=== PATIENT | female | born 1960 | race African-American/Black ===

== ENCOUNTER 2018-07-03 01:13 | Inpatient (IN) | payer MEDICARE, BC ==
[~2018-07-03] VITALS: Ht 170.2 cm; Wt 92.7 kg
[2018-07-03] VITALS (12 sets, daily range): BP systolic 62–120; BP diastolic 27–52; PULSE 74–84; RESP 16–20; Ht 170.2 cm; Wt 92.7 kg
[~2018-07-03 01:13] MED LIST: BACL10TA PO; CLOP75TA19 PO; HYDR-3025 PO; SEVE800T7 PO
[2018-07-03] MEDS ORDERED: morphine 4 MG/ML VIAL IV STA (03:34)
[2018-07-03] MEDS ORDERED: ONDANSETRON 4 MG INJ IV STA (03:34)
--- NOTE | 2018-07-03 05:36 | ERD ---
ER Documentation Chief Complaint Chief Complaint weakness vomiting fell tonight c/o lt knee pain. on dialysis HPI This is a 57-year-old female who complains of generalized weakness he suffered a mechanical fall today. She complains of left knee pain status post mechanical fall. Denies LOC. No fevers no chills. No nausea no vomiting. No other current complaints. ROS All systems reviewed and are negative except as per history of present illness. Medications Home Meds Reported Medications Hydrocodone Bit-Acetaminophen* (Vicodin* ES) 7.5-300 Mg Tablet, 1 TAB PO BID PRN for SEVERE PAIN LEVEL 7-10, TAB 03/12/16 Sevelamer Carbonate* (Renvela*) 800 Mg Tablet, 0.8 GM PO TID, TAB 03/12/16 Baclofen* (Baclofen*) 10 Mg Tablet, 10 MG PO TID, TAB 07/13/15 Clopidogrel Bisulfate (Plavix) 75 Mg Tablet, 75 MG PO DAILY 05/31/11 Allergies Allergies: Coded Allergies: No Known Drug Allergy (Verified Allergy, Unknown, 04/02/16) PMhx/Soc History of Surgery: Yes (av shunt placement, laser eye surgery) Anesthesia Reaction: No Hx Neurological Disorder: Yes (paralysis) Hx Respiratory Disorders: No Hx Cardiac Disorders: Yes (cva,anemia) Hx Psychiatric Problems: No Hx Miscellaneous Medical Probl: Yes (DM, kidney failure, dialysis MWF) Hx Alcohol Use: Yes (occassional) Hx Substance Use: No Hx Tobacco Use: No Smoking Status: Never smoker Physical Exam Vitals Vital Signs Date Temp Pulse Resp B/P (MAP) Pulse Ox O2 O2 Flow FiO2 Time Delivery Rate 07/03/18 61 15 106/55 99 Room Air 03:22 (72) 07/03/18 96.5 57 16 133/66 100 01:18 (88) Physical Exam Const: No acute distress Head: Atraumatic Eyes: Normal Conjunctiva ENT: Normal External Ears, Nose and Mouth. Neck: Full range of motion. No meningismus. Resp: Clear to auscultation bilaterally Cardio: Regular rate and rhythm, no murmurs Abd: Soft, non tender, non distended. Normal bowel sounds Skin: No petechiae or rashes Back: No midline or flank tenderness Ext: No cyanosis, or edema Neur: Awake and alert Psych: Normal Mood and Affect Results 24 hrs Current Medications Medications Dose Sig/Lucinda Start Time Status Last (Trade) Ordered Route PRN Stop Time Admin Dose Reason Admin Morphine 4 mg ONCE STAT 07/03/18 DC Sulfate IV 03:34 07/03/18 (morphine) 03:36 Ondansetron 4 mg ONCE STAT 07/03/18 DC HCl (Zofran IV 03:34 07/03/18 Inj) 03:36 Procedures/MDM X-ray Knee 3V Interpreted by me: Bones: Distal left femoral fracture Joints: [No dislocation] Foreign body: [None] Medical decision makin-year-old mechanical fall distal left femoral fract ure. Patient will be admitted to Dr. Silveira is on-call for the patient. Dr. Gutierres consulted for orthopedics. Departure Diagnosis: Primary Impression: Femoral fracture Encounter type: initial encounter Femur location: unspecified portion of femur Fracture type: closed Fracture morphology: unspecified fracture morphology Laterality: left Qualified Codes: S72.92XA - Unspecified fracture of left femur, initial encounter for closed fracture Condition: Serious CIERRA ROSSI Jul 03, 2018 05:36
[2018-07-03] MEDS ORDERED: ACETAMINOPHEN 325 MG TAB PO PRN (12:00)
[2018-07-03] MEDS ORDERED: HYDROmorphONE 0.5 MG/0.5 ML SYG IV PRN (12:00)
--- NOTE | 2018-07-03 12:48 | HP ---
Date/Time of Note Date/Time of Note DATE: 07/03/18 TIME: 12:41 Assessment/Plan VTE Prophylaxis Pharmacological prophylaxis: heparin Lines/Catheters IV Catheter Type (from [facility] Saline Lock Assessment/Plan Assessment/Plan -Acute comminuted distal left femoral fracture without dislocation. Dr. Gutierres is asked to see patient in orthopedic surgery consultation. -Hemodialysis dependent end-stage renal disease. Patient had her hemodialysis yesterday. Dr. Tucker is asked to see patient in nephrology consultation. -Diabetes mellitus -History of cerebrovascular accident. Continue patient on Plavix. -Anemia of chronic disease. Continue to monitor hemoglobin and hematocrit. Currently stable. -Chronic dislocation of the left shoulder. No acute issues. -Mineral bone disease Further recommendations based on clinical course. Plan of care discussed with Dr. Rousseau. Result Diagram: 07/03/18 0542 07/03/18 0543 Results 24hrs Laboratory Tests Test 07/03/18 05:42 07/03/18 05:43 White Blood Count 11.6 H Red Blood Count 3.00 #L Hemoglobin 9.3 L Hematocrit 27.7 L Mean Corpuscular Volume 92.3 Mean Corpuscular Hemoglobin 31.0 Mean Corpuscular Hemoglobin Concent 33.6 Red Cell Distribution Width 13.6 Platelet Count 267 Mean Platelet Volume 10.2 # Immature Granulocytes % 0.300 Neutrophils % 87.1 H Lymphocytes % 7.4 L Monocytes % 4.8 Eosinophils % 0.2 Basophils % 0.2 Nucleated Red Blood Cells % 0.0 Immature Granulocytes # 0.040 H Neutrophils # 10.1 H Lymphocytes # 0.9 Monocytes # 0.6 Eosinophils # 0.0 Basophils # 0.0 Nucleated Red Blood Cells # 0.0 Sodium Level 141 Potassium Level 5.5 H Chloride Level 103 Carbon Dioxide Level 29 Anion Gap 9 Blood Urea Nitrogen 19 Creatinine 4.74 H Est Glomerular Filtrat Rate mL/min 11 L Glucose Level 178 Calcium Level 9.6 Troponin I 0.032 HPI/ROS Admit Date/Time Admit Date/Time Jul 03, 2018 at 05:32 Hx of Present Illness The patient is 57-year-old female with history of cerebrovascular accident with left-sided weakness, end-stage renal disease, on hemodialysis 3 times per week, anemia, diabetes and chronic dislocation of the left shoulder. Patient is wheelchair-bound. Patient presented to emergency room with complaints of generalized weakness and extreme left knee pain. Patient sustained a mechanical ground-level fall when she was helped to transfer from [facility] to the wheelchair. Patient denies any fever denies she is chills denies nausea vomiting diarrhea. X-ray revealed acute comminuted distal left femoral fracture without dislocation. Patient will be admitted for further evaluation and management. ROS 12 point review of system is negative except for what mentioned in HPI PMH/Family/Social Past Medical History Medical History: diabetes, renal disease, other (CVA) Medications Current Medications Acetaminophen (Tylenol Tab) 650 mg Q4H PRN PO MILD PAIN(1-3)OR ELEVATED TEMP; Start 07/03/18 at 12:00; Status UNV Acetaminophen/ Hydrocodone Bitart ([place] (5/325)) 1 tab Q4H PRN PO MODERATE PAIN LEVEL 4-6; Start 07/03/18 at 12:00; Status UNV Hydromorphone HCl (Dilaudid) 0.5 mg Q4H PRN IV SEVERE PAIN LEVEL 7-10; Start 07/03/18 at 12:00; Status UNV Coded Allergies: No Known Drug Allergy (Unverified Allergy, Unknown, 07/03/18) Past Surgical History Past Surgical Hx: other (av shunt placement, laser eye surgery) Family History Significant Family History: no pertinent family hx Social History Smoking Status: Never smoker Exam/Review of Systems Vital Signs Vitals Vital Signs Date Temp Pulse Resp B/P (MAP) Pulse Ox O2 O2 Flow FiO2 Time Delivery Rate 07/03/18 98.3 75 20 100/51 100 Room Air 09:04 (67) Exam Constitutional: alert, oriented Head: normocephalic Neck: supple Respiratory: clear to auscultation Cardiovascular: nl pulses Gastrointestinal: soft, non-tender Musculoskeletal: other (Left leg pain) Extremities: normal pulses Neurological: other (Left-sided weakness from previous stroke) Skin: nl JESSICA Logan Jul 03, 2018 12:48
--- NOTE | 2018-07-03 14:00 | CONS ---
Date/Time of Note Date/Time of Note DATE: 07/03/18 TIME: 13:58 Assessment/Plan Assessment/Plan Assessment/Plan 57 yo Female with 1) Acute Distal Left Femoral Comminuted Fracture 2) S/p Mechanical Fall 3) ESRD on HD every MWF 4) Anemia, Chronic, CKD 5) MBD, CKD 6) Chronic HTN 7) CAD, Chronic 8) DM with ESRD 9) Hx of CVA with residual left sided deficit 10) Chronic Lower back pain 11) Mild Hyperkalemia S/p HD yesterday Patients pain is controlled, BP ok, Hgb Stable Cont medical management Plan for HD tomorrow, Will cont MWF schedule. Pt is currently NPO while awaiting Ortho Sx IF NO OR, and diet resumed then Low K diet Pt will also need dose of Veltassa or Kayexalate prn for K>5.5. Thank you for the opportunity to participate in the care of Ms Garcia. Result Diagram: 07/03/18 0542 07/03/18 0543 Results 24hrs Laboratory Tests Test 07/03/18 05:42 07/03/18 05:43 White Blood Count 11.6 H Red Blood Count 3.00 #L Hemoglobin 9.3 L Hematocrit 27.7 L Mean Corpuscular Volume 92.3 Mean Corpuscular Hemoglobin 31.0 Mean Corpuscular Hemoglobin Concent 33.6 Red Cell Distribution Width 13.6 Platelet Count 267 Mean Platelet Volume 10.2 # Immature Granulocytes % 0.300 Neutrophils % 87.1 H Lymphocytes % 7.4 L Monocytes % 4.8 Eosinophils % 0.2 Basophils % 0.2 Nucleated Red Blood Cells % 0.0 Immature Granulocytes # 0.040 H Neutrophils # 10.1 H Lymphocytes # 0.9 Monocytes # 0.6 Eosinophils # 0.0 Basophils # 0.0 Nucleated Red Blood Cells # 0.0 Sodium Level 141 Potassium Level 5.5 H Chloride Level 103 Carbon Dioxide Level 29 Anion Gap 9 Blood Urea Nitrogen 19 Creatinine 4.74 H Est Glomerular Filtrat Rate mL/min 11 L Glucose Level 178 Calcium Level 9.6 Troponin I 0.032 Consultation Date/Type/Reason Admit Date/Time Jul 03, 2018 at 05:32 Date of Consultation: Jul 03, 2018 Type of Consult Nephrology Reason for Consultation ESRD, HD Requesting Provider: JESSICA GROVE Hx of Present Illness 57 yo Female with Hx of ESRD on HD every Saturday, Saturday and Saturday, Last HD yesterday at [facility] without complication who presented to ED at [facility] unfortunately had mechanical fall while trying to use bathroom and fell on left side. Pt have severe pain and was found to have left femoral comminuted fracture and admitted for further evaluation and treatment by Orthopedic Sx. Nephrology consulted for ESRD, HD Managment. Constitutional: no complaints; No requiring O2 Respiratory: no complaints Cardiovascular: no complaints Gastrointestinal: no complaints Musculoskeletal: bone/joint pain, restricted range of motion Neurologic: focal-weakness Endocrine: no complaints Lymphatic: no complaints Psychological: no complaints Immunologic: no complaints Past Medical History Medical History: coronary artery disease, diabetes, hypertension, renal disease, other (CVA) Medications Current Medications Acetaminophen (Tylenol Tab) 650 mg Q4H PRN PO MILD PAIN(1-3)OR ELEVATED TEMP; Start 07/03/18 at 12:00 Acetaminophen/ Hydrocodone Bitart ([place] (5/325)) 1 tab Q4H PRN PO MODERATE PAIN LEVEL 4-6; Start 07/03/18 at 12:00 Hydromorphone HCl (Dilaudid) 0.5 mg Q4H PRN IV SEVERE PAIN LEVEL 7-10 Last administered on 07/03/18at 13:16; Admin Dose 0.5 MG; Start 07/03/18 at 12:00 Allergies: Coded Allergies: No Known Drug Allergy (Unverified Allergy, Unknown, 07/03/18) Past Surgical History Past Surgical Hx: other (av shunt placement, laser eye surgery) Family History Significant Family History: no pertinent family hx Social History Alcohol Use: none Smoking Status: Never smoker Drug Use: none Exam/Review of Systems Vital Signs Vitals Vital Signs Date Temp Pulse Resp B/P (MAP) Pulse Ox O2 O2 Flow FiO2 Time Delivery Rate 07/03/18 98.3 75 20 100/51 100 Room Air 09:04 (67) Exam Constitutional: alert, oriented; No distress ENMT: mucosa pink and moist Neck: No jvd Respiratory: clear to auscultation; No labored breathing Cardiovascular: regular rate and rhythm; No edema Gastrointestinal: soft Extremities: No edema Neurological: CHRONIC DISEASE EPIDEMIOLOGIST II-XII intact, nl mental status, nl speech, focal weakness (Left side) Skin: nl turgor; No rash or lesions, No diaphoresis Medications Medications Current Medications Acetaminophen (Tylenol Tab) 650 mg Q4H PRN PO MILD PAIN(1-3)OR ELEVATED TEMP; Start 07/03/18 at 12:00 Acetaminophen/ Hydrocodone Bitart ([place] (5/325)) 1 tab Q4H PRN PO MODERATE PAIN LEVEL 4-6; Start 07/03/18 at 12:00 Hydromorphone HCl (Dilaudid) 0.5 mg Q4H PRN IV SEVERE PAIN LEVEL 7-10 Last administered on 07/03/18at 13:16; Admin Dose 0.5 MG; Start 07/03/18 at 12:00 Imaging Imaging IMPRESSION: 1. Acute comminuted distal left femoral fracture without dislocation. 2. Moderate degenerate joint disease left knee. RPTAT:AAJJ Physician Aure Date Time Electronically viewed and signed by Shona Johnson Physician on 07/03/2018 04:30 SHARON ESPINOZA MD Jul 03, 2018 14:00
[2018-07-03] MEDS ORDERED: ZOLPIDEM 5 MG TAB PO PRN (14:30)
[2018-07-03] MEDS ORDERED: SOD CHLORIDE 0.9% 250 ML IV ONE (17:00)
[2018-07-03] MEDS: FAMOTIDINE 20 MG TAB PO SCH (17:10)
[2018-07-03] MEDS: SEVELAMER CARBONATE 0.8 GM PKT PO SCH (17:10)
[2018-07-03] MEDS ORDERED: morphine 2 MG INJ IV PRN (17:30)
[2018-07-03] MEDS ORDERED: SODIUM CHLORIDE 0.9% 250 ML BAG IV* PRN (17:30)
[2018-07-03] MEDS ORDERED: morphine 4 MG/ML VIAL IV PRN (17:30)
--- NOTE | 2018-07-03 20:57 | CONS ---
DATE OF ADMISSION: 07/03/2018 DATE OF CONSULTATION: 07/03/2018 HISTORY OF PRESENT ILLNESS: The patient is a 57-year-old female who was admitted on 07/03/2018 when she was brought into the emergency room because of the painful swelling involving her left knee. She has a left-sided hemiplegia because of the CVA in 2010 and her mobility has been compromised and she has been wheelchair bound following her ankle injury. She has multiple medical problems including end-stage renal disease on dialysis, diabetes mellitus, a nemia of chronic disease, chronic dislocation of her left shoulder. She claims that she was dropped while her family members who were trying to position her over the dayanara let. PHYSICAL EXAMINATION: My examination revealed a 57-year-old female who was not in any acute distress . Her left lower extremity was immobilized in a long leg posterior splint. There was tenderness and swelling over the supracondylar area of the left lower extremity. Neurologic was not possible becau se of the left-sided hemiplegia from stroke. However, there were no signs of acute circulatory compr omise. X-rays of the left knee revealed a severely comminuted supracondylar fracture of the distal femur of the left knee. DIAGNOSTIC IMPRESSION: Comminuted and displaced supracondylar fracture of the left femur at the left knee. This patient need a surgical treatment, namely ORIF of the supracondylar fracture of the left femur a t the left knee as soon as she can be medically cleared for surgery. Because of the Plavix that she has been taking, we will wait for medical clearance before planning a knee surgery. Dictated By: ADÁN ROJAS/NTS Conf#: [id number] DID#: [id number] CC: GORDON HUDSON MD;*EndCC*
[2018-07-03] MEDS: BACLOFEN 10 MG TAB PO SCH (21:00)
[2018-07-03] MEDS: HEPARIN 5,000 UNIT/1 ML VIAL SC SCH (21:31)
[2018-07-04] VITALS (18 sets, daily range): BP systolic 80–141; BP diastolic 33–72; PULSE 71–85; RESP 18–20
[2018-07-04] MEDS: SEVELAMER CARBONATE 0.8 GM PKT PO SCH ×3 (07:50→17:19)
[2018-07-04] MEDS: BACLOFEN 10 MG TAB PO SCH ×3 (09:00→21:43)
[2018-07-04] MEDS: HEPARIN 5,000 UNIT/1 ML VIAL SC SCH ×2 (09:00→22:13)
[2018-07-04] MEDS: FAMOTIDINE 20 MG TAB PO SCH (09:00)
[2018-07-04] MEDS ORDERED: CLOPIDOGREL 75 MG TAB PO SCH (09:00)
--- NOTE | 2018-07-04 10:19 | CONS ---
Date/Time of Note Date/Time of Note DATE: 07/04/18 TIME: 10:17 Assessment/Plan Assessment/Plan Assessment/Plan 57 yo Female with 1) Acute Distal Left Femoral Comminuted Fracture 2) S/p Mechanical Fall 3) ESRD on HD every MWF 4) Anemia, Chronic, CKD 5) MBD, CKD 6) Chronic HTN 7) CAD, Chronic 8) DM with ESRD 9) Hx of CVA with residual left sided deficit 10) Chronic Lower back pain 11) Hyperkalemia On HD, Stable Hypotension resolved. Cont current treatment PRBC transfusion going Ortho consult reviewed. Awaiting Medical Clearance prior to Knee Surgery. Thank you for the opportunity to participate in the care of Ms Garcia. Result Diagram: 07/04/18 0444 07/04/18 0444 Results 24hrs Laboratory Tests Test 07/03/18 15:54 07/04/18 04:41 07/04/18 04:44 Bedside Glucose 112 Hepatitis B Surface Antigen NEGATIVE White Blood Count 7.4 # Red Blood Count 2.61 L Hemoglobin 8.0 L Hematocrit 24.1 L Mean Corpuscular Volume 92.3 Mean Corpuscular Hemoglobin 30.7 Mean Corpuscular Hemoglobin Concent 33.2 Red Cell Distribution Width 13.5 Platelet Count 251 Mean Platelet Volume 10.4 Immature Granulocytes % 0.300 Neutrophils % 51.1 Lymphocytes % 34.4 Monocytes % 9.6 Eosinophils % 3.9 Basophils % 0.7 Nucleated Red Blood Cells % 0.0 Immature Granulocytes # 0.020 Neutrophils # 3.8 Lymphocytes # 2.5 Monocytes # 0.7 Eosinophils # 0.3 Basophils # 0.1 Nucleated Red Blood Cells # 0.0 Sodium Level 141 Potassium Level 6.0 H Chloride Level 103 Carbon Dioxide Level 29 Anion Gap 9 Blood Urea Nitrogen 32 #H Creatinine 7.10 #H Est Glomerular Filtrat Rate mL/min 7 L Glucose Level 96 # Hemoglobin A1c 5.8 Calcium Level 9.7 Phosphorus Level 6.8 H Magnesium Level 2.3 Consultation Date/Type/Reason Admit Date/Time Jul 03, 2018 at 05:32 Initial Consult Date 07/03/18 Type of Consult Nephrology Requesting Provider: JESSICA GROVE 24 HR Interval Summary Free Text/Dictation Pt seen and examined on HD Receiving PRBC transfusion No new complaints. Constitutional: requiring O2 Exam/Review of Systems Vital Signs Vitals Vital Signs Date Temp Pulse Resp B/P (MAP) Pulse Ox O2 O2 Flow FiO2 Time Delivery Rate 07/04/18 98.2 84 18 101/52 95 07:46 (68) 07/03/18 Room Air 20:20 Exam Constitutional: No distress Head: atraumatic Eyes: EOMI ENMT: mucosa pink and moist Neck: No jvd Respiratory: clear to auscultation Cardiovascular: regular rate and rhythm, edema Gastrointestinal: soft Neurological: ACCOUNT REPRESENTATIVE II-XII intact, nl mental status, focal weakness; No confused, No lethargic Skin: No diaphoresis Medications Medications Current Medications Acetaminophen/ Hydrocodone Bitart ([place] (5/325)) 1 tab Q4H PRN PO MODERATE PAIN LEVEL 4-6; Start 07/03/18 at 12:00 Baclofen (Lioresal) 10 mg TID PO ; Start 07/03/18 at 21:00 Sevelamer Carbonate (Renvela) 0.8 gm WITH MEALS PO Last administered on 07/03/18at 17:10; Admin Dose 0.8 GM; Start 07/03/18 at 17:55 Ondansetron HCl (Zofran Inj) 4 mg Q6H PRN IV NAUSEA AND/OR VOMITING; Start 07/03/18 at 14:30 Acetaminophen (Tylenol Tab) 650 mg Q6H PRN PO PAIN LEVEL 1-3 OR FEVER; Start 07/03/18 at 14:30 Docusate Sodium (Colace) 100 mg Q12H PRN PO CONSTIPATION; Start 07/03/18 at 14:30 Bisacodyl (Dulcolax) 5 mg DAILY PRN PO CONSTIPATION; Start 07/03/18 at 14:30 Zolpidem Tartrate (Ambien) 5 mg QHS PRN PO SLEEP; Start 07/03/18 at 14:30 Famotidine (Pepcid) 20 mg DAILY PO Last administered on 07/03/18at 17:10; Admin Dose 20 MG; Start 07/03/18 at 14:30 Heparin Sodium (Porcine) (Heparin (5000 Units/1ml)) 5,000 unit Q12 SC Last administered on 07/03/18at 21:31; Admin Dose 5,000 UNIT; Start 07/03/18 at 21:00 Sodium Chloride (NS) 250 ml ONCE PRN IV* BP SUPPORT; Start 07/03/18 at 17:30; Stop 07/04/18 at 12:00 Morphine Sulfate (morphine) 2 mg Q4H PRN IV PAIN LEVEL 6-10 Last administered on 07/03/18at 21:36; Admin Dose 2 MG; Start 07/03/18 at 17:30 SHARON ESPINOZA MD Jul 04, 2018 10:19
[2018-07-04] MEDS ORDERED: HEPARIN 1000 UNITS/ML 10 ML INJ CATHETER ONE (11:00)
--- NOTE | 2018-07-04 15:46 | PN ---
Date/Time of Note Date/Time of Note DATE: 07/04/18 TIME: 15:46 Assessment/Plan VTE Prophylaxis Risk score (from [facility])>0 risk: 10 SCD applied (from [facility]): No SCD contraindicated: other Pharmacological prophylaxis: other Pharm contraindication: other Lines/Catheters IV Catheter Type (from [facility]): Saline Lock Assessment/Plan Result Diagram: 07/04/184 07/04/184 Results 24hrs Laboratory Tests Test 07/03/18 15:54 07/04/18 04:41 07/04/18 04:44 Bedside Glucose 112 Hepatitis B Surface Antigen NEGATIVE White Blood Count 7.4 # Red Blood Count 2.61 L Hemoglobin 8.0 L Hematocrit 24.1 L Mean Corpuscular Volume 92.3 Mean Corpuscular Hemoglobin 30.7 Mean Corpuscular Hemoglobin Concent 33.2 Red Cell Distribution Width 13.5 Platelet Count 251 Mean Platelet Volume 10.4 Immature Granulocytes % 0.300 Neutrophils % 51.1 Lymphocytes % 34.4 Monocytes % 9.6 Eosinophils % 3.9 Basophils % 0.7 Nucleated Red Blood Cells % 0.0 Immature Granulocytes # 0.020 Neutrophils # 3.8 Lymphocytes # 2.5 Monocytes # 0.7 Eosinophils # 0.3 Basophils # 0.1 Nucleated Red Blood Cells # 0.0 Sodium Level 141 Potassium Level 6.0 H Chloride Level 103 Carbon Dioxide Level 29 Anion Gap 9 Blood Urea Nitrogen 32 #H Creatinine 7.10 #H Est Glomerular Filtrat Rate mL/min 7 L Glucose Level 96 # Hemoglobin A1c 5.8 Calcium Level 9.7 Phosphorus Level 6.8 H Magnesium Level 2.3 Exam/Review of Systems Vital Signs Vitals Vital Signs Date Temp Pulse Resp B/P (MAP) Pulse Ox O2 O2 Flow FiO2 Time Delivery Rate 07/04/18 72 12:10 07/04/18 20 118/72 Room Air 10:54 (87) 07/04/18 98.2 95 07:46 Medications Medications Current Medications Acetaminophen/ Hydrocodone Bitart ([place] (5/325)) 1 tab Q4H PRN PO MODERATE PAIN LEVEL 4-6; Start 07/03/18 at 12:00 Baclofen (Lioresal) 10 mg TID PO Last administered on 07/04/18at 14:42; Admin Dose 10 MG; Start 07/03/18 at 21:00 Sevelamer Carbonate (Renvela) 0.8 gm WITH MEALS PO Last administered on 07/04/18at 14:42; Admin Dose 0.8 GM; Start 07/03/18 at 17:55 Ondansetron HCl (Zofran Inj) 4 mg Q6H PRN IV NAUSEA AND/OR VOMITING; Start 07/03/18 at 14:30 Acetaminophen (Tylenol Tab) 650 mg Q6H PRN PO PAIN LEVEL 1-3 OR FEVER; Start 07/03/18 at 14:30 Docusate Sodium (Colace) 100 mg Q12H PRN PO CONSTIPATION; Start 07/03/18 at 14:30 Bisacodyl (Dulcolax) 5 mg DAILY PRN PO CONSTIPATION; Start 07/03/18 at 14:30 Zolpidem Tartrate (Ambien) 5 mg QHS PRN PO SLEEP; Start 07/03/18 at 14:30 Famotidine (Pepcid) 20 mg DAILY PO Last administered on 07/03/18at 17:10; Admin Dose 20 MG; Start 07/03/18 at 14:30 Heparin Sodium (Porcine) (Heparin (5000 Units/1ml)) 5,000 unit Q12 SC Last ad ministered on 07/03/18at 21:31; Admin Dose 5,000 UNIT; Start 07/03/18 at 21:00 Morphine Sulfate (morphine) 2 mg Q4H PRN IV PAIN LEVEL 6-10 Last administered on 07/03/18at 21:36; Admin Dose 2 MG; Start 07/03/18 at 17:30 ELIO KIRAN Jul 04, 2018 15:46
[2018-07-04] MEDS: HYDROCODONE/APAP (5/325) TAB PO PRN ×2 (17:33→21:44)
[2018-07-05 02:02] VITALS: BP 108/58; PULSE 78; RESP 18
--- NOTE | 2018-07-05 06:59 | CONS ---
Date/Time of Note Date/Time of Note DATE: 07/05/18 TIME: 06:56 Assessment/Plan Assessment/Plan Assessment/Plan 57 yo Female with 1) Acute Distal Left Femoral Comminuted Fracture 2) S/p Mechanical Fall 3) ESRD on HD every MWF 4) Anemia, Chronic, CKD 5) MBD, CKD 6) Chronic HTN 7) CAD, Chronic 8) DM with ESRD 9) Hx of CVA with residual left sided deficit 10) Chronic Lower back pain 11) Hyperkalemia S/p HD 1 Liter removed Received PRBC No labs this am, Ordered CBC and BMP Ortho consult reviewed. Awaiting Medical Clearance prior to Knee Surgery. Thank you for the opportunity to participate in the care of Ms Garcia. Result Diagram: 07/04/18 0444 07/04/184 Consultation Date/Type/Reason Admit Date/Time Jul 03, 2018 at 05:32 Initial Consult Date 07/03/18 Type of Consult Nephrology Requesting Provider: JESSICA GROVE 24 HR Interval Summary Free Text/Dictation Pt does not have any new complaints, No plans for OR today Constitutional: No requiring O2 Exam/Review of Systems Vital Signs Vitals Vital Signs Date Temp Pulse Resp B/P (MAP) Pulse Ox O2 O2 Flow FiO2 Time Delivery Rate 07/05/18 98.6 78 18 108/58 95 02:02 (75) 07/04/18 Room Air 10:54 Intake and Output 07/04/18 07/04/18 07/05/18 1414:59 22:59 06:59 OutputOutput Total 3600 ml BalanceBalance -3600 ml Exam Constitutional: No distress Head: atraumatic Eyes: EOMI Neck: No jvd Respiratory: clear to auscultation Cardiovascular: regular rate and rhythm; No edema Gastrointestinal: soft; No distended Neurological: CHISELER HEAD II-XII intact, nl mental status, focal weakness (Left side) Skin: No diaphoresis Medications Medications Current Medications Acetaminophen/ Hydrocodone Bitart ([place] (5/325)) 1 tab Q4H PRN PO MODERATE PAIN LEVEL 4-6 Last administered on 07/04/18at 21:44; Admin Dose 1 TAB; Start 07/03/18 at 12:00 Baclofen (Lioresal) 10 mg TID PO Last administered on 07/04/18at 21:43; Admin Dose 10 MG; Start 07/03/18 at 21:00 Sevelamer Carbonate (Renvela) 0.8 gm WITH MEALS PO Last administered on 07/04/18at 17:19; Admin Dose 0.8 GM; Start 07/03/18 at 17:55 Ondansetron HCl (Zofran Inj) 4 mg Q6H PRN IV NAUSEA AND/OR VOMITING; Start 07/03/18 at 14:30 Acetaminophen (Tylenol Tab) 650 mg Q6H PRN PO PAIN LEVEL 1-3 OR FEVER; Start 07/03/18 at 14:30 Docusate Sodium (Colace) 100 mg Q12H PRN PO CONSTIPATION; Start 07/03/18 at 14:30 Bisacodyl (Dulcolax) 5 mg DAILY PRN PO CONSTIPATION; Start 07/03/18 at 14:30 Zolpidem Tartrate (Ambien) 5 mg QHS PRN PO SLEEP; Start 07/03/18 at 14:30 Famotidine (Pepcid) 20 mg DAILY PO Last administered on 07/03/18at 17:10; Admin Dose 20 MG; Start 07/03/18 at 14:30 Heparin Sodium (Porcine) (Heparin (5000 Units/1ml)) 5,000 unit Q12 SC Last administered on 07/04/18at 22:13; Admin Dose 5,000 UNIT; Start 07/03/18 at 21:00 Morphine Sulfate (morphine) 2 mg Q4H PRN IV PAIN LEVEL 6-10 Last administered on 07/03/18at 21:36; Admin Dose 2 MG; Start 07/03/18 at 17:30 SHARON ESPINOZA MD Jul 05, 2018 06:59
[2018-07-05 07:51] VITALS: BP 124/55; PULSE 76; RESP 17
[2018-07-05] MEDS: BACLOFEN 10 MG TAB PO SCH ×3 (09:12→20:43)
[2018-07-05] MEDS: SEVELAMER CARBONATE 0.8 GM PKT PO SCH ×3 (09:12→17:55)
[2018-07-05] MEDS: FAMOTIDINE 20 MG TAB PO SCH (09:12)
[2018-07-05] MEDS: HYDROCODONE/APAP (5/325) TAB PO PRN ×2 (09:32→15:13)
[2018-07-05] MEDS: DOCUSATE SODIUM 100 MG CAP PO PRN (09:32)
[2018-07-05] MEDS: HEPARIN 5,000 UNIT/1 ML VIAL SC SCH ×2 (09:34→20:51)
[2018-07-05 14:00] VITALS: BP 120/54; PULSE 67; RESP 19
--- NOTE | 2018-07-05 15:35 | PN ---
Date/Time of Note Date/Time of Note DATE: 07/05/18 TIME: 15:35 Assessment/Plan VTE Prophylaxis [place] [facility] [place]: 10 [place]CD applied [place] [facility] No SCD contraindicated: other Pharmacological prophylaxis: other Pharm contraindication: other Lines/Catheters IV [facility] Type (from [facility] Saline Lock Assessment/Plan Assessment/Plan - Acute comminuted distal left femoral fracture without dislocation. Dr. Gutierres is asked to see patient in orthopedic surgery consultation. -Hemodialysis dependent end-stage renal disease. Patient had her hemodialysis yesterday. Dr. Tucker. is asked to see patient in nephrology consultation. -Diabetes mellitus -History of cerebrovascular accident. Continue patient on Plavix. -Anemia of chronic disease. Continue to monitor hemoglobin and hematocrit. Currently stable. -Chronic dislocation of the left shoulder. No acute issues. -Mineral bone disease Further recommendations based on clinical course. Plan of care discussed with Dr. Rousseau. Result Diagram: 07/05/18 0726 07/05/18 0726 Results 24hrs Laboratory Tests Test 07/05/18 07:26 07/05/18 07:39 White Blood Count 7.7 Red Blood Count 3.50 #L Hemoglobin 10.4 #L Hematocrit 32.1 #L Mean Corpuscular Volume 91.7 Mean Corpuscular Hemoglobin 29.7 Mean Corpuscular Hemoglobin Concent 32.4 Red Cell Distribution Width 13.6 Platelet Count 141 # Mean Platelet Volume 11.4 H Immature Granulocytes % 0.400 Neutrophils % 49.8 Lymphocytes % 35.5 Monocytes % 10.1 Eosinophils % 3.6 Basophils % 0.6 Nucleated Red Blood Cells % 0.0 Immature Granulocytes # 0.030 Neutrophils # 3.8 Lymphocytes # 2.7 Monocytes # 0.8 Eosinophils # 0.3 Basophils # 0.1 Nucleated Red Blood Cells # 0.0 Sodium Level 141 Potassium Level 5.2 H Chloride Level 100 Carbon Dioxide Level 28 Anion Gap 13 Blood Urea Nitrogen 28 H Creatinine 6.66 H Est Glomerular Filtrat Rate mL/min 8 L Glucose Level 74 Calcium Level 9.9 Lab Scanned Report BLOOD TRANSFUSION Exam/Review of Systems Vital Signs Vitals Vital Signs Date Temp Pulse Resp B/P (MAP) Pulse Ox O2 O2 Flow FiO2 Time Delivery Rate 07/05/18 98.3 76 17 124/55 94 07:51 (78) 07/04/18 Room Air 10:54 Intake and Output 07/04/18 07/04/18 07/05/18 1515:00 23:00 07:00 OutputOutput Total 3600 ml BalanceBalance -3600 ml Medications Medications Current Medications Acetaminophen/ Hydrocodone Bitart ([place] (5/325)) 1 tab Q4H PRN PO MODERATE PAIN LEVEL 4-6 Last administered on 07/05/18 15:13; Admin Dose 1 TAB; Start 07/03/18 at 12:00 Baclofen (Lioresal) 10 mg TID PO Last administered on 07/05/18 14:00; Admin Dose 10 MG; Start 07/03/18 at 21:00 Sevelamer Carbonate (Renvela) 0.8 gm WITH MEALS PO Last administered on 07/05/18 14:00; Admin Dose 0.8 GM; Start 07/03/18 at 17:55 Ondansetron HCl (Zofran Inj) 4 mg Q6H PRN IV NAUSEA AND/OR VOMITING; Start 07/03/18 at 14:30 Acetaminophen (Tylenol Tab) 650 mg Q6H PRN PO PAIN LEVEL 1-3 OR FEVER; Start 07/03/18 at 14:30 Docusate Sodium (Colace) 100 mg Q12H PRN PO CONSTIPATION Last administered on 07/05/18 09:32; Admin Dose 100 MG; Start 07/03/18 at 14:30 Bisacodyl (Dulcolax) 5 mg DAILY PRN PO CONSTIPATION; Start 07/03/18 at 14:30 Zolpidem Tartrate (Ambien) 5 mg QHS PRN PO SLEEP; Start 07/03/18 at 14:30 Famotidine (Pepcid) 20 mg DAILY PO Last administered on 07/05/18 09:12; Admin Dose 20 MG; Start 07/03/18 at 14:30 Heparin Sodium (Porcine) (Heparin (5000 Units/1ml)) 5,000 unit Q12 SC Last administered on 07/05/18 09:34; Admin Dose 5,000 UNIT; Start 07/03/18 at 21:00 Morphine Sulfate (morphine) 2 mg Q4H PRN IV PAIN LEVEL 6-10 Last administered on 07/03/18 21:36; Admin Dose 2 MG; Start 1/3/19 at 17:30 ELIO KIRAN Jul 05, 2018 15:35
[2018-07-06 01:33] VITALS: BP 125/62; PULSE 63; RESP 18
[2018-07-06] MEDS: ONDANSETRON 4 MG INJ IV PRN ×2 (07:43→21:01)
[2018-07-06 08:00] VITALS: BP 120/55; PULSE 68; RESP 16
[2018-07-06] MEDS: SEVELAMER CARBONATE 0.8 GM PKT PO SCH ×3 (08:49→17:32)
[2018-07-06] MEDS: BACLOFEN 10 MG TAB PO SCH ×3 (08:49→20:59)
[2018-07-06] MEDS: FAMOTIDINE 20 MG TAB PO SCH (08:49)
[2018-07-06] MEDS: HEPARIN 5,000 UNIT/1 ML VIAL SC SCH ×2 (08:56→20:59)
[2018-07-06] MEDS: ACETAMINOPHEN 325 MG TAB PO PRN (12:10)
[2018-07-06] MEDS: HYDROCODONE/APAP (5/325) TAB PO PRN (13:15)
[2018-07-06] MEDS ORDERED: KETOROLAC 15 MG INJ IV STA (13:55)
[2018-07-06] MEDS ORDERED: HYDROCODONE/APAP (7.5/325) TAB PO PRN (14:00)
[2018-07-06 14:19] VITALS: BP 109/64; PULSE 62; RESP 18
--- NOTE | 2018-07-06 14:43 | PN ---
Date/Time of Note Date/Time of Note DATE: 07/06/18 TIME: 14:40 Assessment/Plan VTE Prophylaxis Risk score (from [facility])>0 risk: 10 SCD applied (from [facility] [place]): Yes SCD contraindicated: other Pharmacological prophylaxis: other Pharm contraindication: other Lines/Catheters IV Catheter Type (from [facility]): Saline Lock Assessment/Plan Assessment/Plan - Acute comminuted distal left femoral fracture without dislocation. - per ortho - Dr. Gutierres -Hemodialysis dependent end-stage renal disease. Patient had her hemodialysis yesterday. Dr. Tucker. is asked to see patient in nephrology consultation. -Diabetes mellitus -History of cerebrovascular accident. Continue patient on Plavix. -Anemia of chronic disease. Continue to monitor hemoglobin and hematocrit. Currently stable. -Chronic dislocation of the left shoulder. No acute issues. -Mineral bone disease Further recommendations based on clinical course. Plan of care discussed with Dr. Rousseau. Result Diagram: 07/05/1872507/05/18725 Exam/Review of Systems Vital Signs Vitals Vital Signs Date Temp Pulse Resp B/P (MAP) Pulse Ox O2 O2 Flow FiO2 Time Delivery Rate 07/06/18 97.8 62 18 109/64 97 14:19 (79) 07/04/18 Room Air 10:54 Intake and Output 07/05/18 07/05/18 07/06/18 1515:00 23:00 07:00 IntakeIntake Total 60 ml 400 ml BalanceBalance 60 ml 400 ml Medications Medications Current Medications Baclofen (Lioresal) 10 mg TID PO Last administered on 07/06/18at 08:49; Admin Dose 10 MG; Start 07/03/18 at 21:00 Sevelamer Carbonate (Renvela) 0.8 gm WITH MEALS PO Last administered on 07/06/18at 08:49; Admin Dose 0.8 GM; Start 07/03/18 at 17:55 Ondansetron HCl (Zofran Inj) 4 mg Q6H PRN IV NAUSEA AND/OR VOMITING Last administered on 07/06/18at 07:43; Admin Dose 4 MG; Start 07/03/18 at 14:30 Acetaminophen (Tylenol Tab) 650 mg Q6H PRN PO PAIN LEVEL 1-3 OR FEVER Last administered on 07/06/18at 12:10; Admin Dose 650 MG; Start 07/03/18 at 14:30 Docusate Sodium (Colace) 100 mg Q12H PRN PO CONSTIPATION Last administered on 07/05/18at 09:32; Admin Dose 100 MG; Start 07/03/18 at 14:30 Bisacodyl (Dulcolax) 5 mg DAILY PRN PO CONSTIPATION; Start 07/03/18 at 14:30 Zolpidem Tartrate (Ambien) 5 mg QHS PRN PO SLEEP; Start 07/03/18 at 14:30 Famotidine (Pepcid) 20 mg DAILY PO Last administered on 07/06/18at 08:49; Admin Dose 20 MG; Start 07/03/18 at 14:30 Heparin Sodium (Porcine) (Heparin (5000 Units/1ml)) 5,000 unit Q12 SC Last administered on 07/06/18at 08:56; Admin Dose 5,000 UNIT; Start 07/03/18 at 21:00 Morphine Sulfate (morphine) 2 mg Q4H PRN IV PAIN LEVEL 6-10 Last administered on 07/03/18at 21:36; Admin Dose 2 MG; Start 07/03/18 at 17:30 Acetaminophen/ Hydrocodone Bitart ([place] (7.5-325)) 1 tab Q4H PRN PO MODERATE PAIN LEVEL 4-6; Start 07/06/18 at 14:00 ELIO KIRAN Jul 06, 2018 14:43
[2018-07-06 17:52] VITALS: BP 105/52; PULSE 65; RESP 18
--- NOTE | 2018-07-06 18:58 | CONS ---
Date/Time of Note Date/Time of Note DATE: 07/06/18 TIME: 18:57 Assessment/Plan Assessment/Plan Assessment/Plan 57 yo Female with 1) Acute Distal Left Femoral Comminuted Fracture 2) S/p Mechanical Fall 3) ESRD on HD every MWF 4) Anemia, Chronic, CKD 5) MBD, CKD 6) Chronic HTN 7) CAD, Chronic 8) DM with ESRD 9) Hx of CVA with residual left sided deficit 10) Chronic Lower back pain 11) Hyperkalemia Anti emetic Rx HD plan for tomorrow HD MWF schedule Repeat labs in am. Result Diagram: 07/06/18 1551 07/06/18 1550 Results 24hrs Laboratory Tests Test 07/06/18 15:50 07/06/18 15:51 07/06/18 17:57 Sodium Level 139 Potassium Level 5.5 H Chloride Level 99 Carbon Dioxide Level 28 Anion Gap 12 Blood Urea Nitrogen 51 H Creatinine 9.48 #H Est Glomerular Filtrat Rate mL/min 5 L Glucose Level 140 # Calcium Level 9.6 White Blood Count 8.3 Red Blood Count 3.40 L Hemoglobin 10.2 L Hematocrit 31.6 L Mean Corpuscular Volume 92.9 Mean Corpuscular Hemoglobin 30.0 Mean Corpuscular Hemoglobin Concent 32.3 Red Cell Distribution Width 13.5 Platelet Count 273 # Mean Platelet Volume 10.0 Immature Granulocytes % 0.400 Neutrophils % 57.6 Lymphocytes % 28.4 Monocytes % 10.0 Eosinophils % 3.4 Basophils % 0.2 Nucleated Red Blood Cells % 0.0 Immature Granulocytes # 0.030 Neutrophils # 4.8 Lymphocytes # 2.4 Monocytes # 0.8 Eosinophils # 0.3 Basophils # 0.0 Nucleated Red Blood Cells # 0.0 Bedside Glucose 139 Consultation Date/Type/Reason Admit Date/Time Jul 03, 2018 at 05:32 Initial Consult Date 07/03/18 Type of Consult Nephrology Requesting Provider: JESSICA GROVE 24 HR Interval Summary Free Text/Dictation Vomiting Constitutional: No requiring O2 Exam/Review of Systems Vital Signs Vitals Vital Signs Date Temp Pulse Resp B/P (MAP) Pulse Ox O2 O2 Flow FiO2 Time Delivery Rate 07/06/18 65 18 105/52 99 Room Air 17:52 (69) 07/06/18 97.8 14:19 Intake and Output 07/05/18 07/05/18 07/06/18 1515:00 23:00 07:00 IntakeIntake Total 60 ml 400 ml BalanceBalance 60 ml 400 ml Exam Constitutional: distress ENMT: mucosa pink and moist Respiratory: No labored breathing Gastrointestinal: soft Extremities: No edema Neurological: focal weakness (Chronic left side) Medications Medications Current Medications Baclofen (Lioresal) 10 mg TID PO Last administered on 07/06/18 08:49; Admin Dose 10 MG; Start 07/03/18 at 21:00 Sevelamer Carbonate (Renvela) 0.8 gm WITH MEALS PO Last administered on 07/06/18 08:49; Admin Dose 0.8 GM; Start 07/03/18 at 17:55 Ondansetron HCl (Zofran Inj) 4 mg Q6H PRN IV NAUSEA AND/OR VOMITING Last adm inistered on 07/06/18 07:43; Admin Dose 4 MG; Start 07/03/18 at 14:30 Acetaminophen (Tylenol Tab) 650 mg Q6H PRN PO PAIN LEVEL 1-3 OR FEVER Last administered on 07/06/18 12:10; Admin Dose 650 MG; Start 07/03/18 at 14:30 Docusate Sodium (Colace) 100 mg Q12H PRN PO CONSTIPATION Last administered on 07/05/18 09:32; Admin Dose 100 MG; Start 07/03/18 at 14:30 Bisacodyl (Dulcolax) 5 mg DAILY PRN PO CONSTIPATION; Start 07/03/18 at 14:30 Zolpidem Tartrate (Ambien) 5 mg QHS PRN PO SLEEP; Start 07/03/18 at 14:30 Famotidine (Pepcid) 20 mg DAILY PO Last administered on 07/06/18 08:49; Admin Dose 20 MG; Start 07/03/18 at 14:30 Heparin Sodium (Porcine) (Heparin (5000 Units/1ml)) 5,000 unit Q12 SC Last ad ministered on 07/06/18 08:56; Admin Dose 5,000 UNIT; Start 07/03/18 at 21:00 Morphine Sulfate (morphine) 2 mg Q4H PRN IV PAIN LEVEL 6-10 Last administered on 07/03/18 21:36; Admin Dose 2 MG; Start 07/03/18 at 17:30 Acetaminophen/ Hydrocodone Bitart ([place] (7.5-325)) 1 tab Q4H PRN PO MODERATE PAIN LEVEL 4-6; Start 07/06/18 at 14:00 SHARON ESPINOZA MD Jul 06, 2018 18:58
[2018-07-06 20:27] VITALS: BP 107/53; PULSE 60; RESP 18
[2018-07-07] VITALS (18 sets, daily range): BP systolic 108–156; BP diastolic 46–89; PULSE 53–90; RESP 17–18
[2018-07-07] MEDS: ACETAMINOPHEN 325 MG TAB PO PRN ×2 (06:43→23:57)
[2018-07-07] MEDS: SEVELAMER CARBONATE 0.8 GM PKT PO SCH ×3 (07:50→17:55)
[2018-07-07] MEDS ORDERED: KETOROLAC 15 MG INJ IV PRN (08:00)
[2018-07-07] MEDS: BACLOFEN 10 MG TAB PO SCH ×3 (09:00→21:35)
[2018-07-07] MEDS: HEPARIN 5,000 UNIT/1 ML VIAL SC SCH (09:00)
[2018-07-07] MEDS: FAMOTIDINE 20 MG TAB PO SCH (09:00)
--- NOTE | 2018-07-07 12:06 | CONS ---
Date/Time of Note Date/Time of Note DATE: 07/07/18 TIME: 12:06 Assessment/Plan Assessment/Plan Assessment/Plan 57 yo Female with 1) Acute Distal Left Femoral Comminuted Fracture 2) S/p Mechanical Fall 3) ESRD on HD every MWF 4) Anemia, Chronic, CKD 5) MBD, CKD 6) Chronic HTN 7) CAD, Chronic 8) DM with ESRD 9) Hx of CVA with residual left sided deficit 10) Chronic Lower back pain 11) Hyperkalemia Anti emetic Rx HD plan for today prior to OR HD MWF schedule Repeat labs in am. Result Diagram: 07/07/18 0833 07/07/18 0833 Results 24hrs Laboratory Tests Test 07/06/18 15:50 07/06/18 15:51 07/06/18 17:57 07/07/18 08:33 Sodium Level 139 140 Potassium Level 5.5 H 5.6 H Chloride Level 99 99 Carbon Dioxide Level 28 27 Anion Gap 12 14 H Blood Urea Nitrogen 51 H 56 H Creatinine 9.48 #H 10.65 H Est Glomerular Filtrat 5 L 4 L Rate mL/min Glucose Level 140 # 113 Calcium Level 9.6 10.4 H White Blood Count 8.3 8.6 Red Blood Count 3.40 L 3.60 L Hemoglobin 10.2 L 10.7 L Hematocrit 31.6 L 33.2 L Mean Corpuscular Volume 92.9 92.2 Mean Corpuscular 30.0 29.7 Hemoglobin Mean Corpuscular 32.3 32.2 Hemoglobin Concent Red Cell Distribution 13.5 13.4 Width Platelet Count 273 # 312 Mean Platelet Volume 10.0 9.6 Immature Granulocytes % 0.400 0.300 Neutrophils % 57.6 62.3 Lymphocytes % 28.4 24.4 Monocytes % 10.0 9.7 Eosinophils % 3.4 3.0 Basophils % 0.2 0.3 Nucleated Red Blood 0.0 0.0 Cells % Immature Granulocytes # 0.030 0.030 Neutrophils # 4.8 5.3 Lymphocytes # 2.4 2.1 Monocytes # 0.8 0.8 Eosinophils # 0.3 0.3 Basophils # 0.0 0.0 Nucleated Red Blood 0.0 0.0 Cells # Bedside Glucose 139 Consultation Date/Type/Reason Admit Date/Time Jul 03, 2018 at 05:32 Initial Consult Date 07/03/18 Type of Consult Nephrology Requesting Provider: JESSICA GROVE 24 HR Interval Summary Free Text/Dictation Pt pending HD today. Plan for OR later today Exam/Review of Systems Vital Signs Vitals Vital Signs Date Temp Pulse Resp B/P (MAP) Pulse Ox O2 O2 Flow FiO2 Time Delivery Rate 07/07/18 97.9 53 18 143/65 100 Room Air 07:25 (91) Intake and Output 07/06/18 07/06/18 07/07/18 1515:00 23:00 07:00 IntakeIntake Total 410 ml OutputOutput Total 200 ml BalanceBalance 210 ml Exam Constitutional: No distress ENMT: mucosa pink and moist Neck: No jvd Respiratory: clear to auscultation; No labored breathing Cardiovascular: regular rate and rhythm, edema Gastrointestinal: soft, non-tender Extremities: edema, tenderness Neurological: No lethargic Lymph: No enlarged Medications Medications Current Medications Baclofen (Lioresal) 10 mg TID PO Last administered on 07/06/18at 20:59; Admin Dose 10 MG; Start 07/03/18 at 21:00 Sevelamer Carbonate (Renvela) 0.8 gm WITH MEALS PO Last administered on 07/06/18at 08:49; Admin Dose 0.8 GM; Start 07/03/18 at 17:55 Ondansetron HCl (Zofran Inj) 4 mg Q6H PRN IV NAUSEA AND/OR VOMITING Last administered on 07/06/18at 21:01; Admin Dose 4 MG; Start 07/03/18 at 14:30 Acetaminophen (Tylenol Tab) 650 mg Q6H PRN PO PAIN LEVEL 1-3 OR FEVER Last administered on 07/07/18at 06:43; Admin Dose 650 MG; Start 07/03/18 at 14:30 Docusate Sodium (Colace) 100 mg Q12H PRN PO CONSTIPATION Last administered on 07/05/18at 09:32; Admin Dose 100 MG; Start 07/03/18 at 14:30 Bisacodyl (Dulcolax) 5 mg DAILY PRN PO CONSTIPATION; Start 07/03/18 at 14:30 Zolpidem Tartrate (Ambien) 5 mg QHS PRN PO SLEEP; Start 07/03/18 at 14:30 Famotidine (Pepcid) 20 mg DAILY PO Last administered on 07/06/18at 08:49; Admin Dose 20 MG; Start 07/03/18 at 14:30 Heparin Sodium (Porcine) (Heparin (5000 Units/1ml)) 5,000 unit Q12 SC Last administered on 07/06/18at 20:59; Admin Dose 5,000 UNIT; Start 07/03/18 at 21:00 Morphine Sulfate (morphine) 2 mg Q4H PRN IV PAIN LEVEL 6-10 Last administered on 07/03/18at 21:36; Admin Dose 2 MG; Start 07/03/18 at 17:30; Status Hold Acetaminophen/ Hydrocodone Bitart ([place] (7.5-325)) 1 tab Q4H PRN PO MODERATE PAIN LEVEL 4-6; Start 07/06/18 at 14:00; Status Hold Ketorolac Tromethamine (Toradol) 15 mg Q6H PRN IV PAIN; Start 07/07/18 at 08:00; Stop 07/10/18 at 07:59 SHARON ESPINOZA MD Jul 07, 2018 12:06
--- NOTE | 2018-07-07 16:34 | PN ---
Date/Time of Note Date/Time of Note DATE: 07/07/18 TIME: 16:31 Assessment/Plan VTE Prophylaxis Risk score (from [facility] [place])>0 risk: 7 SCD applied (from [facility] [place]): Yes Pharmacological prophylaxis: NA/contraindicated Pharm contraindication: surgical contra Lines/Catheters [facility] (from [facility] Saline Lock Assessment/Plan Hospital Course Plavix is held. Patient will undergo ORIF of the supracondylar fracture of the left femur at the left knee today. Assessment/Plan -Acute comminuted distal left femoral fracture without dislocation. Dr. Gutierres is following in orthopedic surgery consultation. -Hemodialysis dependent end-stage renal disease. Continue on hemodialysis. Dr. Tucker is following in nephrology consultation. -Diabetes mellitus -History of cerebrovascular accident. -Anemia of chronic disease. Continue to monitor hemoglobin and hematocrit. Currently stable. -Chronic dislocation of the left shoulder. No acute issues. -Mineral bone disease Further recommendations based on clinical course. Plan of care discussed with Dr. Rousseau. Result Diagram: 07/07/18 0833 07/07/18 0833 Results 24hrs Laboratory Tests Test 07/06/18 17:57 07/07/18 08:33 Bedside Glucose 139 White Blood Count 8.6 Red Blood Count 3.60 L Hemoglobin 10.7 L Hematocrit 33.2 L Mean Corpuscular Volume 92.2 Mean Corpuscular Hemoglobin 29.7 Mean Corpuscular Hemoglobin Concent 32.2 Red Cell Distribution Width 13.4 Platelet Count 312 Mean Platelet Volume 9.6 Immature Granulocytes % 0.300 Neutrophils % 62.3 Lymphocytes % 24.4 Monocytes % 9.7 Eosinophils % 3.0 Basophils % 0.3 Nucleated Red Blood Cells % 0.0 Immature Granulocytes # 0.030 Neutrophils # 5.3 Lymphocytes # 2.1 Monocytes # 0.8 Eosinophils # 0.3 Basophils # 0.0 Nucleated Red Blood Cells # 0.0 Sodium Level 140 Potassium Level 5.6 H Chloride Level 99 Carbon Dioxide Level 27 Anion Gap 14 H Blood Urea Nitrogen 56 H Creatinine 10.65 H Est Glomerular Filtrat Rate mL/min 4 L Glucose Level 113 Calcium Level 10.4 H Exam/Review of Systems Vital Signs Vitals Vital Signs Date Temp Pulse Resp B/P (MAP) Pulse Ox O2 O2 Flow FiO2 Time Delivery Rate 07/07/18 98.2 67 18 109/89 97 15:06 (96) 07/07/18 Room Air 07:25 Intake and Output 07/06/18 07/06/18 07/07/18 1515:00 23:00 07:00 IntakeIntake Total 410 ml OutputOutput Total 200 ml BalanceBalance 210 ml Exam Constitutional: alert, oriented Respiratory: clear to auscultation Cardiovascular: nl pulses Gastrointestinal: soft, non-tender Musculoskeletal: other (Left leg pain) Extremities: normal pulses Neurological: other (Left-sided weakness from previous stroke) Skin: nl turgor Medications Medications Current Medications Baclofen (Lioresal) 10 mg TID PO Last administered on 07/06/18 20:59; Admin Dose 10 MG; Start 07/03/18 at 21:00 Sevelamer Carbonate (Renvela) 0.8 gm WITH MEALS PO Last administered on 07/06/18 08:49; Admin Dose 0.8 GM; Start 07/03/18 at 17:55 Ondansetron HCl (Zofran Inj) 4 mg Q6H PRN IV NAUSEA AND/OR VOMITING Last administered on 07/06/18 21:01; Admin Dose 4 MG; Start 07/03/18 at 14:30 Acetaminophen (Tylenol Tab) 650 mg Q6H PRN PO PAIN LEVEL 1-3 OR FEVER Last administered on 07/07/18 06:43; Admin Dose 650 MG; Start 07/03/18 at 14:30 Docusate Sodium (Colace) 100 mg Q12H PRN PO CONSTIPATION Last administered on 07/05/18 09:32; Admin Dose 100 MG; Start 07/03/18 at 14:30 Bisacodyl (Dulcolax) 5 mg DAILY PRN PO CONSTIPATION; Start 07/03/18 at 14:30 Zolpidem Tartrate (Ambien) 5 mg QHS PRN PO SLEEP; Start 07/03/18 at 14:30 Famotidine (Pepcid) 20 mg DAILY PO Last administered on 07/06/18 08:49; Admin Dose 20 MG; Start 07/03/18 at 14:30 Heparin Sodium (Porcine) (Heparin (5000 Units/1ml)) 5,000 unit Q12 SC Last administered on 07/06/18 20:59; Admin Dose 5,000 UNIT; Start 07/03/18 at 21:00 Morphine Sulfate (morphine) 2 mg Q4H PRN IV PAIN LEVEL 6-10 Last administered on 07/03/18at 21:36; Admin Dose 2 MG; Start 07/03/18 at 17:30; Status Hold Acetaminophen/ Hydrocodone Bitart ([place] (7.5-325)) 1 tab Q4H PRN PO MODERATE PAIN LEVEL 4-6; Start 07/06/18 at 14:00; Status Hold Ketorolac Tromethamine (Toradol) 15 mg Q6H PRN IV PAIN; Start 07/07/18 at 08:00; Stop 07/10/18 at 07:59 JESSICA GROVE Jul 07, 2018 16:34
[2018-07-07] MEDS: ONDANSETRON 4 MG INJ IV PRN ×2 (16:54→23:57)
[2018-07-07] MEDS ORDERED: HEPARIN 1000 UNITS/ML 10 ML INJ CATHETER ONE (17:30)
[2018-07-08 01:24] VITALS: BP 114/55; PULSE 74; RESP 18
[2018-07-08 07:26] VITALS: BP 144/67; PULSE 69; RESP 18
[2018-07-08] MEDS: SEVELAMER CARBONATE 0.8 GM PKT PO SCH ×3 (07:50→19:28)
[2018-07-08] MEDS: ONDANSETRON 4 MG INJ IV PRN (08:00)
[2018-07-08] MEDS: HEPARIN 5,000 UNIT/1 ML VIAL SC SCH (08:00)
[2018-07-08] MEDS: FAMOTIDINE 20 MG TAB PO SCH (09:00)
[2018-07-08] MEDS: BACLOFEN 10 MG TAB PO SCH ×3 (09:00→20:22)
--- NOTE | 2018-07-08 10:35 | CONS ---
Date/Time of Note Date/Time of Note DATE: 07/08/18 TIME: 10:33 Assessment/Plan Assessment/Plan Assessment/Plan 57 yo Female with 1) Acute Distal Left Femoral Comminuted Fracture 2) S/p Mechanical Fall 3) ESRD on HD every MWF 4) Anemia, Chronic, CKD 5) MBD, CKD 6) Chronic HTN 7) CAD, Chronic 8) DM with ESRD 9) Hx of CVA with residual left sided deficit 10) Chronic Lower back pain 11) Hyperkalemia S/p HD yesterday without complication Next HD tomorrow, MWF schedule. Pt also received blood again, ordered by Ortho Pt is NPO ? Plan for OR Pts AMS improved, CT scan no acute findings Please do not hesitate to contact me if you have any questions or concerns. Result Diagram: 07/08/187 07/08/18 0437 Results 24hrs Laboratory Tests Test 07/07/18 16:40 07/07/18 18:27 07/07/18 18:54 07/08/18 04:37 Bedside Glucose 83 White Blood Count 7.4 6.6 Red Blood Count 4.18 L 3.75 L Hemoglobin 12.4 11.2 L Hematocrit 38.5 34.8 L Mean Corpuscular 92.1 92.8 Volume Mean Corpuscular 29.7 29.9 Hemoglobin Mean Corpuscular 32.2 32.2 Hemoglobin Concent Red Cell 13.2 13.4 Distribution Width Platelet Count 263 267 Mean Platelet 9.2 9.6 Volume Immature 0.300 0.200 Granulocytes % Neutrophils % 74.5 59.3 Lymphocytes % 15.0 28.2 Monocytes % 6.8 8.8 Eosinophils % 3.1 3.2 Basophils % 0.3 0.3 Nucleated Red Blood 0.0 0.0 Cells % Immature 0.020 0.010 Granulocytes # Neutrophils # 5.5 3.9 Lymphocytes # 1.1 1.9 Monocytes # 0.5 0.6 Eosinophils # 0.2 0.2 Basophils # 0.0 0.0 Nucleated Red Blood 0.0 0.0 Cells # Sodium Level 143 143 Potassium Level 4.7 5.4 H Chloride Level 101 101 Carbon Dioxide 27 29 Level Anion Gap 15 H 13 Blood Urea Nitrogen 28 #H 38 H Creatinine 5.79 #H 7.66 H Est Glomerular 9 L 7 L Filtrat Rate mL/min Glucose Level 96 92 Calcium Level 9.8 9.9 Test 07/08/18 07:44 Lab Scanned Report BLOOD TRANSFUSION Consultation Date/Type/Reason Admit Date/Time Jul 03, 2018 at 05:32 Initial Consult Date 07/03/18 Type of Consult Nephrology Requesting Provider: JESSICA GROVE 24 HR Interval Summary Free Text/Dictation S/p HD late yesterday, OR cancelled. Constitutional: requiring O2 Exam/Review of Systems Vital Signs Vitals Vital Signs Date Temp Pulse Resp B/P (MAP) Pulse Ox O2 O2 Flow FiO2 Time Delivery Rate 07/08/18 98.0 69 18 144/67 100 Nasal 2.0 07:26 (92) Cannula Intake and Output 07/07/18 07/07/18 07/08/18 1515:00 23:00 07:00 IntakeIntake Total 50 ml 100 ml OutputOutput Total 200 ml BalanceBalance -150 ml 100 ml Exam Constitutional: No distress ENMT: mucosa pink and moist Cardiovascular: No edema Gastrointestinal: soft, non-tender Extremities: edema Neurological: TREE DRILLER II-XII intact, confused Medications Medications Current Medications Baclofen (Lioresal) 10 mg TID PO Last administered on 07/07/18 21:35; Admin Dose 10 MG; Start 07/03/18 at 21:00 Sevelamer Carbonate (Renvela) 0.8 gm WITH MEALS PO Last administered on 07/06/18 08:49; Admin Dose 0.8 GM; Start 07/03/18 at 17:55 Ondansetron HCl (Zofran Inj) 4 mg Q6H PRN IV NAUSEA AND/OR VOMITING Last administered on 07/08/18 08:00; Admin Dose 4 MG; Start 07/03/18 at 14:30 Acetaminophen (Tylenol Tab) 650 mg Q6H PRN PO PAIN LEVEL 1-3 OR FEVER Last administered on 07/07/18 23:57; Admin Dose 650 MG; Start 07/03/18 at 14:30 Docusate Sodium (Colace) 100 mg Q12H PRN PO CONSTIPATION Last administered on 07/05/18 09:32; Admin Dose 100 MG; Start 07/03/18 at 14:30 Bisacodyl (Dulcolax) 5 mg DAILY PRN PO CONSTIPATION; Start 07/03/18 at 14:30 Zolpidem Tartrate (Ambien) 5 mg QHS PRN PO SLEEP; Start 07/03/18 at 14:30 Famotidine (Pepcid) 20 mg DAILY PO Last administered on 07/06/18at 08:49; Admin Dose 20 MG; Start 07/03/18 at 14:30 Heparin Sodium (Porcine) (Heparin (5000 Units/1ml)) 5,000 unit Q12 SC Last administered on 07/06/18at 20:59; Admin Dose 5,000 UNIT; Start 07/03/18 at 21:00; Status Hold Morphine Sulfate (morphine) 2 mg Q4H PRN IV PAIN LEVEL 6-10 Last administered on 07/03/18at 21:36; Admin Dose 2 MG; Start 07/03/18 at 17:30; Status Hold Acetaminophen/ Hydrocodone Bitart ([place] (7.5-325)) 1 tab Q4H PRN PO MODERATE PAIN LEVEL 4-6; Start 07/06/18 at 14:00; Status Hold Ketorolac Tromethamine (Toradol) 15 mg Q6H PRN IV PAIN; Start 07/07/18 at 08:00; Stop 07/10/18 at 07:[address] head IMPRESSION: No evidence of acute intracranial pathology. There is generalized volume loss microvascular changes with scattered lacunar infarcts as described. RPTAT: [facility] Physician Kadeem Date Time Electronically viewed and signed by Physician Kadeem on 07/08/2018 10:19 SHARON ESPINOZA MD Jul 08, 2018 10:35
[2018-07-08 14:51] VITALS: BP 120/58; PULSE 74; RESP 20
--- NOTE | 2018-07-08 15:16 | PN ---
Date/Time of Note Date/Time of Note DATE: 07/08/18 TIME: 15:12 Assessment/Plan VTE Prophylaxis Risk score (from Ns)>0 risk: 15 [place] [facility] [place] Pharmacological prophylaxis: NA/contraindicated Pharm contraindication: surgical contra Lines/Catheters IV Catheter Type (from [facility]): Peripheral IV Urinary Cath still in place: No Assessment/Plan Hospital Course Patient will undergo ORIF of the supracondylar fracture of the left femur at the left knee tomorrow at 2 PM. Plan of care discussed with Dr. Gutierres over the phone, anesthesia requesting cardiology clearance prior to procedure. Dr. Dimas is asked to see patient in cardiology consultation, 2D echo ordered. Patient was on Plavix prior to admission which has been held for 5 days. Patient is awake, follow commands, however, confused and forgetful which she developed after she was started on morphine for pain, patient is currently on Toradol, one-to-one sitter for safety. No new neurological deficit. CT of the head is negative for any acute pathology. Assessment/Plan -Acute comminuted distal left femoral fracture without dislocation. Dr. Gutierres is following in orthopedic surgery consultation. -Hemodialysis dependent end-stage renal disease. Continue on hemodialysis. Dr. Tucker is following in nephrology consultation. -Diabetes mellitus -History of cerebrovascular accident with left-sided paralysis. -Anemia of chronic disease. Continue to monitor hemoglobin and hematocrit. Currently stable. -Chronic dislocation of the left shoulder. No acute issues. -Mineral bone disease Further recommendations based on clinical course. Plan of care discussed with Dr. Rousseau. Result Diagram: 07/08/18 0437 07/08/18 0437 Results 24hrs Laboratory Tests Test 07/07/18 16:40 07/07/18 18:27 07/07/18 18:54 07/08/18 04:37 Bedside Glucose 83 White Blood Count 7.4 6.6 Red Blood Count 4.18 L 3.75 L Hemoglobin 12.4 11.2 L Hematocrit 38.5 34.8 L Mean Corpuscular 92.1 92.8 Volume Mean Corpuscular 29.7 29.9 Hemoglobin Mean Corpuscular 32.2 32.2 Hemoglobin Concent Red Cell 13.2 13.4 Distribution Width Platelet Count 263 267 Mean Platelet 9.2 9.6 Volume Immature 0.300 0.200 Granulocytes % Neutrophils % 74.5 59.3 Lymphocytes % 15.0 28.2 Monocytes % 6.8 8.8 Eosinophils % 3.1 3.2 Basophils % 0.3 0.3 Nucleated Red Blood 0.0 0.0 Cells % Immature 0.020 0.010 Granulocytes # Neutrophils # 5.5 3.9 Lymphocytes # 1.1 1.9 Monocytes # 0.5 0.6 Eosinophils # 0.2 0.2 Basophils # 0.0 0.0 Nucleated Red Blood 0.0 0.0 Cells # Sodium Level 143 143 Potassium Level 4.7 5.4 H Chloride Level 101 101 Carbon Dioxide 27 29 Level Anion Gap 15 H 13 Blood Urea Nitrogen 28 #H 38 H Creatinine 5.79 #H 7.66 H Est Glomerular 9 L 7 L Filtrat Rate mL/min Glucose Level 96 92 Calcium Level 9.8 9.9 Test 07/08/18 07:44 Lab Scanned Report BLOOD TRANSFUSION Exam/Review of Systems Vital Signs Vitals Vital Signs Date Temp Pulse Resp B/P (MAP) Pulse Ox O2 O2 Flow FiO2 Time Delivery Rate 07/08/18 98.2 74 20 120/58 100 Nasal 2.0 14:51 (78) Cannula Intake and Output 07/07/18 07/07/18 07/08/18 1414:59 22:59 06:59 IntakeIntake Total 50 ml 100 ml OutputOutput Total 200 ml BalanceBalance -150 ml 100 ml Exam Constitutional: alert, oriented Respiratory: clear to auscultation Cardiovascular: nl pulses Gastrointestinal: soft, non-tender Musculoskeletal: other (Left leg pain) Extremities: normal pulses Neurological: other (Left-sided weakness from previous stroke) Skin: nl turgor Medications Medications Current Medications Baclofen (Lioresal) 10 mg TID PO Last administered on 07/07/18at 21:35; Admin Dose 10 MG; Start 07/03/18 at 21:00 Sevelamer Carbonate (Renvela) 0.8 gm WITH MEALS PO Last administered on 07/06/18at 08:49; Admin Dose 0.8 GM; Start 07/03/18 at 17:55 Ondansetron HCl (Zofran Inj) 4 mg Q6H PRN IV NAUSEA AND/OR VOMITING Last administered on 07/08/18at 08:00; Admin Dose 4 MG; Start 07/03/18 at 14:30 Acetaminophen (Tylenol Tab) 650 mg Q6H PRN PO PAIN LEVEL 1-3 OR FEVER Last administered on 07/07/18at 23:57; Admin Dose 650 MG; Start 07/03/18 at 14:30 Docusate Sodium (Colace) 100 mg Q12H PRN PO CONSTIPATION Last administered on 07/05/18at 09:32; Admin Dose 100 MG; Start 07/03/18 at 14:30 Bisacodyl (Dulcolax) 5 mg DAILY PRN PO CONSTIPATION; Start 07/03/18 at 14:30 Zolpidem Tartrate (Ambien) 5 mg QHS PRN PO SLEEP; Start 07/03/18 at 14:30 Famotidine (Pepcid) 20 mg DAILY PO Last administered on 07/06/18at 08:49; Admin Dose 20 MG; Start 07/03/18 at 14:30 Heparin Sodium (Porcine) (Heparin (5000 Units/1ml)) 5,000 unit Q12 SC Last administered on 07/06/18at 20:59; Admin Dose 5,000 UNIT; Start 07/03/18 at 21:00; Status Hold Morphine Sulfate (morphine) 2 mg Q4H PRN IV PAIN LEVEL 6-10 Last administered on 07/03/18at 21:36; Admin Dose 2 MG; Start 07/03/18 at 17:30; Status Hold Acetaminophen/ Hydrocodone Bitart ([place] (7.5-325)) 1 tab Q4H PRN PO MODERATE PAIN LEVEL 4-6; Start 07/06/18 at 14:00; Status Hold Ketorolac Tromethamine (Toradol) 15 mg Q6H PRN IV PAIN; Start 07/07/18 at 08:00; Stop 07/10/18 at 07:59 JESSICA GROVE Jul 08, 2018 15:16
--- NOTE | 2018-07-08 15:17 | RADRPT ---
Echocardiogram Report Patient Name: ATUL ESTRADA Gender: Female Date: 1960 Study Date: 08-Jul-2018 Garment Presser: Keith uLna [facility] Location: [address] Ref. Physician: JESSICA GROVE Quality: Adequate Procedures: Transthoracic echocardiogram with complete 2D, M-Mode, and doppler examination. Indications: Evaluate Left Ventricular function, pre-op. 2D/M Mode Doppler Measurement Value Normal Ranges Measurement Value Normal Ranges LVIDd 2D 3.9 3.5 - 5.6 cm AV Peak Roque 1.2 m/sec LVIDs 2D 2.8 2.1 - 4.1 cm AV Peak PG 6.0 mmHg LVPWd 2D 1.0 0.6 - 1.1 cm LVOT Peak Roque 0.8 m/sec IVSd 2D 1.1 0.6 - 1.1 cm LVOT Peak PG 3.0 mmHg AoR Diam 2D 2.4 2.0 - 3.7 cm MV E Peak Roque 0.7 m/sec LA/Ao 2D 1 0 - 1 MV A Peak Roque 0.8 m/sec LA Dimen 2D 2.8 2.3 - 4.0 cm MV E/A 0.8 MV Decel Time 190 msec Lat E` Roque 0.1 m/sec Lateral E/E` 8.8 Med E` Roque 0.1 m/sec MV E/A 0.8 TR Peak Roque 1.8 m/sec TR Peak PG 12.0 mmHg RVSP 15.0 mmHg Findings Left Ventricle: Normal left ventricular systolic function. Normal left ventricular cavity size. Left ventricular wall thickness upper limits of normal. Ejection fraction is visually estimated at 6065 %. Tissue Doppler/Mitral Doppler indices are consistent with impaired relaxation (Stage I diastolic dysfunction). Right Ventricle: Normal right ventricular size. Normal right ventricular systolic function. Left Atrium: The left atrium is normal in size. Right Atrium: The right atrium is normal in size. Mitral Valve: Mild mitral leaflet calcification. Mild mitral annular calcification. Trace mitral regurgitation. Aortic Valve: No significant aortic stenosis or insufficiency. Aortic cusps appear mildly calcified. Trace aortic valve regurgitation. Tricuspid Valve: Normal appearance of the tricuspid valve. Estimated peak PA systolic pressure 15 mmHg. There is trace tricuspid regurgitation. Pulmonic Valve: Pulmonic valve not well visualized. There is trace pulmonic regurgitation. Pericardium: Trivial to small pericardial effusion. Aorta: Normal aortic root. IVC: Normal size and normal respiratory collapse consistent with normal right atrial pressure. Conclusions Normal left ventricular systolic function. Normal left ventricular cavity size. Left ventricular wall thickness upper limits of normal. Ejection fraction is visually estimated at 60-65 %. Tissue Doppler/Mitral Doppler indices are consistent with impaired relaxation (Stage I diastolic dysfunction). Mild mitral leaflet calcification. Mild mitral annular calcification. Trace mitral regurgitation. No significant aortic stenosis or insufficiency. Aortic cusps appear mildly calcified. Trace aortic valve regurgitation. Normal appearance of the tricuspid valve. Estimated peak PA systolic pressure 15 mmHg. There is trace tricuspid regurgitation. Pulmonic valve not well visualized. There is trace pulmonic regurgitation. Trivial to small pericardial effusion. Electronically Signed By: Bjorn Dimas 08-Jul-2018 15:16:53 -0800 Patient Name: ATUL ESTRADA Study Date: 08-Jul-2018 [id number]
--- NOTE | 2018-07-08 15:50 | CONS ---
DATE OF ADMISSION: 07/03/2018 DATE OF CONSULTATION: 07/08/2018 TYPE OF CONSULTATION: Cardiology. REASON FOR CONSULTATION: Preoperative evaluation. REQUESTING PHYSICIAN: Gordon Hudson MD HISTORY OF PRESENT ILLNESS: Ms. Shrestha is a 57-year-old female with a history of end-stage renal disease, hemodialysis, diabetes mellitus, prior CVA, hemiplegia, anemia, chronic dislocation of left shoulder, wheelchair-bound, who presented with complaints of left knee pain. The patient states that she was transferring from the commode to wheelchair with her son-in-law and she slipped out of his h and, landing on her knee with subsequent pain. Upon arrival in the emergency department, temperature of 96.5, blood pressure 132/66, pulse rate is 57, respiratory rate 16 and satting 100%. The patient 's labs showed white blood cell count of 7.7, hemoglobin 10.4, platelet count of 141, sodium of 141, potassium 5.5, creatinine 4.7, BUN of 19, troponin negative, calcium 9.6. The patient underwent a kn ee x-ray revealing acute comminuted distal left femoral fracture without dislocation, a chest x-ray r evealed dialysis catheter in satisfactory position, prior left lower extremity surgery, atheroscleros is and a head CT that revealed no evidence of acute intracranial pathology, generalized volume loss, microvascular changes with scattered lacunar infarcts. The patient underwent electrocardiogram which showed normal sinus rhythm, rate of 65, normal axis, normal intervals, lateral T-wave inversion isol ated to aVL. The patient was subsequently admitted to the floor and required for orthopedic surgery services with plans for open reduction and internal fixation of lower extremity. The patient at this time denies chest pain, shortness of breath. PAST MEDICAL HISTORY: As above in HPI. MEDICATIONS PRIOR TO ADMIT: 1. Baclofen 10 mg p.o. t.i.d. 2. Plavix 75 mg daily. 3. Collins p.r.n. 4. Renvela 0.8 g p.o. t.i.d. ALLERGIES: NO KNOWN DRUG ALLERGIES. MEDICATIONS CURRENTLY IN HOSPITAL: 1. Toradol. 2. Baclofen. 3. Renvela. 4. Zofran p.r.n. 5. Tylenol p.r.n. 6. Dulcolax p.r.n. 7. Pepcid 20 daily. 8. Ambien p.r.n. SOCIAL HISTORY: No tobacco, quit x7 years. No EtOH or illicit drug use. FAMILY HISTORY: No history of sudden cardiac or early CAD. REVIEW OF SYSTEMS: As above in HPI. CONSTITUTIONAL: No fevers, chills. PULMONARY: No current shortness of breath. CARDIOVASCULAR: No current chest pain. GASTROINTESTINAL: No vomiting. GENITOURINARY: No hematuria. MUSCULOSKELETAL: Degenerative joint disease. Left femoral fracture. PSYCHIATRIC: No documented psych history. NEUROLOGIC: History of CVA. ENDOCRINE: No documented history of thyroid disease or diabetes mellitus. PHYSICAL EXAMINATION: VITAL SIGNS: Temperature of 98.3, blood pressure 144/67, pulse 69, respiratory rate 18, satting 100% on 2 liters. GENERAL: The patient is alert, awake, appears mildly confused. NECK: JVP is approximately 8 to 9 cm water. CHEST: Fair movement throughout with a right-sided dialysis catheter, left side scar over shoulder. ABDOMEN: Positive bowel sounds, soft. EXTREMITIES: Trace edema, 1+ pulses bilateral posterior tibial, dorsalis pedis. LABORATORIES: Most recently from today, white blood cell count 6.6, hemoglobin 11.2, platelet count of 267. Sodium 143, potassium 5.4, creatinine of 7.66, BUN 38. IMAGING STUDIES: As above in HPI. No further imaging studies for my review at this time. ELECTROCARDIOGRAM: As above in HPI. No further electrocardiograms for my review at this time. IMPRESSION: 1. Preoperative evaluation for left lower extremity open reduction and internal fixation, status pos t mechanical fall. 2. Hypertension, borderline, labile, likely a component of pain. 3. Abnormal electrocardiogram with lateral T-wave inversion. 4. Status post mechanical fall with a femoral fracture. 5. Femoral fracture, left-sided, supracondylar. 6. History of cerebrovascular accident, previously on Plavix. 7. End-stage renal disease, on hemodialysis. 8. Hyperkalemia. 9. Anemia. RECOMMENDATIONS: 1. At this time, we would place potassium and continue hemodialysis for volume removal. 2. We will send troponins q.6 x2 to complete the patient's rule out for myocardial infarction to ens ure the patient's EKG abnormalities are chronic in nature and not due to any recent acute coronary sy ndromes in anticipation of upcoming surgery. 3. We will check a 2D echo to further assess ejection fraction, wall motion, rule out any major valv e abnormalities as I am not able to assess the patient's exercise tolerance as she uses wheelchair ba seline. 4. We will check a fasting lipid panel for general risk stratification and initiate lipid-lowering m edication as necessary. 5. Pain control. 6. If the patient's troponins are negative times total of 3, 2 additional and the patient's echo gutierres s note significant abnormalities such as contraindicated from the exam. At that time, the sugar ent will be okay to proceed to the OR at moderate cardiovascular risk on current medications without further noninvasive evaluation. 7. Postoperatively, we would watch closely for signs or symptoms of cardiovascular complications inc luding but not limited to the onset of chest pain, shortness of breath, hypotension, uncontrolled car diac arrhythmias or development of congestive heart failure. Thank you for allowing me to take part in the care of this patient. Dictated By: SHONDA SNELL/TIANA Conf#: [id number] DID#: [id number] CC: GORDON HUDSON MD; ADÁN BIRD MD;*EndCC*
[2018-07-08 19:09] VITALS: BP 121/57; PULSE 68; RESP 16
[2018-07-08] MEDS: BISACODYL (EC) 5 MG TAB PO PRN (19:28)
[2018-07-08] MEDS: DOCUSATE SODIUM 100 MG CAP PO PRN (19:28)
[2018-07-09] VITALS (38 sets, daily range): BP systolic 71–121; BP diastolic 40–77; PULSE 58–164; RESP 11–24
[2018-07-09] MEDS: ONDANSETRON 4 MG INJ IV PRN (03:10)
[2018-07-09] MEDS ORDERED: ROCURONIUM 50 MG INJ ONE ×2 (07:00→14:53)
[2018-07-09] MEDS: SEVELAMER CARBONATE 0.8 GM PKT PO SCH ×3 (07:50→20:24)
[2018-07-09] MEDS: BACLOFEN 10 MG TAB PO SCH ×2 (07:53→20:25)
[2018-07-09] MEDS: FAMOTIDINE 20 MG TAB PO SCH (07:53)
--- NOTE | 2018-07-09 08:58 | CONS ---
Date/Time of Note Date/Time of Note DATE: 07/09/18 TIME: 08:51 Assessment/Plan Assessment/Plan Assessment/Plan 57 yo Female with 1) Acute Distal Left Femoral Comminuted Fracture 2) S/p Mechanical Fall 3) ESRD on HD every MWF 4) Anemia, Chronic, CKD 5) MBD, CKD 6) Chronic HTN 7) CAD, Chronic 8) DM with ESRD 9) Hx of CVA with residual left sided deficit 10) Chronic Lower back pain 11) Hyperkalemia HD plan this am Discussed with HD RN and Patients RN on floor Plan for OR this afternoon Pt seen by Cardiology also, consult reviewed Electrolyte abnormality will correct with HD Pt Hgb improved with PRBC BP well controlled and Volume status to improved with HD today Please do not hesitate to contact me if you have any questions or concern Result Diagram: 07/09/18 0444 07/09/18 0444 Results 24hrs Laboratory Tests Test 07/08/18 17:32 07/09/18 00:27 07/09/18 04:44 Creatine Kinase 44 56 Creatine Kinase Index 0.6 0.5 Creatinine Kinase MB (Mass) 0.27 0.28 Troponin I 0.023 0.025 White Blood Count 7.7 Red Blood Count 3.58 L Hemoglobin 10.8 L Hematocrit 33.4 L Mean Corpuscular Volume 93.3 Mean Corpuscular Hemoglobin 30.2 Mean Corpuscular Hemoglobin Concent 32.3 Red Cell Distribution Width 13.6 Platelet Count 237 Mean Platelet Volume 10.1 Immature Granulocytes % 0.300 Neutrophils % 58.2 Lymphocytes % 25.7 Monocytes % 11.7 H Eosinophils % 3.4 Basophils % 0.7 Nucleated Red Blood Cells % 0.0 Immature Granulocytes # 0.020 Neutrophils # 4.5 Lymphocytes # 2.0 Monocytes # 0.9 Eosinophils # 0.3 Basophils # 0.1 Nucleated Red Blood Cells # 0.0 Sodium Level 141 Potassium Level 5.6 H Chloride Level 101 Carbon Dioxide Level 27 Anion Gap 13 Blood Urea Nitrogen 56 H Creatinine 9.91 #H Est Glomerular Filtrat Rate mL/min 5 L Glucose Level 89 Calcium Level 10.0 Triglycerides Level 98 Cholesterol Level 125 LDL Cholesterol, Calculated 64 HDL Cholesterol 41 Cholesterol/HDL Ratio 3.0 Consultation Date/Type/Reason Admit Date/Time Jul 03, 2018 at 05:32 Initial Consult Date 07/03/18 Type of Consult Nephrology Requesting Provider: JESSICA GROVE 24 HR Interval Summary Free Text/Dictation HD nurse at bedside Pt planned to go for OR later this afternoon. Constitutional: requiring O2 Exam/Review of Systems Vital Signs Vitals Vital Signs Date Temp Pulse Resp B/P (MAP) Pulse Ox O2 O2 Flow FiO2 Time Delivery Rate 07/09/18 98.2 75 16 106/57 100 Nasal 2.0 01:45 (73) Cannula Intake and Output 07/08/18 07/08/18 07/09/18 1515:00 23:00 07:00 IntakeIntake Total 220 ml BalanceBalance 220 ml Exam Constitutional: No distress ENMT: mucosa pink and moist Neck: No jvd Respiratory: No diminished breath sounds, No labored breathing Cardiovascular: regular rate and rhythm, edema Gastrointestinal: soft, non-tender Neurological: focal weakness (Lt sided.); No lethargic, No unresponsive Skin: No diaphoresis Medications Medications Current Medications Baclofen (Lioresal) 10 mg TID PO Last administered on 07/08/18 20:22; Admin Dose 10 MG; Start 07/03/18 at 21:00 Sevelamer Carbonate (Renvela) 0.8 gm WITH MEALS PO Last administered on 07/08/18 19:28; Admin Dose 0.8 GM; Start 07/03/18 at 17:55 Ondansetron HCl (Zofran Inj) 4 mg Q6H PRN IV NAUSEA AND/OR VOMITING Last administered on 07/09/18 03:10; Admin Dose 4 MG; Start 07/03/18 at 14:30 Acetaminophen (Tylenol Tab) 650 mg Q6H PRN PO PAIN LEVEL 1-3 OR FEVER Last administered on 07/07/18 23:57; Admin Dose 650 MG; Start 07/03/18 at 14:30 Docusate Sodium (Colace) 100 mg Q12H PRN PO CONSTIPATION Last administered on 07/08/18 19:28; Admin Dose 100 MG; Start 07/03/18 at 14:30 Bisacodyl (Dulcolax) 5 mg DAILY PRN PO CONSTIPATION Last administered on 07/08/18 19:28; Admin Dose 5 MG; Start 07/03/18 at 14:30 Zolpidem Tartrate (Ambien) 5 mg QHS PRN PO SLEEP; Start 07/03/18 at 14:30 Famotidine (Pepcid) 20 mg DAILY PO Last administered on 07/06/18at 08:49; Admin Dose 20 MG; Start 07/03/18 at 14:30 Heparin Sodium (Porcine) (Heparin (5000 Units/1ml)) 5,000 unit Q12 SC Last administered on 07/06/18at 20:59; Admin Dose 5,000 UNIT; Start 07/03/18 at 21:00; Status Hold Morphine Sulfate (morphine) 2 mg Q4H PRN IV PAIN LEVEL 6-10 Last administered on 07/03/18at 21:36; Admin Dose 2 MG; Start 07/03/18 at 17:30; Status Hold Acetaminophen/ Hydrocodone Bitart ([place] (7.5-325)) 1 tab Q4H PRN PO MODERATE PAIN LEVEL 4-6; Start 07/06/18 at 14:00; Status Hold Ketorolac Tromethamine (Toradol) 15 mg Q6H PRN IV PAIN; Start 07/07/18 at 08:00; Stop 07/10/18 at 07:59 SHARON ESPINOZA MD Jul 09, 2018 08:58
--- NOTE | 2018-07-09 12:04 | RADRPT ---
Vent Rate: 59 bpm RR Interval: 0 msec MN Interval: 148 msec QRS Duration: 70 msec QT Interval: 400 msec QTC Interval: 396 msec P-R-T [place]: 42 - 19 - 75 degrees Sinus bradycardia Otherwise normal ECG Electronically Signed By: Mark Ortiz [id number]
--- NOTE | 2018-07-09 14:38 | PREAC ---
Date/Time of Note Date/Time of Note DATE: 07/09/18 TIME: 14:35 Anesthesia Eval and Record Evaluation Time Pre-Procedure Interview DATE: 07/09/18 TIME: 14:35 Age 57 Sex female NPO: 8 hrs Preoperative diagnosis left femur fracture Planned procedure orif left femur fx Past Medical History Past Medical History: Includes Cardio: HTN Endo: Diabetes Neuro: CVA Musculoskeletal: Osteoarthritis Renal: ESRD on dialysis Heme: Anemia Surgery & Anesthesia Issues No known issue Meds Anticoagulation: No Beta Marisabel within 24 hr: No Reason Beta Marisabel not given: Pt. not on B-Marisabel Reported Medications Hydrocodone Bit-Acetaminophen* (V[place]odin* ES) 7.5-300 Mg Tablet, 1 TAB PO BID PRN for SEVERE PAIN LEVEL 7-10, TAB 03/12/16 Sevelamer Carbonate* (Renvela*) 800 Mg Tablet, 0.8 GM PO TID, TAB 03/12/16 Baclofen* (Baclofen*) 10 Mg Tablet, 10 MG PO TID, TAB 07/13/15 Clopidogrel Bisulfate (Plavix) 75 Mg Tablet, 75 MG PO DAILY 05/31/11 Current Medications Baclofen (Lioresal) 10 mg TID PO Last administered on 07/08/18 20:22; Admin Dose 10 MG; Start 07/03/18 at 21:00 Sevelamer Carbonate (Renvela) 0.8 gm WITH MEALS PO Last administered on 07/08/18 19:28; Admin Dose 0.8 GM; Start 07/03/18 at 17:55 Ondansetron HCl (Zofran Inj) 4 mg Q6H PRN IV NAUSEA AND/OR VOMITING Last administered on 07/09/18at 03:10; Admin Dose 4 MG; Start 07/03/18 at 14:30 Acetaminophen (Tylenol Tab) 650 mg Q6H PRN PO PAIN LEVEL 1-3 OR FEVER Last administered on 07/07/18 23:57; Admin Dose 650 MG; Start 07/03/18 at 14:30 Docusate Sodium (Colace) 100 mg Q12H PRN PO CONSTIPATION Last administered on 07/08/18 19:28; Admin Dose 100 MG; Start 07/03/18 at 14:30 Bisacodyl (Dulcolax) 5 mg DAILY PRN PO CONSTIPATION Last administered on 07/08/18 19:28; Admin Dose 5 MG; Start 07/03/18 at 14:30 Zolpidem Tartrate (Ambien) 5 mg QHS PRN PO SLEEP; Start 07/03/18 at 14:30 Famotidine (Pepcid) 20 mg DAILY PO Last administered on 07/06/18at 08:49; Admin Dose 20 MG; Start 07/03/18 at 14:30 Heparin Sodium (Porcine) (Heparin (5000 Units/1ml)) 5,000 unit Q12 SC Last administered on 07/06/18at 20:59; Admin Dose 5,000 UNIT; Start 07/03/18 at 21:00; Status Hold Morphine Sulfate (morphine) 2 mg Q4H PRN IV PAIN LEVEL 6-10 Last administered on 07/03/18at 21:36; Admin Dose 2 MG; Start 07/03/18 at 17:30; Status Hold Acetaminophen/ Hydrocodone Bitart ([place] (7.5-325)) 1 tab Q4H PRN PO MODERATE PAIN LEVEL 4-6; Start 07/06/18 at 14:00; Status Hold Ketorolac Tromethamine (Toradol) 15 mg Q6H PRN IV PAIN; Start 07/07/18 at 08:00; Stop 07/10/18 at 07:59 Meds reviewed: Yes Allergies Coded Allergies: No Known Drug Allergy (Unverified Allergy, Unknown, 07/03/18) Allergies Reviewed: Yes Labs/Studies Labs Reviewed: Reviewed by anesthesiologist Result Diagram: 07/09/184 07/09/18443 Laboratory Tests 07/09/18 04:44 test: N/A Studies: ECG, CXR, 2D Echo (65 % ef) Pre-procedure Exam Last vitals Vital Signs Date Temp Pulse Resp B/P (MAP) Pulse Ox O2 O2 Flow FiO2 Time Delivery Rate 07/09/18 72 12:55 07/09/18 18 115/53 100 Nasal 2.0 12:50 (73) Cannula 07/09/18 98.2 01:45 Airway: Adequate mouth opening, Adequate thyromental dist Mallampati: Mallampati II Teeth: Normal Lung: Normal Heart: Normal ASA Physical Status ASA physical status: 3 Emergency: None Planned Anesthetic General/MAC: ETT Planned Pain Management Parenteral pain med Pre-operative Attestations Prior to commencing anesthesia and surgery, the patient was re-evaluated, there was verification of: *The patient's identity *The results of appropriate recent lab work and preoperative vital signs *The above evaluation not changing prior to induction *Anesthetic plan, risk benefits, alternative and complications discussed with patient/family; questions answered; patient/family understands, accepts and wishes to proceed. NUBIA SPENCER Jul 09, 2018 14:38
--- NOTE | 2018-07-09 14:40 | CONS ---
Date/Time of Note Date/Time of Note DATE: 07/09/18 TIME: 14:37 Assessment/Plan Assessment/Plan Hospital Course IMPRESSION: 1. Preoperative evaluation for left lower extremity open reduction and internal fixation, status post mechanical fall. -NL EF by echo. NO sig valve abnl. Neg trop x 3. OK to proceed at moderate CV risk on current medical therapy 2. Hypertension, borderline, labile, likely a component of pain. 3. Abnormal electrocardiogram with lateral T-wave inversion. 4. Status post mechanical fall with a femoral fracture. 5. Femoral fracture, left-sided, supracondylar. 6. History of cerebrovascular accident, previously on Plavix. 7. End-stage renal disease, on hemodialysis. 8. Hyperkalemia. 9. Anemia. REcc: -Pain control -Pnding LE ORIF -check post-op ECG/follow for s/sx of cardiovascular complications Result Diagram: 07/09/18 0444 07/09/18 0444 Results 24hrs Laboratory Tests Test 07/08/18 17:32 07/09/18 00:27 07/09/18 04:44 Creatine Kinase 44 56 Creatine Kinase Index 0.6 0.5 Creatinine Kinase MB (Mass) 0.27 0.28 Troponin I 0.023 0.025 White Blood Count 7.7 Red Blood Count 3.58 L Hemoglobin 10.8 L Hematocrit 33.4 L Mean Corpuscular Volume 93.3 Mean Corpuscular Hemoglobin 30.2 Mean Corpuscular Hemoglobin Concent 32.3 Red Cell Distribution Width 13.6 Platelet Count 237 Mean Platelet Volume 10.1 Immature Granulocytes % 0.300 Neutrophils % 58.2 Lymphocytes % 25.7 Monocytes % 11.7 H Eosinophils % 3.4 Basophils % 0.7 Nucleated Red Blood Cells % 0.0 Immature Granulocytes # 0.020 Neutrophils # 4.5 Lymphocytes # 2.0 Monocytes # 0.9 Eosinophils # 0.3 Basophils # 0.1 Nucleated Red Blood Cells # 0.0 Sodium Level 141 Potassium Level 5.6 H Chloride Level 101 Carbon Dioxide Level 27 Anion Gap 13 Blood Urea Nitrogen 56 H Creatinine 9.91 #H Est Glomerular Filtrat Rate mL/min 5 L Glucose Level 89 Calcium Level 10.0 Triglycerides Level 98 Cholesterol Level 125 LDL Cholesterol, Calculated 64 HDL Cholesterol 41 Cholesterol/HDL Ratio 3.0 Consultation Date/Type/Reason Admit Date/Time Jul 03, 2018 at 05:32 Initial Consult Date 07/03/18 Type of Consult cardiology Reason for Consultation Preop Requesting Provider: JESSICA GROVE Exam/Review of Systems Vital Signs Vitals Vital Signs Date Temp Pulse Resp B/P (MAP) Pulse Ox O2 O2 Flow FiO2 Time Delivery Rate 07/09/18 72 12:55 07/09/18 18 115/53 100 Nasal 2.0 12:50 (73) Cannula 07/09/18 98.2 01:45 Intake and Output 07/08/18 07/08/18 07/09/18 1515:00 23:00 07:00 IntakeIntake Total 220 ml BalanceBalance 220 ml Exam Review of Systems: CONSTITUTIONAL: No fevers, chills. PULMONARY: No sob CARDIOVASCULAR: No chest pain/palpitations GASTROINTESTINAL: No nausea/vomiting. GENITOURINARY: No hematuria/dysuria. MUSCULOSKELETAL: No myagias/arthalgias. PSYCHIATRIC: The patient denies depression. NEUROLOGIC: mild confusion Constitutional: alert Psych: no complaints Head: normocephalic Eyes: nl conjunctiva ENMT: mucosa pink and moist Neck: supple, jvd (8 cm water) Respiratory: diminished breath sounds (at bases/B) Cardiovascular: regular rate and rhythm Gastrointestinal: soft, non-tender Musculoskeletal: muscle weakness (mild generalized) Extremities: edema (none) Neurological: focal weakness, other Medications Medications Current Medications Baclofen (Lioresal) 10 mg TID PO Last administered on 07/08/18at 20:22; Admin Dose 10 MG; Start 07/03/18 at 21:00 Sevelamer Carbonate (Renvela) 0.8 gm WITH MEALS PO Last administered on 07/08/18at 19:28; Admin Dose 0.8 GM; Start 07/03/18 at 17:55 Ondansetron HCl (Zofran Inj) 4 mg Q6H PRN IV NAUSEA AND/OR VOMITING Last administered on 07/09/18at 03:10; Admin Dose 4 MG; Start 07/03/18 at 14:30 Acetaminophen (Tylenol Tab) 650 mg Q6H PRN PO PAIN LEVEL 1-3 OR FEVER Last administered on 07/07/18at 23:57; Admin Dose 650 MG; Start 07/03/18 at 14:30 Docusate Sodium (Colace) 100 mg Q12H PRN PO CONSTIPATION Last administered on 07/08/18 19:28; Admin Dose 100 MG; Start 07/03/18 at 14:30 Bisacodyl (Dulcolax) 5 mg DAILY PRN PO CONSTIPATION Last administered on 07/08/18 19:28; Admin Dose 5 MG; Start 07/03/18 at 14:30 Zolpidem Tartrate (Ambien) 5 mg QHS PRN PO SLEEP; Start 07/03/18 at 14:30 Famotidine (Pepcid) 20 mg DAILY PO Last administered on 07/06/18at 08:49; Admin Dose 20 MG; Start 07/03/18 at 14:30 Heparin Sodium (Porcine) (Heparin (5000 Units/1ml)) 5,000 unit Q12 SC Last administered on 07/06/18at 20:59; Admin Dose 5,000 UNIT; Start 07/03/18 at 21:00; Status Hold Morphine Sulfate (morphine) 2 mg Q4H PRN IV PAIN LEVEL 6-10 Last administered on 07/03/18at 21:36; Admin Dose 2 MG; Start 07/03/18 at 17:30; Status Hold Acetaminophen/ Hydrocodone Bitart ([place] (7.5-325)) 1 tab Q4H PRN PO MODERATE PAIN LEVEL 4-6; Start 07/06/18 at 14:00; Status Hold Ketorolac Tromethamine (Toradol) 15 mg Q6H PRN IV PAIN; Start 07/07/18 at 08:00; Stop 07/10/18 at 07:59 SHONDA GOODWIN Jul 09, 2018 14:40
--- NOTE | 2018-07-09 14:51 | PN ---
Date/Time of Note Date/Time of Note DATE: 07/09/18 TIME: 14:49 Assessment/Plan VTE Prophylaxis Risk score (from [facility])>0 risk: 16 SCD applied (from [facility]): Yes Pharmacological prophylaxis: NA/contraindicated Pharm contraindication: surgical contra Lines/Catheters [facility] [place] Urinary Cath still in place: No Assessment/Plan Hospital Course Patient dialysis early in the morning,currently in surgery. No acute events reported prior to procedure discussed with RN. Assessment/Plan -Acute comminuted distal left femoral fracture without dislocation. Dr. Gutierres is following in orthopedic surgery consultation. Cleared for orthopedic surgery by Dr. Dimas from cardiology standpoint. -Hemodialysis dependent end-stage renal disease. Continue on hemodialysis. Dr. Tucker is following in nephrology consultation. -Diabetes mellitus -History of cerebrovascular accident with left-sided paralysis. -Anemia of chronic disease. Continue to monitor hemoglobin and hematocrit. Currently stable. -Chronic dislocation of the left shoulder. No acute issues. -Mineral bone disease Further recommendations based on clinical course. Plan of care discussed with Dr. Rousseau. Result Diagram: 07/09/18 0444 07/09/18 0444 Results 24hrs Laboratory Tests Test 07/08/18 17:32 07/09/18 00:27 07/09/18 04:44 Creatine Kinase 44 56 Creatine Kinase Index 0.6 0.5 Creatinine Kinase MB (Mass) 0.27 0.28 Troponin I 0.023 0.025 White Blood Count 7.7 Red Blood Count 3.58 L Hemoglobin 10.8 L Hematocrit 33.4 L Mean Corpuscular Volume 93.3 Mean Corpuscular Hemoglobin 30.2 Mean Corpuscular Hemoglobin Concent 32.3 Red Cell Distribution Width 13.6 Platelet Count 237 Mean Platelet Volume 10.1 Immature Granulocytes % 0.300 Neutrophils % 58.2 Lymphocytes % 25.7 Monocytes % 11.7 H Eosinophils % 3.4 Basophils % 0.7 Nucleated Red Blood Cells % 0.0 Immature Granulocytes # 0.020 Neutrophils # 4.5 Lymphocytes # 2.0 Monocytes # 0.9 Eosinophils # 0.3 Basophils # 0.1 Nucleated Red Blood Cells # 0.0 Sodium Level 141 Potassium Level 5.6 H Chloride Level 101 Carbon Dioxide Level 27 Anion Gap 13 Blood Urea Nitrogen 56 H Creatinine 9.91 #H Est Glomerular Filtrat Rate mL/min 5 L Glucose Level 89 Calcium Level 10.0 Triglycerides Level 98 Cholesterol Level 125 LDL Cholesterol, Calculated 64 HDL Cholesterol 41 Cholesterol/HDL Ratio 3.0 Exam/Review of Systems Vital Signs Vitals Vital Signs Date Temp Pulse Resp B/P (MAP) Pulse Ox O2 O2 Flow FiO2 Time Delivery Rate 07/09/18 72 12:55 07/09/18 18 115/53 100 Nasal 2.0 12:50 (73) Cannula 07/09/18 98.2 01:45 Intake and Output 07/08/18 07/08/18 07/09/18 1414:59 22:59 06:59 IntakeIntake Total 220 ml BalanceBalance 220 ml Medications Medications Current Medications Baclofen (Lioresal) 10 mg TID PO Last administered on 07/08/18 20:22; Admin Dose 10 MG; Start 07/03/18 at 21:00 Sevelamer Carbonate (Renvela) 0.8 gm WITH MEALS PO Last administered on 07/08/18 19:28; Admin Dose 0.8 GM; Start 07/03/18 at 17:55 Ondansetron HCl (Zofran Inj) 4 mg Q6H PRN IV NAUSEA AND/OR VOMITING Last administered on 07/09/18 03:10; Admin Dose 4 MG; Start 07/03/18 at 14:30 Acetaminophen (Tylenol Tab) 650 mg Q6H PRN PO PAIN LEVEL 1-3 OR FEVER Last administered on 07/07/18 23:57; Admin Dose 650 MG; Start 07/03/18 at 14:30 Docusate Sodium (Colace) 100 mg Q12H PRN PO CONSTIPATION Last administered on 07/08/18 19:28; Admin Dose 100 MG; Start 07/03/18 at 14:30 Bisacodyl (Dulcolax) 5 mg DAILY PRN PO CONSTIPATION Last administered on 07/08/18 19:28; Admin Dose 5 MG; Start 07/03/18 at 14:30 Zolpidem Tartrate (Ambien) 5 mg QHS PRN PO SLEEP; Start 07/03/18 at 14:30 Famotidine (Pepcid) 20 mg DAILY PO Last administered on 07/06/18 08:49; Admin Dose 20 MG; Start 07/03/18 at 14:30 Heparin Sodium (Porcine) (Heparin (5000 Units/1ml)) 5,000 unit Q12 SC Last administered on 07/06/18at 20:59; Admin Dose 5,000 UNIT; Start 07/03/18 at 21:00; Status Hold Morphine Sulfate (morphine) 2 mg Q4H PRN IV PAIN LEVEL 6-10 Last administered on 07/03/18at 21:36; Admin Dose 2 MG; Start 07/03/18 at 17:30; Status Hold Acetaminophen/ Hydrocodone Bitart ([place] (7.5-325)) 1 tab Q4H PRN PO MODERATE PAIN LEVEL 4-6; Start 07/06/18 at 14:00; Status Hold Ketorolac Tromethamine (Toradol) 15 mg Q6H PRN IV PAIN; Start 07/07/18 at 08:00; Stop 07/10/18 at 07:59 JESSICA GROVE Jul 09, 2018 14:51
[2018-07-09] MEDS ORDERED: PROPOFOL 20 ML ONE (14:53)
[2018-07-09] MEDS ORDERED: morphine 10 MG INJ ONE (15:21)
[2018-07-09] MEDS ORDERED: CEFAZOLIN 1 GM INJ ONE (15:21)
[2018-07-09] MEDS ORDERED: PHENYLephrine (100 MCG/ML) 10ML SYG ONE (15:24)
[2018-07-09] MEDS ORDERED: DEXAMETHASONE 4 MG/ML 5 ML INJ ONE (15:53)
[2018-07-09] MEDS ORDERED: ONDANSETRON 4 MG INJ ONE (15:54)
[2018-07-09] MEDS ORDERED: LIDOCAINE 2% (SDV) 5 ML INJ ONE (15:54)
[2018-07-09] MEDS ORDERED: POLYMYXIN/BACITRACIN 1L IRRIG IRR ONE (16:11)
--- NOTE | 2018-07-09 18:21 | PAC ---
Date/Time of Note Date/Time of Note DATE: 07/09/18 TIME: 18:21 Post-Anesthesia Notes Post-Anesthesia Note Last documented vital signs Vital Signs Date Temp Pulse Resp B/P (MAP) Pulse Ox O2 O2 Flow FiO2 Time Delivery Rate 07/09/18 97.8 72 81/56 99 18:21 07/09/18 18 115/53 100 Nasal 2.0 12:50 (73) Cannula 07/09/18 98.2 01:45 Activity: WNL Respiratory function: WNL Cardiovascular function: WNL Mental status: Baseline Pain reasonably controlled: Yes Hydration appropriate: Yes Nausea/Vomiting absent: Yes NUBIA SPENCER Jul 09, 2018 18:21
[2018-07-09] MEDS ORDERED: EPHEDrine SULFATE 50 MG/5 ML SYG ONE (18:24)
[2018-07-09] MEDS ORDERED: morphine 4 MG/ML VIAL IV PRN (18:30)
[2018-07-09] MEDS ORDERED: METOCLOPRAMIDE 10 MG INJ IV PRN (18:30)
[2018-07-09] MEDS ORDERED: LABETALOL HCL 20MG INJ IV PRN (18:30)
[2018-07-09] MEDS ORDERED: ONDANSETRON 4 MG INJ IV PRN (18:30)
[2018-07-09] MEDS ORDERED: DIPHENHYDRAMINE 50 MG INJ IV PRN (18:30)
[2018-07-09] MEDS ORDERED: EPHEDrine SULFATE 50 MG/5 ML SYG IV PRN (18:30)
[2018-07-09] MEDS ORDERED: MEPERIDINE 25 MG INJ IV PRN (18:30)
[2018-07-09] MEDS ORDERED: OXYCODONE/ACETAMINOPHEN (5/325) TAB PO PRN ×2 (18:30)
[2018-07-09] MEDS ORDERED: HYDROmorphONE 1 MG/5 ML IV SYRINGE IV PRN ×3 (18:30)
[2018-07-09] MEDS ORDERED: ALBUTEROL 0.083% (NEB) 2.5 MG/3 ML AMP HHN PRN (18:30)
[2018-07-09] MEDS ORDERED: hydrALAzine 20 MG INJ IV PRN (18:30)
--- NOTE | 2018-07-09 18:40 | SIPON ---
Date/Time of Note Date/Time of Note DATE: 07/09/18 TIME: 18:36 Operative Report Preoperative Diagnosis supracondylar fracture of Lt. femur Postoperative Diagnosis same Operation/Procedure Performed O.R.I.F. of supracondylar fracture of Lt. femur Surgeon see signature line medical office assistant instructor none Anesthesia: general Estimated blood loss: other Transfusion Required none Specimen none Grafts/Implants plate and screws Complications none KAYLENE BIRD MD Jul 09, 2018 18:40
[2018-07-09] MEDS: CEFAZOLIN 1 GM/50 ML (PMX) 50 ML IVPB SCH (19:01)
[2018-07-09] MEDS ORDERED: ALBUMIN HUMAN 5% 250 ML ONE (19:27)
[2018-07-09] MEDS: SOD CHLORIDE 0.9% 1,000 ML IV SCH (20:24)
[2018-07-09] MEDS ORDERED: ALBUMIN HUMAN 5% 250 ML IV ONE (20:30)
[2018-07-09] MEDS: HYDROCODONE/APAP (5/325) TAB PO PRN (22:24)
--- NOTE | 2018-07-09 23:58 | OPR ---
DATE OF OPERATION: 07/09/2018 PREOPERATIVE DIAGNOSIS: Comminuted and displaced supracondylar fracture of the left femur. POSTOPERATIVE DIAGNOSIS: Comminuted and displaced supracondylar fracture of the left femur. PROCEDURE PERFORMED: Open reduction and internal fixation of the comminuted and displaced supracondy lar fracture of the left femur. ANESTHESIA: General anesthesia. SURGEON: Adán Bird MD PROCEDURE AND FINDINGS: Under general anesthesia, the patient was placed on top of the fracture tabl e. Utilizing fracture table under fluoroscopic monitoring, preliminary manipulative reduction was ca rried out until an acceptable alignment could be achieved. Usual prep and drape was done exposing the left thigh and left lower extremity. A tourniquet was lawanda marcelo over the proximal portion of the left thigh and was inflated up to 300 mmHg prior to the procedur e. After initial evaluation with the fluoroscopy, a lateral longitudinal incision was made as long as it is needed. By blunt and sharp dissection, the distal left femur was exposed following some adjustme nt in the alignment. The internal fixation was carried out using 8-hole plate for the supracondylar fracture of the femur. After applying the plate over the lateral aspect of the distal femur, this pl ate was stabilized with the Laine clamp, and after proper adjustment, internal fixation was carried out using multiple screws, both nonlocking and locking. At the end of the procedure, the overall ali gnment of the fracture was entirely satisfactory, and the position of this fixation device was proper . After irrigation and hemostasis, closure of the incision was carried out using 0 Vicryl for muscle an d fascia and 2-0 Vicryl for subcutaneous tissues. Final skin closure was carried out with skin stapl es. The usual sterile pressure dressings were applied. The patient tolerated the entire procedure very well and was sent to the recovery room in good condit ion. Dictated By: ADÁN BIRD MD IK/NTS Conf#: [id number] DID#: [id number] CC: GORDON HUDSON MD;*EndCC*
[2018-07-10] VITALS (10 sets, daily range): BP systolic 80–109; BP diastolic 37–64; PULSE 67–86; RESP 16–20
[2018-07-10] MEDS: ONDANSETRON 4 MG INJ IV PRN (01:11)
[2018-07-10] MEDS: SOD CHLORIDE 0.9% 1,000 ML IV SCH ×2 (05:07→15:58)
[2018-07-10] MEDS: CEFAZOLIN 1 GM/50 ML (PMX) 50 ML IVPB SCH (05:26)
[2018-07-10] MEDS ORDERED: VITAMIN A & D 5 GM OINT PACKET TOP ONE (05:55)
[2018-07-10] MEDS ORDERED: ENOXAPARIN 40 MG/0.4 ML SYG SC SCH (09:00)
[2018-07-10] MEDS: FAMOTIDINE 20 MG TAB PO SCH (09:44)
[2018-07-10] MEDS: BACLOFEN 10 MG TAB PO SCH ×3 (09:44→21:00)
[2018-07-10] MEDS: SEVELAMER CARBONATE 0.8 GM PKT PO SCH ×3 (09:45→18:11)
[2018-07-10] MEDS: HEPARIN 5,000 UNIT/1 ML VIAL SC SCH ×2 (09:46→22:05)
--- NOTE | 2018-07-10 15:30 | CONS ---
Date/Time of Note Date/Time of Note DATE: 07/10/18 TIME: 15:28 Assessment/Plan Assessment/Plan Hospital Course IMPRESSION: 1. Preoperative evaluation for left lower extremity open reduction and internal fixation, status post mechanical fall. -NL EF by echo. NO sig valve abnl. Neg trop x 3. OK to proceed at moderate CV risk on current medical therapy. Now POD#1 s/p LE ORIF 2. Hypertension, borderline, labile, likely a component of pain. 3. Abnormal electrocardiogram with lateral T-wave inversion. 4. Status post mechanical fall with a femoral fracture. 5. Femoral fracture, left-sided, supracondylar. 6. History of cerebrovascular accident, previously on Plavix. 7. End-stage renal disease, on hemodialysis. 8. Hyperkalemia. 9. Anemia. REcc: -Pain control -follow BP closely and volume status -HD for volume removal as tolerated -check post-op ECG Result Diagram: 07/10/187 07/10/18446 Results 24hrs Laboratory Tests Test 07/10/18 04:47 White Blood Count 13.1 #H Red Blood Count 2.92 L Hemoglobin 8.8 L Hematocrit 27.7 L Mean Corpuscular Volume 94.9 Mean Corpuscular Hemoglobin 30.1 Mean Corpuscular Hemoglobin Concent 31.8 L Red Cell Distribution Width 13.4 Platelet Count 212 Mean Platelet Volume 9.8 Immature Granulocytes % 0.500 H Neutrophils % 89.7 H Lymphocytes % 5.1 L Monocytes % 4.6 Eosinophils % 0.0 Basophils % 0.1 Nucleated Red Blood Cells % 0.0 Immature Granulocytes # 0.070 H Neutrophils # 11.7 H Lymphocytes # 0.7 L Monocytes # 0.6 Eosinophils # 0.0 Basophils # 0.0 Nucleated Red Blood Cells # 0.0 Sodium Level 142 Potassium Level 5.3 H Chloride Level 101 Carbon Dioxide Level 21 Anion Gap 20 #H Blood Urea Nitrogen 40 #H Creatinine 6.72 #H Est Glomerular Filtrat Rate mL/min 8 L Glucose Level 242 #H Calcium Level 9.3 Consultation Date/Type/Reason Admit Date/Time Jul 03, 2018 at 05:32 Initial Consult Date 07/03/18 Type of Consult cardiology Reason for Consultation Preop Requesting Provider: JESSICA GROVE Exam/Review of Systems Vital Signs Vitals Vital Signs Date Temp Pulse Resp B/P (MAP) Pulse Ox O2 O2 Flow FiO2 Time Delivery Rate 07/10/18 97.7 86 20 84/42 (56) 98 Nasal 14:18 Cannula 07/10/18 2.0 08:00 Intake and Output 07/09/18 07/09/18 07/10/18 1515:00 23:00 07:00 IntakeIntake Total 900 ml 1050 ml OutputOutput Total 900 ml 500 ml BalanceBalance -900 ml 400 ml 1050 ml Exam Review of Systems: CONSTITUTIONAL: No fevers, chills. PULMONARY: No sob CARDIOVASCULAR: No chest pain/palpitations GASTROINTESTINAL: No nausea/vomiting. GENITOURINARY: No hematuria/dysuria. MUSCULOSKELETAL: pain at surgical site PSYCHIATRIC: The patient denies depression. NEUROLOGIC: No weakness Constitutional: alert Psych: no complaints Head: normocephalic ENMT: mucosa pink and moist Neck: supple, jvd (9 cm water) Respiratory: clear to auscultation Cardiovascular: regular rate and rhythm Gastrointestinal: soft, non-tender Musculoskeletal: muscle weakness (generalized) Extremities: edema (trace) Neurological: focal weakness Medications Medications Current Medications Baclofen (Lioresal) 10 mg TID PO Last administered on 07/10/18 12:58; Admin Dose 10 MG; Start 07/03/18 at 21:00 Sevelamer Carbonate (Renvela) 0.8 gm WITH MEALS PO Last administered on 07/10/18 12:59; Admin Dose 0.8 GM; Start 07/03/18 at 17:55 Ondansetron HCl (Zofran Inj) 4 mg Q6H PRN IV NAUSEA AND/OR VOMITING Last administered on 07/10/18 01:11; Admin Dose 4 MG; Start 07/03/18 at 14:30 Acetaminophen (Tylenol Tab) 650 mg Q6H PRN PO PAIN LEVEL 1-3 OR FEVER Last administered on 07/07/18 23:57; Admin Dose 650 MG; Start 07/03/18 at 14:30 Docusate Sodium (Colace) 100 mg Q12H PRN PO CONSTIPATION Last administered on 07/08/18 19:28; Admin Dose 100 MG; Start 07/03/18 at 14:30 Bisacodyl (Dulcolax) 5 mg DAILY PRN PO CONSTIPATION Last administered on 07/08/18 19:28; Admin Dose 5 MG; Start 07/03/18 at 14:30 Zolpidem Tartrate (Ambien) 5 mg QHS PRN PO SLEEP; Start 07/03/18 at 14:30 Famotidine (Pepcid) 20 mg DAILY PO Last administered on 07/10/18 09:44; Admin Dose 20 MG; Start 07/03/18 at 14:30 Morphine Sulfate (morphine) 2 mg Q4H PRN IV PAIN LEVEL 6-10 Last administered on 07/03/18 21:36; Admin Dose 2 MG; Start 07/03/18 at 17:30; Status Hold Acetaminophen/ Hydrocodone Bitart ([place] (7.5-325)) 1 tab Q4H PRN PO MODERATE PAIN LEVEL 4-6; Start 07/06/18 at 14:00; Status Hold Cefazolin Sodium 50 ml @ 100 mls/hr Q12H IVPB Last administered on 07/10/18 05:26; Admin Dose 100 MLS/HR; Start 07/09/18 at 19:00; Stop 07/10/18 at 18:59 Sodium Chloride 1,000 ml @ 100 mls/hr Q10H IV Last administered on 07/10/18 05:07; Admin Dose 100 MLS/HR; Start 07/09/18 at 18:21 Morphine Sulfate (morphine) 3 mg Q3H PRN IV SEVERE PAIN LEVEL 7-10; Start 07/09/18 at 18:30 Acetaminophen/ Hydrocodone Bitart ([place] (5/325)) 1 tab Q3H PRN PO MODERATE PAIN LEVEL 4-6 Last administered on 07/09/18 22:24; Admin Dose 1 TAB; Start 07/09/18 at 18:30 Heparin Sodium (Porcine) (Heparin (5000 Units/1ml)) 5,000 unit Q12 SC Last administered on 07/10/18 09:46; Admin Dose 5,000 UNIT; Start 07/10/18 at 09:00 SHONDA GOODWIN Jul 10, 2018 15:30
--- NOTE | 2018-07-10 16:21 | CONS ---
Date/Time of Note Date/Time of Note DATE: 07/10/18 TIME: 16:20 Assessment/Plan Assessment/Plan Assessment/Plan 57 yo Female with 1) Acute Distal Left Femoral Comminuted Fracture 2) S/p Mechanical Fall 3) ESRD on HD every MWF 4) Anemia, Chronic, CKD 5) MBD, CKD 6) Chronic HTN 7) CAD, Chronic 8) DM with ESRD 9) Hx of CVA with residual left sided deficit 10) Chronic Lower back pain 11) Hyperkalemia HD plan for tomorrow am Repeat Chem in am Monitor H/Hct, will order epogen with HD tomorrow. Neuro consult appreciated Please do not hesitate to contact me if you have any questions or concern Result Diagram: 07/10/1844607/10/18446 Results 24hrs Laboratory Tests Test 07/10/18 04:47 White Blood Count 13.1 #H Red Blood Count 2.92 L Hemoglobin 8.8 L Hematocrit 27.7 L Mean Corpuscular Volume 94.9 Mean Corpuscular Hemoglobin 30.1 Mean Corpuscular Hemoglobin Concent 31.8 L Red Cell Distribution Width 13.4 Platelet Count 212 Mean Platelet Volume 9.8 Immature Granulocytes % 0.500 H Neutrophils % 89.7 H Lymphocytes % 5.1 L Monocytes % 4.6 Eosinophils % 0.0 Basophils % 0.1 Nucleated Red Blood Cells % 0.0 Immature Granulocytes # 0.070 H Neutrophils # 11.7 H Lymphocytes # 0.7 L Monocytes # 0.6 Eosinophils # 0.0 Basophils # 0.0 Nucleated Red Blood Cells # 0.0 Sodium Level 142 Potassium Level 5.3 H Chloride Level 101 Carbon Dioxide Level 21 Anion Gap 20 #H Blood Urea Nitrogen 40 #H Creatinine 6.72 #H Est Glomerular Filtrat Rate mL/min 8 L Glucose Level 242 #H Calcium Level 9.3 Consultation Date/Type/Reason Admit Date/Time Jul 03, 2018 at 05:32 Initial Consult Date 07/03/18 Type of Consult Nephrology Requesting Provider: JESSICA GROVE Exam/Review of Systems Vital Signs Vitals Vital Signs Date Temp Pulse Resp B/P (MAP) Pulse Ox O2 O2 Flow FiO2 Time Delivery Rate 07/10/18 97.7 86 20 84/42 (56) 98 Nasal 14:18 Cannula 07/10/18 2.0 08:00 Intake and Output 07/09/18 07/09/18 07/10/18 1515:00 23:00 07:00 IntakeIntake Total 900 ml 1050 ml OutputOutput Total 900 ml 500 ml BalanceBalance -900 ml 400 ml 1050 ml Exam Constitutional: No distress ENMT: mucosa pink and moist Respiratory: No labored breathing Cardiovascular: edema Gastrointestinal: soft Extremities: edema Medications Medications Current Medications Baclofen (Lioresal) 10 mg TID PO Last administered on 07/10/18 12:58; Admin Dose 10 MG; Start 07/03/18 at 21:00 Sevelamer Carbonate (Renvela) 0.8 gm WITH MEALS PO Last administered on 07/10/18 12:59; Admin Dose 0.8 GM; Start 07/03/18 at 17:55 Ondansetron HCl (Zofran Inj) 4 mg Q6H PRN IV NAUSEA AND/OR VOMITING Last adm inistered on 07/10/18 01:11; Admin Dose 4 MG; Start 07/03/18 at 14:30 Acetaminophen (Tylenol Tab) 650 mg Q6H PRN PO PAIN LEVEL 1-3 OR FEVER Last administered on 07/07/18 23:57; Admin Dose 650 MG; Start 07/03/18 at 14:30 Docusate Sodium (Colace) 100 mg Q12H PRN PO CONSTIPATION Last administered on 19:28; Admin Dose 100 MG; Start 07/03/18 at 14:30 Bisacodyl (Dulcolax) 5 mg DAILY PRN PO CONSTIPATION Last administered on 07/08/18 19:28; Admin Dose 5 MG; Start 07/03/18 at 14:30 Zolpidem Tartrate (Ambien) 5 mg QHS PRN PO SLEEP; Start 07/03/18 at 14:30 Famotidine (Pepcid) 20 mg DAILY PO Last administered on 07/10/18 09:44; Admin Dose 20 MG; Start 07/03/18 at 14:30 Morphine Sulfate (morphine) 2 mg Q4H PRN IV PAIN LEVEL 6-10 Last administered on 07/03/18 21:36; Admin Dose 2 MG; Start 07/03/18 at 17:30; Status Hold Acetaminophen/ Hydrocodone Bitart ([place] (7.5-325)) 1 tab Q4H PRN PO MODERATE PAIN LEVEL 4-6; Start 07/06/18 at 14:00; Status Hold Cefazolin Sodium 50 ml @ 100 mls/hr Q12H IVPB Last administered on 07/10/18at 05:26; Admin Dose 100 MLS/HR; Start 07/09/18 at 19:00; Stop 07/10/18 at 18:59 Sodium Chloride 1,000 ml @ 100 mls/hr Q10H IV Last administered on 07/10/18at 15:58; Admin Dose 100 MLS/HR; Start 07/09/18 at 18:21 Morphine Sulfate (morphine) 3 mg Q3H PRN IV SEVERE PAIN LEVEL 7-10; Start 07/09/18 at 18:30 Acetaminophen/ Hydrocodone Bitart ([place] (5/325)) 1 tab Q3H PRN PO MODERATE PAIN LEVEL 4-6 Last administered on 07/09/18at 22:24; Admin Dose 1 TAB; Start 07/09/18 at 18:30 Heparin Sodium (Porcine) (Heparin (5000 Units/1ml)) 5,000 unit Q12 SC Last administered on 07/10/18at 09:46; Admin Dose 5,000 UNIT; Start 07/10/18 at 09:00 SHARON ESPINOZA MD Jul 10, 2018 16:21
--- NOTE | 2018-07-10 17:14 | PN ---
Date/Time of Note Date/Time of Note DATE: 07/10/18 TIME: 17:12 Assessment/Plan VTE Prophylaxis Risk score (from Ns)>0 risk: 8 SCD applied (from Ns): Yes Pharmacological prophylaxis: heparin Lines/Catheters IV [facility] Type ([facility] [place] Urinary Cath still in place: No Assessment/Plan Hospital Course Patient is status post surgery yesterday, awake however confused continues to have one-to-one sitter, pain is adequately controlled, stable vital signs. Assessment/Plan -Acute comminuted distal left femoral fracture without dislocation. S/p pen reduction and internal fixation of the comminuted and displaced supracondylar fracture of the left femur by Dr. Gutierres on 07/09/18. -Hemodialysis dependent end-stage renal disease. Continue on hemodialysis. Dr. Tucker is following in nephrology consultation. -Diabetes mellitus -History of cerebrovascular accident with left-sided paralysis. -Anemia of chronic disease. Continue to monitor hemoglobin and hematocrit. Currently stable. -Chronic dislocation of the left shoulder. No acute issues. -Mineral bone disease Further recommendations based on clinical course. Plan of care discussed with Dr. Rousseau. Result Diagram: 07/10/187 07/10/18 0447 Results 24hrs Laboratory Tests Test 07/10/18 04:47 White Blood Count 13.1 #H Red Blood Count 2.92 L Hemoglobin 8.8 L Hematocrit 27.7 L Mean Corpuscular Volume 94.9 Mean Corpuscular Hemoglobin 30.1 Mean Corpuscular Hemoglobin Concent 31.8 L Red Cell Distribution Width 13.4 Platelet Count 212 Mean Platelet Volume 9.8 Immature Granulocytes % 0.500 H Neutrophils % 89.7 H Lymphocytes % 5.1 L Monocytes % 4.6 Eosinophils % 0.0 Basophils % 0.1 Nucleated Red Blood Cells % 0.0 Immature Granulocytes # 0.070 H Neutrophils # 11.7 H Lymphocytes # 0.7 L Monocytes # 0.6 Eosinophils # 0.0 Basophils # 0.0 Nucleated Red Blood Cells # 0.0 Sodium Level 142 Potassium Level 5.3 H Chloride Level 101 Carbon Dioxide Level 21 Anion Gap 20 #H Blood Urea Nitrogen 40 #H Creatinine 6.72 #H Est Glomerular Filtrat Rate mL/min 8 L Glucose Level 242 #H Calcium Level 9.3 Exam/Review of Systems Vital Signs Vitals Vital Signs Date Temp Pulse Resp B/P (MAP) Pulse Ox O2 O2 Flow FiO2 Time Delivery Rate 07/10/18 97.7 86 20 84/42 (56) 98 Nasal 14:18 Cannula 07/10/18 2.0 08:00 Intake and Output 07/09/18 07/09/18 07/10/18 1515:00 23:00 07:00 IntakeIntake Total 900 ml 1050 ml OutputOutput Total 900 ml 500 ml BalanceBalance -900 ml 400 ml 1050 ml Exam Constitutional: alert, oriented Respiratory: clear to auscultation Cardiovascular: nl pulses Gastrointestinal: soft, non-tender Musculoskeletal: other (LLE s/p surgery, immobilizer) Extremities: normal pulses Neurological: other (Left-sided weakness from previous stroke) Skin: nl turgor Medications Medications Current Medications Baclofen (Lioresal) 10 mg TID PO Last administered on 07/10/18 12:58; Admin Dose 10 MG; Start 07/03/18 at 21:00 Sevelamer Carbonate (Renvela) 0.8 gm WITH MEALS PO Last administered on 07/10/18 12:59; Admin Dose 0.8 GM; Start 07/03/18 at 17:55 Ondansetron HCl (Zofran Inj) 4 mg Q6H PRN IV NAUSEA AND/OR VOMITING Last administered on 07/10/18 01:11; Admin Dose 4 MG; Start 07/03/18 at 14:30 Acetaminophen (Tylenol Tab) 650 mg Q6H PRN PO PAIN LEVEL 1-3 OR FEVER Last a dministered on 07/07/18 23:57; Admin Dose 650 MG; Start 07/03/18 at 14:30 Docusate Sodium (Colace) 100 mg Q12H PRN PO CONSTIPATION Last administered on 07/08/18 19:28; Admin Dose 100 MG; Start 07/03/18 at 14:30 Bisacodyl (Dulcolax) 5 mg DAILY PRN PO CONSTIPATION Last administered on 07/08/18 19:28; Admin Dose 5 MG; Start 07/03/18 at 14:30 Zolpidem Tartrate (Ambien) 5 mg QHS PRN PO SLEEP; Start 07/03/18 at 14:30 Famotidine (Pepcid) 20 mg DAILY PO Last administered on 07/10/18 09:44; Admin Dose 20 MG; Start 07/03/18 at 14:30 Morphine Sulfate (morphine) 2 mg Q4H PRN IV PAIN LEVEL 6-10 Last administered on 07/03/18at 21:36; Admin Dose 2 MG; Start 07/03/18 at 17:30; Status Hold Acetaminophen/ Hydrocodone Bitart ([place] (7.5-325)) 1 tab Q4H PRN PO MODERATE PAIN LEVEL 4-6; Start 07/06/18 at 14:00; Status Hold Cefazolin Sodium 50 ml @ 100 mls/hr Q12H IVPB Last administered on 07/10/18 05:26; Admin Dose 100 MLS/HR; Start 07/09/18 at 19:00; Stop 07/10/18 at 18:59 Sodium Chloride 1,000 ml @ 100 mls/hr Q10H IV Last administered on 07/10/18at 15:58; Admin Dose 100 MLS/HR; Start 07/09/18 at 18:21 Morphine Sulfate (morphine) 3 mg Q3H PRN IV SEVERE PAIN LEVEL 7-10; Start 07/09/18 at 18:30 Acetaminophen/ Hydrocodone Bitart ([place] (5/325)) 1 tab Q3H PRN PO MODERATE PAIN LEVEL 4-6 Last administered on 07/09/18at 22:24; Admin Dose 1 TAB; Start 07/09/18 at 18:30 Heparin Sodium (Porcine) (Heparin (5000 Units/1ml)) 5,000 unit Q12 SC Last administered on 07/10/18 09:46; Admin Dose 5,000 UNIT; Start 07/10/18 at 09:00 JESSICA GROVE Jul 10, 2018 17:14
[2018-07-11] VITALS (17 sets, daily range): BP systolic 93–119; BP diastolic 50–71; PULSE 75–95; RESP 16–20
[2018-07-11] MEDS: SOD CHLORIDE 0.9% 1,000 ML IV SCH (02:31)
[2018-07-11] MEDS: SEVELAMER CARBONATE 0.8 GM PKT PO SCH ×3 (07:50→18:16)
[2018-07-11] MEDS: BACLOFEN 10 MG TAB PO SCH ×3 (09:00→20:40)
[2018-07-11] MEDS ORDERED: HEPARIN 1000 UNITS/ML 10 ML INJ CATHETER ONE ×2 (09:30→13:00)
[2018-07-11] MEDS: ALBUMIN HUMAN 25% 100 ML IV PRN (10:45)
[2018-07-11] MEDS: FAMOTIDINE 20 MG TAB PO SCH (14:27)
[2018-07-11] MEDS: HEPARIN 5,000 UNIT/1 ML VIAL SC SCH ×2 (14:29→20:43)
--- NOTE | 2018-07-11 14:39 | PN ---
Date/Time of Note Date/Time of Note DATE: 07/11/18 TIME: 14:39 Assessment/Plan VTE Prophylaxis Risk score (from Ns)>0 risk: 8 SCD applied (from Ns): Yes Pharmacological prophylaxis: other Lines/Catheters IV Catheter Type (from Nrsg): Peripheral IV Urinary Cath still in place: No Assessment/Plan Assessment/Plan -Acute comminuted distal left femoral fracture without dislocation. - S/p pen reduction and internal fixation of the comminuted and displaced supracondylar fracture of the left femur by Dr. Gutierres on 07/09/18. -Hemodialysis dependent end-stage renal disease. -Continue on hemodialysis. -Dr. Tucker is following in nephrology consultation. -Diabetes mellitus -glycemic control -History of cerebrovascular accident with left-sided paralysis. -Anemia of chronic disease. - Continue to monitor hemoglobin and hematocrit. Currently stable. -Chronic dislocation of the left shoulder. No acute issues. -Mineral bone disease Further recommendations based on clinical course. Plan of care discussed with Dr. Rousseau. Result Diagram: 07/10/18 0447 07/11/18 0453 Results 24hrs Laboratory Tests Test 07/10/18 22:06 07/11/18 04:53 Bedside Glucose 175 White Blood Count Pending Red Blood Count Pending Hemoglobin Pending Hematocrit Pending Mean Corpuscular Volume Pending Mean Corpuscular Hemoglobin Pending Mean Corpuscular Hemoglobin Concent Pending Red Cell Distribution Width Pending Platelet Count Pending Mean Platelet Volume Pending Sodium Level 138 Potassium Level 4.9 Chloride Level 104 Carbon Dioxide Level 20 L Anion Gap 14 H Blood Urea Nitrogen 53 H Creatinine 6.50 H Est Glomerular Filtrat Rate mL/min 8 L Glucose Level 140 # Calcium Level 9.2 Subjective 24 Hr Interval Summary Free Text/Dictation - HD TODAY - left le pain is getting better ; effective pain control monitor Hgb no new complaints reported overnight Constitutional: no complaints Eyes: no complaints ENT: no complaints Cardiovascular: no complaints Gastrointestinal: no complaints Genitourinary: no complaints Musculoskeletal: bone/joint pain, restricted range of motion Skin: no complaints Neurologic: no complaints Endocrine: no complaints Lymphatic: no complaints Psychological: nl mood/affect Immunologic: no complaints Exam/Review of Systems Vital Signs Vitals Vital Signs Date Temp Pulse Resp B/P (MAP) Pulse Ox O2 O2 Flow FiO2 Time Delivery Rate 07/11/18 98.1 95 18 109/67 98 13:28 (81) 07/11/18 Nasal 2.0 09:50 Cannula Intake and Output 07/10/18 07/10/18 07/11/18 1515:00 23:00 07:00 IntakeIntake Total 480 ml 1340 ml 1200 ml BalanceBalance 480 ml 1340 ml 1200 ml Exam Constitutional: alert, well developed Psych: nl mood/affect, anxiety Head: atraumatic Eyes: nl conjunctiva, EOMI, nl lids ENMT: nl external ears & nose Neck: non-tender Respiratory: clear to auscultation Cardiovascular: nl pulses, other (s1s2) Gastrointestinal: soft, non-tender Musculoskeletal: range of motion Extremities: normal pulses, clubbing Neurological: nl speech, other (alert/resonsie) Skin: nl turgor Lymph: nontender Medications Medications Current Medications Baclofen (Lioresal) 10 mg TID PO Last administered on 07/11/18 14:27; Admin Dose 10 MG; Start 07/03/18 at 21:00 Sevelamer Carbonate (Renvela) 0.8 gm WITH MEALS PO Last administered on 07/11/18 14:27; Admin Dose 0.8 GM; Start 07/03/18 at 17:55 Ondansetron HCl (Zofran Inj) 4 mg Q6H PRN IV NAUSEA AND/OR VOMITING Last administered on 07/10/18 01:11; Admin Dose 4 MG; Start 07/03/18 at 14:30 Acetaminophen (Tylenol Tab) 650 mg Q6H PRN PO PAIN LEVEL 1-3 OR FEVER Last adm inistered on 07/07/18 23:57; Admin Dose 650 MG; Start 07/03/18 at 14:30 Docusate Sodium (Colace) 100 mg Q12H PRN PO CONSTIPATION Last administered on 07/08/18 19:28; Admin Dose 100 MG; Start 07/03/18 at 14:30 Bisacodyl (Dulcolax) 5 mg DAILY PRN PO CONSTIPATION Last administered on 07/08/18 19:28; Admin Dose 5 MG; Start 07/03/18 at 14:30 Zolpidem Tartrate (Ambien) 5 mg QHS PRN PO SLEEP; Start 07/03/18 at 14:30 Famotidine (Pepcid) 20 mg DAILY PO Last administered on 07/11/18 14:27; Admin Dose 20 MG; Start 07/03/18 at 14:30 Morphine Sulfate (morphine) 2 mg Q4H PRN IV PAIN LEVEL 6-10 Last administered on 07/03/18 21:36; Admin Dose 2 MG; Start 07/03/18 at 17:30; Status Hold Acetaminophen/ Hydrocodone Bitart ([place] (7.5-325)) 1 tab Q4H PRN PO MODERATE PAIN LEVEL 4-6; Start 07/06/18 at 14:00; Status Hold Sodium Chloride 1,000 ml @ 100 mls/hr Q10H IV Last administered on 07/11/18 02:31; Admin Dose 100 MLS/HR; Start 07/09/18 at 18:21 Morphine Sulfate (morphine) 3 mg Q3H PRN IV SEVERE PAIN LEVEL 7-10; Start 07/09/18 at 18:30 Acetaminophen/ Hydrocodone Bitart ([place] (5/325)) 1 tab Q3H PRN PO MODERATE PAIN LEVEL 4-6 Last administered on 07/09/18 22:24; Admin Dose 1 TAB; Start 07/09/18 at 18:30 Heparin Sodium (Porcine) (Heparin (5000 Units/1ml)) 5,000 unit Q12 SC Last administered on 07/11/18 14:29; Admin Dose 5,000 UNIT; Start 07/10/18 at 09:00 Albumin Human 100 ml @ 100 mls/hr WITH DIALYSIS PRN IV BP support during dialysis Last administered on 07/11/18at 10:45; Admin Dose 100 MLS/HR; Start 07/11/18 at 09:30 ELIO KIRAN Jul 11, 2018 14:39
[2018-07-11] MEDS: HYDROCODONE/APAP (5/325) TAB PO PRN ×2 (15:07→20:41)
--- NOTE | 2018-07-11 18:11 | CONS ---
Date/Time of Note Date/Time of Note DATE: 07/11/18 TIME: 18:07 Assessment/Plan Assessment/Plan Assessment/Plan 1. Preoperative evaluation for left lower extremity open reduction and internal fixation, status post mechanical fall. -NL EF by echo. NO sig valve abnl. Neg trop x 3. OK to proceed at moderate CV risk on current medical therapy. Now POD#2 s/p LE ORIF 2. Hypertension, borderline, labile, likely a component of pain. 3. Abnormal electrocardiogram with lateral T-wave inversion. 4. Status post mechanical fall with a femoral fracture. 5. Femoral fracture, left-sided, supracondylar.- S/P Sx on 07/09/18 6. History of cerebrovascular accident, previously on Plavix. 7. End-stage renal disease, on hemodialysis- Per Nephrology 8. Hyperkalemia - Per Nephrology 9. Anemia- per PMD REcc: -Pain control -follow BP closely and volume status -HD for volume removal as tolerated Result Diagram: 07/11/18 1549 07/11/18 0453 Results 24hrs Laboratory Tests Test 07/10/18 22:06 07/11/18 04:53 07/11/18 14:00 07/11/18 15:49 Bedside Glucose 175 Sodium Level 138 Potassium Level 4.9 Chloride Level 104 Carbon Dioxide Level 20 L Anion Gap 14 H Blood Urea Nitrogen 53 H Creatinine 6.50 H Est Glomerular 8 L Filtrat Rate mL/min Glucose Level 140 # Calcium Level 9.2 White Blood Count 8.7 # Red Blood Count 2.18 #L Hemoglobin 6.7 #*L 6.2 *L Hematocrit 20.7 #L 19.4 L Mean Corpuscular 95.0 Volume Mean Corpuscular 30.7 Hemoglobin Mean Corpuscular 32.4 Hemoglobin Concent Red Cell 14.0 Distribution Width Platelet Count 213 Mean Platelet Volume 10.0 Immature 0.600 H Granulocytes % Neutrophils % Segmented 55 Neutrophils % (Manual) Lymphocytes % Lymphocytes % 37 (Manual) Monocytes % Monocytes % (Manual) 5 Eosinophils % Basophils % Metamyelocytes % 2 H (manual) Myelocytes % 1 H (Manual) Nucleated Red Blood 0.0 Cells % Immature 0.050 H Granulocytes # Neutrophils # Lymphocytes (Manual) 3.2 H Lymphocytes # Monocytes # Monocytes # (Manual) 0.4 Eosinophils # Basophils # Metamyelocytes # 0.1 H Myelocytes # 0.0 Nucleated Red Blood Cells # Platelet Estimate NORMAL Polychromasia 1+ Hypochromasia 1+ Consultation Date/Type/Reason Admit Date/Time Jul 03, 2018 at 05:32 Initial Consult Date 07/03/18 Requesting Provider: JESSICA GROVE 24 HR Interval Summary Free Text/Dictation ROS: No fever, no chills, no nausea, no vomiting, no diarrhea/constipation No recent weight changes No edema, no palpitations No chest pain, no PND, no SOB No dizziness, blurred vision No thirst, no heat or cold intolerance c/o bilat leg pains (not new) Exam/Review of Systems Vital Signs Vitals Vital Signs Date Temp Pulse Resp B/P (MAP) Pulse Ox O2 O2 Flow FiO2 Time Delivery Rate 07/11/18 98.1 95 18 109/67 98 13:28 (81) 07/11/18 Nasal 2.0 09:50 Cannula Intake and Output 07/10/18 07/10/18 07/11/18 1414:59 22:59 06:59 IntakeIntake Total 480 ml 1340 ml 1200 ml BalanceBalance 480 ml 1340 ml 1200 ml Exam General: WN/ obese HEENT: Unicetric/atraumatic/ no assymetry NECK: JVD not elevated, no thyromegaly, carotids revealed normal upstrokes Lymph: no lymphadenopathy HEART: regular with no S3, I/ systolic murmur at apex LUNGS: clear ABD: soft, NT, ND, +BS, no organomegaly Neuro: no deficit SKIN: no leisons EXT: no edema Medications Medications Current Medications Baclofen (Lioresal) 10 mg TID PO Last administered on 07/11/18at 14:27; Admin Dose 10 MG; Start 07/03/18 at 21:00 Sevelamer Carbonate (Renvela) 0.8 gm WITH MEALS PO Last administered on 07/11/18at 14:27; Admin Dose 0.8 GM; Start 07/03/18 at 17:55 Ondansetron HCl (Zofran Inj) 4 mg Q6H PRN IV NAUSEA AND/OR VOMITING Last administered on 07/10/18at 01:11; Admin Dose 4 MG; Start 07/03/18 at 14:30 Acetaminophen (Tylenol Tab) 650 mg Q6H PRN PO PAIN LEVEL 1-3 OR FEVER Last administered on 07/07/18 23:57; Admin Dose 650 MG; Start 07/03/18 at 14:30 Docusate Sodium (Colace) 100 mg Q12H PRN PO CONSTIPATION Last administered on 07/08/18 19:28; Admin Dose 100 MG; Start 07/03/18 at 14:30 Bisacodyl (Dulcolax) 5 mg DAILY PRN PO CONSTIPATION Last administered on 07/08/18 19:28; Admin Dose 5 MG; Start 07/03/18 at 14:30 Zolpidem Tartrate (Ambien) 5 mg QHS PRN PO SLEEP; Start 07/03/18 at 14:30 Famotidine (Pepcid) 20 mg DAILY PO Last administered on 07/11/18 14:27; Admin Dose 20 MG; Start 07/03/18 at 14:30 Morphine Sulfate (morphine) 2 mg Q4H PRN IV PAIN LEVEL 6-10 Last administered on 07/03/18 21:36; Admin Dose 2 MG; Start 07/03/18 at 17:30; Status Hold Acetaminophen/ Hydrocodone Bitart ([place] (7.5-325)) 1 tab Q4H PRN PO MODERATE PAIN LEVEL 4-6; Start 07/06/18 at 14:00; Status Hold Morphine Sulfate (morphine) 3 mg Q3H PRN IV SEVERE PAIN LEVEL 7-10; Start 07/09/18 at 18:30 Acetaminophen/ Hydrocodone Bitart ([place] (5/325)) 1 tab Q3H PRN PO MODERATE PAIN LEVEL 4-6 Last administered on 07/11/18 15:07; Admin Dose 1 TAB; Start 07/09/18 at 18:30 Heparin Sodium (Porcine) (Heparin (5000 Units/1ml)) 5,000 unit Q12 SC Last administered on 07/11/18 14:29; Admin Dose 5,000 UNIT; Start 07/10/18 at 09:00 Albumin Human 100 ml @ 100 mls/hr WITH DIALYSIS PRN IV BP support during dialysis Last administered on 07/11/18 10:45; Admin Dose 100 MLS/HR; Start 07/11/18 at 09:30 GUS RENDON MD Jul 11, 2018 18:11
--- NOTE | 2018-07-11 18:23 | CONS ---
Date/Time of Note Date/Time of Note DATE: 07/11/18 TIME: 18:23 Assessment/Plan Assessment/Plan Assessment/Plan Assessment/Plan 57 yo Female with 1) Acute Distal Left Femoral Comminuted Fracture 2) S/p Mechanical Fall 3) ESRD on HD every MWF 4) Anemia, Chronic, CKD 5) MBD, CKD 6) Chronic HTN 7) CAD, Chronic 8) DM with ESRD 9) Hx of CVA with residual left sided deficit 10) Chronic Lower back pain 11) Hyperkalemia Planned for [facility] HD plan for tomorrow am UF as tolerated Repeat Chem in am Monitor H/Hct, will order epogen with HD tomorrow. Please do not hesitate to contact me if you have any questions or concern Result Diagram: 07/11/18 1549 07/11/18 0453 Results 24hrs Laboratory Tests Test 07/10/18 22:06 07/11/18 04:53 07/11/18 14:00 07/11/18 15:49 Bedside Glucose 175 Sodium Level 138 Potassium Level 4.9 Chloride Level 104 Carbon Dioxide Level 20 L Anion Gap 14 H Blood Urea Nitrogen 53 H Creatinine 6.50 H Est Glomerular 8 L Filtrat Rate mL/min Glucose Level 140 # Calcium Level 9.2 White Blood Count 8.7 # Red Blood Count 2.18 #L Hemoglobin 6.7 #*L 6.2 *L Hematocrit 20.7 #L 19.4 L Mean Corpuscular 95.0 Volume Mean Corpuscular 30.7 Hemoglobin Mean Corpuscular 32.4 Hemoglobin Concent Red Cell 14.0 Distribution Width Platelet Count 213 Mean Platelet Volume 10.0 Immature 0.600 H Granulocytes % Neutrophils % Segmented 55 Neutrophils % (Manual) Lymphocytes % Lymphocytes % 37 (Manual) Monocytes % Monocytes % (Manual) 5 Eosinophils % Basophils % Metamyelocytes % 2 H (manual) Myelocytes % 1 H (Manual) Nucleated Red Blood 0.0 Cells % Immature 0.050 H Granulocytes # Neutrophils # Lymphocytes (Manual) 3.2 H Lymphocytes # Monocytes # Monocytes # (Manual) 0.4 Eosinophils # Basophils # Metamyelocytes # 0.1 H Myelocytes # 0.0 Nucleated Red Blood Cells # Platelet Estimate NORMAL Polychromasia 1+ Hypochromasia 1+ Consultation Date/Type/Reason Admit Date/Time Jul 03, 2018 at 05:32 Initial Consult Date 07/03/18 Type of Consult Nephrology Requesting Provider: JESSICA GROVE 24 HR Interval Summary Constitutional: requiring O2 Exam/Review of Systems Vital Signs Vitals Vital Signs Date Temp Pulse Resp B/P (MAP) Pulse Ox O2 O2 Flow FiO2 Time Delivery Rate 07/11/18 98.1 95 18 109/67 98 13:28 (81) 07/11/18 Nasal 2.0 09:50 Cannula Intake and Output 07/10/18 07/10/18 07/11/18 1414:59 22:59 06:59 IntakeIntake Total 480 ml 1340 ml 1200 ml BalanceBalance 480 ml 1340 ml 1200 ml Exam Constitutional: No distress ENMT: mucosa pink and moist Neck: No jvd Respiratory: crackles/rales; No diminished breath sounds, No labored breathing Cardiovascular: regular rate and rhythm, edema Gastrointestinal: soft Extremities: edema Neurological: nl mental status Medications Medications Current Medications Baclofen (Lioresal) 10 mg TID PO Last administered on 07/11/18at 14:27; Admin Dose 10 MG; Start 07/03/18 at 21:00 Sevelamer Carbonate (Renvela) 0.8 gm WITH MEALS PO Last administered on 07/11/18 18:16; Admin Dose 0.8 GM; Start 07/03/18 at 17:55 Ondansetron HCl (Zofran Inj) 4 mg Q6H PRN IV NAUSEA AND/OR VOMITING Last administered on 07/10/18at 01:11; Admin Dose 4 MG; Start 07/03/18 at 14:30 Acetaminophen (Tylenol Tab) 650 mg Q6H PRN PO PAIN LEVEL 1-3 OR FEVER Last administered on 07/07/18at 23:57; Admin Dose 650 MG; Start 07/03/18 at 14:30 Docusate Sodium (Colace) 100 mg Q12H PRN PO CONSTIPATION Last administered on 07/08/18 19:28; Admin Dose 100 MG; Start 07/03/18 at 14:30 Bisacodyl (Dulcolax) 5 mg DAILY PRN PO CONSTIPATION Last administered on 07/08/18 19:28; Admin Dose 5 MG; Start 07/03/18 at 14:30 Zolpidem Tartrate (Ambien) 5 mg QHS PRN PO SLEEP; Start 07/03/18 at 14:30 Famotidine (Pepcid) 20 mg DAILY PO Last administered on 07/11/18at 14:27; Admin Dose 20 MG; Start 07/03/18 at 14:30 Morphine Sulfate (morphine) 2 mg Q4H PRN IV PAIN LEVEL 6-10 Last administered on 07/03/18at 21:36; Admin Dose 2 MG; Start 07/03/18 at 17:30; Status Hold Acetaminophen/ Hydrocodone Bitart ([place] (7.5-325)) 1 tab Q4H PRN PO MODERATE PAIN LEVEL 4-6; Start 07/06/18 at 14:00; Status Hold Morphine Sulfate (morphine) 3 mg Q3H PRN IV SEVERE PAIN LEVEL 7-10; Start 07/09/18 at 18:30 Acetaminophen/ Hydrocodone Bitart ([place] (5/325)) 1 tab Q3H PRN PO MODERATE PAIN LEVEL 4-6 Last administered on 07/11/18at 15:07; Admin Dose 1 TAB; Start 07/09/18 at 18:30 Heparin Sodium (Porcine) (Heparin (5000 Units/1ml)) 5,000 unit Q12 SC Last administered on 07/11/18at 14:29; Admin Dose 5,000 UNIT; Start 07/10/18 at 09:00 Albumin Human 100 ml @ 100 mls/hr WITH DIALYSIS PRN IV BP support during dialysis Last administered on 07/11/18at 10:45; Admin Dose 100 MLS/HR; Start 07/11/18 at 09:30 SHARON ESPINOZA MD Jul 11, 2018 18:23
[2018-07-12] VITALS (19 sets, daily range): BP systolic 84–130; BP diastolic 50–74; PULSE 71–92; RESP 17–18
--- NOTE | 2018-07-12 01:54 | RADRPT ---
Vent Rate: 80 bpm RR Interval: 0 msec HI Interval: 136 msec QRS Duration: 74 msec QT Interval: 386 msec QTC Interval: 445 msec P-R-T [place]: 51 - -7 - 51 degrees Normal sinus rhythm Normal ECG Electronically Signed By: Mark Ortiz [id number]
[2018-07-12] MEDS: BISACODYL (EC) 5 MG TAB PO PRN (06:00)
[2018-07-12] MEDS: SEVELAMER CARBONATE 0.8 GM PKT PO SCH ×3 (09:11→18:15)
[2018-07-12] MEDS: BACLOFEN 10 MG TAB PO SCH ×3 (09:12→21:38)
[2018-07-12] MEDS: FAMOTIDINE 20 MG TAB PO SCH (09:12)
[2018-07-12] MEDS: HEPARIN 5,000 UNIT/1 ML VIAL SC SCH ×2 (09:13→21:43)
--- NOTE | 2018-07-12 09:32 | CONS ---
Date/Time of Note Date/Time of Note DATE: 07/12/18 TIME: 09:31 Assessment/Plan Assessment/Plan Assessment/Plan 57 yo Female with 1) Acute Distal Left Femoral Comminuted Fracture 2) S/p Mechanical Fall 3) ESRD on HD every MWF 4) Anemia, Chronic, CKD 5) MBD, CKD 6) Chronic HTN 7) CAD, Chronic 8) DM with ESRD 9) Hx of CVA with residual left sided deficit 10) Chronic Lower back pain 11) Hyperkalemia S/p PRBC HD plan for today Gentle UF as tolerated Repeat Chem H/Hct Epogen with HD Please do not hesitate to contact me if you have any questions or concern Result Diagram: 07/12/18 0455 07/12/18 0455 Results 24hrs Laboratory Tests Test 07/11/18 14:00 07/11/18 15:49 07/12/18 04:55 07/12/18 06:40 White Blood Count 8.7 # 7.0 Red Blood Count 2.18 #L 2.42 L Hemoglobin 6.7 #*L 6.2 *L 7.3 L Hematocrit 20.7 #L 19.4 L 22.2 L Mean Corpuscular 95.0 91.7 Volume Mean Corpuscular 30.7 30.2 Hemoglobin Mean Corpuscular 32.4 32.9 Hemoglobin Concen t Red Cell 14.0 15.8 H Distribution Width Platelet Count 213 237 Mean Platelet 10.0 9.8 Volume Immature 0.600 H 0.600 H Granulocytes % Neutrophils % 56.8 Segmented 55 Neutrophils % (Manual) Lymphocytes % 29.2 Lymphocytes % 37 (Manual) Monocytes % 9.4 Monocytes % 5 (Manual) Eosinophils % 3.4 Basophils % 0.6 Metamyelocytes % 2 H (manual) Myelocytes % 1 H (Manual) Nucleated Red 0.0 0.0 Blood Cells % Immature 0.050 H 0.040 H Granulocytes # Neutrophils # 4.0 Lymphocytes 3.2 H (Manual) Lymphocytes # 2.1 Monocytes # 0.7 Monocytes # 0.4 (Manual) Eosinophils # 0.2 Basophils # 0.0 Metamyelocytes # 0.1 H Myelocytes # 0.0 Nucleated Red 0.0 Blood Cells # Platelet Estimate NORMAL Polychromasia 1+ Hypochromasia 1+ Sodium Level 137 Potassium Level 3.9 Chloride Level 100 Carbon Dioxide 27 Level Anion Gap 10 Blood Urea 28 #H Nitrogen Creatinine 5.01 H Est Glomerular 11 L Filtrat Rate mL/min Glucose Level 97 # Calcium Level 9.0 Lab Scanned BLOOD TRANSFUSIO Report N Consultation Date/Type/Reason Admit Date/Time Jul 03, 2018 at 05:32 Initial Consult Date 07/03/18 Type of Consult Nephrology Requesting Provider: JESSICA GROVE 24 HR Interval Summary Free Text/Dictation S/p PRBC, better, no SOB, HD plan for later today. No labs done. Exam/Review of Systems Vital Signs Vitals Vital Signs Date Temp Pulse Resp B/P (MAP) Pulse Ox O2 O2 Flow FiO2 Time Delivery Rate 07/12/18 98.4 77 18 92/51 (65) 95 07:50 07/11/18 Nasal 2.0 09:50 Cannula Intake and Output 07/11/18 07/11/18 07/12/18 1414:59 22:59 06:59 IntakeIntake Total 500 ml 120 ml 670 ml OutputOutput Total 1680 ml BalanceBalance -1180 ml 120 ml 670 ml Exam Constitutional: No distress ENMT: mucosa pink and moist Neck: No jvd Respiratory: clear to auscultation Cardiovascular: regular rate and rhythm, edema Gastrointestinal: soft Neurological: nl mental status Medications Medications Current Medications Baclofen (Lioresal) 10 mg TID PO Last administered on 07/12/18 09:12; Admin Dose 10 MG; Start 07/03/18 at 21:00 Sevelamer Carbonate (Renvela) 0.8 gm WITH MEALS PO Last administered on 07/12/18 09:11; Admin Dose 0.8 GM; Start 07/03/18 at 17:55 Ondansetron HCl (Zofran Inj) 4 mg Q6H PRN IV NAUSEA AND/OR VOMITING Last administered on 07/10/18 01:11; Admin Dose 4 MG; Start 07/03/18 at 14:30 Acetaminophen (Tylenol Tab) 650 mg Q6H PRN PO PAIN LEVEL 1-3 OR FEVER Last administered on 07/07/18 23:57; Admin Dose 650 MG; Start 07/03/18 at 14:30 Docusate Sodium (Colace) 100 mg Q12H PRN PO CONSTIPATION Last administered on 07/08/18 19:28; Admin Dose 100 MG; Start 07/03/18 at 14:30 Bisacodyl (Dulcolax) 5 mg DAILY PRN PO CONSTIPATION Last administered on at 06:00; Admin Dose 5 MG; Start 07/03/18 at 14:30 Zolpidem Tartrate (Ambien) 5 mg QHS PRN PO SLEEP; Start 07/03/18 at 14:30 Famotidine (Pepcid) 20 mg DAILY PO Last administered on 07/12/18at 09:12; Admin Dose 20 MG; Start 07/03/18 at 14:30 Morphine Sulfate (morphine) 2 mg Q4H PRN IV PAIN LEVEL 6-10 Last administered on 07/03/18 21:36; Admin Dose 2 MG; Start 07/03/18 at 17:30; Status Hold Acetaminophen/ Hydrocodone Bitart ([place] (7.5-325)) 1 tab Q4H PRN PO MODERATE PAIN LEVEL 4-6; Start 07/06/18 at 14:00; Status Hold Morphine Sulfate (morphine) 3 mg Q3H PRN IV SEVERE PAIN LEVEL 7-10; Start 07/09/18 at 18:30 Acetaminophen/ Hydrocodone Bitart ([place] (5/325)) 1 tab Q3H PRN PO MODERATE PAIN LEVEL 4-6 Last administered on 07/11/18at 20:41; Admin Dose 1 TAB; Start 07/09/18 at 18:30 Heparin Sodium (Porcine) (Heparin (5000 Units/1ml)) 5,000 unit Q12 SC Last administered on 07/12/18 09:13; Admin Dose 5,000 UNIT; Start 07/10/18 at 09:00 Albumin Human 100 ml @ 100 mls/hr WITH DIALYSIS PRN IV BP support during dialysis Last administered on 07/11/18at 10:45; Admin Dose 100 MLS/HR; Start 07/01 07/19 at 09:30 SHARON ESPINOZA MD Jul 12, 2018 09:32
--- NOTE | 2018-07-12 11:54 | PN ---
Date/Time of Note Date/Time of Note DATE: 07/12/18 TIME: 11:53 Assessment/Plan VTE Prophylaxis Risk score (from [facility] [place]0 risk: 7 SCD applied (from [facility] [place]): Yes Pharmacological prophylaxis: LMWH Lines/Catheters IV [facility] (from [facility] Saline Lock Urinary Cath still in place: No Assessment/Plan Hospital Course -Acute comminuted distal left femoral fracture without dislocation. S/p pen reduction and internal fixation of the comminuted and displaced supracondylar fracture of the left femur by Dr. Gutierres on 07/09/18. -Hemodialysis dependent end-stage renal disease. Continue on hemodialysis. Dr. Tucker is following in nephrology consultation. -Diabetes mellitus -History of cerebrovascular accident with left-sided paralysis. -Anemia of chronic disease. Continue to monitor hemoglobin and hematocrit. Currently stable. -Chronic dislocation of the left shoulder. No acute issues. -Mineral bone disease Result Diagram: 07/12/18 0455 07/12/18 0455 Results 24hrs Laboratory Tests Test 07/11/18 14:00 07/11/18 15:49 07/12/18 04:55 07/12/18 06:40 White Blood Count 8.7 # 7.0 Red Blood Count 2.18 #L 2.42 L Hemoglobin 6.7 #*L 6.2 *L 7.3 L Hematocrit 20.7 #L 19.4 L 22.2 L Mean Corpuscular 95.0 91.7 Volume Mean Corpuscular 30.7 30.2 Hemoglobin Mean Corpuscular 32.4 32.9 Hemoglobin Concen t Red Cell 14.0 15.8 H Distribution Width Platelet Count 213 237 Mean Platelet 10.0 9.8 Volume Immature 0.600 H 0.600 H Granulocytes % Neutrophils % 56.8 Segmented 55 Neutrophils % (Manual) Lymphocytes % 29.2 Lymphocytes % 37 (Manual) Monocytes % 9.4 Monocytes % 5 (Manual) Eosinophils % 3.4 Basophils % 0.6 Metamyelocytes % 2 H (manual) Myelocytes % 1 H (Manual) Nucleated Red 0.0 0.0 Blood Cells % Immature 0.050 H 0.040 H Granulocytes # Neutrophils # 4.0 Lymphocytes 3.2 H (Manual) Lymphocytes # 2.1 Monocytes # 0.7 Monocytes # 0.4 (Manual) Eosinophils # 0.2 Basophils # 0.0 Metamyelocytes # 0.1 H Myelocytes # 0.0 Nucleated Red 0.0 Blood Cells # Platelet Estimate NORMAL Polychromasia 1+ Hypochromasia 1+ Sodium Level 137 Potassium Level 3.9 Chloride Level 100 Carbon Dioxide 27 Level Anion Gap 10 Blood Urea 28 #H Nitrogen Creatinine 5.01 H Est Glomerular 11 L Filtrat Rate mL/min Glucose Level 97 # Calcium Level 9.0 Lab Scanned BLOOD TRANSFUSIO Report N Subjective 24 Hr Interval Summary Free Text/Dictation Patient has some pain in legs Exam/Review of Systems Vital Signs Vitals Vital Signs Date Temp Pulse Resp B/P (MAP) Pulse Ox O2 O2 Flow FiO2 Time Delivery Rate 07/12/18 98.4 77 18 92/51 (65) 95 07:50 07/11/18 Nasal 2.0 09:50 Cannula Intake and Output 07/11/18 07/11/18 07/12/18 1515:00 23:00 07:00 IntakeIntake Total 500 ml 120 ml 670 ml OutputOutput Total 1680 ml BalanceBalance -1180 ml 120 ml 670 ml Exam Constitutional: well developed Head: normocephalic, atraumatic Neck: supple Respiratory: diminished breath sounds Cardiovascular: regular rate and rhythm Gastrointestinal: soft, non-tender Extremities: normal pulses Medications Medications Current Medications Baclofen (Lioresal) 10 mg TID PO Last administered on 07/12/18at 09:12; Admin Dose 10 MG; Start 07/03/18 at 21:00 Sevelamer Carbonate (Renvela) 0.8 gm WITH MEALS PO Last administered on 07/12/18 09:11; Admin Dose 0.8 GM; Start 07/03/18 at 17:55 Ondansetron HCl (Zofran Inj) 4 mg Q6H PRN IV NAUSEA AND/OR VOMITING Last administered on 07/10/18 01:11; Admin Dose 4 MG; Start 07/03/18 at 14:30 Acetaminophen (Tylenol Tab) 650 mg Q6H PRN PO PAIN LEVEL 1-3 OR FEVER Last administered on 07/07/18 23:57; Admin Dose 650 MG; Start 07/03/18 at 14:30 Zolpidem Tartrate (Ambien) 5 mg QHS PRN PO SLEEP; Start 07/03/18 at 14:30 Famotidine (Pepcid) 20 mg DAILY PO Last administered on 07/12/18at 09:12; Admin Dose 20 MG; Start 07/03/18 at 14:30 Morphine Sulfate (morphine) 2 mg Q4H PRN IV PAIN LEVEL 6-10 Last administered on 07/03/18at 21:36; Admin Dose 2 MG; Start 07/03/18 at 17:30; Status Hold Acetaminophen/ Hydrocodone Bitart ([place] (7.5-325)) 1 tab Q4H PRN PO MODERATE PAIN LEVEL 4-6; Start 07/06/18 at 14:00; Status Hold Morphine Sulfate (morphine) 3 mg Q3H PRN IV SEVERE PAIN LEVEL 7-10; Start 07/09/18 at 18:30 Acetaminophen/ Hydrocodone Bitart ([place] (5/325)) 1 tab Q3H PRN PO MODERATE PAIN LEVEL 4-6 Last administered on 07/11/18at 20:41; Admin Dose 1 TAB; Start 07/09/18 at 18:30 Heparin Sodium (Porcine) (Heparin (5000 Units/1ml)) 5,000 unit Q12 SC Last administered on 07/12/18at 09:13; Admin Dose 5,000 UNIT; Start 07/10/18 at 09:00 Albumin Human 100 ml @ 100 mls/hr WITH DIALYSIS PRN IV BP support during dialysis Last administered on 07/11/18at 10:45; Admin Dose 100 MLS/HR; Start 07/11/18 at 09:30 Bisacodyl (Dulcolax) 10 mg DAILY PRN PO CONSTIPATION; Start 07/12/18 at 12:00 Docusate Sodium (Colace) 100 mg BID PO ; Start 07/12/18 at 21:00 Magnesium Citrate (Citroma) 300 ml ONCE ONCE PO ; Start 07/12/18 at 13:00; Stop 07/12/18 at 13:01 LIZ MOSELEY Jul 12, 2018 11:53
[2018-07-12] MEDS ORDERED: MAGNESIUM CITRATE 300 ML BTL PO ONE (13:00)
--- NOTE | 2018-07-12 15:56 | CONS ---
Date/Time of Note Date/Time of Note DATE: 07/12/18 TIME: 15:55 Assessment/Plan Assessment/Plan Hospital Course IMPRESSION: 1. Preoperative evaluation for left lower extremity open reduction and internal fixation, status post mechanical fall. -NL EF by echo. NO sig valve abnl. Neg trop x 3. OK to proceed at moderate CV risk on current medical therapy. Now Post-op s/p LE ORIF 2. Hypertension, borderline, labile, likely a component of pain. 3. Abnormal electrocardiogram with lateral T-wave inversion. 4. Status post mechanical fall with a femoral fracture. 5. Femoral fracture, left-sided, supracondylar. 6. History of cerebrovascular accident, previously on Plavix. 7. End-stage renal disease, on hemodialysis. 8. Hyperkalemia-improved 9. Anemia. REcc: -Pain control -follow BP closely and volume status -HD for volume removal as tolerated Result Diagram: 07/12/18 0455 07/12/18 0455 Results 24hrs Laboratory Tests Test 07/12/18 04:55 07/12/18 06:40 White Blood Count 7.0 Red Blood Count 2.42 L Hemoglobin 7.3 L Hematocrit 22.2 L Mean Corpuscular Volume 91.7 Mean Corpuscular Hemoglobin 30.2 Mean Corpuscular Hemoglobin Concent 32.9 Red Cell Distribution Width 15.8 H Platelet Count 237 Mean Platelet Volume 9.8 Immature Granulocytes % 0.600 H Neutrophils % 56.8 Lymphocytes % 29.2 Monocytes % 9.4 Eosinophils % 3.4 Basophils % 0.6 Nucleated Red Blood Cells % 0.0 Immature Granulocytes # 0.040 H Neutrophils # 4.0 Lymphocytes # 2.1 Monocytes # 0.7 Eosinophils # 0.2 Basophils # 0.0 Nucleated Red Blood Cells # 0.0 Sodium Level 137 Potassium Level 3.9 Chloride Level 100 Carbon Dioxide Level 27 Anion Gap 10 Blood Urea Nitrogen 28 #H Creatinine 5.01 H Est Glomerular Filtrat Rate mL/min 11 L Glucose Level 97 # Calcium Level 9.0 Lab Scanned Report BLOOD TRANSFUSION Consultation Date/Type/Reason Admit Date/Time Jul 03, 2018 at 05:32 Initial Consult Date 07/03/18 Type of Consult cardiology Reason for Consultation Hotn Requesting Provider: JESSICA GROVE Exam/Review of Systems Vital Signs Vitals Vital Signs Date Temp Pulse Resp B/P (MAP) Pulse Ox O2 O2 Flow FiO2 Time Delivery Rate 07/12/18 98.4 77 18 92/51 (65) 95 07:50 07/11/18 Nasal 2.0 09:50 Cannula Intake and Output 07/11/18 07/11/18 07/12/18 1515:00 23:00 07:00 IntakeIntake Total 500 ml 120 ml 670 ml OutputOutput Total 1680 ml BalanceBalance -1180 ml 120 ml 670 ml Exam Review of Systems: CONSTITUTIONAL: No fevers, chills. PULMONARY: No sob CARDIOVASCULAR: No chest pain/palpitations GASTROINTESTINAL: No nausea/vomiting. GENITOURINARY: No hematuria/dysuria. MUSCULOSKELETAL: No myagias/arthalgias. PSYCHIATRIC: The patient denies depression. NEUROLOGIC: focal deficits Constitutional: alert Psych: no complaints Head: normocephalic ENMT: mucosa pink and moist Neck: supple, jvd (9 cm water) Respiratory: diminished breath sounds (at bases/B) Cardiovascular: regular rate and rhythm Gastrointestinal: soft, non-tender Musculoskeletal: muscle tone (normal) Extremities: edema (trace/B) Neurological: other (No focal deficits) Medications Medications Current Medications Baclofen (Lioresal) 10 mg TID PO Last administered on 07/12/18 13:37; Admin Dose 10 MG; Start 07/03/18 at 21:00 Sevelamer Carbonate (Renvela) 0.8 gm WITH MEALS PO Last administered on 07/12/18 13:37; Admin Dose 0.8 GM; Start 07/03/18 at 17:55 Ondansetron HCl (Zofran Inj) 4 mg Q6H PRN IV NAUSEA AND/OR VOMITING Last administered on 07/10/18 01:11; Admin Dose 4 MG; Start 07/03/18 at 14:30 Acetaminophen (Tylenol Tab) 650 mg Q6H PRN PO PAIN LEVEL 1-3 OR FEVER Last administered on 07/07/18 23:57; Admin Dose 650 MG; Start 07/03/18 at 14:30 Zolpidem Tartrate (Ambien) 5 mg QHS PRN PO SLEEP; Start 07/03/18 at 14:30 Famotidine (Pepcid) 20 mg DAILY PO Last administered on 07/12/18 09:12; Admin Dose 20 MG; Start 07/03/18 at 14:30 Morphine Sulfate (morphine) 2 mg Q4H PRN IV PAIN LEVEL 6-10 Last administered on 07/03/18at 21:36; Admin Dose 2 MG; Start 07/03/18 at 17:30; Status Hold Acetaminophen/ Hydrocodone Bitart ([place] (7.5-325)) 1 tab Q4H PRN PO MODERATE PAIN LEVEL 4-6; Start 07/06/18 at 14:00; Status Hold Morphine Sulfate (morphine) 3 mg Q3H PRN IV SEVERE PAIN LEVEL 7-10; Start 07/09/18 at 18:30 Acetaminophen/ Hydrocodone Bitart ([place] (5/325)) 1 tab Q3H PRN PO MODERATE PAIN LEVEL 4-6 Last administered on 07/11/18at 20:41; Admin Dose 1 TAB; Start 07/09/18 at 18:30 Heparin Sodium (Porcine) (Heparin (5000 Units/1ml)) 5,000 unit Q12 SC Last administered on 07/12/18at 09:13; Admin Dose 5,000 UNIT; Start 07/10/18 at 09:00 Albumin Human 100 ml @ 100 mls/hr WITH DIALYSIS PRN IV BP support during dialysis Last administered on 07/11/18at 10:45; Admin Dose 100 MLS/HR; Start 07/11/18 at 09:30 Bisacodyl (Dulcolax) 10 mg DAILY PRN PO CONSTIPATION; Start 07/12/18 at 12:00 Docusate Sodium (Colace) 100 mg BID PO ; Start 07/12/18 at 21:00 SHONDA GOODWIN Jul 12, 2018 15:56
[2018-07-12] MEDS ORDERED: HEPARIN 1000 UNITS/ML 10 ML INJ CATHETER PRN (16:30)
[2018-07-12] MEDS: ALBUMIN HUMAN 25% 100 ML IV PRN (16:35)
[2018-07-12] MEDS: DOCUSATE SODIUM 100 MG CAP PO SCH (21:38)
[2018-07-13] MEDS: HYDROCODONE/APAP (5/325) TAB PO PRN (01:46)
[2018-07-13 02:15] VITALS: BP 124/57; PULSE 90; RESP 18
[2018-07-13 07:28] VITALS: BP 123/58; PULSE 88; RESP 16
[2018-07-13] MEDS: DOCUSATE SODIUM 100 MG CAP PO SCH ×2 (08:44→21:40)
[2018-07-13] MEDS: FAMOTIDINE 20 MG TAB PO SCH (08:44)
[2018-07-13] MEDS: BACLOFEN 10 MG TAB PO SCH ×3 (08:44→21:40)
[2018-07-13] MEDS: SEVELAMER CARBONATE 0.8 GM PKT PO SCH ×3 (08:44→17:45)
[2018-07-13] MEDS: BISACODYL (EC) 5 MG TAB PO PRN (08:44)
[2018-07-13] MEDS: HEPARIN 5,000 UNIT/1 ML VIAL SC SCH ×2 (08:45→21:43)
--- NOTE | 2018-07-13 10:55 | CONS ---
Date/Time of Note Date/Time of Note DATE: 07/13/18 TIME: 10:54 Assessment/Plan Assessment/Plan Assessment/Plan 57 yo Female with 1) Acute Distal Left Femoral Comminuted Fracture 2) S/p Mechanical Fall 3) ESRD on HD every MWF 4) Anemia, Chronic, CKD 5) MBD, CKD 6) Chronic HTN 7) CAD, Chronic 8) DM with ESRD 9) Hx of CVA with residual left sided deficit 10) Chronic Lower back pain 11) Hyperkalemia HD plan for tomorrow Gentle UF as tolerated Repeat Chem H/Hct Epogen with HD Please do not hesitate to contact me if you have any questions or concern Result Diagram: 07/12/18 1540 07/12/18 1540 Results 24hrs Laboratory Tests Test 07/12/18 15:40 Hemoglobin 7.0 L Hematocrit 22.1 L Sodium Level 135 Potassium Level 4.0 Chloride Level 100 Carbon Dioxide Level 28 Anion Gap 7 Blood Urea Nitrogen 31 H Creatinine 5.37 H Est Glomerular Filtrat Rate mL/min 10 L Glucose Level 96 Calcium Level 9.0 Consultation Date/Type/Reason Admit Date/Time Jul 03, 2018 at 05:32 Initial Consult Date 07/03/18 Type of Consult Nephrology Requesting Provider: JESSICA GROVE 24 HR Interval Summary Constitutional: No requiring O2 Exam/Review of Systems Vital Signs Vitals Vital Signs Date Temp Pulse Resp B/P (MAP) Pulse Ox O2 O2 Flow FiO2 Time Delivery Rate 07/13/18 97.8 88 16 123/58 96 07:28 (79) 07/13/18 Room Air 02:15 07/11/18 2.0 09:50 Intake and Output 07/12/18 07/12/18 07/13/18 1515:00 23:00 07:00 IntakeIntake Total 640 ml 250 ml OutputOutput Total 1500 ml BalanceBalance -860 ml 250 ml Exam Constitutional: No distress ENMT: mucosa pink and moist Neck: No jvd Respiratory: crackles/rales; No labored breathing Cardiovascular: edema Gastrointestinal: soft Neurological: confused Medications Medications Current Medications Baclofen (Lioresal) 10 mg TID PO Last administered on 07/13/18at 08:44; Admin Dose 10 MG; Start 07/03/18 at 21:00 Sevelamer Carbonate (Renvela) 0.8 gm WITH MEALS PO Last administered on 07/13/18 08:44; Admin Dose 0.8 GM; Start 07/03/18 at 17:55 Ondansetron HCl (Zofran Inj) 4 mg Q6H PRN IV NAUSEA AND/OR VOMITING Last administered on 07/10/18 01:11; Admin Dose 4 MG; Start 07/03/18 at 14:30 Acetaminophen (Tylenol Tab) 650 mg Q6H PRN PO PAIN LEVEL 1-3 OR FEVER Last administered on 07/07/18 23:57; Admin Dose 650 MG; Start 07/03/18 at 14:30 Zolpidem Tartrate (Ambien) 5 mg QHS PRN PO SLEEP; Start 07/03/18 at 14:30 Famotidine (Pepcid) 20 mg DAILY PO Last administered on 07/13/18 08:44; Admin Dose 20 MG; Start 07/03/18 at 14:30 Morphine Sulfate (morphine) 2 mg Q4H PRN IV PAIN LEVEL 6-10 Last administered on 07/03/18 21:36; Admin Dose 2 MG; Start 07/03/18 at 17:30; Status Hold Acetaminophen/ Hydrocodone Bitart ([place] (7.5-325)) 1 tab Q4H PRN PO MODERATE PAIN LEVEL 4-6; Start 07/06/18 at 14:00; Status Hold Morphine Sulfate (morphine) 3 mg Q3H PRN IV SEVERE PAIN LEVEL 7-10; Start 07/09/18 at 18:30 Acetaminophen/ Hydrocodone Bitart ([place] (5/325)) 1 tab Q3H PRN PO MODERATE PAIN LEVEL 4-6 Last administered on 07/13/18 01:46; Admin Dose 1 TAB; Start 07/09/18 at 18:30 Heparin Sodium (Porcine) (Heparin (5000 Units/1ml)) 5,000 unit Q12 SC Last administered on 07/13/18 08:45; Admin Dose 5,000 UNIT; Start 07/10/18 at 09:00 Albumin Human 100 ml @ 100 mls/hr WITH DIALYSIS PRN IV BP support during dialysis Last administered on 07/12/18 16:35; Admin Dose 100 MLS/HR; Start 07/11/18 at 09:30 Bisacodyl (Dulcolax) 10 mg DAILY PRN PO CONSTIPATION Last administered on 07/13/18at 08:44; Admin Dose 10 MG; Start 07/12/18 at 12:00 Docusate Sodium (Colace) 100 mg BID PO Last administered on 07/13/18at 08:44; Admin Dose 100 MG; Start 07/12/18 at 21:00 SHARON ESPINOZA MD Jul 13, 2018 10:55
--- NOTE | 2018-07-13 12:22 | PN ---
Date/Time of Note Date/Time of Note DATE: 07/13/18 TIME: 12:21 Assessment/Plan VTE Prophylaxis Risk score (from [facility])>0 risk: 8 SCD applied (from [facility]): Yes Pharmacological prophylaxis: LMWH Lines/Catheters IV C[facility]ter Type (from [facility] Saline Lock Urinary Cath still in place: No Assessment/Plan Hospital Course -Acute comminuted distal left femoral fracture without dislocation. S/p pen reduction and internal fixation of the comminuted and displaced supracondylar fracture of the left femur by Dr. Gutierres on 07/09/18. -Hemodialysis dependent end-stage renal disease. Continue on hemodialysis. Dr. Tucker is following in nephrology consultation. -Diabetes mellitus -History of cerebrovascular accident with left-sided paralysis. -Anemia of chronic disease. Continue to monitor hemoglobin and hematocrit. Currently stable. -Chronic dislocation of the left shoulder. No acute issues. -Mineral bone disease Result Diagram: 07/12/18 1540 07/12/18 1540 Results 24hrs Laboratory Tests Test 07/12/18 15:40 Hemoglobin 7.0 L Hematocrit 22.1 L Sodium Level 135 Potassium Level 4.0 Chloride Level 100 Carbon Dioxide Level 28 Anion Gap 7 Blood Urea Nitrogen 31 H Creatinine 5.37 H Est Glomerular Filtrat Rate mL/min 10 L Glucose Level 96 Calcium Level 9.0 Subjective 24 Hr Interval Summary Free Text/Dictation Patient resting, has some pain in leg Exam/Review of Systems Vital Signs Vitals Vital Signs Date Temp Pulse Resp B/P (MAP) Pulse Ox O2 O2 Flow FiO2 Time Delivery Rate 07/13/18 97.8 88 16 123/58 96 07:28 (79) 07/13/18 Room Air 02:15 07/11/18 2.0 09:50 Intake and Output 07/12/18 07/12/18 07/13/18 1515:00 23:00 07:00 IntakeIntake Total 640 ml 250 ml OutputOutput Total 1500 ml BalanceBalance -860 ml 250 ml Exam Constitutional: well developed Head: normocephalic, atraumatic Neck: supple Respiratory: diminished breath sounds Cardiovascular: regular rate and rhythm Gastrointestinal: soft, non-tender Extremities: normal pulses Medications Medications Current Medications Baclofen (Lioresal) 10 mg TID PO Last administered on 07/13/18at 08:44; Admin Dose 10 MG; Start 07/03/18 at 21:00 Sevelamer Carbonate (Renvela) 0.8 gm WITH MEALS PO Last administered on 07/13/18 08:44; Admin Dose 0.8 GM; Start 07/03/18 at 17:55 Ondansetron HCl (Zofran Inj) 4 mg Q6H PRN IV NAUSEA AND/OR VOMITING Last administered on 07/10/18 01:11; Admin Dose 4 MG; Start 07/03/18 at 14:30 Acetaminophen (Tylenol Tab) 650 mg Q6H PRN PO PAIN LEVEL 1-3 OR FEVER Last administered on 07/07/18 23:57; Admin Dose 650 MG; Start 07/03/18 at 14:30 Zolpidem Tartrate (Ambien) 5 mg QHS PRN PO SLEEP; Start 07/03/18 at 14:30 Famotidine (Pepcid) 20 mg DAILY PO Last administered on 07/13/18 08:44; Admin Dose 20 MG; Start 07/03/18 at 14:30 Morphine Sulfate (morphine) 2 mg Q4H PRN IV PAIN LEVEL 6-10 Last administered on 07/03/18 21:36; Admin Dose 2 MG; Start 07/03/18 at 17:30; Status Hold Acetaminophen/ Hydrocodone Bitart ([place] (7.5-325)) 1 tab Q4H PRN PO MODERATE PAIN LEVEL 4-6; Start 07/06/18 at 14:00; Status Hold Morphine Sulfate (morphine) 3 mg Q3H PRN IV SEVERE PAIN LEVEL 7-10; Start 07/09/18 at 18:30 Acetaminophen/ Hydrocodone Bitart ([place] (5/325)) 1 tab Q3H PRN PO MODERATE PAIN LEVEL 4-6 Last administered on 07/13/18 01:46; Admin Dose 1 TAB; Start 07/09/18 at 18:30 Heparin Sodium (Porcine) (Heparin (5000 Units/1ml)) 5,000 unit Q12 SC Last administered on 07/13/18 08:45; Admin Dose 5,000 UNIT; Start 07/10/18 at 09:00 Albumin Human 100 ml @ 100 mls/hr WITH DIALYSIS PRN IV BP support during dialysis Last administered on 07/12/18 16:35; Admin Dose 100 MLS/HR; Start 07/11/18 at 09:30 Bisacodyl (Dulcolax) 10 mg DAILY PRN PO CONSTIPATION Last administered on 07/13/18at 08:44; Admin Dose 10 MG; Start 07/12/18 at 12:00 Docusate Sodium (Colace) 100 mg BID PO Last administered on 07/13/18 08:44; Admin Dose 100 MG; Start 07/12/18 at 21:00 LIZ MOSELEY Y Jul 13, 2018 12:22
[2018-07-13 15:11] VITALS: BP 114/55; PULSE 76; RESP 17
--- NOTE | 2018-07-13 15:19 | CONS ---
Date/Time of Note Date/Time of Note DATE: 07/13/18 TIME: 15:18 Assessment/Plan Assessment/Plan Hospital Course IMPRESSION: 1. Preoperative evaluation for left lower extremity open reduction and internal fixation, status post mechanical fall. -NL EF by echo. NO sig valve abnl. Neg trop x 3. OK to proceed at moderate CV risk on current medical therapy. Now Post-op s/p LE ORIF 2. Hypertension, borderline, labile, likely a component of pain. 3. Abnormal electrocardiogram with lateral T-wave inversion. 4. Status post mechanical fall with a femoral fracture. 5. Femoral fracture, left-sided, supracondylar. 6. History of cerebrovascular accident, previously on Plavix. 7. End-stage renal disease, on hemodialysis. 8. Hyperkalemia-improved 9. Anemia. REcc: -Pain control -follow BP closely and volume status -HD for volume removal as tolerated Result Diagram: 07/12/18 1540 07/12/18 1540 Results 24hrs Laboratory Tests Test 07/12/18 15:40 Hemoglobin 7.0 L Hematocrit 22.1 L Sodium Level 135 Potassium Level 4.0 Chloride Level 100 Carbon Dioxide Level 28 Anion Gap 7 Blood Urea Nitrogen 31 H Creatinine 5.37 H Est Glomerular Filtrat Rate mL/min 10 L Glucose Level 96 Calcium Level 9.0 Consultation Date/Type/Reason Admit Date/Time Jul 03, 2018 at 05:32 Initial Consult Date 07/03/18 Type of Consult cardiology Reason for Consultation HTN Requesting Provider: JESSICA GROVE Exam/Review of Systems Vital Signs Vitals Vital Signs Date Temp Pulse Resp B/P (MAP) Pulse Ox O2 O2 Flow FiO2 Time Delivery Rate 07/13/18 97.6 76 17 114/55 96 Room Air 15:11 (74) 07/11/18 2.0 09:50 Intake and Output 07/12/18 07/12/18 07/13/18 1515:00 23:00 07:00 IntakeIntake Total 640 ml 250 ml OutputOutput Total 1500 ml BalanceBalance -860 ml 250 ml Exam Review of Systems: CONSTITUTIONAL: No fevers, chills. PULMONARY: No sob CARDIOVASCULAR: No chest pain/palpitations GASTROINTESTINAL: No nausea/vomiting. GENITOURINARY: No hematuria/dysuria. MUSCULOSKELETAL: No myagias/arthalgias. PSYCHIATRIC: The patient denies depression. NEUROLOGIC: No weakness Constitutional: alert, oriented Psych: no complaints Head: normocephalic ENMT: mucosa pink and moist Neck: supple, jvd Respiratory: diminished breath sounds Cardiovascular: regular rate and rhythm Gastrointestinal: soft, non-tender Musculoskeletal: muscle tone Extremities: pitting pedal edema (trace) Neurological: other (No focal deficits) Medications Medications Current Medications Baclofen (Lioresal) 10 mg TID PO Last administered on 07/13/18 13:02; Admin Dose 10 MG; Start 07/03/18 at 21:00 Sevelamer Carbonate (Renvela) 0.8 gm WITH MEALS PO Last administered on 07/13/18 13:02; Admin Dose 0.8 GM; Start 07/03/18 at 17:55 Ondansetron HCl (Zofran Inj) 4 mg Q6H PRN IV NAUSEA AND/OR VOMITING Last administered on 07/10/18at 01:11; Admin Dose 4 MG; Start 07/03/18 at 14:30 Acetaminophen (Tylenol Tab) 650 mg Q6H PRN PO PAIN LEVEL 1-3 OR FEVER Last administered on 07/07/18at 23:57; Admin Dose 650 MG; Start 07/03/18 at 14:30 Zolpidem Tartrate (Ambien) 5 mg QHS PRN PO SLEEP; Start 07/03/18 at 14:30 Famotidine (Pepcid) 20 mg DAILY PO Last administered on 07/13/18at 08:44; Admin Dose 20 MG; Start 07/03/18 at 14:30 Morphine Sulfate (morphine) 2 mg Q4H PRN IV PAIN LEVEL 6-10 Last administered on 07/03/18at 21:36; Admin Dose 2 MG; Start 07/03/18 at 17:30; Status Hold Acetaminophen/ Hydrocodone Bitart ([place] (7.5-325)) 1 tab Q4H PRN PO MODERATE PAIN LEVEL 4-6; Start 07/06/18 at 14:00; Status Hold Morphine Sulfate (morphine) 3 mg Q3H PRN IV SEVERE PAIN LEVEL 7-10; Start 07/09/18 at 18:30 Acetaminophen/ Hydrocodone Bitart ([place] (5/325)) 1 tab Q3H PRN PO MODERATE PAIN LEVEL 4-6 Last administered on 1/13/19at 01:46; Admin Dose 1 TAB; Start 07/09/18 at 18:30 Heparin Sodium (Porcine) (Heparin (5000 Units/1ml)) 5,000 unit Q12 SC Last administered on 07/13/18 08:45; Admin Dose 5,000 UNIT; Start 07/10/18 at 09:00 Albumin Human 100 ml @ 100 mls/hr WITH DIALYSIS PRN IV BP support during dialysis Last administered on 07/12/18 16:35; Admin Dose 100 MLS/HR; Start 07/11/18 at 09:30 Bisacodyl (Dulcolax) 10 mg DAILY PRN PO CONSTIPATION Last administered on 07/13/18 08:44; Admin Dose 10 MG; Start 07/12/18 at 12:00 Docusate Sodium (Colace) 100 mg BID PO Last administered on 07/13/18 08:44; Admin Dose 100 MG; Start 07/12/18 at 21:00 SHONDA GOODWIN Jul 13, 2018 15:19
[2018-07-13 20:30] VITALS: BP 117/56; PULSE 80; RESP 19
[2018-07-13] MEDS ORDERED: VITAMIN A & D 5 GM OINT PACKET TOP ONE (21:52)
[2018-07-13] MEDS: ONDANSETRON 4 MG INJ IV PRN (21:53)
[2018-07-14 01:20] VITALS: BP 124/59; PULSE 75; RESP 18
[2018-07-14] MEDS: ACETAMINOPHEN 325 MG TAB PO PRN (01:53)
[2018-07-14 08:20] VITALS: BP 99/53; PULSE 71; RESP 18
[2018-07-14] MEDS: SEVELAMER CARBONATE 0.8 GM PKT PO SCH ×3 (08:30→17:55)
[2018-07-14] MEDS: DOCUSATE SODIUM 100 MG CAP PO SCH ×2 (09:31→21:07)
[2018-07-14] MEDS: HEPARIN 5,000 UNIT/1 ML VIAL SC SCH ×2 (09:31→21:11)
[2018-07-14] MEDS: BACLOFEN 10 MG TAB PO SCH ×3 (09:31→21:07)
[2018-07-14] MEDS: FAMOTIDINE 20 MG TAB PO SCH (09:31)
--- NOTE | 2018-07-14 10:17 | CONS ---
Date/Time of Note Date/Time of Note DATE: 07/14/18 TIME: 10:16 Assessment/Plan Assessment/Plan Assessment/Plan 57 yo Female with 1) Acute Distal Left Femoral Comminuted Fracture 2) S/p Mechanical Fall 3) ESRD on HD every MWF 4) Anemia, Chronic, CKD 5) MBD, CKD 6) Chronic HTN 7) CAD, Chronic 8) DM with ESRD 9) Hx of CVA with residual left sided deficit 10) Chronic Lower back pain 11) Hyperkalemia HD plan for today Gentle UF as tolerated Repeat Chem H/Hct Epogen ordered with HD today Rehab pending. Please do not hesitate to contact me if you have any questions or concern Result Diagram: 07/12/18 1540 07/12/18 1540 Consultation Date/Type/Reason Admit Date/Time Jul 03, 2018 at 05:32 Initial Consult Date 07/03/18 Type of Consult Nephrology Requesting Provider: JESSICA GROVE 24 HR Interval Summary Constitutional: requiring O2 Exam/Review of Systems Vital Signs Vitals Vital Signs Date Temp Pulse Resp B/P (MAP) Pulse Ox O2 O2 Flow FiO2 Time Delivery Rate 07/14/18 97.6 71 18 99/53 (68) 94 Room Air 08:20 07/11/18 2.0 09:50 Intake and Output 07/13/18 07/13/18 07/14/18 1515:00 23:00 07:00 IntakeIntake Total 240 ml 560 ml 200 ml BalanceBalance 240 ml 560 ml 200 ml Exam Constitutional: No distress ENMT: mucosa pink and moist Neck: No jvd Respiratory: crackles/rales; No labored breathing Cardiovascular: edema Gastrointestinal: soft Neurological: confused; No nl mental status Medications Medications Current Medications Baclofen (Lioresal) 10 mg TID PO Last administered on 07/14/18at 09:31; Admin Dose 10 MG; Start 07/03/18 at 21:00 Sevelamer Carbonate (Renvela) 0.8 gm WITH MEALS PO Last administered on 07/13/18at 17:45; Admin Dose 0.8 GM; Start 07/03/18 at 17:55 Ondansetron HCl (Zofran Inj) 4 mg Q6H PRN IV NAUSEA AND/OR VOMITING Last administered on 07/13/18at 21:53; Admin Dose 4 MG; Start 07/03/18 at 14:30 Acetaminophen (Tylenol Tab) 650 mg Q6H PRN PO PAIN LEVEL 1-3 OR FEVER Last administered on 07/14/18 01:53; Admin Dose 650 MG; Start 07/03/18 at 14:30 Zolpidem Tartrate (Ambien) 5 mg QHS PRN PO SLEEP; Start 07/03/18 at 14:30 Famotidine (Pepcid) 20 mg DAILY PO Last administered on 07/14/18 09:31; Admin Dose 20 MG; Start 07/03/18 at 14:30 Morphine Sulfate (morphine) 2 mg Q4H PRN IV PAIN LEVEL 6-10 Last administered on 07/03/18 21:36; Admin Dose 2 MG; Start 07/03/18 at 17:30; Status Hold Acetaminophen/ Hydrocodone Bitart ([place] (7.5-325)) 1 tab Q4H PRN PO MODERATE PAIN LEVEL 4-6; Start 07/06/18 at 14:00; Status Hold Morphine Sulfate (morphine) 3 mg Q3H PRN IV SEVERE PAIN LEVEL 7-10; Start 07/09/18 at 18:30 Acetaminophen/ Hydrocodone Bitart ([place] (5/325)) 1 tab Q3H PRN PO MODERATE PAIN LEVEL 4-6 Last administered on 07/13/18 01:46; Admin Dose 1 TAB; Start 07/09/18 at 18:30 Heparin Sodium (Porcine) (Heparin (5000 Units/1ml)) 5,000 unit Q12 SC Last administered on 07/14/18 09:31; Admin Dose 5,000 UNIT; Start 07/10/18 at 09:00 Albumin Human 100 ml @ 100 mls/hr WITH DIALYSIS PRN IV BP support during dial ysis Last administered on 07/12/18 16:35; Admin Dose 100 MLS/HR; Start 07/11/18 at 09:30 Bisacodyl (Dulcolax) 10 mg DAILY PRN PO CONSTIPATION Last administered on 07/13/18 08:44; Admin Dose 10 MG; Start 07/12/18 at 12:00 Docusate Sodium (Colace) 100 mg BID PO Last administered on 07/14/18 09:31; Admin Dose 100 MG; Start 07/12/18 at 21:00 SHARON ESPINOZA MD Jul 14, 2018 10:17
[2018-07-14] MEDS ORDERED: EPOETIN 10000 UNITS/1 ML INJ (ESRD) IV ONE (11:30)
--- NOTE | 2018-07-14 13:31 | CONS ---
Date/Time of Note Date/Time of Note DATE: 07/14/18 TIME: 13:30 Assessment/Plan Assessment/Plan Hospital Course IMPRESSION: 1. Preoperative evaluation for left lower extremity open reduction and internal fixation, status post mechanical fall. -NL EF by echo. NO sig valve abnl. Neg trop x 3. OK to proceed at moderate CV risk on current medical therapy. Now Post-op s/p LE ORIF 2. Hypertension, borderline, labile, likely a component of pain. 3. Abnormal electrocardiogram with lateral T-wave inversion. 4. Status post mechanical fall with a femoral fracture. 5. Femoral fracture, left-sided, supracondylar. 6. History of cerebrovascular accident, previously on Plavix. 7. End-stage renal disease, on hemodialysis. 8. Hyperkalemia-improved 9. Anemia. REcc: -Pain control -follow BP closely and volume status -HD for volume removal as tolerated Result Diagram: 07/12/18 1540 07/12/18 1540 Results 24hrs Laboratory Tests Test 07/14/18 10:27 Bedside Glucose 79 Consultation Date/Type/Reason Admit Date/Time Jul 03, 2018 at 05:32 Initial Consult Date 07/03/18 Type of Consult cardiology Reason for Consultation Preop Requesting Provider: JESSICA GROVE Exam/Review of Systems Vital Signs Vitals Vital Signs Date Temp Pulse Resp B/P (MAP) Pulse Ox O2 O2 Flow FiO2 Time Delivery Rate 07/14/18 97.6 71 18 99/53 (68) 94 Room Air 08:20 07/11/18 2.0 09:50 Intake and Output 07/13/18 07/13/18 07/14/18 1515:00 23:00 07:00 IntakeIntake Total 240 ml 560 ml 200 ml BalanceBalance 240 ml 560 ml 200 ml Exam Review of Systems: CONSTITUTIONAL: No fevers, chills. PULMONARY: No sob CARDIOVASCULAR: No chest pain/palpitations GASTROINTESTINAL: No nausea/vomiting. GENITOURINARY: No hematuria/dysuria. MUSCULOSKELETAL: mild pain at surgical site PSYCHIATRIC: The patient denies depression. NEUROLOGIC: No weakness Constitutional: alert Psych: no complaints Head: normocephalic ENMT: mucosa pink and moist Neck: supple, jvd (9 cm water) Respiratory: diminished breath sounds (at bases/B) Cardiovascular: regular rate and rhythm Gastrointestinal: soft, non-tender Musculoskeletal: muscle tone (normal) Extremities: edema (trace/B) Neurological: focal weakness Medications Medications Current Medications Baclofen (Lioresal) 10 mg TID PO Last administered on 07/14/18 09:31; Admin Dose 10 MG; Start 07/03/18 at 21:00 Sevelamer Carbonate (Renvela) 0.8 gm WITH MEALS PO Last administered on 07/13/18 17:45; Admin Dose 0.8 GM; Start 07/03/18 at 17:55 Ondansetron HCl (Zofran Inj) 4 mg Q6H PRN IV NAUSEA AND/OR VOMITING Last administered on 07/13/18 21:53; Admin Dose 4 MG; Start 07/03/18 at 14:30 Acetaminophen (Tylenol Tab) 650 mg Q6H PRN PO PAIN LEVEL 1-3 OR FEVER Last administered on 07/14/18 01:53; Admin Dose 650 MG; Start 07/03/18 at 14:30 Zolpidem Tartrate (Ambien) 5 mg QHS PRN PO SLEEP; Start 07/03/18 at 14:30 Famotidine (Pepcid) 20 mg DAILY PO Last administered on 07/14/18 09:31; Admin Dose 20 MG; Start 07/03/18 at 14:30 Morphine Sulfate (morphine) 2 mg Q4H PRN IV PAIN LEVEL 6-10 Last administered on 07/03/18 21:36; Admin Dose 2 MG; Start 07/03/18 at 17:30; Status Hold Acetaminophen/ Hydrocodone Bitart ([place] (7.5-325)) 1 tab Q4H PRN PO MODERATE PAIN LEVEL 4-6; Start 07/06/18 at 14:00; Status Hold Morphine Sulfate (morphine) 3 mg Q3H PRN IV SEVERE PAIN LEVEL 7-10; Start 07/09/18 at 18:30 Acetaminophen/ Hydrocodone Bitart ([place] (5/325)) 1 tab Q3H PRN PO MODERATE PAIN LEVEL 4-6 Last administered on 07/13/18 01:46; Admin Dose 1 TAB; Start 07/09/18 at 18:30 Heparin Sodium (Porcine) (Heparin (5000 Units/1ml)) 5,000 unit Q12 SC Last administered on 07/14/18 09:31; Admin Dose 5,000 UNIT; Start 07/10/18 at 09:00 Albumin Human 100 ml @ 100 mls/hr WITH DIALYSIS PRN IV BP support during dialysis Last administered on 07/12/18at 16:35; Admin Dose 100 MLS/HR; Start 07/11/18 at 09:30 Bisacodyl (Dulcolax) 10 mg DAILY PRN PO CONSTIPATION Last administered on 07/13/18 08:44; Admin Dose 10 MG; Start 07/12/18 at 12:00 Docusate Sodium (Colace) 100 mg BID PO Last administered on 07/14/18 09:31; A dmin Dose 100 MG; Start 07/12/18 at 21:00 SHONDA GOODWIN Jul 14, 2018 13:31
[2018-07-14 16:09] VITALS: BP_SYST 111; BP_SYST 98; BP_DIAS 55; BP_DIAS 65; PULSE 72; RESP 18
--- NOTE | 2018-07-14 16:30 | PN ---
Date/Time of Note Date/Time of Note DATE: 07/14/18 TIME: 16:27 Assessment/Plan VTE Prophylaxis Risk score (from Ns)>0 risk: 8 SCD applied (from Ns): Yes Pharmacological prophylaxis: heparin Lines/Catheters IV Catheter Type (from [facility] [place] Urinary Cath still in place: No Assessment/Plan Hospital Course Patient is lethargic but easily arousable, pending acute rehab eval. Assessment/Plan -Acute comminuted distal left femoral fracture without dislocation. S/p pen reduction and internal fixation of the comminuted and displaced supracondylar fracture of the left femur by Dr. Gutierres on 07/09/18. -Hemodialysis dependent end-stage renal disease. Continue on hemodialysis. Dr. Tucker is following in nephrology consultation. -Diabetes mellitus -History of cerebrovascular accident with left-sided paralysis. -Anemia of chronic disease. Continue to monitor hemoglobin and hematocrit. Currently stable. -Chronic dislocation of the left shoulder. No acute issues. -Mineral bone disease Further recommendations based on clinical course. Plan of care discussed with Dr. Rousseau. Result Diagram: 07/12/18 1540 07/12/18 1540 Results 24hrs Laboratory Tests Test 07/14/18 10:27 Bedside Glucose 79 Exam/Review of Systems Vital Signs Vitals Vital Signs Date Temp Pulse Resp B/P (MAP) Pulse Ox O2 O2 Flow FiO2 Time Delivery Rate 07/14/18 97.6 71 18 99/53 (68) 94 Room Air 08:20 07/11/18 2.0 09:50 Intake and Output 07/13/18 07/13/18 07/14/18 1515:00 23:00 07:00 IntakeIntake Total 240 ml 560 ml 200 ml BalanceBalance 240 ml 560 ml 200 ml Exam Constitutional: alert, oriented Respiratory: clear to auscultation Cardiovascular: nl pulses Gastrointestinal: soft, non-tender Musculoskeletal: other (LLE s/p surgery, immobilizer) Extremities: normal pulses Neurological: other (Left-sided weakness from previous stroke) Skin: nl turgor Medications Medications Current Medications Baclofen (Lioresal) 10 mg TID PO Last administered on 07/14/18at 09:31; Admin D ose 10 MG; Start 07/03/18 at 21:00 Sevelamer Carbonate (Renvela) 0.8 gm WITH MEALS PO Last administered on 07/13/18 17:45; Admin Dose 0.8 GM; Start 07/03/18 at 17:55 Ondansetron HCl (Zofran Inj) 4 mg Q6H PRN IV NAUSEA AND/OR VOMITING Last administered on 07/13/18 21:53; Admin Dose 4 MG; Start 07/03/18 at 14:30 Acetaminophen (Tylenol Tab) 650 mg Q6H PRN PO PAIN LEVEL 1-3 OR FEVER Last administered on 07/14/18 01:53; Admin Dose 650 MG; Start 07/03/18 at 14:30 Zolpidem Tartrate (Ambien) 5 mg QHS PRN PO SLEEP; Start 07/03/18 at 14:30 Famotidine (Pepcid) 20 mg DAILY PO Last administered on 07/14/18 09:31; Admin Dose 20 MG; Start 07/03/18 at 14:30 Morphine Sulfate (morphine) 2 mg Q4H PRN IV PAIN LEVEL 6-10 Last administered on 07/03/18 21:36; Admin Dose 2 MG; Start 07/03/18 at 17:30; Status Hold Acetaminophen/ Hydrocodone Bitart ([place] (7.5-325)) 1 tab Q4H PRN PO MODERATE PAIN LEVEL 4-6; Start 07/06/18 at 14:00; Status Hold Morphine Sulfate (morphine) 3 mg Q3H PRN IV SEVERE PAIN LEVEL 7-10; Start 07/09/18 at 18:30 Acetaminophen/ Hydrocodone Bitart ([place] (5/325)) 1 tab Q3H PRN PO MODERATE PAIN LEVEL 4-6 Last administered on 07/13/18 01:46; Admin Dose 1 TAB; Start 07/09/18 at 18:30 Heparin Sodium (Porcine) (Heparin (5000 Units/1ml)) 5,000 unit Q12 SC Last administered on 07/14/18 09:31; Admin Dose 5,000 UNIT; Start 07/10/18 at 09:00 Albumin Human 100 ml @ 100 mls/hr WITH DIALYSIS PRN IV BP support during dialysis Last administered on 07/12/18 16:35; Admin Dose 100 MLS/HR; Start 07/11/18 at 09:30 Bisacodyl (Dulcolax) 10 mg DAILY PRN PO CONSTIPATION Last administered on 07/13/18at 08:44; Admin Dose 10 MG; Start 07/12/18 at 12:00 Docusate Sodium (Colace) 100 mg BID PO Last administered on 07/14/18at 09:31; Admin Dose 100 MG; Start 07/12/18 at 21:00 JESSICA GROVE Jul 14, 2018 16:30
[2018-07-14 20:12] VITALS: BP 134/63; PULSE 76; RESP 18
[2018-07-14] MEDS: FERROUS SULFATE (EC) 325 MG TAB PO SCH (21:07)
[2018-07-14 23:30] VITALS: BP_SYST 159; BP_SYST 169; BP_DIAS 70; BP_DIAS 76; PULSE 78; PULSE 80; RESP 18
[2018-07-14 23:45] VITALS: BP 150/84; PULSE 75
[2018-07-15] VITALS (16 sets, daily range): BP systolic 98–142; BP diastolic 50–82; PULSE 75–91; RESP 18
[2018-07-15] MEDS ORDERED: HEPARIN 1000 UNITS/ML 10 ML INJ CATHETER ONE (02:30)
[2018-07-15] MEDS: DOCUSATE SODIUM 100 MG CAP PO SCH ×2 (09:01→21:02)
[2018-07-15] MEDS: SEVELAMER CARBONATE 0.8 GM PKT PO SCH ×3 (09:01→17:55)
[2018-07-15] MEDS: FAMOTIDINE 20 MG TAB PO SCH (09:01)
[2018-07-15] MEDS: FERROUS SULFATE (EC) 325 MG TAB PO SCH ×2 (09:01→21:02)
[2018-07-15] MEDS: BACLOFEN 10 MG TAB PO SCH ×2 (09:02→13:39)
[2018-07-15] MEDS: HEPARIN 5,000 UNIT/1 ML VIAL SC SCH ×2 (09:03→21:02)
--- NOTE | 2018-07-15 09:29 | CONS ---
Date/Time of Note Date/Time of Note DATE: 07/15/18 TIME: 09:28 Assessment/Plan Assessment/Plan Assessment/Plan 1. Preoperative evaluation for left lower extremity open reduction and internal fixation, status post mechanical fall. -NL EF by echo. NO sig valve abnl. Neg trop x 3. OK to proceed at moderate CV risk on current medical therapy. Now Post-op s/p LE ORIF - tolerated procedure well. 2. Hypertension, borderline, labile, likely a component of pain. BP in good range now. 3. Abnormal electrocardiogram with lateral T-wave inversion. Stable. Off tele now. 4. Status post mechanical fall with a femoral fracture. 5. Femoral fracture, left-sided, supracondylar - post op. 6. History of cerebrovascular accident, previously on Plavix. 7. End-stage renal disease, on hemodialysis - Rx as needed. 8. Hyperkalemia-improved 9. Anemia. Result Diagram: 07/15/18 0435 07/15/18 0435 Results 24hrs Laboratory Tests Test 07/14/18 10:27 07/15/18 04:35 Bedside Glucose 79 White Blood Count 6.4 Red Blood Count 3.22 #L Hemoglobin 9.6 #L Hematocrit 31.1 #L Mean Corpuscular Volume 96.6 Mean Corpuscular Hemoglobin 29.8 Mean Corpuscular Hemoglobin Concent 30.9 L Red Cell Distribution Width 14.6 H Platelet Count 285 # Mean Platelet Volume 9.2 Immature Granulocytes % 0.800 H Neutrophils % 72.1 Lymphocytes % 14.4 L Monocytes % 7.8 Eosinophils % 4.4 Basophils % 0.5 Nucleated Red Blood Cells % 0.0 Immature Granulocytes # 0.050 H Neutrophils # 4.6 Lymphocytes # 0.9 Monocytes # 0.5 Eosinophils # 0.3 Basophils # 0.0 Nucleated Red Blood Cells # 0.0 Sodium Level 138 Potassium Level 4.6 Chloride Level 101 Carbon Dioxide Level 28 Anion Gap 9 Blood Urea Nitrogen 24 H Creatinine 4.52 H Est Glomerular Filtrat Rate mL/min 12 L Glucose Level 76 Calcium Level 9.9 Consultation Date/Type/Reason Admit Date/Time Jul 03, 2018 at 05:32 Initial Consult Date 07/03/18 Requesting Provider: JESSICA GROVE 24 HR Interval Summary Free Text/Dictation NO acute events - tolerated procedure well - no CP now. ROS: No fever, no chills, no nausea, no vomiting, no diarrhea/constipation No recent weight changes No chest pain, no PND, no orthopnea - mild SOB No dizziness, blurred vision No thirst, no heat or cold intolerance Exam/Review of Systems Vital Signs Vitals Vital Signs Date Temp Pulse Resp B/P (MAP) Pulse Ox O2 O2 Flow FiO2 Time Delivery Rate 07/15/18 98.0 80 18 138/74 94 Room Air 07:40 (95) 07/11/18 2.0 09:50 Intake and Output 07/14/18 07/14/18 07/15/18 1515:00 23:00 07:00 IntakeIntake Total 600 ml 300 ml OutputOutput Total 1900 ml BalanceBalance 600 ml -1600 ml Exam General: WN/WD/NAD, AOx 2-3 HEENT: Unicetric/atraumatic/EOMI ( follow commands) NECK: JVD elevated, no thyromegaly Lymph: no lymphadenopathy HEART: regular with no S3, II/ systolic murmur at apex LUNGS: Coarse sounds ABD: soft, NT, ND, +BS : Intact Neuro: non focal SKIN: chronic changes EXT: trace edema,post op Medications Medications Current Medications Baclofen (Lioresal) 10 mg TID PO Last administered on 07/15/18 09:02; Admin Dose 10 MG; Start 07/03/18 at 21:00 Sevelamer Carbonate (Renvela) 0.8 gm WITH MEALS PO Last administered on 07/15/18 09:01; Admin Dose 0.8 GM; Start 07/03/18 at 17:55 Ondansetron HCl (Zofran Inj) 4 mg Q6H PRN IV NAUSEA AND/OR VOMITING Last administered on 07/13/18 21:53; Admin Dose 4 MG; Start 07/03/18 at 14:30 Acetaminophen (Tylenol Tab) 650 mg Q6H PRN PO PAIN LEVEL 1-3 OR FEVER Last administered on 07/14/18 01:53; Admin Dose 650 MG; Start 07/03/18 at 14:30 Zolpidem Tartrate (Ambien) 5 mg QHS PRN PO SLEEP; Start 07/03/18 at 14:30 Famotidine (Pepcid) 20 mg DAILY PO Last administered on 07/15/18 09:01; Admin Dose 20 MG; Start 07/03/18 at 14:30 Morphine Sulfate (morphine) 2 mg Q4H PRN IV PAIN LEVEL 6-10 Last administered on 07/03/18 21:36; Admin Dose 2 MG; Start 07/03/18 at 17:30; Status Hold Acetaminophen/ Hydrocodone Bitart ([place] (7.5-325)) 1 tab Q4H PRN PO MODERATE PAIN LEVEL 4-6; Start 07/06/18 at 14:00; Status Hold Morphine Sulfate (morphine) 3 mg Q3H PRN IV SEVERE PAIN LEVEL 7-10; Start 07/09/18 at 18:30 Acetaminophen/ Hydrocodone Bitart ([place] (5/325)) 1 tab Q3H PRN PO MODERATE PAIN LEVEL 4-6 Last administered on 07/13/18 01:46; Admin Dose 1 TAB; Start 07/09/18 at 18:30 Heparin Sodium (Porcine) (Heparin (5000 Units/1ml)) 5,000 unit Q12 SC Last administered on 07/15/18 09:03; Admin Dose 5,000 UNIT; Start 07/10/18 at 09:00 Albumin Human 100 ml @ 100 mls/hr WITH DIALYSIS PRN IV BP support during dialysis Last administered on 07/12/18 16:35; Admin Dose 100 MLS/HR; Start 07/11/18 at 09:30 Bisacodyl (Dulcolax) 10 mg DAILY PRN PO CONSTIPATION Last administered on 07/13/18 08:44; Admin Dose 10 MG; Start 07/12/18 at 12:00 Docusate Sodium (Colace) 100 mg BID PO Last administered on 07/15/18 09:01; Admin Dose 100 MG; Start 07/12/18 at 21:00 Ferrous Sulfate (Ferrous Sulfate ([place])) 325 mg BID PO Last administered on 07/15/18 09:01; Admin Dose 325 MG; Start 07/14/18 at 21:00 JESSICA THOMPSON MD Jul 15, 2018 09:29
[2018-07-15] MEDS: ACETAMINOPHEN 325 MG TAB PO PRN (11:23)
--- NOTE | 2018-07-15 16:10 | PN ---
Date/Time of Note Date/Time of Note DATE: 07/15/18 TIME: 16:09 Assessment/Plan VTE Prophylaxis Risk score (from Ns)>0 risk: 8 SCD applied (from Ns): Yes Pharmacological prophylaxis: heparin Lines/Catheters IV Catheter Type (from Nrsg): Permacath Urinary Cath still in place: No Assessment/Plan Hospital Course Patient is more awake today oriented to name and situation otherwise pleasantly confused. Pain is adequately controlled, pending acute rehab evaluation. Assessment/Plan -Acute comminuted distal left femoral fracture without dislocation. S/p ORIF of the comminuted and displaced supracondylar fracture of the left femur by Dr. Gutierres on 07/09/18. -Hemodialysis dependent end-stage renal disease. Continue on hemodialysis. Dr. Tucker is following in nephrology consultation. -Diabetes mellitus -History of cerebrovascular accident with left-sided paralysis. -Anemia of chronic disease. Continue to monitor hemoglobin and hematocrit. Currently stable. -Chronic dislocation of the left shoulder. No acute issues. -Mineral bone disease Further recommendations based on clinical course. Plan of care discussed with Dr. Rousseau. Result Diagram: 07/15/18 0435 07/15/18 0435 Results 24hrs Laboratory Tests Test 07/15/18 04:35 White Blood Count 6.4 Red Blood Count 3.22 #L Hemoglobin 9.6 #L Hematocrit 31.1 #L Mean Corpuscular Volume 96.6 Mean Corpuscular Hemoglobin 29.8 Mean Corpuscular Hemoglobin Concent 30.9 L Red Cell Distribution Width 14.6 H Platelet Count 285 # Mean Platelet Volume 9.2 Immature Granulocytes % 0.800 H Neutrophils % 72.1 Lymphocytes % 14.4 L Monocytes % 7.8 Eosinophils % 4.4 Basophils % 0.5 Nucleated Red Blood Cells % 0.0 Immature Granulocytes # 0.050 H Neutrophils # 4.6 Lymphocytes # 0.9 Monocytes # 0.5 Eosinophils # 0.3 Basophils # 0.0 Nucleated Red Blood Cells # 0.0 Sodium Level 138 Potassium Level 4.6 Chloride Level 101 Carbon Dioxide Level 28 Anion Gap 9 Blood Urea Nitrogen 24 H Creatinine 4.52 H Est Glomerular Filtrat Rate mL/min 12 L Glucose Level 76 Calcium Level 9.9 Exam/Review of Systems Vital Signs Vitals Vital Signs Date Temp Pulse Resp B/P (MAP) Pulse Ox O2 O2 Flow FiO2 Time Delivery Rate 07/15/18 98.0 76 121/58 97 Room Air 15:32 (79) 07/15/18 18 07:40 07/11/18 2.0 09:50 Intake and Output 07/14/18 07/14/18 07/15/18 1515:00 23:00 07:00 IntakeIntake Total 600 ml 300 ml OutputOutput Total 1900 ml BalanceBalance 600 ml -1600 ml Exam Constitutional: alert, oriented Respiratory: clear to auscultation Cardiovascular: nl pulses Gastrointestinal: soft, non-tender Musculoskeletal: other (LLE s/p surgery, immobilizer) Extremities: normal pulses Neurological: other (Left-sided weakness from previous stroke) Skin: nl turgor Medications Medications Current Medications Baclofen (Lioresal) 10 mg TID PO Last administered on 07/15/18at 13:39; Admin Dose 10 MG; Start 07/03/18 at 21:00 Sevelamer Carbonate (Renvela) 0.8 gm WITH MEALS PO Last administered on 07/15/18 13:39; Admin Dose 0.8 GM; Start 07/03/18 at 17:55 Ondansetron HCl (Zofran Inj) 4 mg Q6H PRN IV NAUSEA AND/OR VOMITING Last administered on 07/13/18 21:53; Admin Dose 4 MG; Start 07/03/18 at 14:30 Acetaminophen (Tylenol Tab) 650 mg Q6H PRN PO PAIN LEVEL 1-3 OR FEVER Last administered on 07/15/18at 11:23; Admin Dose 650 MG; Start 07/03/18 at 14:30 Zolpidem Tartrate (Ambien) 5 mg QHS PRN PO SLEEP; Start 07/03/18 at 14:30 Famotidine (Pepcid) 20 mg DAILY PO Last administered on 07/15/18 09:01; Admin Dose 20 MG; Start 07/03/18 at 14:30 Morphine Sulfate (morphine) 2 mg Q4H PRN IV PAIN LEVEL 6-10 Last administered on 07/03/18at 21:36; Admin Dose 2 MG; Start 07/03/18 at 17:30; Status Hold Acetaminophen/ Hydrocodone Bitart ([place] (7.5-325)) 1 tab Q4H PRN PO MODERATE PAIN LEVEL 4-6; Start 07/06/18 at 14:00; Status Hold Morphine Sulfate (morphine) 3 mg Q3H PRN IV SEVERE PAIN LEVEL 7-10; Start 07/09/18 at 18:30 Acetaminophen/ Hydrocodone Bitart ([place] (5/325)) 1 tab Q3H PRN PO MODERATE PAIN LEVEL 4-6 Last administered on 07/13/18 01:46; Admin Dose 1 TAB; Start 07/09/18 at 18:30 Heparin Sodium (Porcine) (Heparin (5000 Units/1ml)) 5,000 unit Q12 SC Last administered on 07/15/18 09:03; Admin Dose 5,000 UNIT; Start 07/10/18 at 09:00 Albumin Human 100 ml @ 100 mls/hr WITH DIALYSIS PRN IV BP support during dialysis Last administered on 07/12/18 16:35; Admin Dose 100 MLS/HR; Start 07/11/18 at 09:30 Bisacodyl (Dulcolax) 10 mg DAILY PRN PO CONSTIPATION Last administered on 07/13/18 08:44; Admin Dose 10 MG; Start 07/12/18 at 12:00 Docusate Sodium (Colace) 100 mg BID PO Last administered on 07/15/18 09:01; Admin Dose 100 MG; Start 07/12/18 at 21:00 Ferrous Sulfate (Ferrous Sulfate (Ec)) 325 mg BID PO Last administered on 07/15/18 09:01; Admin Dose 325 MG; Start 07/14/18 at 21:00 JESSICA GROVE Jul 15, 2018 16:10
--- NOTE | 2018-07-15 20:41 | CONS ---
Date/Time of Note Date/Time of Note DATE: 07/15/18 TIME: 20:35 Assessment/Plan Assessment/Plan Assessment/Plan 57 yo Female with 1) Acute Distal Left Femoral Comminuted Fracture 2) S/p Mechanical Fall 3) ESRD on HD every MWF 4) Anemia, Chronic, CKD 5) MBD, CKD 6) Chronic HTN 7) CAD, Chronic 8) DM with ESRD 9) Hx of CVA with residual left sided deficit 10) Chronic Lower back pain 11) Hyperkalemia Pt is confused DCd Baclofen and ambien HD plan for tomorrow Gentle UF as tolerated Repeat Hgb improved Epogen ordered with HD tomorrow Rehab pending placement Please do not hesitate to contact me if you have any questions or concern Result Diagram: 07/15/18 0435 07/15/18 0435 Results 24hrs Laboratory Tests Test 07/15/18 04:35 White Blood Count 6.4 Red Blood Count 3.22 #L Hemoglobin 9.6 #L Hematocrit 31.1 #L Mean Corpuscular Volume 96.6 Mean Corpuscular Hemoglobin 29.8 Mean Corpuscular Hemoglobin Concent 30.9 L Red Cell Distribution Width 14.6 H Platelet Count 285 # Mean Platelet Volume 9.2 Immature Granulocytes % 0.800 H Neutrophils % 72.1 Lymphocytes % 14.4 L Monocytes % 7.8 Eosinophils % 4.4 Basophils % 0.5 Nucleated Red Blood Cells % 0.0 Immature Granulocytes # 0.050 H Neutrophils # 4.6 Lymphocytes # 0.9 Monocytes # 0.5 Eosinophils # 0.3 Basophils # 0.0 Nucleated Red Blood Cells # 0.0 Sodium Level 138 Potassium Level 4.6 Chloride Level 101 Carbon Dioxide Level 28 Anion Gap 9 Blood Urea Nitrogen 24 H Creatinine 4.52 H Est Glomerular Filtrat Rate mL/min 12 L Glucose Level 76 Calcium Level 9.9 Consultation Date/Type/Reason Admit Date/Time Jul 03, 2018 at 05:32 Initial Consult Date 07/03/18 Type of Consult Nephrology Requesting Provider: JESSICA GROVE 24 HR Interval Summary Free Text/Dictation Confused tonight, Had HD very early in am Constitutional: No requiring O2 Exam/Review of Systems Vital Signs Vitals Vital Signs Date Temp Pulse Resp B/P (MAP) Pulse Ox O2 O2 Flow FiO2 Time Delivery Rate 07/15/18 97.4 80 18 139/65 100 Room Air 19:51 (89) 07/11/18 2.0 09:50 Intake and Output 07/14/18 07/14/18 07/15/18 1515:00 23:00 07:00 IntakeIntake Total 600 ml 300 ml OutputOutput Total 1900 ml BalanceBalance 600 ml -1600 ml Exam Constitutional: No distress ENMT: No mucosa pink and moist Respiratory: No diminished breath sounds, No labored breathing Cardiovascular: regular rate and rhythm, edema Gastrointestinal: soft, non-tender Extremities: edema Neurological: confused Skin: No diaphoresis Medications Medications Current Medications Baclofen (Lioresal) 10 mg TID PO Last administered on 07/15/18 13:39; Admin Dose 10 MG; Start 07/03/18 at 21:00 Sevelamer Carbonate (Renvela) 0.8 gm WITH MEALS PO Last administered on 07/15/18 13:39; Admin Dose 0.8 GM; Start 07/03/18 at 17:55 Ondansetron HCl (Zofran Inj) 4 mg Q6H PRN IV NAUSEA AND/OR VOMITING Last administered on 07/13/18at 21:53; Admin Dose 4 MG; Start 07/03/18 at 14:30 Acetaminophen (Tylenol Tab) 650 mg Q6H PRN PO PAIN LEVEL 1-3 OR FEVER Last administered on 07/15/18at 11:23; Admin Dose 650 MG; Start 07/03/18 at 14:30 Zolpidem Tartrate (Ambien) 5 mg QHS PRN PO SLEEP; Start 07/03/18 at 14:30 Famotidine (Pepcid) 20 mg DAILY PO Last administered on 07/15/18at 09:01; Admin Dose 20 MG; Start 07/03/18 at 14:30 Morphine Sulfate (morphine) 2 mg Q4H PRN IV PAIN LEVEL 6-10 Last administered on 07/03/18 21:36; Admin Dose 2 MG; Start 07/03/18 at 17:30; Status Hold Acetaminophen/ Hydrocodone Bitart ([place] (7.5-325)) 1 tab Q4H PRN PO MODERATE PAIN LEVEL 4-6; Start 07/06/18 at 14:00; Status Hold Morphine Sulfate (morphine) 3 mg Q3H PRN IV SEVERE PAIN LEVEL 7-10; Start 07/09/18 at 18:30 Acetaminophen/ Hydrocodone Bitart ([place] (5/325)) 1 tab Q3H PRN PO MODERATE PAIN LEVEL 4-6 Last administered on 07/13/18 01:46; Admin Dose 1 TAB; Start 07/09/18 at 18:30 Heparin Sodium (Porcine) (Heparin (5000 Units/1ml)) 5,000 unit Q12 SC Last administered on 07/15/18 09:03; Admin Dose 5,000 UNIT; Start 07/10/18 at 09:00 Albumin Human 100 ml @ 100 mls/hr WITH DIALYSIS PRN IV BP support during dialysis Last administered on 07/12/18 16:35; Admin Dose 100 MLS/HR; Start 07/11/18 at 09:30 Bisacodyl (Dulcolax) 10 mg DAILY PRN PO CONSTIPATION Last administered on 07/13/18 08:44; Admin Dose 10 MG; Start 07/12/18 at 12:00 Docusate Sodium (Colace) 100 mg BID PO Last administered on 07/15/18 09:01; Admin Dose 100 MG; Start 07/12/18 at 21:00 Ferrous Sulfate (Ferrous Sulfate (Ec)) 325 mg BID PO Last administered on 07/15/18 09:01; Admin Dose 325 MG; Start 07/14/18 at 21:00 SHARON ESPINOZA MD Jul 15, 2018 20:41
[2018-07-16] VITALS (19 sets, daily range): BP systolic 89–138; BP diastolic 53–92; PULSE 63–83; RESP 16–20
[2018-07-16] MEDS: ACETAMINOPHEN 325 MG TAB PO PRN ×2 (00:59→16:47)
[2018-07-16] MEDS: SEVELAMER CARBONATE 0.8 GM PKT PO SCH ×3 (08:30→17:55)
[2018-07-16] MEDS ORDERED: EPOETIN 4000 UNITS/1 ML INJ (ESRD) IV ONE (09:00)
[2018-07-16] MEDS ORDERED: HEPARIN 1000 UNITS/ML 10 ML INJ CATHETER PRN (11:00)
--- NOTE | 2018-07-16 12:55 | CONS ---
Date/Time of Note Date/Time of Note DATE: 07/16/18 TIME: 12:51 Assessment/Plan Assessment/Plan Assessment/Plan 57 yo Female with 1) Acute Distal Left Femoral Comminuted Fracture 2) S/p Mechanical Fall 3) ESRD on HD every MWF 4) Anemia, Chronic, CKD 5) MBD, CKD 6) Chronic HTN 7) CAD, Chronic 8) DM with ESRD 9) Hx of CVA with residual left sided deficit 10) Chronic Lower back pain 11) Hyperkalemia Not hypoxic, Pt is still slow to respond Completed HD No complication Gentle UF as tolerated Will send UA R/o Occult infection. Repeat Hgb improved Epogen ordered with HD today Rehab on hold for now, Defer toPCP Please do not hesitate to contact me if you have any questions or concern Result Diagram: 07/15/18 0435 07/15/18 0435 Results 24hrs Laboratory Tests Test 07/16/18 08:20 Bedside Glucose 80 Consultation Date/Type/Reason Admit Date/Time Jul 03, 2018 at 05:32 Initial Consult Date 07/03/18 Type of Consult Nephrology Requesting Provider: JESSICA GROVE 24 HR Interval Summary Free Text/Dictation Still lethargic and slow to respond, On HD and completed treatment. Constitutional: No requiring O2 Exam/Review of Systems Vital Signs Vitals Vital Signs Date Temp Pulse Resp B/P (MAP) Pulse Ox O2 O2 Flow FiO2 Time Delivery Rate 07/16/18 70 12:34 07/16/18 16 90/62 (71) 96 Room Air 09:50 07/16/18 98.1 07:19 Intake and Output 07/15/18 07/15/18 07/16/18 1515:00 23:00 07:00 IntakeIntake Total 240 ml 220 ml 250 ml BalanceBalance 240 ml 220 ml 250 ml Exam Constitutional: No distress Psych: confusion Head: atraumatic Eyes: EOMI ENMT: mucosa pink and moist Neck: No jvd Respiratory: crackles/rales; No diminished breath sounds, No labored breathing Cardiovascular: regular rate and rhythm, edema Gastrointestinal: soft, non-tender Neurological: confused, focal weakness, lethargic Skin: No diaphoresis Medications Medications Current Medications Sevelamer Carbonate (Renvela) 0.8 gm WITH MEALS PO Last administered on 07/15/18at 13:39; Admin Dose 0.8 GM; Start 07/03/18 at 17:55 Ondansetron HCl (Zofran Inj) 4 mg Q6H PRN IV NAUSEA AND/OR VOMITING Last administered on 07/13/18 21:53; Admin Dose 4 MG; Start 07/03/18 at 14:30 Acetaminophen (Tylenol Tab) 650 mg Q6H PRN PO PAIN LEVEL 1-3 OR FEVER Last administered on 07/16/18 00:59; Admin Dose 650 MG; Start 07/03/18 at 14:30 Famotidine (Pepcid) 20 mg DAILY PO Last administered on 07/15/18 09:01; Admin Dose 20 MG; Start 07/03/18 at 14:30 Morphine Sulfate (morphine) 2 mg Q4H PRN IV PAIN LEVEL 6-10 Last administered on 07/03/18 21:36; Admin Dose 2 MG; Start 07/03/18 at 17:30; Status Hold Acetaminophen/ Hydrocodone Bitart ([place] (7.5-325)) 1 tab Q4H PRN PO MODERATE PAIN LEVEL 4-6; Start 07/06/18 at 14:00; Status Hold Morphine Sulfate (morphine) 3 mg Q3H PRN IV SEVERE PAIN LEVEL 7-10; Start 07/09/18 at 18:30 Acetaminophen/ Hydrocodone Bitart ([place] (5/325)) 1 tab Q3H PRN PO MODERATE PAIN LEVEL 4-6 Last administered on 07/13/18 01:46; Admin Dose 1 TAB; Start 07/09/18 at 18:30 Heparin Sodium (Porcine) (Heparin (5000 Units/1ml)) 5,000 unit Q12 SC Last administered on 07/15/18 21:02; Admin Dose 5,000 UNIT; Start 07/10/18 at 09:00 Albumin Human 100 ml @ 100 mls/hr WITH DIALYSIS PRN IV BP support during dialy sis Last administered on 07/12/18 16:35; Admin Dose 100 MLS/HR; Start 07/11/18 at 09:30 Bisacodyl (Dulcolax) 10 mg DAILY PRN PO CONSTIPATION Last administered on 07/13/18 08:44; Admin Dose 10 MG; Start 07/12/18 at 12:00 Docusate Sodium (Colace) 100 mg BID PO Last administered on 07/15/18at 21:02; Admin Dose 100 MG; Start 07/12/18 at 21:00 Ferrous Sulfate (Ferrous Sulfate (Ec)) 325 mg BID PO Last administered on 07/15/18at 21:02; Admin Dose 325 MG; Start 07/14/18 at 21:00 Heparin Sodium (Porcine) (Heparin (1000 Units/ml)) 3,200 unit ONCE PRN CATHETER Prevention of clot After HD; Start 07/16/18 at 11:00; Stop 07/16/18 at 16:00 SHARON ESPINOZA MD Jul 16, 2018 12:55
--- NOTE | 2018-07-16 13:16 | PN ---
Date/Time of Note Date/Time of Note DATE: 07/16/18 TIME: 13:12 Assessment/Plan VTE Prophylaxis Risk score (from Ns)>0 risk: 6 SCD applied (from Ns): No SCD contraindicated: low risk/ambulating Pharmacological prophylaxis: NA/contraindicated Pharm contraindication: low risk/ambulating Lines/Catheters IV [facility]from [facility] Perma catheter Urinary Cath still in place: No Assessment/Plan Hospital Course Pt is still confused, undergoing HD, of transfer to IRU if accepted. Assessment/Plan -Acute comminuted distal left femoral fracture without dislocation. S/p ORIF of the comminuted and displaced supracondylar fracture of the left femur by Dr. Gutierres on 07/09/18. -Hemodialysis dependent end-stage renal disease. Continue on hemodialysis. Dr. Tucker is following in nephrology consultation. -Diabetes mellitus -History of cerebrovascular accident with left-sided paralysis. -Anemia of chronic disease. Continue to monitor hemoglobin and hematocrit. Currently stable. -Chronic dislocation of the left shoulder. No acute issues. -Mineral bone disease Further recommendations based on clinical course. Plan of care discussed with Dr. Rousseau. Result Diagram: 07/15/18 0435 07/15/18 0435 Results 24hrs Laboratory Tests Test 07/16/18 08:20 Bedside Glucose 80 Exam/Review of Systems Vital Signs Vitals Vital Signs Date Temp Pulse Resp B/P (MAP) Pulse Ox O2 O2 Flow FiO2 Time Delivery Rate 07/16/18 71 13:00 07/16/18 20 130/71 98 Room Air 12:50 (90) 07/16/18 98.1 07:19 Intake and Output 07/15/18 07/15/18 07/16/18 1515:00 23:00 07:00 IntakeIntake Total 240 ml 220 ml 250 ml BalanceBalance 240 ml 220 ml 250 ml Exam Constitutional: alert, oriented Respiratory: clear to auscultation Cardiovascular: nl pulses Gastrointestinal: soft, non-tender Musculoskeletal: other (LLE s/p surgery, immobilizer) Extremities: normal pulses Neurological: other (Left-sided weakness from previous stroke) Skin: nl turgor Medications Medications Current Medications Sevelamer Carbonate (Renvela) 0.8 gm WITH MEALS PO Last administered on 07/15/18at 13:39; Admin Dose 0.8 GM; Start 07/03/18 at 17:55 Ondansetron HCl (Zofran Inj) 4 mg Q6H PRN IV NAUSEA AND/OR VOMITING Last administered on 07/13/18 21:53; Admin Dose 4 MG; Start 07/03/18 at 14:30 Acetaminophen (Tylenol Tab) 650 mg Q6H PRN PO PAIN LEVEL 1-3 OR FEVER Last administered on 07/16/18 00:59; Admin Dose 650 MG; Start 07/03/18 at 14:30 Famotidine (Pepcid) 20 mg DAILY PO Last administered on 07/15/18 09:01; Admin Dose 20 MG; Start 07/03/18 at 14:30 Morphine Sulfate (morphine) 2 mg Q4H PRN IV PAIN LEVEL 6-10 Last administered on 07/03/18 21:36; Admin Dose 2 MG; Start 07/03/18 at 17:30; Status Hold Acetaminophen/ Hydrocodone Bitart ([place] (7.5-325)) 1 tab Q4H PRN PO MODERATE PAIN LEVEL 4-6; Start 07/06/18 at 14:00; Status Hold Morphine Sulfate (morphine) 3 mg Q3H PRN IV SEVERE PAIN LEVEL 7-10; Start 07/09/18 at 18:30 Acetaminophen/ Hydrocodone Bitart ([place] (5/325)) 1 tab Q3H PRN PO MODERATE PAIN LEVEL 4-6 Last administered on 07/13/18 01:46; Admin Dose 1 TAB; Start 07/09/18 at 18:30 Heparin Sodium (Porcine) (Heparin (5000 Units/1ml)) 5,000 unit Q12 SC Last administered on 07/15/18 21:02; Admin Dose 5,000 UNIT; Start 07/10/18 at 09:00 Albumin Human 100 ml @ 100 mls/hr WITH DIALYSIS PRN IV BP support during dialysis Last administered on 07/12/18 16:35; Admin Dose 100 MLS/HR; Start 07/11/18 at 09:30 Bisacodyl (Dulcolax) 10 mg DAILY PRN PO CONSTIPATION Last administered on 07/13/18 08:44; Admin Dose 10 MG; Start 07/12/18 at 12:00 Docusate Sodium (Colace) 100 mg BID PO Last administered on 1/15/19at 21:02; Admin Dose 100 MG; Start 07/12/18 at 21:00 Ferrous Sulfate (Ferrous Sulfate (Ec)) 325 mg BID PO Last administered on 07/15/18at 21:02; Admin Dose 325 MG; Start 07/14/18 at 21:00 Heparin Sodium (Porcine) (Heparin (1000 Units/ml)) 3,200 unit ONCE PRN CATHETER Prevention of clot After HD Last administered on 07/16/18at 12:52; Admin Dose 3,200 UNIT; Start 07/16/18 at 11:00; Stop 07/16/18 at 16:00 JESSICA GROVE Jul 16, 2018 13:16
[2018-07-16] MEDS: DOCUSATE SODIUM 100 MG CAP PO SCH ×2 (13:40→21:00)
[2018-07-16] MEDS: FERROUS SULFATE (EC) 325 MG TAB PO SCH ×2 (13:40→21:00)
[2018-07-16] MEDS: FAMOTIDINE 20 MG TAB PO SCH (13:40)
--- NOTE | 2018-07-16 13:43 | CONS ---
Date/Time of Note Date/Time of Note DATE: 07/16/18 TIME: 13:42 Assessment/Plan Assessment/Plan Hospital Course IMPRESSION: 1. Preoperative evaluation for left lower extremity open reduction and internal fixation, status post mechanical fall. -NL EF by echo. NO sig valve abnl. Neg trop x 3. OK to proceed at moderate CV risk on current medical therapy. Now Post-op s/p LE ORIF 2. Hypertension, borderline, labile, likely a component of pain. 3. Abnormal electrocardiogram with lateral T-wave inversion. 4. Status post mechanical fall with a femoral fracture. 5. Femoral fracture, left-sided, supracondylar. 6. History of cerebrovascular accident, previously on Plavix. 7. End-stage renal disease, on hemodialysis. 8. Hyperkalemia-improved 9. Anemia. REcc: -Pain control -follow BP closely and volume status -HD for volume removal as tolerated Result Diagram: 07/15/18 0435 07/15/18 0435 Results 24hrs Laboratory Tests Test 07/16/18 08:20 Bedside Glucose 80 Consultation Date/Type/Reason Admit Date/Time Jul 03, 2018 at 05:32 Initial Consult Date 07/03/18 Type of Consult cardiology Reason for Consultation CHF Requesting Provider: JESSICA GROVE Exam/Review of Systems Vital Signs Vitals Vital Signs Date Temp Pulse Resp B/P (MAP) Pulse Ox O2 O2 Flow FiO2 Time Delivery Rate 07/16/18 71 13:00 07/16/18 20 130/71 98 Room Air 12:50 (90) 07/16/18 98.1 07:19 Intake and Output 07/15/18 07/15/18 07/16/18 1515:00 23:00 07:00 IntakeIntake Total 240 ml 220 ml 250 ml BalanceBalance 240 ml 220 ml 250 ml Exam Review of Systems: CONSTITUTIONAL: No fevers, chills. PULMONARY: No sob CARDIOVASCULAR: No chest pain/palpitations GASTROINTESTINAL: No nausea/vomiting. GENITOURINARY: No hematuria/dysuria. MUSCULOSKELETAL: No myagias/arthalgias. PSYCHIATRIC: The patient denies depression. NEUROLOGIC: No weakness Constitutional: alert Psych: confusion ENMT: mucosa pink and moist Neck: supple, jvd (9 cm water) Respiratory: diminished breath sounds (at bases/B) Cardiovascular: regular rate and rhythm Gastrointestinal: soft, non-tender Musculoskeletal: muscle weakness (L sided UE/LE) Extremities: edema (trace/B) Neurological: other (No focal deficits) Medications Medications Current Medications Sevelamer Carbonate (Renvela) 0.8 gm WITH MEALS PO Last administered on 07/15/18 13:39; Admin Dose 0.8 GM; Start 07/03/18 at 17:55 Ondansetron HCl (Zofran Inj) 4 mg Q6H PRN IV NAUSEA AND/OR VOMITING Last administered on 07/13/18 21:53; Admin Dose 4 MG; Start 07/03/18 at 14:30 Acetaminophen (Tylenol Tab) 650 mg Q6H PRN PO PAIN LEVEL 1-3 OR FEVER Last administered on 07/16/18 00:59; Admin Dose 650 MG; Start 07/03/18 at 14:30 Famotidine (Pepcid) 20 mg DAILY PO Last administered on 07/15/18 09:01; Admin Dose 20 MG; Start 07/03/18 at 14:30 Morphine Sulfate (morphine) 2 mg Q4H PRN IV PAIN LEVEL 6-10 Last administered on 07/03/18 21:36; Admin Dose 2 MG; Start 07/03/18 at 17:30; Status Hold Acetaminophen/ Hydrocodone Bitart ([place] (7.5-325)) 1 tab Q4H PRN PO MODERATE PAIN LEVEL 4-6; Start 07/06/18 at 14:00; Status Hold Morphine Sulfate (morphine) 3 mg Q3H PRN IV SEVERE PAIN LEVEL 7-10; Start 07/09/18 at 18:30 Acetaminophen/ Hydrocodone Bitart ([place] (5/325)) 1 tab Q3H PRN PO MODERATE PAIN LEVEL 4-6 Last administered on 07/13/18 01:46; Admin Dose 1 TAB; Start 07/09/18 at 18:30 Heparin Sodium (Porcine) (Heparin (5000 Units/1ml)) 5,000 unit Q12 SC Last administered on 07/15/18 21:02; Admin Dose 5,000 UNIT; Start 07/10/18 at 09:00 Albumin Human 100 ml @ 100 mls/hr WITH DIALYSIS PRN IV BP support during di alysis Last administered on 07/12/18 16:35; Admin Dose 100 MLS/HR; Start 07/11/18 at 09:30 Bisacodyl (Dulcolax) 10 mg DAILY PRN PO CONSTIPATION Last administered on 07/13/18at 08:44; Admin Dose 10 MG; Start 07/12/18 at 12:00 Docusate Sodium (Colace) 100 mg BID PO Last administered on 07/15/18at 21:02; Admin Dose 100 MG; Start 07/12/18 at 21:00 Ferrous Sulfate (Ferrous Sulfate (Ec)) 325 mg BID PO Last administered on 07/15/18at 21:02; Admin Dose 325 MG; Start 07/14/18 at 21:00 Heparin Sodium (Porcine) (Heparin (1000 Units/ml)) 3,200 unit ONCE PRN CATHETER Prevention of clot After HD Last administered on 07/16/18at 12:52; Admin Dose 3,200 UNIT; Start 07/16/18 at 11:00; Stop 07/16/18 at 16:00 SHONDA GOODWIN Jul 16, 2018 13:43
[2018-07-16] MEDS: HEPARIN 5,000 UNIT/1 ML VIAL SC SCH ×2 (13:47→21:14)
[2018-07-16] MEDS ORDERED: VITAMIN A & D 5 GM OINT PACKET TOP ONE (19:46)
[2018-07-17] VITALS (7 sets, daily range): BP systolic 134–170; BP diastolic 64–97; PULSE 69–85; RESP 16–20
[2018-07-17] MEDS: ACETAMINOPHEN 325 MG TAB PO PRN ×2 (08:54→23:37)
[2018-07-17] MEDS: HEPARIN 5,000 UNIT/1 ML VIAL SC SCH ×2 (08:56→22:04)
[2018-07-17] MEDS: SEVELAMER CARBONATE 0.8 GM PKT PO SCH ×3 (08:58→17:55)
[2018-07-17] MEDS: FAMOTIDINE 20 MG TAB PO SCH (09:00)
[2018-07-17] MEDS: DOCUSATE SODIUM 100 MG CAP PO SCH ×2 (09:00→21:00)
[2018-07-17] MEDS: FERROUS SULFATE (EC) 325 MG TAB PO SCH ×2 (09:00→21:00)
--- NOTE | 2018-07-17 10:50 | CONS ---
Date/Time of Note Date/Time of Note DATE: 07/17/18 TIME: 10:45 Assessment/Plan Assessment/Plan Assessment/Plan 57 yo Female with 1) Acute Distal Left Femoral Comminuted Fracture 2) S/p Mechanical Fall 3) ESRD on HD every MWF 4) Anemia, Chronic, CKD 5) MBD, CKD 6) Chronic HTN 7) CAD, Chronic 8) DM with ESRD 9) Hx of CVA with residual left sided deficit 10) Chronic Lower back pain 11) Hyperkalemia UA Reviewed no obvious UTI No growth Cx so far Pt with painful sores no lip, Afebrile FSBG<56, Hypoglycemia protocol Will give 1/2 amp d50 President consult. Result Diagram: 07/15/1843407/15/18434 Results 24hrs Laboratory Tests Test 07/16/18 16:40 Urine Color YELLOW Urine Clarity CLEAR Urine pH 9.0 Urine Specific [place] 1.008 Urine Ketones NEGATIVE Urine Nitrite NEGATIVE Urine Bilirubin NEGATIVE Urine Urobilinogen NEGATIVE Urine Leukocyte Esterase NEGATIVE Urine Microscopic RBC 1 Urine Microscopic WBC 2 Urine Squamous Epithelial Cells FEW Urine Bacteria FEW A Urine Hemoglobin NEGATIVE Urine Glucose 1+ H Urine Total Protein 2+ H Consultation Date/Type/Reason Admit Date/Time Jul 03, 2018 at 05:32 Initial Consult Date 07/03/18 Type of Consult Nephrology Requesting Provider: JESSICA GROVE 24 HR Interval Summary Free Text/Dictation Pain sores on lip Confused Exam/Review of Systems Vital Signs Vitals Vital Signs Date Temp Pulse Resp B/P (MAP) Pulse Ox O2 O2 Flow FiO2 Time Delivery Rate 07/17/18 98.7 77 18 143/64 97 Room Air 07:36 (90) Intake and Output 07/16/18 07/16/18 07/17/18 1515:00 23:00 07:00 OutputOutput Total 1400 ml BalanceBalance -1400 ml Exam Constitutional: No distress Psych: confusion ENMT: mucosa pink and moist; No nl lips & teeth Neck: No jvd Respiratory: No diminished breath sounds, No labored breathing Cardiovascular: regular rate and rhythm, edema Gastrointestinal: soft Extremities: edema Neurological: confused, lethargic Skin: No diaphoresis Medications Medications Current Medications Sevelamer Carbonate (Renvela) 0.8 gm WITH MEALS PO Last administered on 07/17/18at 08:58; Admin Dose 0.8 GM; Start 07/03/18 at 17:55 Ondansetron HCl (Zofran Inj) 4 mg Q6H PRN IV NAUSEA AND/OR VOMITING Last administered on 07/13/18 21:53; Admin Dose 4 MG; Start 07/03/18 at 14:30 Acetaminophen (Tylenol Tab) 650 mg Q6H PRN PO PAIN LEVEL 1-3 OR FEVER Last administered on 07/17/18 08:54; Admin Dose 650 MG; Start 07/03/18 at 14:30 Famotidine (Pepcid) 20 mg DAILY PO Last administered on 07/16/18 13:40; Admin Dose 20 MG; Start 07/03/18 at 14:30 Morphine Sulfate (morphine) 2 mg Q4H PRN IV PAIN LEVEL 6-10 Last administered on 07/03/18 21:36; Admin Dose 2 MG; Start 07/03/18 at 17:30; Status Hold Acetaminophen/ Hydrocodone Bitart ([place] (7.5-325)) 1 tab Q4H PRN PO MODERATE PAIN LEVEL 4-6; Start 07/06/18 at 14:00; Status Hold Morphine Sulfate (morphine) 3 mg Q3H PRN IV SEVERE PAIN LEVEL 7-10; Start 07/09/18 at 18:30 Acetaminophen/ Hydrocodone Bitart ([place] (5/325)) 1 tab Q3H PRN PO MODERATE PAIN LEVEL 4-6 Last administered on 07/13/18 01:46; Admin Dose 1 TAB; Start 07/09/18 at 18:30 Heparin Sodium (Porcine) (Heparin (5000 Units/1ml)) 5,000 unit Q12 SC Last administered on 07/17/18 08:56; Admin Dose 5,000 UNIT; Start 07/10/18 at 09:00 Albumin Human 100 ml @ 100 mls/hr WITH DIALYSIS PRN IV BP support during dialysis Last administered on 07/12/18 16:35; Admin Dose 100 MLS/HR; Start 07/11/18 at 09:30 Bisacodyl (Dulcolax) 10 mg DAILY PRN PO CONSTIPATION Last administered on 07/13/18 08:44; Admin Dose 10 MG; Start 07/12/18 at 12:00 Docusate Sodium (Colace) 100 mg BID PO Last administered on 1/16/19at 13:40; Admin Dose 100 MG; Start 07/12/18 at 21:00 Ferrous Sulfate (Ferrous Sulfate (Ec)) 325 mg BID PO Last administered on at 13:40; Admin Dose 325 MG; Start 07/14/18 at 21:00 Vitamin A/Vitamin D (Vitamin A & D Oint) 1 applic BID TOP ; Start 07/17/18 at 09:00 SHARON ESPINOZA MD Jul 17, 2018 10:50
[2018-07-17] MEDS ORDERED: DEXTROSE 50% 50 ML SYRINGE IV ONE (10:57)
[2018-07-17] MEDS: VITAMIN A & D 5 GM OINT PACKET TOP SCH ×2 (11:46→21:57)
[2018-07-17] MEDS ORDERED: DEXTROSE 50% 50 ML SYRINGE IV PRN ×3 (14:00→19:00)
[2018-07-17] MEDS ORDERED: GLUCOSE GEL 15 GRAM TUBE BUCCAL PRN (14:00)
[2018-07-17] MEDS ORDERED: GLUCAGON 1 MG INJ IM PRN (14:00)
[2018-07-17] MEDS ORDERED: GLUCOSE GEL 15 GRAM TUBE PO PRN ×2 (14:00)
--- NOTE | 2018-07-17 14:42 | PN ---
Date/Time of Note Date/Time of Note DATE: 07/17/18 TIME: 14:38 Assessment/Plan VTE Prophylaxis Risk score (from Ns)>0 risk: 7 SCD applied (from Ns): Yes Pharmacological prophylaxis: heparin Lines/Catheters IV C[facility]ter Type [facility]from [facility]): PERMACATH Urinary Cath still in place: No Assessment/Plan Hospital Course Pt continues to be confused, alert to name only patient bit himself on the right wrist, will start one-to-one sitter for safety. Dr. Davenport is asked to see patient in neurology consultation. Assessment/Plan -Altered mental status. CT of the brain is negative for acute stroke. Dr. Davenport is asked to see patient in neurology consultation. -Acute comminuted distal left femoral fracture without dislocation. S/p ORIF of the comminuted and displaced supracondylar fracture of the left femur by Dr. Gutierres on 07/09/18. -Hemodialysis dependent end-stage renal disease. Continue on hemodialysis. Dr. Tucker is following in nephrology consultation. -Diabetes mellitus -History of cerebrovascular accident with left-sided paralysis. -Anemia of chronic disease. Continue to monitor hemoglobin and hematocrit. Currently stable. -Chronic dislocation of the left shoulder. No acute issues. -Mineral bone disease Further recommendations based on clinical course. Plan of care discussed with Dr. Rousseau. Result Diagram: 07/15/18 0435 07/15/18 0435 Results 24hrs Laboratory Tests Test 07/16/18 16:40 07/17/18 10:47 07/17/18 11:09 07/17/18 11:34 Urine Color YELLOW Urine Clarity CLEAR Urine pH 9.0 Urine Specific 1.008 [place] Urine Ketones NEGATIVE Urine Nitrite NEGATIVE Urine Bilirubin NEGATIVE Urine Urobilinogen NEGATIVE Urine Leukocyte NEGATIVE Esterase Urine Microscopic 1 RBC Urine Microscopic 2 WBC Urine Squamous FEW Epithelial Cells Urine Bacteria FEW A Urine Hemoglobin NEGATIVE Urine Glucose 1+ H Urine Total Protein 2+ H Bedside Glucose 56 L 135 Ammonia < 9 L Test 07/17/18 11:48 07/17/18 13:03 Bedside Glucose 111 83 Exam/Review of Systems Vital Signs Vitals Vital Signs Date Temp Pulse Resp B/P (MAP) Pulse Ox O2 O2 Flow FiO2 Time Delivery Rate 07/17/18 98.1 85 18 154/78 96 Room Air 14:09 (103) Intake and Output 107/16/18 07/17/18 1414:59 22:59 06:59 OutputOutput Total 1400 ml BalanceBalance -1400 ml Exam Constitutional: alert, confused Respiratory: clear to auscultation Cardiovascular: nl pulses Gastrointestinal: soft, non-tender Musculoskeletal: other (LLE s/p surgery, immobilizer) Extremities: normal pulses Neurological: other (Left-sided weakness from previous stroke) Skin: nl turgor Medications Medications Current Medications Sevelamer Carbonate (Renvela) 0.8 gm WITH MEALS PO Last administered on 07/17/18 08:58; Admin Dose 0.8 GM; Start 07/03/18 at 17:55 Ondansetron HCl (Zofran Inj) 4 mg Q6H PRN IV NAUSEA AND/OR VOMITING Last administered on 07/13/18 21:53; Admin Dose 4 MG; Start 07/03/18 at 14:30 Acetaminophen (Tylenol Tab) 650 mg Q6H PRN PO PAIN LEVEL 1-3 OR FEVER Last a dministered on 07/17/18 08:54; Admin Dose 650 MG; Start 07/03/18 at 14:30 Famotidine (Pepcid) 20 mg DAILY PO Last administered on 07/16/18 13:40; Admin Dose 20 MG; Start 07/03/18 at 14:30 Morphine Sulfate (morphine) 2 mg Q4H PRN IV PAIN LEVEL 6-10 Last administered on 07/03/18 21:36; Admin Dose 2 MG; Start 07/03/18 at 17:30; Status Hold Acetaminophen/ Hydrocodone Bitart ([place] (7.5-325)) 1 tab Q4H PRN PO MODERATE PAIN LEVEL 4-6; Start 07/06/18 at 14:00; Status Hold Morphine Sulfate (morphine) 3 mg Q3H PRN IV SEVERE PAIN LEVEL 7-10; Start 07/09/18 at 18:30 Acetaminophen/ Hydrocodone Bitart ([place] (5/325)) 1 tab Q3H PRN PO MODERATE PAIN LEVEL 4-6 Last administered on 07/13/18at 01:46; Admin Dose 1 TAB; Start 07/09/18 at 18:30 Heparin Sodium (Porcine) (Heparin (5000 Units/1ml)) 5,000 unit Q12 SC Last administered on 1/17/19at 08:56; Admin Dose 5,000 UNIT; Start 07/10/18 at 09:00 Albumin Human 100 ml @ 100 mls/hr WITH DIALYSIS PRN IV BP support during dialysis Last administered on 07/12/18at 16:35; Admin Dose 100 MLS/HR; Start 07/11/18 at 09:30 Bisacodyl (Dulcolax) 10 mg DAILY PRN PO CONSTIPATION Last administered on 07/13/18at 08:44; Admin Dose 10 MG; Start 07/12/18 at 12:00 Docusate Sodium (Colace) 100 mg BID PO Last administered on 07/16/18at 13:40; Admin Dose 100 MG; Start 07/12/18 at 21:00 Ferrous Sulfate (Ferrous Sulfate (Ec)) 325 mg BID PO Last administered on 07/16/18at 13:40; Admin Dose 325 MG; Start 07/14/18 at 21:00 Vitamin A/Vitamin D (Vitamin A & D Oint) 1 applic BID TOP Last administered on 07/17/18at 11:46; Admin Dose 1 APPLIC; Start 07/17/18 at 09:00 Diagnostic Test (Pha) (Accu-Chek) 1 ea AC MEALS XX ; Start 07/17/18 at 17:25 Miscellaneous Information 1 ea NOTE XX ; Start 07/17/18 at 14:00 Glucose (Glutose) 15 gm Q15M PRN PO DECREASED GLUCOSE; Start 07/17/18 at 14:00 Glucose (Glutose) 22.5 gm Q15M PRN PO DECREASED GLUCOSE; Start 07/17/18 at 14:00 Dextrose (D50w Syringe) 25 ml Q15M PRN IV DECREASED GLUCOSE; Start 07/17/18 at 14:00 Dextrose (D50w Syringe) 50 ml Q15M PRN IV DECREASED GLUCOSE; Start 07/17/18 at 14:00 Glucagon (Glucagen) 1 mg Q15M PRN IM DECREASED GLUCOSE; Start 07/17/18 at 14:00 Glucose (Glutose) 15 gm Q15M PRN BUCCAL DECREASED GLUCOSE; Start 07/17/18 at 14:00 JESSICA GROVE Jul 17, 2018 14:42
--- NOTE | 2018-07-17 14:54 | CONS ---
Assessment/Plan Assessment/Plan Hospital Course 57 yo F with hx of CVA and other comorbidities who initially presented for management of a L femur fracture. She was noted to be protractedly encephalopathic... for which neurology is consulted. The clinical picture raises concern for delirium, as can be seen in a prolonged hospitalization. There is a likely superimposed medication adverse effect... Stroke is not yet excluded.. P: MRI brain without contrast for further characterization Add CXR, CBC, CMP Reorient as necessary Limit sedating medications where possible Consider EEG should her mental status begin to noticeably fluctuate. Other management per primary Will follow clinically Result Diagram: 07/15/18 0435 07/15/18 0435 Results 24hrs Laboratory Tests Test 07/16/18 16:40 07/17/18 10:47 07/17/18 11:09 07/17/18 11:34 Urine Color YELLOW Urine Clarity CLEAR Urine pH 9.0 Urine Specific 1.008 [place] Urine Ketones NEGATIVE Urine Nitrite NEGATIVE Urine Bilirubin NEGATIVE Urine Urobilinogen NEGATIVE Urine Leukocyte NEGATIVE Esterase Urine Microscopic 1 RBC Urine Microscopic 2 WBC Urine Squamous FEW Epithelial Cells Urine Bacteria FEW A Urine Hemoglobin NEGATIVE Urine Glucose 1+ H Urine Total Protein 2+ H Bedside Glucose 56 L 135 Ammonia < 9 L Test 07/17/18 11:48 07/17/18 13:03 Bedside Glucose 111 83 Consultation Date/Type/Reason Admit Date/Time Jul 03, 2018 at 05:32 Type of Consult Neurology Reason for Consultation worsening ams Requesting Provider: JESSICA GROVE Date/Time of Note DATE: 07/17/18 TIME: 14:54 Hx of Present Illness Hx of Present Illness The patient is 57-year-old female with history of cerebrovascular accident with left-sided weakness, end-stage renal disease, on hemodialysis 3 times per week, anemia, diabetes and chronic dislocation of the left shoulder. Patient is wheelchair-bound. Patient presented to emergency room with complaints of generalized weakness and extreme left knee pain. Patient sustained a mechanical ground-level fall when she was helped to transfer from [facility] to the wheelchair. Patient denies any fever denies she is chills denies nausea vomiting diarrhea. X-ray revealed acute comminuted distal left femoral fracture without dislocation. Patient will be admitted for further evaluation and management. pt unable to contribute d/t ams Exam/Review of Systems Vital Signs Vitals Vital Signs Date Temp Pulse Resp B/P (MAP) Pulse Ox O2 O2 Flow FiO2 Time Delivery Rate 07/17/18 98.1 85 18 154/78 96 Room Air 14:09 (103) Intake and Output 07/16/18 07/16/18 07/17/18 1515:00 23:00 07:00 OutputOutput Total 1400 ml BalanceBalance -1400 ml Exam PE: Gen Appearance: No Apparent Distress HEENT: Normocephalic; Lip swollen Cardiovascular: Regular rate Abdomen: Soft Extremities: Dry; R arm bandage, L leg brace NE: The patient was lethargic and difficult to arouse. Once awake, the pt was oriented to self, hospital, situation and president. Language was normal. Fund of knowledge was normal. Cranial nerve examination was limited by mental status. Pupils were equal and reactive to light. There was no afferent pupillary defect. Funduscopic examination was limited. Face was grossly symmetric, w/ present corneal and cough reflexes. Tone was normal. Muscle bulk was normal. I did not see fasciculations. L side was plegic, though pt was able to wiggle fingers and toes; R arm and leg was antigravity. Coordination and gait testing was limited by mental status. Arm and leg reflexes were 2+ and symmetric. Quinones's sign was absent. Plantar responses were flexor. Medications Medications Current Medications Sevelamer Carbonate (Renvela) 0.8 gm WITH MEALS PO Last administered on 07/17/18 08:58; Admin Dose 0.8 GM; Start 07/03/18 at 17:55 Ondansetron HCl (Zofran Inj) 4 mg Q6H PRN IV NAUSEA AND/OR VOMITING Last administered on 07/13/18 21:53; Admin Dose 4 MG; Start 07/03/18 at 14:30 Acetaminophen (Tylenol Tab) 650 mg Q6H PRN PO PAIN LEVEL 1-3 OR FEVER Last administered on 07/17/18 08:54; Admin Dose 650 MG; Start 07/03/18 at 14:30 Famotidine (Pepcid) 20 mg DAILY PO Last administered on 07/16/18 13:40; Admin Dose 20 MG; Start 07/03/18 at 14:30 Morphine Sulfate (morphine) 2 mg Q4H PRN IV PAIN LEVEL 6-10 Last administered on 07/03/18 21:36; Admin Dose 2 MG; Start 07/03/18 at 17:30; Status Hold Acetaminophen/ Hydrocodone Bitart ([place] (7.5-325)) 1 tab Q4H PRN PO MODERATE PAIN LEVEL 4-6; Start 07/06/18 at 14:00; Status Hold Acetaminophen/ Hydrocodone Bitart ([place] (5/325)) 1 tab Q3H PRN PO MODERATE PAIN LEVEL 4-6 Last administered on 07/13/18at 01:46; Admin Dose 1 TAB; Start 07/09/18 at 18:30 Heparin Sodium (Porcine) (Heparin (5000 Units/1ml)) 5,000 unit Q12 SC Last administered on 07/17/18 08:56; Admin Dose 5,000 UNIT; Start 07/10/18 at 09:00 Albumin Human 100 ml @ 100 mls/hr WITH DIALYSIS PRN IV BP support during dialysis Last administered on 07/12/18at 16:35; Admin Dose 100 MLS/HR; Start 07/11/18 at 09:30 Bisacodyl (Dulcolax) 10 mg DAILY PRN PO CONSTIPATION Last administered on 07/13/18 08:44; Admin Dose 10 MG; Start 07/12/18 at 12:00 Docusate Sodium (Colace) 100 mg BID PO Last administered on 07/16/18 13:40; Admin Dose 100 MG; Start 07/12/18 at 21:00 Ferrous Sulfate (Ferrous Sulfate (Ec)) 325 mg BID PO Last administered on at 13:40; Admin Dose 325 MG; Start 07/14/18 at 21:00 Vitamin A/Vitamin D (Vitamin A & D Oint) 1 applic BID TOP Last administered on 07/17/18at 11:46; Admin Dose 1 APPLIC; Start 07/17/18 at 09:00 Diagnostic Test (Pha) (Accu-Chek) 1 ea AC MEALS XX ; Start 07/17/18 at 17:25 Miscellaneous Information 1 ea NOTE XX ; Start 07/17/18 at 14:00 Glucose (Glutose) 15 gm Q15M PRN PO DECREASED GLUCOSE; Start 07/17/18 at 14:00 Glucose (Glutose) 22.5 gm Q15M PRN PO DECREASED GLUCOSE; Start 07/17/18 at 14:0 0 Dextrose (D50w Syringe) 25 ml Q15M PRN IV DECREASED GLUCOSE; Start 07/17/18 at 14:00 Dextrose (D50w Syringe) 50 ml Q15M PRN IV DECREASED GLUCOSE; Start 07/17/18 at 14:00 Glucagon (Glucagen) 1 mg Q15M PRN IM DECREASED GLUCOSE; Start 07/17/18 at 14:00 Glucose (Glutose) 15 gm Q15M PRN BUCCAL DECREASED GLUCOSE; Start 07/17/18 at 14:00 Past Medical History reviewed Medical History: coronary artery disease, diabetes, hypertension, renal disease, other (CVA) Medications Current Medications Sevelamer Carbonate (Renvela) 0.8 gm WITH MEALS PO Last administered on 07/17/18at 08:58; Admin Dose 0.8 GM; Start 07/03/18 at 17:55 Ondansetron HCl (Zofran Inj) 4 mg Q6H PRN IV NAUSEA AND/OR VOMITING Last administered on 07/13/18at 21:53; Admin Dose 4 MG; Start 07/03/18 at 14:30 Acetaminophen (Tylenol Tab) 650 mg Q6H PRN PO PAIN LEVEL 1-3 OR FEVER Last administered on 07/17/18at 08:54; Admin Dose 650 MG; Start 07/03/18 at 14:30 Famotidine (Pepcid) 20 mg DAILY PO Last administered on 07/16/18at 13:40; Admin Dose 20 MG; Start 07/03/18 at 14:30 Morphine Sulfate (morphine) 2 mg Q4H PRN IV PAIN LEVEL 6-10 Last administered on 07/03/18at 21:36; Admin Dose 2 MG; Start 07/03/18 at 17:30; Status Hold Acetaminophen/ Hydrocodone Bitart ([place] (7.5-325)) 1 tab Q4H PRN PO MODERATE PAIN LEVEL 4-6; Start 07/06/18 at 14:00; Status Hold Acetaminophen/ Hydrocodone Bitart ([place] (5/325)) 1 tab Q3H PRN PO MODERATE PAIN LEVEL 4-6 Last administered on 07/13/18at 01:46; Admin Dose 1 TAB; Start 07/09/18 at 18:30 Heparin Sodium (Porcine) (Heparin (5000 Units/1ml)) 5,000 unit Q12 SC Last administered on 07/17/18at 08:56; Admin Dose 5,000 UNIT; Start 07/10/18 at 09:00 Albumin Human 100 ml @ 100 mls/hr WITH DIALYSIS PRN IV BP support during dialysis Last administered on 07/12/18at 16:35; Admin Dose 100 MLS/HR; Start 07/11/18 at 09:30 Bisacodyl (Dulcolax) 10 mg DAILY PRN PO CONSTIPATION Last administered on 07/13/18at 08:44; Admin Dose 10 MG; Start 07/12/18 at 12:00 Docusate Sodium (Colace) 100 mg BID PO Last administered on 07/16/18at 13:40; Admin Dose 100 MG; Start 07/12/18 at 21:00 Ferrous Sulfate (Ferrous Sulfate (Ec)) 325 mg BID PO Last administered on 07/16/18at 13:40; Admin Dose 325 MG; Start 07/14/18 at 21:00 Vitamin A/Vitamin D (Vitamin A & D Oint) 1 applic BID TOP Last administered on 07/17/18at 11:46; Admin Dose 1 APPLIC; Start 07/17/18 at 09:00 Diagnostic Test (Pha) (Accu-Chek) 1 ea AC MEALS XX ; Start 07/17/18 at 17:25 Miscellaneous Information 1 ea NOTE XX ; Start 07/17/18 at 14:00 Glucose (Glutose) 15 gm Q15M PRN PO DECREASED GLUCOSE; Start 07/17/18 at 14:00 Glucose (Glutose) 22.5 gm Q15M PRN PO DECREASED GLUCOSE; Start 07/17/18 at 14:00 Dextrose (D50w Syringe) 25 ml Q15M PRN IV DECREASED GLUCOSE; Start 07/17/18 at 14:00 Dextrose (D50w Syringe) 50 ml Q15M PRN IV DECREASED GLUCOSE; Start 07/17/18 at 14:00 Glucagon (Glucagen) 1 mg Q15M PRN IM DECREASED GLUCOSE; Start 07/17/18 at 14:00 Glucose (Glutose) 15 gm Q15M PRN BUCCAL DECREASED GLUCOSE; Start 07/17/18 at 14:00 Allergies: Coded Allergies: No Known Drug Allergy (Unverified Allergy, Unknown, 07/03/18) Past Surgical History reviewed Past Surgical Hx: other (av shunt placement, laser eye surgery) Social History reviewed Alcohol Use: none Smoking Status: Never smoker Drug Use: none MATY BAZZI NP Jul 17, 2018 14:54 TAMY LEIGH Jul 18, 2018 06:11
[2018-07-17] MEDS ORDERED: INSULIN ASPART [NOVOLOG] 3 ML PEN SC SCH (17:25)
[2018-07-17] MEDS: ACCU-CHEK XX SCH (17:25)
--- NOTE | 2018-07-17 18:01 | CONS ---
Date/Time of Note Date/Time of Note DATE: 07/17/18 TIME: 17:59 Assessment/Plan Assessment/Plan Hospital Course IMPRESSION: 1. Preoperative evaluation for left lower extremity open reduction and internal fixation, status post mechanical fall. -NL EF by echo. NO sig valve abnl. Neg trop x 3. OK to proceed at moderate CV risk on current medical therapy. Now Post-op s/p LE ORIF 2. Hypertension, borderline, labile, likely a component of pain. 3. Abnormal electrocardiogram with lateral T-wave inversion. 4. Status post mechanical fall with a femoral fracture. 5. Femoral fracture, left-sided, supracondylar. 6. History of cerebrovascular accident, previously on Plavix. 7. End-stage renal disease, on hemodialysis. 8. Hyperkalemia-improved 9. Anemia. REcc: -Pain control -follow BP closely and volume status -HD for volume removal as tolerated Result Diagram: 07/17/18 1456 07/17/18 1457 Results 24hrs Laboratory Tests Test 07/17/18 10:47 07/17/18 11:09 07/17/18 11:34 07/17/18 11:48 Bedside Glucose 56 L 135 111 Ammonia < 9 L Test 07/17/18 13:03 07/17/18 14:56 07/17/18 14:57 Bedside Glucose 83 White Blood Count 8.2 # Red Blood Count 2.97 L Hemoglobin 8.8 L Hematocrit 27.9 L Mean Corpuscular 93.9 Volume Mean Corpuscular 29.6 Hemoglobin Mean Corpuscular 31.5 L Hemoglobin Concent Red Cell 13.9 Distribution Width Platelet Count 312 Mean Platelet Volume 8.8 Immature 0.700 H Granulocytes % Neutrophils % 76.4 Lymphocytes % 14.1 L Monocytes % 7.2 Eosinophils % 1.2 Basophils % 0.4 Nucleated Red Blood 0.0 Cells % Immature 0.060 H Granulocytes # Neutrophils # 6.2 Lymphocytes # 1.2 Monocytes # 0.6 Eosinophils # 0.1 Basophils # 0.0 Nucleated Red Blood 0.0 Cells # Sodium Level 134 L Potassium Level 4.2 Chloride Level 93 L Carbon Dioxide Level 27 Anion Gap 14 H Blood Urea Nitrogen 24 H Creatinine 5.46 H Est Glomerular 10 L Filtrat Rate mL/min Glucose Level 78 Calcium Level 9.9 Total Bilirubin 0.3 Direct Bilirubin 0.00 Indirect Bilirubin 0.3 Aspartate Amino 20 Transf (AST/SGOT) Alanine < 6 L Aminotransferase (AL T/SGPT) Alkaline Phosphatase 92 Total Protein 7.3 Albumin 3.8 Globulin 3.50 H Albumin/Globulin 1.08 Ratio Consultation Date/Type/Reason Admit Date/Time Jul 03, 2018 at 05:32 Initial Consult Date 07/03/18 Type of Consult cardiology Reason for Consultation HTN Requesting Provider: JESSICA GROVE Exam/Review of Systems Vital Signs Vitals Vital Signs Date Temp Pulse Resp B/P (MAP) Pulse Ox O2 O2 Flow FiO2 Time Delivery Rate 07/17/18 98.9 82 16 170/97 95 Room Air 16:22 (121) Intake and Output 07/16/18 07/16/18 07/17/18 1515:00 23:00 07:00 OutputOutput Total 1400 ml BalanceBalance -1400 ml Exam Review of Systems: CONSTITUTIONAL: No fevers, chills. PULMONARY: No sob CARDIOVASCULAR: No chest pain/palpitations GASTROINTESTINAL: No nausea/vomiting. GENITOURINARY: No hematuria/dysuria. MUSCULOSKELETAL: No myagias/arthalgias. PSYCHIATRIC: The patient denies depression. NEUROLOGIC: No weakness Constitutional: alert, oriented Psych: no complaints Head: normocephalic ENMT: mucosa pink and moist Neck: supple, jvd (9 cm wqater) Respiratory: diminished breath sounds Cardiovascular: regular rate and rhythm Gastrointestinal: soft, non-tender Musculoskeletal: muscle tone (normal) Extremities: edema (none) Neurological: focal weakness Medications Medications Current Medications Sevelamer Carbonate (Renvela) 0.8 gm WITH MEALS PO Last administered on 07/17/18at 08:58; Admin Dose 0.8 GM; Start 07/03/18 at 17:55 Ondansetron HCl (Zofran Inj) 4 mg Q6H PRN IV NAUSEA AND/OR VOMITING Last administered on 07/13/18at 21:53; Admin Dose 4 MG; Start 07/03/18 at 14:30 Acetaminophen (Tylenol Tab) 650 mg Q6H PRN PO PAIN LEVEL 1-3 OR FEVER Last administered on 07/17/18at 08:54; Admin Dose 650 MG; Start 07/03/18 at 14:30 Famotidine (Pepcid) 20 mg DAILY PO Last administered on 1/16/19at 13:40; Admin Dose 20 MG; Start 07/03/18 at 14:30 Morphine Sulfate (morphine) 2 mg Q4H PRN IV PAIN LEVEL 6-10 Last administered on 07/03/18 21:36; Admin Dose 2 MG; Start 07/03/18 at 17:30; Status Hold Acetaminophen/ Hydrocodone Bitart ([place] (7.5-325)) 1 tab Q4H PRN PO MODERATE PAIN LEVEL 4-6; Start 07/06/18 at 14:00; Status Hold Acetaminophen/ Hydrocodone Bitart ([place] (5/325)) 1 tab Q3H PRN PO MODERATE PAIN LEVEL 4-6 Last administered on 07/13/18 01:46; Admin Dose 1 TAB; Start 07/09/18 at 18:30 Heparin Sodium (Porcine) (Heparin (5000 Units/1ml)) 5,000 unit Q12 SC Last administered on 07/17/18 08:56; Admin Dose 5,000 UNIT; Start 07/10/18 at 09:00 Albumin Human 100 ml @ 100 mls/hr WITH DIALYSIS PRN IV BP support during dialysis Last administered on 07/12/18 16:35; Admin Dose 100 MLS/HR; Start 07/11/18 at 09:30 Bisacodyl (Dulcolax) 10 mg DAILY PRN PO CONSTIPATION Last administered on 07/13/18 08:44; Admin Dose 10 MG; Start 07/12/18 at 12:00 Docusate Sodium (Colace) 100 mg BID PO Last administered on 07/16/18 13:40; Admin Dose 100 MG; Start 07/12/18 at 21:00 Ferrous Sulfate (Ferrous Sulfate (Ec)) 325 mg BID PO Last administered on 07/16/18 13:40; Admin Dose 325 MG; Start 07/14/18 at 21:00 Vitamin A/Vitamin D (Vitamin A & D Oint) 1 applic BID TOP Last administered on 07/17/18 11:46; Admin Dose 1 APPLIC; Start 07/17/18 at 09:00 Diagnostic Test (Pha) (Accu-Chek) 1 ea AC MEALS XX ; Start 07/17/18 at 17:25 Miscellaneous Information 1 ea NOTE XX ; Start 07/17/18 at 14:00 Glucose (Glutose) 15 gm Q15M PRN PO DECREASED GLUCOSE; Start 07/17/18 at 14:00 Glucose (Glutose) 22.5 gm Q15M PRN PO DECREASED GLUCOSE; Start 07/17/18 at 14:00 Dextrose (D50w Syringe) 25 ml Q15M PRN IV DECREASED GLUCOSE; Start 07/17/18 at 14:00 Dextrose (D50w Syringe) 50 ml Q15M PRN IV DECREASED GLUCOSE; Start 07/17/18 at 14:00 Glucagon (Glucagen) 1 mg Q15M PRN IM DECREASED GLUCOSE; Start 07/17/18 at 14:00 Glucose (Glutose) 15 gm Q15M PRN BUCCAL DECREASED GLUCOSE; Start 07/17/18 at 14:00 SHONDA GOODWIN Jul 17, 2018 18:01
[2018-07-17] MEDS ORDERED: LORAZEPAM 2 MG INJ IV ONE (20:30)
[2018-07-18] VITALS (18 sets, daily range): BP systolic 102–135; BP diastolic 51–85; PULSE 65–79; RESP 16–20
[2018-07-18] MEDS: HYDROCODONE/APAP (5/325) TAB PO PRN (00:35)
[2018-07-18] MEDS: ACCU-CHEK XX SCH ×3 (07:20→16:59)
[2018-07-18] MEDS: DOCUSATE SODIUM 100 MG CAP PO SCH ×2 (08:50→21:40)
[2018-07-18] MEDS: FAMOTIDINE 20 MG TAB PO SCH (08:50)
[2018-07-18] MEDS: VITAMIN A & D 5 GM OINT PACKET TOP SCH ×2 (08:50→21:38)
[2018-07-18] MEDS: FERROUS SULFATE (EC) 325 MG TAB PO SCH ×2 (08:50→21:38)
[2018-07-18] MEDS: HEPARIN 5,000 UNIT/1 ML VIAL SC SCH ×2 (08:51→21:37)
[2018-07-18] MEDS: SEVELAMER CARBONATE 0.8 GM PKT PO SCH ×3 (08:54→17:55)
[2018-07-18] MEDS: NEOMYC/POLYMYX/BACIT 30 GM OINT TOP SCH (12:51)
[2018-07-18] MEDS: CLOTRIMAZOLE 1% 30 GM CR TOP SCH ×2 (12:51→21:38)
--- NOTE | 2018-07-18 14:22 | CONS ---
Assessment/Plan Assessment/Plan Hospital Course 57 yo F with hx of CVA and other comorbidities who initially presented for management of a L femur fracture. She was noted to be protractedly encephalopathic... for which neurology is consulted. The clinical picture raises concern for delirium, as can be seen in a prolonged hospitalization. There is a likely superimposed medication adverse effect... Stroke is unlikely. MRI brain is without acute intracranial pathology, though is notable for chronic infarcts. P: Ok to defer additional neuroimaging for now Reorient as necessary Limit sedating medications where possible PT/OT as tolerated Consider EEG should her mental status begin to noticeably fluctuate. Other management per primary Will follow clinically Result Diagram: 07/18/18 0640 07/18/18 0640 Results 24hrs Laboratory Tests Test 07/17/18 14:56 07/17/18 14:57 07/17/18 18:03 07/17/18 18:30 White Blood Count 8.2 # Red Blood Count 2.97 L Hemoglobin 8.8 L Hematocrit 27.9 L Mean Corpuscular 93.9 Volume Mean Corpuscular 29.6 Hemoglobin Mean Corpuscular 31.5 L Hemoglobin Concent Red Cell 13.9 Distribution Width Platelet Count 312 Mean Platelet Volume 8.8 Immature 0.700 H Granulocytes % Neutrophils % 76.4 Lymphocytes % 14.1 L Monocytes % 7.2 Eosinophils % 1.2 Basophils % 0.4 Nucleated Red Blood 0.0 Cells % Immature 0.060 H Granulocytes # Neutrophils # 6.2 Lymphocytes # 1.2 Monocytes # 0.6 Eosinophils # 0.1 Basophils # 0.0 Nucleated Red Blood 0.0 Cells # Sodium Level 134 L Potassium Level 4.2 Chloride Level 93 L Carbon Dioxide Level 27 Anion Gap 14 H Blood Urea Nitrogen 24 H Creatinine 5.46 H Est Glomerular 10 L Filtrat Rate mL/min Glucose Level 78 Calcium Level 9.9 Total Bilirubin 0.3 Direct Bilirubin 0.00 Indirect Bilirubin 0.3 Aspartate Amino 20 Transf (AST/SGOT) Alanine < 6 L Aminotransferase (AL T/SGPT) Alkaline Phosphatase 92 Total Protein 7.3 Albumin 3.8 Globulin 3.50 H Albumin/Globulin 1.08 Ratio Bedside Glucose 63 L 71 Test 07/17/18 20:59 07/18/18 01:32 07/18/18 05:06 07/18/18 06:40 Bedside Glucose 87 72 73 White Blood Count 7.3 Red Blood Count 2.89 L Hemoglobin 8.6 L Hematocrit 26.9 L Mean Corpuscular 93.1 Volume Mean Corpuscular 29.8 Hemoglobin Mean Corpuscular 32.0 Hemoglobin Concent Red Cell 14.2 Distribution Width Platelet Count 318 Mean Platelet Volume 9.1 Immature 0.400 Granulocytes % Neutrophils % 62.5 Lymphocytes % 23.4 Monocytes % 11.2 H Eosinophils % 2.1 Basophils % 0.4 Nucleated Red Blood 0.0 Cells % Immature 0.030 Granulocytes # Neutrophils # 4.6 Lymphocytes # 1.7 Monocytes # 0.8 Eosinophils # 0.2 Basophils # 0.0 Nucleated Red Blood 0.0 Cells # Sodium Level 134 L Potassium Level 4.2 Chloride Level 94 L Carbon Dioxide Level 26 Anion Gap 14 H Blood Urea Nitrogen 29 H Creatinine 6.19 H Est Glomerular 8 L Filtrat Rate mL/min Glucose Level 76 Calcium Level 9.8 Test 07/18/18 08:53 07/18/18 09:23 07/18/18 09:48 07/18/18 10:06 Bedside Glucose 64 L 66 L 130 118 Test 07/18/18 12:36 Bedside Glucose 77 Consultation Date/Type/Reason Admit Date/Time Jul 03, 2018 at 05:32 Type of Consult Neurology Reason for Consultation worsening ams Requesting Provider: JESSICA GROVE Date/Time of Note DATE: 07/18/18 TIME: 14:22 24 HR Interval Summary Free Text/Dictation Continues medsurg monitoring. No acute events reported. S/p MRI Exam Vital Signs Vitals Vital Signs Date Temp Pulse Resp B/P (MAP) Pulse Ox O2 O2 Flow FiO2 Time Delivery Rate 07/18/18 98.4 77 18 102/58 98 14:00 (73) 07/18/18 Room Air 07:30 Intake and Output 07/17/18 07/17/18 07/18/18 1515:00 23:00 07:00 IntakeIntake Total 180 ml 180 ml BalanceBalance 180 ml 180 ml Exam PE: Gen Appearance: No Apparent Distress HEENT: Normocephalic; Lip swollen Cardiovascular: Regular rate Abdomen: Soft Extremities: Dry; R arm bandage, L leg brace NE: The patient was awake and alert, though confused. The pt was oriented to self and hospital. Language was normal. Fund of knowledge was adequate. Pt was impulsively trying to remove her leg brace.. Cranial nerve examination was limited by mental status. Pupils were equal and reactive to light. There was no afferent pupillary defect. Funduscopic examination was limited. Face was grossly symmetric, w/ present corneal and cough reflexes. Tone was normal. Muscle bulk was normal. I did not see fasciculations. L side was plegic, though pt was able to wiggle fingers and toes; R arm and leg was antigravity. Coordination and gait testing was limited by mental status. Arm and leg reflexes were 2+ and symmetric. Quinones's sign was absent. Plantar responses were flexor. MATY BAZZI NP Jul 18, 2018 14:22 TAMY LEIGH Jul 19, 2018 07:53
--- NOTE | 2018-07-18 15:13 | PN ---
Date/Time of Note Date/Time of Note DATE: 07/18/18 TIME: 15:13 Assessment/Plan VTE Prophylaxis Risk score (from [facility])>0 risk: 6 SCD applied (from [facility]): Yes SCD contraindicated: other Pharmacological prophylaxis: other Pharm contraindication: other Lines/Catheters IV Catheter Type (from [facility]): PERMACATH Central line still needed: Yes Urinary Cath still in place: No Assessment/Plan Assessment/Plan -Altered mental status. CT of the brain is negative for acute stroke. Dr. Davenport is asked to see patient in neurology consultation. -Acute comminuted distal left femoral fracture without dislocation. S/p ORIF of the comminuted and displaced supracondylar fracture of the left femur by Dr. Gutierres on 07/09/18. -Hemodialysis dependent end-stage renal disease. Continue on hemodialysis. Dr. Tucker is following in nephrology consultation. -Diabetes mellitus -History of cerebrovascular accident with left-sided paralysis. -Anemia of chronic disease. Continue to monitor hemoglobin and hematocrit. Currently stable. -Chronic dislocation of the left shoulder. No acute issues. -Mineral bone disease Further recommendations based on clinical course. Plan of care discussed with Dr. Rousseau. Result Diagram: 07/18/18 0640 07/18/18 0640 Results 24hrs Laboratory Tests Test 07/17/18 18:03 07/17/18 18:30 07/17/18 20:59 07/18/18 01:32 Bedside Glucose 63 L 71 87 72 Test 07/18/18 05:06 07/18/18 06:40 07/18/18 08:53 07/18/18 09:23 Bedside Glucose 73 64 L 66 L White Blood Count 7.3 Red Blood Count 2.89 L Hemoglobin 8.6 L Hematocrit 26.9 L Mean Corpuscular 93.1 Volume Mean Corpuscular 29.8 Hemoglobin Mean Corpuscular 32.0 Hemoglobin Concent Red Cell 14.2 Distribution Width Platelet Count 318 Mean Platelet Volume 9.1 Immature 0.400 Granulocytes % Neutrophils % 62.5 Lymphocytes % 23.4 Monocytes % 11.2 H Eosinophils % 2.1 Basophils % 0.4 Nucleated Red Blood 0.0 Cells % Immature 0.030 Granulocytes # Neutrophils # 4.6 Lymphocytes # 1.7 Monocytes # 0.8 Eosinophils # 0.2 Basophils # 0.0 Nucleated Red Blood 0.0 Cells # Sodium Level 134 L Potassium Level 4.2 Chloride Level 94 L Carbon Dioxide Level 26 Anion Gap 14 H Blood Urea Nitrogen 29 H Creatinine 6.19 H Est Glomerular 8 L Filtrat Rate mL/min Glucose Level 76 Calcium Level 9.8 Test 07/18/18 09:48 07/18/18 10:06 07/18/18 12:36 Bedside Glucose 130 118 77 Exam/Review of Systems Vital Signs Vitals Vital Signs Date Temp Pulse Resp B/P (MAP) Pulse Ox O2 O2 Flow FiO2 Time Delivery Rate 07/18/18 98.4 77 18 102/58 98 14:00 (73) 07/18/18 Room Air 07:30 Intake and Output 07/17/18 07/17/18 07/18/18 1515:00 23:00 07:00 IntakeIntake Total 180 ml 180 ml BalanceBalance 180 ml 180 ml Medications Medications Current Medications Sevelamer Carbonate (Renvela) 0.8 gm WITH MEALS PO Last administered on 07/18/18at 12:38; Admin Dose 0.8 GM; Start 07/03/18 at 17:55 Ondansetron HCl (Zofran Inj) 4 mg Q6H PRN IV NAUSEA AND/OR VOMITING Last administered on 07/13/18at 21:53; Admin Dose 4 MG; Start 07/03/18 at 14:30 Acetaminophen (Tylenol Tab) 650 mg Q6H PRN PO PAIN LEVEL 1-3 OR FEVER Last administered on 07/17/18at 23:37; Admin Dose 650 MG; Start 07/03/18 at 14:30 Famotidine (Pepcid) 20 mg DAILY PO Last administered on 07/18/18at 08:50; Admin Dose 20 MG; Start 07/03/18 at 14:30 Morphine Sulfate (morphine) 2 mg Q4H PRN IV PAIN LEVEL 6-10 Last administered on 07/03/18at 21:36; Admin Dose 2 MG; Start 07/03/18 at 17:30; Status Hold Acetaminophen/ Hydrocodone Bitart ([place] (7.5-325)) 1 tab Q4H PRN PO MODERATE PAIN LEVEL 4-6; Start 07/06/18 at 14:00; Status Hold Acetaminophen/ Hydrocodone Bitart ([place] (5/325)) 1 tab Q3H PRN PO MODERATE PAIN LEVEL 4-6 Last administered on 07/18/18at 00:35; Admin Dose 1 TAB; Start 07/09/18 at 18:30 Heparin Sodium (Porcine) (Heparin (5000 Units/1ml)) 5,000 unit Q12 SC Last administered on 07/18/18at 08:51; Admin Dose 5,000 UNIT; Start 07/10/18 at 09:00 Albumin Human 100 ml @ 100 mls/hr WITH DIALYSIS PRN IV BP support during dialysis Last administered on 07/12/18at 16:35; Admin Dose 100 MLS/HR; Start 07/11/18 at 09:30 Bisacodyl (Dulcolax) 10 mg DAILY PRN PO CONSTIPATION Last administered on 07/13/18at 08:44; Admin Dose 10 MG; Start 07/12/18 at 12:00 Docusate Sodium (Colace) 100 mg BID PO Last administered on 07/18/18at 08:50; Admin Dose 100 MG; Start 07/12/18 at 21:00 Ferrous Sulfate (Ferrous Sulfate (Ec)) 325 mg BID PO Last administered on 07/18/18at 08:50; Admin Dose 325 MG; Start 07/14/18 at 21:00 Vitamin A/Vitamin D (Vitamin A & D Oint) 1 applic BID TOP Last administered on 07/18/18at 08:50; Admin Dose 1 APPLIC; Start 07/17/18 at 09:00 Diagnostic Test (Pha) (Accu-Chek) 1 ea AC MEALS XX ; Start 07/17/18 at 17:25 Miscellaneous Information 1 ea NOTE XX ; Start 07/17/18 at 14:00 Glucose (Glutose) 15 gm Q15M PRN PO DECREASED GLUCOSE; Start 07/17/18 at 14:00 Glucose (Glutose) 22.5 gm Q15M PRN PO DECREASED GLUCOSE; Start 07/17/18 at 14:00 Dextrose (D50w Syringe) 25 ml Q15M PRN IV DECREASED GLUCOSE Last administered on 07/18/18at 09:31; Admin Dose 25 ML; Start 07/17/18 at 14:00 Dextrose (D50w Syringe) 50 ml Q15M PRN IV DECREASED GLUCOSE; Start 07/17/18 at 14:00 Glucagon (Glucagen) 1 mg Q15M PRN IM DECREASED GLUCOSE; Start 1/17/19 at 14:00 Glucose (Glutose) 15 gm Q15M PRN BUCCAL DECREASED GLUCOSE; Start 07/17/18 at 14:00 Dextrose (D50w Syringe) 25 ml AC MEALS PRN IV HYPOGLYCEMIA (BS<70); Start 07/17/18 at 19:00 Neomycin/ Polymyxin/ Bacitracin (Neosporin Topical Oint) 1 applic DAILY TOP Last administered on 07/18/18at 12:51; Admin Dose 1 APPLIC; Start 07/18/18 at 13:00 Clotrimazole (Lotrimin Cr) 1 applic BID TOP Last administered on 07/18/18at 12:51; Admin Dose 1 APPLIC; Start 07/18/18 at 13:00 ELIO KIRAN Jul 18, 2018 15:13
[2018-07-18] MEDS ORDERED: DEXTROSE 10% 250 ML IV SCH (16:00)
--- NOTE | 2018-07-18 16:02 | CONS ---
Date/Time of Note Date/Time of Note DATE: 07/18/18 TIME: 15:53 Assessment/Plan Assessment/Plan Assessment/Plan 57 yo Female with 1) Acute Distal Left Femoral Comminuted Fracture 2) S/p Mechanical Fall 3) ESRD on HD every MWF 4) Anemia, Chronic, CKD 5) MBD, CKD 6) Chronic HTN 7) CAD, Chronic 8) DM with ESRD 9) Hx of CVA with residual left sided deficit 10) Chronic Lower back pain 11) Hyperkalemia 12) AMS MRI Reviewed No acute disease Glucose low this am, Improved CXR show possible Rt basilar PNA Discussed with Dr Rousseau, will order gentle D10 and Start Zosyn IV, ESRD Dosing ( Spoke with Pharmacist already) HD plan for today, Cont MWF Schedule. Result Diagram: 07/18/18 0640 07/18/18 0640 Results 24hrs Laboratory Tests Test 07/17/18 18:03 07/17/18 18:30 07/17/18 20:59 07/18/18 01:32 Bedside Glucose 63 L 71 87 72 Test 07/18/18 05:06 07/18/18 06:40 07/18/18 08:53 07/18/18 09:23 Bedside Glucose 73 64 L 66 L White Blood Count 7.3 Red Blood Count 2.89 L Hemoglobin 8.6 L Hematocrit 26.9 L Mean Corpuscular 93.1 Volume Mean Corpuscular 29.8 Hemoglobin Mean Corpuscular 32.0 Hemoglobin Concent Red Cell 14.2 Distribution Width Platelet Count 318 Mean Platelet Volume 9.1 Immature 0.400 Granulocytes % Neutrophils % 62.5 Lymphocytes % 23.4 Monocytes % 11.2 H Eosinophils % 2.1 Basophils % 0.4 Nucleated Red Blood 0.0 Cells % Immature 0.030 Granulocytes # Neutrophils # 4.6 Lymphocytes # 1.7 Monocytes # 0.8 Eosinophils # 0.2 Basophils # 0.0 Nucleated Red Blood 0.0 Cells # Sodium Level 134 L Potassium Level 4.2 Chloride Level 94 L Carbon Dioxide Level 26 Anion Gap 14 H Blood Urea Nitrogen 29 H Creatinine 6.19 H Est Glomerular 8 L Filtrat Rate mL/min Glucose Level 76 Calcium Level 9.8 Test 07/18/18 09:48 07/18/18 10:06 07/18/18 12:36 07/18/18 15:38 Bedside Glucose 130 118 77 117 Consultation Date/Type/Reason Admit Date/Time Jul 03, 2018 at 05:32 Initial Consult Date 07/03/18 Type of Consult Nephrology Requesting Provider: JESSICA GROVE 24 HR Interval Summary Free Text/Dictation Had hypoglycemia this am, improved afterward Pt s/p MRI yesterday Constitutional: requiring O2 Exam/Review of Systems Vital Signs Vitals Vital Signs Date Temp Pulse Resp B/P (MAP) Pulse Ox O2 O2 Flow FiO2 Time Delivery Rate 07/18/18 98.4 77 18 102/58 98 14:00 (73) 07/18/18 Room Air 07:30 Intake and Output 07/17/18 07/17/18 07/18/18 1515:00 23:00 07:00 IntakeIntake Total 180 ml 180 ml BalanceBalance 180 ml 180 ml Exam Constitutional: No distress Psych: confusion ENMT: mucosa pink and moist Respiratory: crackles/rales; No diminished breath sounds, No labored breathing Cardiovascular: regular rate and rhythm, edema Gastrointestinal: soft; No distended Neurological: confused; No nl mental status, No lethargic Skin: No diaphoresis Medications Medications Current Medications Sevelamer Carbonate (Renvela) 0.8 gm WITH MEALS PO Last administered on 07/18/18at 12:38; Admin Dose 0.8 GM; Start 07/03/18 at 17:55 Ondansetron HCl (Zofran Inj) 4 mg Q6H PRN IV NAUSEA AND/OR VOMITING Last administered on 07/13/18at 21:53; Admin Dose 4 MG; Start 07/03/18 at 14:30 Acetaminophen (Tylenol Tab) 650 mg Q6H PRN PO PAIN LEVEL 1-3 OR FEVER Last administered on 07/17/18at 23:37; Admin Dose 650 MG; Start 07/03/18 at 14:30 Famotidine (Pepcid) 20 mg DAILY PO Last administered on 07/18/18at 08:50; Admin Dose 20 MG; Start 07/03/18 at 14:30 Morphine Sulfate (morphine) 2 mg Q4H PRN IV PAIN LEVEL 6-10 Last administered on 07/03/18at 21:36; Admin Dose 2 MG; Start 07/03/18 at 17:30; Status Hold Acetaminophen/ Hydrocodone Bitart ([place] (7.5-325)) 1 tab Q4H PRN PO MODERATE PAIN LEVEL 4-6; Start 07/06/18 at 14:00; Status Hold Acetaminophen/ Hydrocodone Bitart ([place] (1325)) 1 tab Q3H PRN PO MODERATE PAIN LEVEL 4-6 Last administered on 07/18/18at 00:35; Admin Dose 1 TAB; Start 07/09/18 at 18:30 Heparin Sodium (Porcine) (Heparin (5000 Units/1ml)) 5,000 unit Q12 SC Last administered on 07/18/18at 08:51; Admin Dose 5,000 UNIT; Start 07/10/18 at 09:00 Albumin Human 100 ml @ 100 mls/hr WITH DIALYSIS PRN IV BP support during dialysis Last administered on 07/12/18 16:35; Admin Dose 100 MLS/HR; Start 07/11/18 at 09:30 Bisacodyl (Dulcolax) 10 mg DAILY PRN PO CONSTIPATION Last administered on 07/13/18 08:44; Admin Dose 10 MG; Start 07/12/18 at 12:00 Docusate Sodium (Colace) 100 mg BID PO Last administered on 07/18/18 08:50; Admin Dose 100 MG; Start 07/12/18 at 21:00 Ferrous Sulfate (Ferrous Sulfate (Ec)) 325 mg BID PO Last administered on 07/18/18 08:50; Admin Dose 325 MG; Start 07/14/18 at 21:00 Vitamin A/Vitamin D (Vitamin A & D Oint) 1 applic BID TOP Last administered on 07/18/18at 08:50; Admin Dose 1 APPLIC; Start 07/17/18 at 09:00 Diagnostic Test (Pha) (Accu-Chek) 1 ea AC MEALS XX ; Start 07/17/18 at 17:25 Miscellaneous Information 1 ea NOTE XX ; Start 07/17/18 at 14:00 Glucose (Glutose) 15 gm Q15M PRN PO DECREASED GLUCOSE; Start 07/17/18 at 14:00 Glucose (Glutose) 22.5 gm Q15M PRN PO DECREASED GLUCOSE; Start 07/17/18 at 14:00 Dextrose (D50w Syringe) 25 ml Q15M PRN IV DECREASED GLUCOSE Last administered on 07/18/18at 09:31; Admin Dose 25 ML; Start 07/17/18 at 14:00 Dextrose (D50w Syringe) 50 ml Q15M PRN IV DECREASED GLUCOSE; Start 07/17/18 at 14:00 Glucagon (Glucagen) 1 mg Q15M PRN IM DECREASED GLUCOSE; Start 07/17/18 at 14:00 Glucose (Glutose) 15 gm Q15M PRN BUCCAL DECREASED GLUCOSE; Start 07/17/18 at 14:00 Dextrose (D50w Syringe) 25 ml AC MEALS PRN IV HYPOGLYCEMIA (BS<70); Start 07/17/18 at 19:00 Neomycin/ Polymyxin/ Bacitracin (Neosporin Topical Oint) 1 applic DAILY TOP Last administered on 07/18/18at 12:51; Admin Dose 1 APPLIC; Start 07/18/18 at 13:00 Clotrimazole (Lotrimin Cr) 1 applic BID TOP Last administered on 07/18/18at 12:51; Admin Dose 1 APPLIC; Start 07/18/18 at 13:00 Imaging Imaging PROCEDURE: XR Chest. CLINICAL INDICATION: Shortness of breath, pneumonia TECHNIQUE: Single frontal radiograph of the chest. COMPARISON: 07/08/2018 FINDINGS: Right-sided central venous catheter in satisfactory position. Mildly increased right basilar infiltrate concerning for pneumonia. No pleural effusion. No pneumothorax. The cardiomediastinal silhouette is unremarkable. Vascular calcifications of the aorta are present compatible with atherosclerosis. IMPRESSION: Mildly increased right basilar infiltrate concerning for pneumonia. RPTAT: AADD .Cristofer Rico MD, MD Date Time Electronically viewed and signed by .Cristofer Rico MD, MD on 07/18/2018 09:23 SHARON ESPINOZA MD Jul 18, 2018 16:02
--- NOTE | 2018-07-18 16:28 | CONS ---
Date/Time of Note Date/Time of Note DATE: 07/18/18 TIME: 16:27 Assessment/Plan Assessment/Plan Hospital Course IMPRESSION: 1. Preoperative evaluation for left lower extremity open reduction and internal fixation, status post mechanical fall. -NL EF by echo. NO sig valve abnl. Neg trop x 3. OK to proceed at moderate CV risk on current medical therapy. Now Post-op s/p LE ORIF 2. Hypertension, borderline, labile, likely a component of pain. 3. Abnormal electrocardiogram with lateral T-wave inversion. 4. Status post mechanical fall with a femoral fracture. 5. Femoral fracture, left-sided, supracondylar. 6. History of cerebrovascular accident, previously on Plavix. 7. End-stage renal disease, on hemodialysis. 8. Hyperkalemia-improved 9. Anemia. REcc: -Pain control -follow BP closely and volume status -HD for volume removal as tolerated Result Diagram: 07/18/18 0640 07/18/18 0640 Results 24hrs Laboratory Tests Test 07/17/18 18:03 07/17/18 18:30 07/17/18 20:59 07/18/18 01:32 Bedside Glucose 63 L 71 87 72 Test 07/18/18 05:06 07/18/18 06:40 07/18/18 08:53 07/18/18 09:23 Bedside Glucose 73 64 L 66 L White Blood Count 7.3 Red Blood Count 2.89 L Hemoglobin 8.6 L Hematocrit 26.9 L Mean Corpuscular 93.1 Volume Mean Corpuscular 29.8 Hemoglobin Mean Corpuscular 32.0 Hemoglobin Concent Red Cell 14.2 Distribution Width Platelet Count 318 Mean Platelet Volume 9.1 Immature 0.400 Granulocytes % Neutrophils % 62.5 Lymphocytes % 23.4 Monocytes % 11.2 H Eosinophils % 2.1 Basophils % 0.4 Nucleated Red Blood 0.0 Cells % Immature 0.030 Granulocytes # Neutrophils # 4.6 Lymphocytes # 1.7 Monocytes # 0.8 Eosinophils # 0.2 Basophils # 0.0 Nucleated Red Blood 0.0 Cells # Sodium Level 134 L Potassium Level 4.2 Chloride Level 94 L Carbon Dioxide Level 26 Anion Gap 14 H Blood Urea Nitrogen 29 H Creatinine 6.19 H Est Glomerular 8 L Filtrat Rate mL/min Glucose Level 76 Calcium Level 9.8 Test 07/18/18 09:48 07/18/18 10:06 07/18/18 12:36 07/18/18 15:38 Bedside Glucose 130 118 77 117 Consultation Date/Type/Reason Admit Date/Time Jul 03, 2018 at 05:32 Initial Consult Date 07/03/18 Type of Consult cardiology Reason for Consultation HTN Requesting Provider: JESSICA GROVE Exam/Review of Systems Vital Signs Vitals Vital Signs Date Temp Pulse Resp B/P (MAP) Pulse Ox O2 O2 Flow FiO2 Time Delivery Rate 07/18/18 98.4 77 18 102/58 98 14:00 (73) 07/18/18 Room Air 07:30 Intake and Output 07/17/18 07/17/18 07/18/18 1515:00 23:00 07:00 IntakeIntake Total 180 ml 180 ml BalanceBalance 180 ml 180 ml Exam Review of Systems: CONSTITUTIONAL: No fevers, chills. PULMONARY: No sob CARDIOVASCULAR: No chest pain/palpitations GASTROINTESTINAL: No nausea/vomiting. GENITOURINARY: No hematuria/dysuria. MUSCULOSKELETAL: No myagias/arthalgias. PSYCHIATRIC: The patient denies depression. NEUROLOGIC: focal deficits Constitutional: alert Psych: no complaints Head: normocephalic ENMT: mucosa pink and moist Neck: supple, jvd (9 cm water) Respiratory: diminished breath sounds (at bases/B) Cardiovascular: regular rate and rhythm Gastrointestinal: soft, non-tender Musculoskeletal: muscle weakness (focal) Extremities: edema (trace/B) Neurological: focal weakness Medications Medications Current Medications Sevelamer Carbonate (Renvela) 0.8 gm WITH MEALS PO Last administered on 07/18/18at 12:38; Admin Dose 0.8 GM; Start 07/03/18 at 17:55 Ondansetron HCl (Zofran Inj) 4 mg Q6H PRN IV NAUSEA AND/OR VOMITING Last administered on 07/13/18at 21:53; Admin Dose 4 MG; Start 07/03/18 at 14:30 Acetaminophen (Tylenol Tab) 650 mg Q6H PRN PO PAIN LEVEL 1-3 OR FEVER Last adm inistered on 07/17/18at 23:37; Admin Dose 650 MG; Start 07/03/18 at 14:30 Famotidine (Pepcid) 20 mg DAILY PO Last administered on 07/18/18at 08:50; Admin Dose 20 MG; Start 07/03/18 at 14:30 Morphine Sulfate (morphine) 2 mg Q4H PRN IV PAIN LEVEL 6-10 Last administered on 07/03/18 21:36; Admin Dose 2 MG; Start 07/03/18 at 17:30; Status Hold Acetaminophen/ Hydrocodone Bitart ([place] (7.5-325)) 1 tab Q4H PRN PO MODERATE PAIN LEVEL 4-6; Start 07/06/18 at 14:00; Status Hold Acetaminophen/ Hydrocodone Bitart ([place] (5/325)) 1 tab Q3H PRN PO MODERATE PAIN LEVEL 4-6 Last administered on 07/18/18 00:35; Admin Dose 1 TAB; Start 07/09/18 at 18:30 Heparin Sodium (Porcine) (Heparin (5000 Units/1ml)) 5,000 unit Q12 SC Last administered on 07/18/18 08:51; Admin Dose 5,000 UNIT; Start 07/10/18 at 09:00 Albumin Human 100 ml @ 100 mls/hr WITH DIALYSIS PRN IV BP support during dialysis Last administered on 07/12/18 16:35; Admin Dose 100 MLS/HR; Start 07/11/18 at 09:30 Bisacodyl (Dulcolax) 10 mg DAILY PRN PO CONSTIPATION Last administered on 07/13/18 08:44; Admin Dose 10 MG; Start 07/12/18 at 12:00 Docusate Sodium (Colace) 100 mg BID PO Last administered on 07/18/18 08:50; Admin Dose 100 MG; Start 07/12/18 at 21:00 Ferrous Sulfate (Ferrous Sulfate (Ec)) 325 mg BID PO Last administered on 08:50; Admin Dose 325 MG; Start 07/14/18 at 21:00 Vitamin A/Vitamin D (Vitamin A & D Oint) 1 applic BID TOP Last administered on 07/18/18 08:50; Admin Dose 1 APPLIC; Start 07/17/18 at 09:00 Diagnostic Test (Pha) (Accu-Chek) 1 ea AC MEALS XX ; Start 07/17/18 at 17:25 Miscellaneous Information 1 ea NOTE XX ; Start 07/17/18 at 14:00 Glucose (Glutose) 15 gm Q15M PRN PO DECREASED GLUCOSE; Start 07/17/18 at 14:00 Glucose (Glutose) 22.5 gm Q15M PRN PO DECREASED GLUCOSE; Start 07/17/18 at 1 4:00 Dextrose (D50w Syringe) 25 ml Q15M PRN IV DECREASED GLUCOSE Last administered on 07/18/18at 09:31; Admin Dose 25 ML; Start 07/17/18 at 14:00 Dextrose (D50w Syringe) 50 ml Q15M PRN IV DECREASED GLUCOSE; Start 07/17/18 at 14:00 Glucagon (Glucagen) 1 mg Q15M PRN IM DECREASED GLUCOSE; Start 07/17/18 at 14:00 Glucose (Glutose) 15 gm Q15M PRN BUCCAL DECREASED GLUCOSE; Start 07/17/18 at 14:00 Dextrose (D50w Syringe) 25 ml AC MEALS PRN IV HYPOGLYCEMIA (BS<70); Start 07/17/18 at 19:00 Neomycin/ Polymyxin/ Bacitracin (Neosporin Topical Oint) 1 applic DAILY TOP Last administered on 07/18/18at 12:51; Admin Dose 1 APPLIC; Start 07/18/18 at 13:00 Clotrimazole (Lotrimin Cr) 1 applic BID TOP Last administered on 07/18/18at 12:51; Admin Dose 1 APPLIC; Start 07/18/18 at 13:00 Piperacillin Sod/ Tazobactam Sod 50 ml @ 100 mls/hr Q8 IVPB ; Start 07/18/18 at 16:00; Stop 07/25/18 at 15:59 Dextrose 1,000 ml @ 20 mls/hr Q24H IV ; Start 07/18/18 at 16:30 SHONDA GOODWIN Jul 18, 2018 16:28
[2018-07-18] MEDS: PIPER-TAZO 2.25 GM (PMX) 50 ML IVPB SCH ×2 (16:52→21:35)
[2018-07-18] MEDS: DEXTROSE 10% 1,000 ML IV SCH (16:53)
--- NOTE | 2018-07-18 19:18 | QN ---
Documentation Comment ID consult requested by Dr. Rousseau. Dr. Webb will see this pt tomorrow. Thank you. MARICRUZ BUI NP Jul 18, 2018 19:18
[2018-07-19 02:00] VITALS: BP 101/59; PULSE 74; RESP 18
[2018-07-19] MEDS: PIPER-TAZO 2.25 GM (PMX) 50 ML IVPB SCH ×3 (06:07→21:59)
[2018-07-19] MEDS: HYDROCODONE/APAP (5/325) TAB PO PRN (06:07)
[2018-07-19] MEDS: ACCU-CHEK XX SCH ×3 (07:20→18:11)
[2018-07-19 07:31] VITALS: BP 102/59; PULSE 68; RESP 18
[2018-07-19] MEDS: FERROUS SULFATE (EC) 325 MG TAB PO SCH ×2 (09:45→21:57)
[2018-07-19] MEDS: FAMOTIDINE 20 MG TAB PO SCH (09:45)
[2018-07-19] MEDS: DOCUSATE SODIUM 100 MG CAP PO SCH ×2 (09:45→21:57)
[2018-07-19] MEDS: HEPARIN 5,000 UNIT/1 ML VIAL SC SCH ×2 (09:49→21:54)
[2018-07-19] MEDS: VITAMIN A & D 5 GM OINT PACKET TOP SCH ×2 (09:50→21:57)
[2018-07-19] MEDS: NEOMYC/POLYMYX/BACIT 30 GM OINT TOP SCH (09:57)
[2018-07-19] MEDS: CLOTRIMAZOLE 1% 30 GM CR TOP SCH ×2 (09:57→21:58)
[2018-07-19] MEDS: SEVELAMER CARBONATE 0.8 GM PKT PO SCH ×3 (10:01→18:11)
--- NOTE | 2018-07-19 13:43 | PN ---
Date/Time of Note Date/Time of Note DATE: 07/19/18 TIME: 13:43 Assessment/Plan VTE Prophylaxis Risk score (from Ns)>0 risk: 5 SCD applied (from Nsg): Yes Lines/Catheters IV Catheter Type (from Nrs): perma cath Urinary Cath still in place: No Assessment/Plan Assessment/Plan -Altered mental status. CT of the brain is negative for acute stroke. Dr. Davenport is asked to see patient in neurology consultation. -Acute comminuted distal left femoral fracture without dislocation. S/p ORIF of the comminuted and displaced supracondylar fracture of the left femur by Dr. Gutierres on 07/09/18. -Hemodialysis dependent end-stage renal disease. Continue on hemodialysis. Dr. Tucker is following in nephrology consultation. -Diabetes mellitus -History of cerebrovascular accident with left-sided paralysis. -Anemia of chronic disease. Continue to monitor hemoglobin and hematocrit. Currently stable. -Chronic dislocation of the left shoulder. No acute issues. -Mineral bone disease Further recommendations based on clinical course. Plan of care discussed with Dr. Rousseau. Result Diagram: 07/18/18 0640 07/18/18 0640 Results 24hrs Laboratory Tests Test 07/18/18 15:38 07/18/18 18:11 07/19/18 08:38 07/19/18 12:48 Bedside Glucose 117 119 98 110 Exam/Review of Systems Vital Signs Vitals Vital Signs Date Temp Pulse Resp B/P (MAP) Pulse Ox O2 O2 Flow FiO2 Time Delivery Rate 07/19/18 98.0 68 18 102/59 95 Room Air 07:31 (73) Intake and Output 07/18/18 07/18/18 07/19/18 1414:59 22:59 06:59 IntakeIntake Total 240 ml 200 ml 250 ml OutputOutput Total 68325 ml BalanceBalance 240 ml -53061 ml 250 ml Medications Medications Current Medications Sevelamer Carbonate (Renvela) 0.8 gm WITH MEALS PO Last administered on 07/19/18at 13:33; Admin Dose 0.8 GM; Start 07/03/18 at 17:55 Ondansetron HCl (Zofran Inj) 4 mg Q6H PRN IV NAUSEA AND/OR VOMITING Last administered on 07/13/18at 21:53; Admin Dose 4 MG; Start 07/03/18 at 14:30 Famotidine (Pepcid) 20 mg DAILY PO Last administered on 07/19/18 09:45; Admin Dose 20 MG; Start 07/03/18 at 14:30 Morphine Sulfate (morphine) 2 mg Q4H PRN IV PAIN LEVEL 6-10 Last administered on 07/03/18 21:36; Admin Dose 2 MG; Start 07/03/18 at 17:30; Status Hold Acetaminophen/ Hydrocodone Bitart ([place] (7.5-325)) 1 tab Q4H PRN PO MODERATE PAIN LEVEL 4-6; Start 07/06/18 at 14:00; Status Hold Acetaminophen/ Hydrocodone Bitart ([place] (5/325)) 1 tab Q3H PRN PO MODERATE PAIN LEVEL 4-6 Last administered on 07/19/18 06:07; Admin Dose 1 TAB; Start 07/09/18 at 18:30 Heparin Sodium (Porcine) (Heparin (5000 Units/1ml)) 5,000 unit Q12 SC Last administered on 07/19/18 09:49; Admin Dose 5,000 UNIT; Start 07/10/18 at 09:00 Albumin Human 100 ml @ 100 mls/hr WITH DIALYSIS PRN IV BP support during dialysis Last administered on 07/12/18 16:35; Admin Dose 100 MLS/HR; Start at 09:30 Bisacodyl (Dulcolax) 10 mg DAILY PRN PO CONSTIPATION Last administered on 07/13/18 08:44; Admin Dose 10 MG; Start 07/12/18 at 12:00 Docusate Sodium (Colace) 100 mg BID PO Last administered on 07/19/18 09:45; Admin Dose 100 MG; Start 07/12/18 at 21:00 Ferrous Sulfate (Ferrous Sulfate (Ec)) 325 mg BID PO Last administered on 07/19/18 09:45; Admin Dose 325 MG; Start 07/14/18 at 21:00 Vitamin A/Vitamin D (Vitamin A & D Oint) 1 applic BID TOP Last administered on 07/19/18 09:50; Admin Dose 1 APPLIC; Start 07/17/18 at 09:00 Diagnostic Test (Pha) (Accu-Chek) 1 ea AC MEALS XX Last administered on 07/19/18 11:10; Admin Dose 1 EA; Start 07/17/18 at 17:25 Miscellaneous Information 1 ea NOTE XX ; Start 07/17/18 at 14:00 Glucose (Glutose) 15 gm Q15M PRN PO DECREASED GLUCOSE; Start 07/17/18 at 14:00 Glucose (Glutose) 22.5 gm Q15M PRN PO DECREASED GLUCOSE; Start 07/17/18 at 14:00 Dextrose (D50w Syringe) 25 ml Q15M PRN IV DECREASED GLUCOSE Last administered on 07/18/18at 09:31; Admin Dose 25 ML; Start 07/17/18 at 14:00 Dextrose (D50w Syringe) 50 ml Q15M PRN IV DECREASED GLUCOSE; Start 07/17/18 at 14:00 Glucagon (Glucagen) 1 mg Q15M PRN IM DECREASED GLUCOSE; Start 07/17/18 at 14:00 Glucose (Glutose) 15 gm Q15M PRN BUCCAL DECREASED GLUCOSE; Start 07/17/18 at 14:00 Dextrose (D50w Syringe) 25 ml AC MEALS PRN IV HYPOGLYCEMIA (BS<70); Start 07/17/18 at 19:00 Neomycin/ Polymyxin/ Bacitracin (Neosporin Topical Oint) 1 applic DAILY TOP Last administered on 07/19/18 09:57; Admin Dose 1 APPLIC; Start 07/18/18 at 13:00 Clotrimazole (Lotrimin Cr) 1 applic BID TOP Last administered on 07/19/18 09:57; Admin Dose 1 APPLIC; Start 07/18/18 at 13:00 Piperacillin Sod/ Tazobactam Sod 50 ml @ 100 mls/hr Q8 IVPB Last administered on 07/19/18at 13:33; Admin Dose 100 MLS/HR; Start 07/18/18 at 16:00; Stop 07/25/18 at 15:59 Dextrose 1,000 ml @ 20 mls/hr Q24H IV Last administered on 07/18/18at 16:53; Admin Dose 20 MLS/HR; Start 07/18/18 at 16:30 Acetaminophen (Tylenol Tab) 650 mg Q6H PRN PO MILD PAIN(1-3)OR ELEVATED TEMP; Start 07/19/18 at 13:30 ELIO KIRAN Jul 19, 2018 13:43
[2018-07-19 14:34] VITALS: BP 118/60; PULSE 70; RESP 18
--- NOTE | 2018-07-19 15:16 | CONS ---
Date/Time of Note Date/Time of Note DATE: 07/19/18 TIME: 15:16 Assessment/Plan Assessment/Plan Assessment/Plan VS reviewed - stable Result Diagram: 07/18/18 0640 07/18/18 0640 Results 24hrs Laboratory Tests Test 07/18/18 15:38 07/18/18 18:11 07/19/18 08:38 07/19/18 12:48 Bedside Glucose 117 119 98 110 Consultation Date/Type/Reason Admit Date/Time Jul 03, 2018 at 05:32 Initial Consult Date 07/03/18 Requesting Provider: JESSICA GROVE Exam/Review of Systems Vital Signs Vitals Vital Signs Date Temp Pulse Resp B/P (MAP) Pulse Ox O2 O2 Flow FiO2 Time Delivery Rate 07/19/18 97.8 70 18 118/60 90 Room Air 14:34 (79) Intake and Output 07/18/18 07/18/18 07/19/18 1515:00 23:00 07:00 IntakeIntake Total 240 ml 200 ml 250 ml OutputOutput Total 78033 ml BalanceBalance 240 ml -61131 ml 250 ml Medications Medications Current Medications Sevelamer Carbonate (Renvela) 0.8 gm WITH MEALS PO Last administered on 07/19/18at 13:33; Admin Dose 0.8 GM; Start 07/03/18 at 17:55 Ondansetron HCl (Zofran Inj) 4 mg Q6H PRN IV NAUSEA AND/OR VOMITING Last administered on 07/13/18at 21:53; Admin Dose 4 MG; Start 07/03/18 at 14:30 Famotidine (Pepcid) 20 mg DAILY PO Last administered on 07/19/18at 09:45; Admin Dose 20 MG; Start 07/03/18 at 14:30 Morphine Sulfate (morphine) 2 mg Q4H PRN IV PAIN LEVEL 6-10 Last administered on 07/03/18at 21:36; Admin Dose 2 MG; Start 07/03/18 at 17:30; Status Hold Acetaminophen/ Hydrocodone Bitart ([place] (7.5-325)) 1 tab Q4H PRN PO MODERATE PAIN LEVEL 4-6; Start 07/06/18 at 14:00; Status Hold Acetaminophen/ Hydrocodone Bitart ([place] (5/325)) 1 tab Q3H PRN PO MODERATE PAIN LEVEL 4-6 Last administered on 07/19/18 06:07; Admin Dose 1 TAB; Start 07/09/18 at 18:30 Heparin Sodium (Porcine) (Heparin (5000 Units/1ml)) 5,000 unit Q12 SC Last administered on 07/19/18 09:49; Admin Dose 5,000 UNIT; Start 07/10/18 at 09:00 Albumin Human 100 ml @ 100 mls/hr WITH DIALYSIS PRN IV BP support during dialysis Last administered on 07/12/18at 16:35; Admin Dose 100 MLS/HR; Start 07/11/18 at 09:30 Bisacodyl (Dulcolax) 10 mg DAILY PRN PO CONSTIPATION Last administered on 07/13/18 08:44; Admin Dose 10 MG; Start 07/12/18 at 12:00 Docusate Sodium (Colace) 100 mg BID PO Last administered on 07/19/18 09:45; Admin Dose 100 MG; Start 07/12/18 at 21:00 Ferrous Sulfate (Ferrous Sulfate (Ec)) 325 mg BID PO Last administered on 07/19/18 09:45; Admin Dose 325 MG; Start 07/14/18 at 21:00 Vitamin A/Vitamin D (Vitamin A & D Oint) 1 applic BID TOP Last administered on 07/19/18 09:50; Admin Dose 1 APPLIC; Start 07/17/18 at 09:00 Diagnostic Test (Pha) (Accu-Chek) 1 ea AC MEALS XX Last administered on 07/19/18at 11:10; Admin Dose 1 EA; Start 07/17/18 at 17:25 Miscellaneous Information 1 ea NOTE XX ; Start 07/17/18 at 14:00 Glucose (Glutose) 15 gm Q15M PRN PO DECREASED GLUCOSE; Start 07/17/18 at 14:00 Glucose (Glutose) 22.5 gm Q15M PRN PO DECREASED GLUCOSE; Start 07/17/18 at 14:00 Dextrose (D50w Syringe) 25 ml Q15M PRN IV DECREASED GLUCOSE Last administered on 07/18/18at 09:31; Admin Dose 25 ML; Start 07/17/18 at 14:00 Dextrose (D50w Syringe) 50 ml Q15M PRN IV DECREASED GLUCOSE; Start 07/17/18 at 14:00 Glucagon (Glucagen) 1 mg Q15M PRN IM DECREASED GLUCOSE; Start 07/17/18 at 14:00 Glucose (Glutose) 15 gm Q15M PRN BUCCAL DECREASED GLUCOSE; Start 07/17/18 at 14:00 Dextrose (D50w Syringe) 25 ml AC MEALS PRN IV HYPOGLYCEMIA (BS<70); Start 07/17/18 at 19:00 Neomycin/ Polymyxin/ Bacitracin (Neosporin Topical Oint) 1 applic DAILY TOP Last administered on 07/19/18at 09:57; Admin Dose 1 APPLIC; Start 07/18/18 at 13:00 Clotrimazole (Lotrimin Cr) 1 applic BID TOP Last administered on 07/19/18at 09:57; Admin Dose 1 APPLIC; Start 07/18/18 at 13:00 Piperacillin Sod/ Tazobactam Sod 50 ml @ 100 mls/hr Q8 IVPB Last administered on 07/19/18at 13:33; Admin Dose 100 MLS/HR; Start 07/18/18 at 16:00; Stop at 15:59 Dextrose 1,000 ml @ 20 mls/hr Q24H IV Last administered on 07/18/18at 16:53; Admin Dose 20 MLS/HR; Start 07/18/18 at 16:30 Acetaminophen (Tylenol Tab) 650 mg Q6H PRN PO MILD PAIN(1-3)OR ELEVATED TEMP; Start 07/19/18 at 13:30 JESSICA THOMPSON MD Jul 19, 2018 15:16
[2018-07-19] MEDS: ONDANSETRON 4 MG INJ IV PRN (15:52)
[2018-07-19] MEDS: DEXTROSE 10% 1,000 ML IV SCH (16:30)
--- NOTE | 2018-07-19 18:33 | CONS ---
Date/Time of Note Date/Time of Note DATE: 07/19/18 TIME: 18:31 Assessment/Plan Assessment/Plan Assessment/Plan 57 yo Female with 1) Acute Distal Left Femoral Comminuted Fracture 2) S/p Mechanical Fall 3) ESRD on HD every MWF 4) Anemia, Chronic, CKD 5) MBD, CKD 6) Chronic HTN 7) CAD, Chronic 8) DM with ESRD 9) Hx of CVA with residual left sided deficit 10) Chronic Lower back pain 11) Hyperkalemia 12) AMS MRI Reviewed No acute disease S/p HD yesterday Improved mentation FSBG improved, stable On IV Abx ID consulted HD plan for Saturday Result Diagram: 07/18/18 0640 07/18/18 0640 Results 24hrs Laboratory Tests Test 07/19/18 08:38 07/19/18 12:48 07/19/18 17:39 Bedside Glucose 98 110 129 Consultation Date/Type/Reason Admit Date/Time Jul 03, 2018 at 05:32 Initial Consult Date 07/03/18 Type of Consult Nephrology Requesting Provider: JESSICA GROVE 24 HR Interval Summary Free Text/Dictation Improved mental status Constitutional: No requiring O2 Exam/Review of Systems Vital Signs Vitals Vital Signs Date Temp Pulse Resp B/P (MAP) Pulse Ox O2 O2 Flow FiO2 Time Delivery Rate 07/19/18 97.8 70 18 118/60 90 Room Air 14:34 (79) Intake and Output 07/18/18 07/18/18 07/19/18 1515:00 23:00 07:00 IntakeIntake Total 240 ml 200 ml 250 ml OutputOutput Total 98089 ml BalanceBalance 240 ml -79548 ml 250 ml Exam Constitutional: alert; No distress ENMT: mucosa pink and moist Neck: No jvd Respiratory: No labored breathing Cardiovascular: edema Neurological: nl mental status; No lethargic Skin: No diaphoresis Medications Medications Current Medications Sevelamer Carbonate (Renvela) 0.8 gm WITH MEALS PO Last administered on 07/19/18at 18:11; Admin Dose 0.8 GM; Start 07/03/18 at 17:55 Ondansetron HCl (Zofran Inj) 4 mg Q6H PRN IV NAUSEA AND/OR VOMITING Last administered on 07/19/18at 15:52; Admin Dose 4 MG; Start 07/03/18 at 14:30 Famotidine (Pepcid) 20 mg DAILY PO Last administered on 07/19/18 09:45; Admin Dose 20 MG; Start 07/03/18 at 14:30 Morphine Sulfate (morphine) 2 mg Q4H PRN IV PAIN LEVEL 6-10 Last administered on 07/03/18 21:36; Admin Dose 2 MG; Start 07/03/18 at 17:30; Status Hold Acetaminophen/ Hydrocodone Bitart ([place] (7.5-325)) 1 tab Q4H PRN PO MODERATE PAIN LEVEL 4-6; Start 07/06/18 at 14:00; Status Hold Acetaminophen/ Hydrocodone Bitart ([place] (5/325)) 1 tab Q3H PRN PO MODERATE PAIN LEVEL 4-6 Last administered on 07/19/18 06:07; Admin Dose 1 TAB; Start 07/09/18 at 18:30 Heparin Sodium (Porcine) (Heparin (5000 Units/1ml)) 5,000 unit Q12 SC Last administered on 07/19/18 09:49; Admin Dose 5,000 UNIT; Start 07/10/18 at 09:00 Albumin Human 100 ml @ 100 mls/hr WITH DIALYSIS PRN IV BP support during dialysis Last administered on 07/12/18 16:35; Admin Dose 100 MLS/HR; Start 07/11/18 at 09:30 Bisacodyl (Dulcolax) 10 mg DAILY PRN PO CONSTIPATION Last administered on 07/13/18 08:44; Admin Dose 10 MG; Start 07/12/18 at 12:00 Docusate Sodium (Colace) 100 mg BID PO Last administered on 07/19/18 09:45; Admin Dose 100 MG; Start 07/12/18 at 21:00 Ferrous Sulfate (Ferrous Sulfate (Ec)) 325 mg BID PO Last administered on 07/19/18 09:45; Admin Dose 325 MG; Start 07/14/18 at 21:00 Vitamin A/Vitamin D (Vitamin A & D Oint) 1 applic BID TOP Last administered on 07/19/18 09:50; Admin Dose 1 APPLIC; Start 07/17/18 at 09:00 Diagnostic Test (Pha) (Accu-Chek) 1 ea AC MEALS XX Last administered on 07/19/18 18:11; Admin Dose 1 EA; Start 07/17/18 at 17:25 Miscellaneous Information 1 ea NOTE XX ; Start 07/17/18 at 14:00 Glucose (Glutose) 15 gm Q15M PRN PO DECREASED GLUCOSE; Start 07/17/18 at 14:00 Glucose (Glutose) 22.5 gm Q15M PRN PO DECREASED GLUCOSE; Start 07/17/18 at 14:00 Dextrose (D50w Syringe) 25 ml Q15M PRN IV DECREASED GLUCOSE Last administered on 07/18/18at 09:31; Admin Dose 25 ML; Start 07/17/18 at 14:00 Dextrose (D50w Syringe) 50 ml Q15M PRN IV DECREASED GLUCOSE; Start 07/17/18 at 14:00 Glucagon (Glucagen) 1 mg Q15M PRN IM DECREASED GLUCOSE; Start 07/17/18 at 14:00 Glucose (Glutose) 15 gm Q15M PRN BUCCAL DECREASED GLUCOSE; Start 07/17/18 at 14:00 Dextrose (D50w Syringe) 25 ml AC MEALS PRN IV HYPOGLYCEMIA (BS<70); Start at 19:00 Neomycin/ Polymyxin/ Bacitracin (Neosporin Topical Oint) 1 applic DAILY TOP Last administered on 07/19/18 09:57; Admin Dose 1 APPLIC; Start 07/18/18 at 13:00 Clotrimazole (Lotrimin Cr) 1 applic BID TOP Last administered on 07/19/18at 09:57; Admin Dose 1 APPLIC; Start 07/18/18 at 13:00 Piperacillin Sod/ Tazobactam Sod 50 ml @ 100 mls/hr Q8 IVPB Last administered on 07/19/18at 13:33; Admin Dose 100 MLS/HR; Start 07/18/18 at 16:00; Stop 07/25/18 at 15:59 Dextrose 1,000 ml @ 20 mls/hr Q24H IV Last administered on 07/18/18at 16:53; Admin Dose 20 MLS/HR; Start 07/18/18 at 16:30 Acetaminophen (Tylenol Tab) 650 mg Q6H PRN PO MILD PAIN(1-3)OR ELEVATED TEMP; Start 07/19/18 at 13:30 SHARON ESPINOZA MD Jul 19, 2018 18:33
[2018-07-19 19:40] VITALS: BP 98/56; PULSE 68; RESP 18
--- NOTE | 2018-07-20 00:15 | CONS ---
Date/Time of Note Date/Time of Note DATE: 07/19/18 TIME: 23:50 Assessment/Plan Assessment/Plan Hospital Course - s/p mental status change post-op. now oriented x3. Her confusion may be related to morphine which might remain in her system for several days. Head CT on 07/08/2018 and head MRI on 07/18/2018 showed no acute pathology. - possible aspiration pneumonia/HCAP, on empiric pip/tazo 07/18/2018- ordered for 7 day per PMD - R knee pain - lower lip ulcer; Pt does not think it is HSV; she denies pain - ESRD on HD via catheter on R chest wall - DM - h/o CVA with L sided weakness - a mechanical fall - h/o acute comminuted distal L femoral Fx without dislocation - h/o open reduction and internal fixation of the comminuted and displaced supracondylar fracture of L femur. recommendations - ordered repeat CXR and XR of R knee for tomorrow - continue pip/tazo (07/18/2018-) for now - I recommend using another topical preparation for her lower lip. Ordered vaselin - not to use morphine for pain control - management d/w Pt and her RN Shweta Result Diagram: 07/18/18 0640 07/18/18 0640 Results 24hrs Laboratory Tests Test 07/19/18 08:38 07/19/18 12:48 07/19/18 17:39 Bedside Glucose 98 110 129 Consultation Date/Type/Reason Admit Date/Time Jul 03, 2018 at 05:32 Date of Consultation: Jul 19, 2018 Type of Consult ID Reason for Consultation mental status change Requesting Provider: GORDON ROUSSEAU MD Hx of Present Illness This is a 57 yo female with DM, ESRD on HD via catheter on R chest wall. She also has h/o CVA with L sided weakness. Pt was admitted on 07/03/2018 after a mechanical fall. She was diagnosed with acute comminuted distal L femoral Fx without dislocation. On 07/09/2018, Pt underwent Open reduction and internal fixation of the comminuted and displaced supracondylar fracture of L femur. Post-op Pt received morphine for pain as needed. For the next several days, Pt was confused and was hallucinating. Head CT on 07/08/2018 and head MRI on 07/18/2018 showed no acute pathology. Morphine was stopped too. Yesterday, Pt was started on empiric pip/tazo in case of aspiration pneumonia/HCAP. Today Pt is less confused according to her RN Shweta. Pt admitted that she had confused. She said that morphine would cause hallucinations. She denies fever, chills, respiratory, GI complaints. She c/o severe R knee pain last night. She denies JOAQUIN. Dr. Rousseau requested ID consultation on this Pt. Constitutional: no complaints Eyes: no complaints ENT: other (She thinks she bit the lower lip. The lesions are painless. Pt thinks A&D cream made it worse) Respiratory: no complaints Cardiovascular: no complaints Gastrointestinal: no complaints Genitourinary: no complaints, other (urinated for the first time in months, no dyuria) Musculoskeletal: bone/joint pain (R knee pain on 07/18/2018), restricted range of motion, other (L hip pain has nearly resolved) Skin: no complaints Neurologic: confusion Past Medical History Medical History: coronary artery disease, diabetes, hypertension, renal disease, other (CVA) Medications Current Medications Sevelamer Carbonate (Renvela) 0.8 gm WITH MEALS PO Last administered on 07/19/18at 18:11; Admin Dose 0.8 GM; Start 07/03/18 at 17:55 Ondansetron HCl (Zofran Inj) 4 mg Q6H PRN IV NAUSEA AND/OR VOMITING Last administered on 07/19/18at 15:52; Admin Dose 4 MG; Start 07/03/18 at 14:30 Famotidine (Pepcid) 20 mg DAILY PO Last administered on 07/19/18at 09:45; Admin Dose 20 MG; Start 07/03/18 at 14:30 Morphine Sulfate (morphine) 2 mg Q4H PRN IV PAIN LEVEL 6-10 Last administered on 07/03/18at 21:36; Admin Dose 2 MG; Start 07/03/18 at 17:30; Status Hold Acetaminophen/ Hydrocodone Bitart ([place] (7.5-325)) 1 tab Q4H PRN PO MODERATE PAIN LEVEL 4-6; Start 07/06/18 at 14:00; Status Hold Acetaminophen/ Hydrocodone Bitart ([place] (5/325)) 1 tab Q3H PRN PO MODERATE PAIN LEVEL 4-6 Last administered on 07/19/18 06:07; Admin Dose 1 TAB; Start 07/09/18 at 18:30 Heparin Sodium (Porcine) (Heparin (5000 Units/1ml)) 5,000 unit Q12 SC Last administered on 07/19/18 21:54; Admin Dose 5,000 UNIT; Start 07/10/18 at 09:00 Albumin Human 100 ml @ 100 mls/hr WITH DIALYSIS PRN IV BP support during dialysis Last administered on 07/12/18at 16:35; Admin Dose 100 MLS/HR; Start 07/11/18 at 09:30 Bisacodyl (Dulcolax) 10 mg DAILY PRN PO CONSTIPATION Last administered on 07/13/18 08:44; Admin Dose 10 MG; Start 07/12/18 at 12:00 Docusate Sodium (Colace) 100 mg BID PO Last administered on 07/19/18 21:57; Admin Dose 100 MG; Start 07/12/18 at 21:00 Ferrous Sulfate (Ferrous Sulfate (Ec)) 325 mg BID PO Last administered on 07/19/18 21:57; Admin Dose 325 MG; Start 07/14/18 at 21:00 Vitamin A/Vitamin D (Vitamin A & D Oint) 1 applic BID TOP Last administered on 07/19/18 21:57; Admin Dose 1 APPLIC; Start 07/17/18 at 09:00 Diagnostic Test (Pha) (Accu-Chek) 1 ea AC MEALS XX Last administered on 07/19/18at 18:11; Admin Dose 1 EA; Start 07/17/18 at 17:25 Miscellaneous Information 1 ea NOTE XX ; Start 07/17/18 at 14:00 Glucose (Glutose) 15 gm Q15M PRN PO DECREASED GLUCOSE; Start 07/17/18 at 14:00 Glucose (Glutose) 22.5 gm Q15M PRN PO DECREASED GLUCOSE; Start 07/17/18 at 14:00 Dextrose (D50w Syringe) 25 ml Q15M PRN IV DECREASED GLUCOSE Last administered on 07/18/18at 09:31; Admin Dose 25 ML; Start 07/17/18 at 14:00 Dextrose (D50w Syringe) 50 ml Q15M PRN IV DECREASED GLUCOSE; Start 07/17/18 at 14:00 Glucagon (Glucagen) 1 mg Q15M PRN IM DECREASED GLUCOSE; Start 07/17/18 at 14:00 Glucose (Glutose) 15 gm Q15M PRN BUCCAL DECREASED GLUCOSE; Start 07/17/18 at 14:00 Dextrose (D50w Syringe) 25 ml AC MEALS PRN IV HYPOGLYCEMIA (BS<70); Start 07/17/18 at 19:00 Neomycin/ Polymyxin/ Bacitracin (Neosporin Topical Oint) 1 applic DAILY TOP Last administered on 07/19/18at 09:57; Admin Dose 1 APPLIC; Start 07/18/18 at 13:00 Clotrimazole (Lotrimin Cr) 1 applic BID TOP Last administered on 07/19/18at 21:58; Admin Dose 1 APPLIC; Start 07/18/18 at 13:00 Piperacillin Sod/ Tazobactam Sod 50 ml @ 100 mls/hr Q8 IVPB Last administered on 07/19/18at 21:59; Admin Dose 100 MLS/HR; Start 07/18/18 at 16:00; Stop 07/25/18 at 15:59 Dextrose 1,000 ml @ 20 mls/hr Q24H IV Last administered on 07/18/18at 16:53; Admin Dose 20 MLS/HR; Start 07/18/18 at 16:30 Acetaminophen (Tylenol Tab) 650 mg Q6H PRN PO MILD PAIN(1-3)OR ELEVATED TEMP; Start 07/19/18 at 13:30 Allergies: Coded Allergies: No Known Drug Allergy (Unverified Allergy, Unknown, 07/03/18) Past Surgical History Past Surgical Hx: other (av shunt placement, laser eye surgery) Social History Alcohol Use: none Smoking Status: Never smoker Drug Use: none Exam/Review of Systems Vital Signs Vitals Vital Signs Date Temp Pulse Resp B/P (MAP) Pulse Ox O2 O2 Flow FiO2 Time Delivery Rate 07/19/18 97.7 68 18 98/56 (70) 90 19:40 07/19/18 Room Air 14:34 Intake and Output 07/18/18 07/18/18 07/19/18 1414:59 22:59 06:59 IntakeIntake Total 240 ml 200 ml 250 ml OutputOutput Total 59052 ml BalanceBalance 240 ml -35555 ml 250 ml Exam Constitutional: alert, oriented, obese Psych: no complaints, nl mood/affect Head: normocephalic, atraumatic Eyes: nl conjunctiva, nl lids, nl sclera ENMT: nl external ears & nose, nl nasal mucosa & septum, mucosa pink and moist, other (scabs and ulcers on the lower lip, no crusts, vesicles, and non-TTP) Neck: other (not swollen) Respiratory: clear to auscultation, normal air movement Cardiovascular: regular rate and rhythm, nl pulses Gastrointestinal: soft, non-tender; No distended, No tender Musculoskeletal: other (L hip is covered with brace. R knee is non-TTP, not swollen/hot or indurated) Extremities: No edema Neurological: [employer]IP[employer] II-XII intact, nl mental status, nl speech, other (oriented x person place and time) Skin: nl turgor, ecchymosis (RUE); No rash or lesions Medications Medications Current Medications Sevelamer Carbonate (Renvela) 0.8 gm WITH MEALS PO Last administered on 07/01 03/19at 18:11; Admin Dose 0.8 GM; Start 07/03/18 at 17:55 Ondansetron HCl (Zofran Inj) 4 mg Q6H PRN IV NAUSEA AND/OR VOMITING Last administered on 07/19/18at 15:52; Admin Dose 4 MG; Start 07/03/18 at 14:30 Famotidine (Pepcid) 20 mg DAILY PO Last administered on 07/19/18at 09:45; Admin Dose 20 MG; Start 07/03/18 at 14:30 Morphine Sulfate (morphine) 2 mg Q4H PRN IV PAIN LEVEL 6-10 Last administered on 07/03/18at 21:36; Admin Dose 2 MG; Start 07/03/18 at 17:30; Status Hold Acetaminophen/ Hydrocodone Bitart ([place] (7.5-325)) 1 tab Q4H PRN PO MODERATE PAIN LEVEL 4-6; Start 07/06/18 at 14:00; Status Hold Acetaminophen/ Hydrocodone Bitart ([place] (5/325)) 1 tab Q3H PRN PO MODERATE PAIN LEVEL 4-6 Last administered on 07/19/18at 06:07; Admin Dose 1 TAB; Start 07/09/18 at 18:30 Heparin Sodium (Porcine) (Heparin (5000 Units/1ml)) 5,000 unit Q12 SC Last administered on 07/19/18 21:54; Admin Dose 5,000 UNIT; Start 07/10/18 at 09:00 Albumin Human 100 ml @ 100 mls/hr WITH DIALYSIS PRN IV BP support during dialysis Last administered on 07/12/18at 16:35; Admin Dose 100 MLS/HR; Start 07/11/18 at 09:30 Bisacodyl (Dulcolax) 10 mg DAILY PRN PO CONSTIPATION Last administered on 07/13/18at 08:44; Admin Dose 10 MG; Start 07/12/18 at 12:00 Docusate Sodium (Colace) 100 mg BID PO Last administered on 07/19/18 21:57; Admin Dose 100 MG; Start 07/12/18 at 21:00 Ferrous Sulfate (Ferrous Sulfate (Ec)) 325 mg BID PO Last administered on 07/19/18 21:57; Admin Dose 325 MG; Start 07/14/18 at 21:00 Vitamin A/Vitamin D (Vitamin A & D Oint) 1 applic BID TOP Last administered on 07/19/18 21:57; Admin Dose 1 APPLIC; Start 07/17/18 at 09:00 Diagnostic Test (Pha) (Accu-Chek) 1 ea AC MEALS XX Last administered on 07/19/18at 18:11; Admin Dose 1 EA; Start 07/17/18 at 17:25 Miscellaneous Information 1 ea NOTE XX ; Start 07/17/18 at 14:00 Glucose (Glutose) 15 gm Q15M PRN PO DECREASED GLUCOSE; Start 07/17/18 at 14:00 Glucose (Glutose) 22.5 gm Q15M PRN PO DECREASED GLUCOSE; Start 07/17/18 at 14:00 Dextrose (D50w Syringe) 25 ml Q15M PRN IV DECREASED GLUCOSE Last administered on 07/18/18at 09:31; Admin Dose 25 ML; Start 07/17/18 at 14:00 Dextrose (D50w Syringe) 50 ml Q15M PRN IV DECREASED GLUCOSE; Start 07/17/18 at 14:00 Glucagon (Glucagen) 1 mg Q15M PRN IM DECREASED GLUCOSE; Start 07/17/18 at 14:00 Glucose (Glutose) 15 gm Q15M PRN BUCCAL DECREASED GLUCOSE; Start 07/17/18 at 14:00 Dextrose (D50w Syringe) 25 ml AC MEALS PRN IV HYPOGLYCEMIA (BS<70); Start 07/17/18 at 19:00 Neomycin/ Polymyxin/ Bacitracin (Neosporin Topical Oint) 1 applic DAILY TOP Last administered on 07/19/18at 09:57; Admin Dose 1 APPLIC; Start 07/18/18 at 13:00 Clotrimazole (Lotrimin Cr) 1 applic BID TOP Last administered on 07/19/18at 21:58; Admin Dose 1 APPLIC; Start 07/18/18 at 13:00 Piperacillin Sod/ Tazobactam Sod 50 ml @ 100 mls/hr Q8 IVPB Last administered on 07/19/18at 21:59; Admin Dose 100 MLS/HR; Start 07/18/18 at 16:00; Stop 07/25/18 at 15:59 Dextrose 1,000 ml @ 20 mls/hr Q24H IV Last administered on 07/18/18at 16:53; Admin Dose 20 MLS/HR; Start 07/18/18 at 16:30 Acetaminophen (Tylenol Tab) 650 mg Q6H PRN PO MILD PAIN(1-3)OR ELEVATED TEMP; Start 07/19/18 at 13:30 ANNETTE JACKSON M.D. Jul 20, 2018 00:00
[2018-07-20 01:47] VITALS: BP 93/50; PULSE 71; RESP 16
[2018-07-20] MEDS: PIPER-TAZO 2.25 GM (PMX) 50 ML IVPB SCH ×3 (06:14→21:11)
[2018-07-20] MEDS: ACETAMINOPHEN 325 MG TAB PO PRN ×3 (06:52→19:46)
[2018-07-20] MEDS: ACCU-CHEK XX SCH ×3 (07:20→17:27)
[2018-07-20 07:22] VITALS: BP 87/57; PULSE 72; RESP 18
--- NOTE | 2018-07-20 08:32 | CONS ---
Assessment/Plan Assessment/Plan Hospital Course 57 yo F with hx of CVA and other comorbidities who initially presented for management of a L femur fracture. She was noted to be protractedly encephalopathic... for which neurology is consulted. The clinical picture raises concern for delirium, as can be seen in a prolonged hospitalization. There is a likely superimposed medication adverse effect... Stroke is unlikely. MRI brain is without acute intracranial pathology, though is notable for chronic infarcts. P: Reorient as necessary Limit sedating medications where possible PT/OT as tolerated Continued management per primary Will follow clinically Result Diagram: 07/18/18 0640 07/18/18 0640 Results 24hrs Laboratory Tests Test 07/19/18 08:38 07/19/18 12:48 07/19/18 17:39 07/20/18 08:27 Bedside Glucose 98 110 129 106 Consultation Date/Type/Reason Admit Date/Time Jul 03, 2018 at 05:32 Type of Consult Neurology Reason for Consultation ams Requesting Provider: GORDON HUDSON MD Date/Time of Note DATE: 07/20/18 TIME: 08:31 24 HR Interval Summary Free Text/Dictation 12 PT ROS ow neg Exam Vital Signs Vitals Vital Signs Date Temp Pulse Resp B/P (MAP) Pulse Ox O2 O2 Flow FiO2 Time Delivery Rate 07/20/18 97.9 72 18 87/57 (67) 98 07:22 07/19/18 Room Air 14:34 Intake and Output 07/19/18 07/19/18 07/20/18 1515:00 23:00 07:00 IntakeIntake Total 250 ml 510 ml 470 ml BalanceBalance 250 ml 510 ml 470 ml Exam PE: Gen Appearance: No Apparent Distress HEENT: Normocephalic Cardiovascular: Regular rate Lungs: Clear bilaterally Abdomen: Soft Extremities: Dry NE: The patient was alert and oriented. Language was normal. Fund of knowledge was adequate. Pupils were equal and reactive to light. There was no afferent pupillary defect. Visual aquino were normal. Funduscopic examination was limited. Extra-ocular movements were full. Ptosis was absent. There was no nystagmus. Facial sensation was normal. Face was symmetric with normal strength. Hearing was intact. Palate movements were normal. Neck strength was normal. There was normal tongue bulk and speed of movement. Tone was normal. Muscle bulk was normal. I did not see fasciculations. Arms were strong. Vibration sensation was normal. Temperature and pinprick sensation was normal. Rapid alternating movements were normal. There was no dysmetria. There was no intention tremor. Gait was deferred due to bedrest. Arm and leg reflexes were symmetric. Quinones's sign was absent. Plantar responses were flexor. TAMY LEIGH Jul 20, 2018 08:32
[2018-07-20] MEDS: HEPARIN 5,000 UNIT/1 ML VIAL SC SCH ×2 (08:58→21:13)
[2018-07-20] MEDS: FERROUS SULFATE (EC) 325 MG TAB PO SCH ×2 (08:58→21:12)
[2018-07-20] MEDS: SEVELAMER CARBONATE 0.8 GM PKT PO SCH ×3 (08:58→17:44)
[2018-07-20] MEDS: FAMOTIDINE 20 MG TAB PO SCH (08:58)
[2018-07-20] MEDS: DOCUSATE SODIUM 100 MG CAP PO SCH ×2 (08:58→21:11)
[2018-07-20] MEDS: DEXTROSE 10% 1,000 ML IV SCH (08:59)
[2018-07-20] MEDS: PETROLATUM 28.35 GM JELLY TOP SCH ×2 (09:00→21:00)
[2018-07-20] MEDS: NEOMYC/POLYMYX/BACIT 30 GM OINT TOP SCH (09:00)
[2018-07-20] MEDS: CLOTRIMAZOLE 1% 30 GM CR TOP SCH ×2 (09:00→21:15)
--- NOTE | 2018-07-20 12:30 | CONS ---
Date/Time of Note Date/Time of Note DATE: 07/20/18 TIME: 12:29 Assessment/Plan Assessment/Plan Assessment/Plan Pt talking on the phone - BP on low side - but feels well - does not want to be examined now. Result Diagram: 07/18/18 0640 07/18/18 0640 Results 24hrs Laboratory Tests Test 07/19/18 12:48 07/19/18 17:39 07/20/18 08:27 Bedside Glucose 110 129 106 Consultation Date/Type/Reason Admit Date/Time Jul 03, 2018 at 05:32 Initial Consult Date 07/03/18 Requesting Provider: GORDON HUDSON MD Exam/Review of Systems Vital Signs Vitals Vital Signs Date Temp Pulse Resp B/P (MAP) Pulse Ox O2 O2 Flow FiO2 Time Delivery Rate 07/20/18 97.9 72 18 87/57 (67) 98 07:22 07/19/18 Room Air 14:34 Intake and Output 07/19/18 07/19/18 07/20/18 1515:00 23:00 07:00 IntakeIntake Total 250 ml 510 ml 470 ml BalanceBalance 250 ml 510 ml 470 ml Medications Medications Current Medications Sevelamer Carbonate (Renvela) 0.8 gm WITH MEALS PO Last administered on 07/20/18at 08:58; Admin Dose 0.8 GM; Start 07/03/18 at 17:55 Ondansetron HCl (Zofran Inj) 4 mg Q6H PRN IV NAUSEA AND/OR VOMITING Last administered on 07/19/18at 15:52; Admin Dose 4 MG; Start 07/03/18 at 14:30 Famotidine (Pepcid) 20 mg DAILY PO Last administered on 07/20/18at 08:58; Admin Dose 20 MG; Start 07/03/18 at 14:30 Morphine Sulfate (morphine) 2 mg Q4H PRN IV PAIN LEVEL 6-10 Last administered on 07/03/18at 21:36; Admin Dose 2 MG; Start 07/03/18 at 17:30; Status Hold Acetaminophen/ Hydrocodone Bitart ([place] (7.5-325)) 1 tab Q4H PRN PO MODERATE PAIN LEVEL 4-6; Start 07/06/18 at 14:00; Status Hold Acetaminophen/ Hydrocodone Bitart ([place] (5/325)) 1 tab Q3H PRN PO MODERATE PAIN LEVEL 4-6 Last administered on 07/19/18at 06:07; Admin Dose 1 TAB; Start 07/09/18 at 18:30 Heparin Sodium (Porcine) (Heparin (5000 Units/1ml)) 5,000 unit Q12 SC Last administered on 07/20/18 08:58; Admin Dose 5,000 UNIT; Start 07/10/18 at 09:00 Albumin Human 100 ml @ 100 mls/hr WITH DIALYSIS PRN IV BP support during dialysis Last administered on 07/12/18at 16:35; Admin Dose 100 MLS/HR; Start 07/11/18 at 09:30 Bisacodyl (Dulcolax) 10 mg DAILY PRN PO CONSTIPATION Last administered on 07/13/18at 08:44; Admin Dose 10 MG; Start 07/12/18 at 12:00 Docusate Sodium (Colace) 100 mg BID PO Last administered on 07/20/18at 08:58; Admin Dose 100 MG; Start 07/12/18 at 21:00 Ferrous Sulfate (Ferrous Sulfate (Ec)) 325 mg BID PO Last administered on 07/20/18at 08:58; Admin Dose 325 MG; Start 07/14/18 at 21:00 Diagnostic Test (Pha) (Accu-Chek) 1 ea AC MEALS XX Last administered on 07/20/18at 07:20; Admin Dose 1 EA; Start 07/17/18 at 17:25 Miscellaneous Information 1 ea NOTE XX ; Start 07/17/18 at 14:00 Glucose (Glutose) 15 gm Q15M PRN PO DECREASED GLUCOSE; Start 07/17/18 at 14:00 Glucose (Glutose) 22.5 gm Q15M PRN PO DECREASED GLUCOSE; Start 07/17/18 at 14:00 Dextrose (D50w Syringe) 25 ml Q15M PRN IV DECREASED GLUCOSE Last administered on 07/18/18at 09:31; Admin Dose 25 ML; Start 07/17/18 at 14:00 Dextrose (D50w Syringe) 50 ml Q15M PRN IV DECREASED GLUCOSE; Start 07/17/18 at 14:00 Glucagon (Glucagen) 1 mg Q15M PRN IM DECREASED GLUCOSE; Start 07/17/18 at 14:00 Glucose (Glutose) 15 gm Q15M PRN BUCCAL DECREASED GLUCOSE; Start 07/17/18 at 14:00 Dextrose (D50w Syringe) 25 ml AC MEALS PRN IV HYPOGLYCEMIA (BS<70); Start 07/17/18 at 19:00 Neomycin/ Polymyxin/ Bacitracin (Neosporin Topical Oint) 1 applic DAILY TOP Last administered on 07/19/18at 09:57; Admin Dose 1 APPLIC; Start 07/18/18 at 13:00 Clotrimazole (Lotrimin Cr) 1 applic BID TOP Last administered on 07/19/18at 21 :58; Admin Dose 1 APPLIC; Start 07/18/18 at 13:00 Piperacillin Sod/ Tazobactam Sod 50 ml @ 100 mls/hr Q8 IVPB Last administered on 07/20/18at 06:14; Admin Dose 100 MLS/HR; Start 07/18/18 at 16:00; Stop 07/25/18 at 15:59 Acetaminophen (Tylenol Tab) 650 mg Q6H PRN PO MILD PAIN(1-3)OR ELEVATED TEMP L ast administered on 07/20/18at 06:52; Admin Dose 650 MG; Start 07/19/18 at 13:30 Petrolatum (Vaseline) 1 applic BID TOP ; Start 07/20/18 at 09:00 Dextrose 1,000 ml @ 20 mls/hr Q24H IV Last administered on 07/20/18at 08:59; Admin Dose 20 MLS/HR; Start 07/20/18 at 08:30 JESSICA THOMPSON MD Jul 20, 2018 12:30
[2018-07-20 14:00] VITALS: BP 83/40; PULSE 68; RESP 18
--- NOTE | 2018-07-20 14:43 | PN ---
Date/Time of Note Date/Time of Note DATE: 07/20/18 TIME: 14:43 Assessment/Plan VTE Prophylaxis Risk score (from Ns)>0 risk: 5 SCD applied (from Nsg): Yes Lines/Catheters IV Catheter Type (from Nrsg): Central Line Urinary Cath still in place: No Assessment/Plan Assessment/Plan -Altered mental status. CT of the brain is negative for acute stroke. Dr. Davenport is asked to see patient in neurology consultation. -Acute comminuted distal left femoral fracture without dislocation. S/p ORIF of the comminuted and displaced supracondylar fracture of the left femur by Dr. Gutierres on 07/09/18. -Hemodialysis dependent end-stage renal disease. Continue on hemodialysis. Dr. Tucker is following in nephrology consultation. -Diabetes mellitus -History of cerebrovascular accident with left-sided paralysis. -Anemia of chronic disease. Continue to monitor hemoglobin and hematocrit. Currently stable. -Chronic dislocation of the left shoulder. No acute issues. -Mineral bone disease Further recommendations based on clinical course. Plan of care discussed with Dr. Rousseau. Result Diagram: 07/18/18 0640 07/18/18 0640 Results 24hrs Laboratory Tests Test 07/19/18 17:39 07/20/18 08:27 07/20/18 12:43 Bedside Glucose 129 106 112 Exam/Review of Systems Vital Signs Vitals Vital Signs Date Temp Pulse Resp B/P (MAP) Pulse Ox O2 O2 Flow FiO2 Time Delivery Rate 07/20/18 97.9 72 18 87/57 (67) 98 07:22 07/19/18 Room Air 14:34 Intake and Output 07/19/18 07/19/18 07/20/18 1515:00 23:00 07:00 IntakeIntake Total 250 ml 510 ml 470 ml BalanceBalance 250 ml 510 ml 470 ml Medications Medications Current Medications Sevelamer Carbonate (Renvela) 0.8 gm WITH MEALS PO Last administered on 07/20/18at 13:08; Admin Dose 0.8 GM; Start 07/03/18 at 17:55 Ondansetron HCl (Zofran Inj) 4 mg Q6H PRN IV NAUSEA AND/OR VOMITING Last administered on 07/19/18at 15:52; Admin Dose 4 MG; Start 07/03/18 at 14:30 Famotidine (Pepcid) 20 mg DAILY PO Last administered on 07/20/18 08:58; Admin Dose 20 MG; Start 07/03/18 at 14:30 Morphine Sulfate (morphine) 2 mg Q4H PRN IV PAIN LEVEL 6-10 Last administered on 07/03/18 21:36; Admin Dose 2 MG; Start 07/03/18 at 17:30; Status Hold Acetaminophen/ Hydrocodone Bitart ([place] (7.5-325)) 1 tab Q4H PRN PO MODERATE PAIN LEVEL 4-6; Start 07/06/18 at 14:00; Status Hold Acetaminophen/ Hydrocodone Bitart ([place] (5/325)) 1 tab Q3H PRN PO MODERATE PAIN LEVEL 4-6 Last administered on 07/19/18 06:07; Admin Dose 1 TAB; Start 07/09/18 at 18:30 Heparin Sodium (Porcine) (Heparin (5000 Units/1ml)) 5,000 unit Q12 SC Last administered on 07/20/18 08:58; Admin Dose 5,000 UNIT; Start 07/10/18 at 09:00 Albumin Human 100 ml @ 100 mls/hr WITH DIALYSIS PRN IV BP support during d ialysis Last administered on 07/12/18 16:35; Admin Dose 100 MLS/HR; Start 07/11/18 at 09:30 Bisacodyl (Dulcolax) 10 mg DAILY PRN PO CONSTIPATION Last administered on 07/13/18 08:44; Admin Dose 10 MG; Start 07/12/18 at 12:00 Docusate Sodium (Colace) 100 mg BID PO Last administered on 07/20/18 08:58; Admin Dose 100 MG; Start 07/12/18 at 21:00 Ferrous Sulfate (Ferrous Sulfate (Ec)) 325 mg BID PO Last administered on 07/20/18 08:58; Admin Dose 325 MG; Start 07/14/18 at 21:00 Diagnostic Test (Pha) (Accu-Chek) 1 ea AC MEALS XX Last administered on 07/20/18 12:45; Admin Dose 1 EA; Start 07/17/18 at 17:25 Miscellaneous Information 1 ea NOTE XX ; Start 07/17/18 at 14:00 Glucose (Glutose) 15 gm Q15M PRN PO DECREASED GLUCOSE; Start 07/17/18 at 14:00 Glucose (Glutose) 22.5 gm Q15M PRN PO DECREASED GLUCOSE; Start 07/17/18 at 14:00 Dextrose (D50w Syringe) 25 ml Q15M PRN IV DECREASED GLUCOSE Last administered on 07/18/18at 09:31; Admin Dose 25 ML; Start 07/17/18 at 14:00 Dextrose (D50w Syringe) 50 ml Q15M PRN IV DECREASED GLUCOSE; Start 07/17/18 at 14:00 Glucagon (Glucagen) 1 mg Q15M PRN IM DECREASED GLUCOSE; Start 07/17/18 at 14:00 Glucose (Glutose) 15 gm Q15M PRN BUCCAL DECREASED GLUCOSE; Start 07/17/18 at 14:00 Dextrose (D50w Syringe) 25 ml AC MEALS PRN IV HYPOGLYCEMIA (BS<70); Start 07/17/18 at 19:00 Neomycin/ Polymyxin/ Bacitracin (Neosporin Topical Oint) 1 applic DAILY TOP Last administered on 07/19/18at 09:57; Admin Dose 1 APPLIC; Start 07/18/18 at 13:00 Clotrimazole (Lotrimin Cr) 1 applic BID TOP Last administered on 07/19/18at 21:58; Admin Dose 1 APPLIC; Start 07/18/18 at 13:00 Piperacillin Sod/ Tazobactam Sod 50 ml @ 100 mls/hr Q8 IVPB Last administered on 07/20/18at 13:08; Admin Dose 100 MLS/HR; Start 07/18/18 at 16:00; Stop 07/25/18 at 15:59 Acetaminophen (Tylenol Tab) 650 mg Q6H PRN PO MILD PAIN(1-3)OR ELEVATED TEMP Last administered on 07/20/18at 13:11; Admin Dose 650 MG; Start 07/19/18 at 13:30 Petrolatum (Vaseline) 1 applic BID TOP ; Start 07/20/18 at 09:00 Dextrose 1,000 ml @ 20 mls/hr Q24H IV Last administered on 07/20/18at 08:59; Admin Dose 20 MLS/HR; Start 07/20/18 at 08:30 ELIO KIRAN Jul 20, 2018 14:43
--- NOTE | 2018-07-20 16:08 | CONS ---
Date/Time of Note Date/Time of Note DATE: 07/20/18 TIME: 16:06 Assessment/Plan Assessment/Plan Assessment/Plan 57 yo Female with 1) Acute Distal Left Femoral Comminuted Fracture 2) S/p Mechanical Fall 3) ESRD on HD every MWF 4) Anemia, Chronic, CKD 5) MBD, CKD 6) Chronic HTN 7) CAD, Chronic 8) DM with ESRD 9) Hx of CVA with residual left sided deficit 10) Chronic Lower back pain 11) Hyperkalemia 12) AMS- Resolved. MRI Reviewed No acute disease Baseline Mental status HD plan for Today. Ok from Renal standpoint for DC to Acute Rehab Will defer to PCP. Result Diagram: 07/18/18 0640 07/18/18 0640 Results 24hrs Laboratory Tests Test 07/19/18 17:39 07/20/18 08:27 07/20/18 12:43 Bedside Glucose 129 106 112 Consultation Date/Type/Reason Admit Date/Time Jul 03, 2018 at 05:32 Initial Consult Date 07/03/18 Type of Consult Nephrology Requesting Provider: GORDON HUDSON MD 24 HR Interval Summary Free Text/Dictation Normal mental status No new complaints. Constitutional: No requiring O2 Exam/Review of Systems Vital Signs Vitals Vital Signs Date Temp Pulse Resp B/P (MAP) Pulse Ox O2 O2 Flow FiO2 Time Delivery Rate 07/20/18 97.6 68 18 83/40 (54) 96 14:00 07/19/18 Room Air 14:34 Intake and Output 07/19/18 07/19/18 07/20/18 1515:00 23:00 07:00 IntakeIntake Total 250 ml 510 ml 470 ml BalanceBalance 250 ml 510 ml 470 ml Exam Constitutional: No distress ENMT: mucosa pink and moist Neck: No jvd Respiratory: clear to auscultation; No labored breathing Cardiovascular: regular rate and rhythm, edema Gastrointestinal: soft Extremities: edema Neurological: nl mental status; No confused, No lethargic Skin: No diaphoresis Medications Medications Current Medications Sevelamer Carbonate (Renvela) 0.8 gm WITH MEALS PO Last administered on 07/20/18at 13:08; Admin Dose 0.8 GM; Start 07/03/18 at 17:55 Ondansetron HCl (Zofran Inj) 4 mg Q6H PRN IV NAUSEA AND/OR VOMITING Last administered on 07/19/18 15:52; Admin Dose 4 MG; Start 07/03/18 at 14:30 Famotidine (Pepcid) 20 mg DAILY PO Last administered on 07/20/18 08:58; Admin Dose 20 MG; Start 07/03/18 at 14:30 Morphine Sulfate (morphine) 2 mg Q4H PRN IV PAIN LEVEL 6-10 Last administered on 07/03/18 21:36; Admin Dose 2 MG; Start 07/03/18 at 17:30; Status Hold Acetaminophen/ Hydrocodone Bitart ([place] (7.5-325)) 1 tab Q4H PRN PO MODERATE PAIN LEVEL 4-6; Start 07/06/18 at 14:00; Status Hold Acetaminophen/ Hydrocodone Bitart ([place] (5/325)) 1 tab Q3H PRN PO MODERATE PAIN LEVEL 4-6 Last administered on 07/19/18 06:07; Admin Dose 1 TAB; Start 07/09/18 at 18:30 Heparin Sodium (Porcine) (Heparin (5000 Units/1ml)) 5,000 unit Q12 SC Last administered on 07/20/18 08:58; Admin Dose 5,000 UNIT; Start 07/10/18 at 09:00 Albumin Human 100 ml @ 100 mls/hr WITH DIALYSIS PRN IV BP support during dialysis Last administered on 07/12/18 16:35; Admin Dose 100 MLS/HR; Start 05/19 at 09:30 Bisacodyl (Dulcolax) 10 mg DAILY PRN PO CONSTIPATION Last administered on 07/13/18 08:44; Admin Dose 10 MG; Start 07/12/18 at 12:00 Docusate Sodium (Colace) 100 mg BID PO Last administered on 07/20/18 08:58; Admin Dose 100 MG; Start 07/12/18 at 21:00 Ferrous Sulfate (Ferrous Sulfate (Ec)) 325 mg BID PO Last administered on 07/20/18 08:58; Admin Dose 325 MG; Start 07/14/18 at 21:00 Diagnostic Test (Pha) (Accu-Chek) 1 ea AC MEALS XX Last administered on 07/20/18 12:45; Admin Dose 1 EA; Start 07/17/18 at 17:25 Miscellaneous Information 1 ea NOTE XX ; Start 07/17/18 at 14:00 Glucose (Glutose) 15 gm Q15M PRN PO DECREASED GLUCOSE; Start 07/17/18 at 14:00 Glucose (Glutose) 22.5 gm Q15M PRN PO DECREASED GLUCOSE; Start 07/17/18 at 14:00 Dextrose (D50w Syringe) 25 ml Q15M PRN IV DECREASED GLUCOSE Last administered on 07/18/18at 09:31; Admin Dose 25 ML; Start 07/17/18 at 14:00 Dextrose (D50w Syringe) 50 ml Q15M PRN IV DECREASED GLUCOSE; Start 07/17/18 at 14:00 Glucagon (Glucagen) 1 mg Q15M PRN IM DECREASED GLUCOSE; Start 07/17/18 at 14:00 Glucose (Glutose) 15 gm Q15M PRN BUCCAL DECREASED GLUCOSE; Start 07/17/18 at 14:00 Dextrose (D50w Syringe) 25 ml AC MEALS PRN IV HYPOGLYCEMIA (BS<70); Start 07/17/18 at 19:00 Neomycin/ Polymyxin/ Bacitracin (Neosporin Topical Oint) 1 applic DAILY TOP Last administered on 07/19/18at 09:57; Admin Dose 1 APPLIC; Start 07/18/18 at 13:00 Clotrimazole (Lotrimin Cr) 1 applic BID TOP Last administered on 07/19/18at 21:58; Admin Dose 1 APPLIC; Start 07/18/18 at 13:00 Piperacillin Sod/ Tazobactam Sod 50 ml @ 100 mls/hr Q8 IVPB Last administered on 07/20/18at 13:08; Admin Dose 100 MLS/HR; Start 07/18/18 at 16:00; Stop 07/25/18 at 15:59 Acetaminophen (Tylenol Tab) 650 mg Q6H PRN PO MILD PAIN(1-3)OR ELEVATED TEMP Last administered on 07/20/18at 13:11; Admin Dose 650 MG; Start 07/19/18 at 13:30 Petrolatum (Vaseline) 1 applic BID TOP ; Start 07/20/18 at 09:00 Dextrose 1,000 ml @ 20 mls/hr Q24H IV Last administered on 07/20/18at 08:59; Admin Dose 20 MLS/HR; Start 1/20/19 at 08:30 Imaging Imaging CXR IMPRESSION: No acute cardiopulmonary disease. Right sided tunneled dialysis catheter in place. RPTAT: QQ .Evan Samuel MD, MD Date Time Electronically viewed and signed by .Evan Samuel MD, MD on 07/20/2018 10:18 SHARON ESPINOZA MD Jul 20, 2018 16:08
[2018-07-20 19:07] VITALS: BP 98/52; PULSE 65; RESP 16
[2018-07-20] MEDS ORDERED: VITAMIN A & D 5 GM OINT PACKET TOP ONE (22:06)
--- NOTE | 2018-07-20 22:35 | CONS ---
Date/Time of Note Date/Time of Note DATE: 07/20/18 TIME: 22:29 Assessment/Plan Assessment/Plan Hospital Course - s/p mental status change post-op. now oriented x3. Her confusion may be related to morphine. Head CT on 07/08/2018 and head MRI on 07/18/2018 showed no acute pathology. - possible aspiration pneumonia/HCAP, on empiric pip/tazo 07/18/2018- ordered for 7 day per PMD - R knee pain - lower lip ulcer; Pt does not think it is HSV; she denies pain. On vaseline cream - nausea without emesis - ESRD on HD via catheter on R chest wall - DM - h/o CVA with L sided weakness - R knee pain, due to DJD - a mechanical fall - h/o acute comminuted distal L femoral Fx without dislocation - h/o open reduction and internal fixation of the comminuted and displaced supracondylar fracture of L femur. recommendations - continue pip/tazo (07/18/2018-), I recommend 5-7 days - continue to apply vaseline to the lower lip - not to use morphine for pain control - monitor nausea - management d/w Pt and her RN Mike and Result Diagram: 07/18/18 0640 07/18/18 0640 Results 24hrs Laboratory Tests Test 07/20/18 08:27 07/20/18 12:43 07/20/18 17:13 Bedside Glucose 106 112 112 Consultation Date/Type/Reason Admit Date/Time Jul 03, 2018 at 05:32 Initial Consult Date 07/19/18 Type of Consult ID Requesting Provider: GORDON HUDSON MD 24 HR Interval Summary Constitutional: no complaints, improved Detailed Summary Eyes: no complaints ENT: no complaints, other (lower lip has ulcers that are painless) Respiratory: no complaints Cardiovascular: no complaints Gastrointestinal: nausea; No diarrhea, No vomiting Genitourinary: other (Pt's incontinent) Musculoskeletal: no complaints Skin: no complaints Neurologic: no complaints Exam/Review of Systems Vital Signs Vitals Vital Signs Date Temp Pulse Resp B/P (MAP) Pulse Ox O2 O2 Flow FiO2 Time Delivery Rate 07/20/18 97.6 65 16 98/52 (67) 100 19:07 07/19/18 Room Air 14:34 Intake and Output 07/19/18 07/19/18 07/20/18 1515:00 23:00 07:00 IntakeIntake Total 250 ml 510 ml 470 ml BalanceBalance 250 ml 510 ml 470 ml Exam Constitutional: frail, obese Psych: no complaints, nl mood/affect Head: normocephalic, atraumatic Eyes: nl conjunctiva, nl lids ENMT: nl external ears & nose, other (ulcers of the lower lip) Neck: other (not swollen) Respiratory: clear to auscultation, normal air movement Cardiovascular: regular rate and rhythm, nl pulses Gastrointestinal: soft, non-tender, bowel sounds; No distended, No tender Musculoskeletal: other (LLE is in brace, has dressing on it too) Extremities: No edema Neurological: focal weakness (L sided weakness due to CVA), lethargic, other (oriented x persoon, place and time) Skin: nl turgor Medications Medications Current Medications Sevelamer Carbonate (Renvela) 0.8 gm WITH MEALS PO Last administered on 07/20/18at 17:44; Admin Dose 0.8 GM; Start 07/03/18 at 17:55 Ondansetron HCl (Zofran Inj) 4 mg Q6H PRN IV NAUSEA AND/OR VOMITING Last administered on 07/19/18at 15:52; Admin Dose 4 MG; Start 07/03/18 at 14:30 Famotidine (Pepcid) 20 mg DAILY PO Last administered on 07/20/18at 08:58; Admin Dose 20 MG; Start 07/03/18 at 14:30 Morphine Sulfate (morphine) 2 mg Q4H PRN IV PAIN LEVEL 6-10 Last administered on 07/03/18at 21:36; Admin Dose 2 MG; Start 07/03/18 at 17:30; Status Hold Acetaminophen/ Hydrocodone Bitart ([place] (7.5-325)) 1 tab Q4H PRN PO MODERATE PAIN LEVEL 4-6; Start 07/06/18 at 14:00; Status Hold Acetaminophen/ Hydrocodone Bitart ([place] (5/325)) 1 tab Q3H PRN PO MODERATE PAIN LEVEL 4-6 Last administered on 07/19/18at 06:07; Admin Dose 1 TAB; Start 07/09/18 at 18:30 Heparin Sodium (Porcine) (Heparin (5000 Units/1ml)) 5,000 unit Q12 SC Last administered on 07/20/18at 21:13; Admin Dose 5,000 UNIT; Start 07/10/18 at 09:00 Albumin Human 100 ml @ 100 mls/hr WITH DIALYSIS PRN IV BP support during dialysis Last administered on 07/12/18at 16:35; Admin Dose 100 MLS/HR; Start 07/11/18 at 09:30 Bisacodyl (Dulcolax) 10 mg DAILY PRN PO CONSTIPATION Last administered on 07/13/18at 08:44; Admin Dose 10 MG; Start 07/12/18 at 12:00 Docusate Sodium (Colace) 100 mg BID PO Last administered on 07/20/18at 21:11; Admin Dose 100 MG; Start 07/12/18 at 21:00 Ferrous Sulfate (Ferrous Sulfate (Ec)) 325 mg BID PO Last administered on 07/20/18at 21:12; Admin Dose 325 MG; Start 07/14/18 at 21:00 Diagnostic Test (Pha) (Accu-Chek) 1 ea AC MEALS XX Last administered on 07/20/18at 17:27; Admin Dose 1 EA; Start 07/17/18 at 17:25 Miscellaneous Information 1 ea NOTE XX ; Start 07/17/18 at 14:00 Glucose (Glutose) 15 gm Q15M PRN PO DECREASED GLUCOSE; Start 07/17/18 at 14:00 Glucose (Glutose) 22.5 gm Q15M PRN PO DECREASED GLUCOSE; Start 07/17/18 at 14:00 Dextrose (D50w Syringe) 25 ml Q15M PRN IV DECREASED GLUCOSE Last administered on 07/18/18at 09:31; Admin Dose 25 ML; Start 07/17/18 at 14:00 Dextrose (D50w Syringe) 50 ml Q15M PRN IV DECREASED GLUCOSE; Start 07/17/18 at 14:00 Glucagon (Glucagen) 1 mg Q15M PRN IM DECREASED GLUCOSE; Start 07/17/18 at 14:00 Glucose (Glutose) 15 gm Q15M PRN BUCCAL DECREASED GLUCOSE; Start 07/17/18 at 14:00 Dextrose (D50w Syringe) 25 ml AC MEALS PRN IV HYPOGLYCEMIA (BS<70); Start 07/17/18 at 19:00 Neomycin/ Polymyxin/ Bacitracin (Neosporin Topical Oint) 1 applic DAILY TOP Last administered on 07/19/18at 09:57; Admin Dose 1 APPLIC; Start 07/18/18 at 13:00 Clotrimazole (Lotrimin Cr) 1 applic BID TOP Last administered on 07/20/18at 21:15; Admin Dose 1 APPLIC; Start 07/18/18 at 13:00 Piperacillin Sod/ Tazobactam Sod 50 ml @ 100 mls/hr Q8 IVPB Last administered on 07/20/18at 21:11; Admin Dose 100 MLS/HR; Start 07/18/18 at 16:00; Stop 07/25/18 at 15:59 Acetaminophen (Tylenol Tab) 650 mg Q6H PRN PO MILD PAIN(1-3)OR ELEVATED TEMP Last administered on 07/20/18at 19:46; Admin Dose 650 MG; Start 07/19/18 at 13:30 Petrolatum (Vaseline) 1 applic BID TOP ; Start 07/20/18 at 09:00 Dextrose 1,000 ml @ 20 mls/hr Q24H IV Last administered on 07/20/18at 08:59; Admin Dose 20 MLS/HR; Start 07/20/18 at 08:30 ANNETTE JACKSON M.D. Jul 20, 2018 22:35
[2018-07-20] MEDS: ONDANSETRON 4 MG INJ IV PRN (23:15)
[2018-07-21] VITALS (17 sets, daily range): BP systolic 86–147; BP diastolic 51–87; PULSE 63–83; RESP 17–18
[2018-07-21] MEDS: ACETAMINOPHEN 325 MG TAB PO PRN ×2 (04:43→12:29)
[2018-07-21] MEDS: DEXTROSE 10% 1,000 ML IV SCH ×2 (04:44→08:30)
[2018-07-21] MEDS: PIPER-TAZO 2.25 GM (PMX) 50 ML IVPB SCH ×4 (05:31→22:00)
[2018-07-21] MEDS: ACCU-CHEK XX SCH ×3 (08:55→18:07)
[2018-07-21] MEDS: DOCUSATE SODIUM 100 MG CAP PO SCH ×2 (09:03→21:12)
[2018-07-21] MEDS: FERROUS SULFATE (EC) 325 MG TAB PO SCH ×2 (09:03→21:12)
[2018-07-21] MEDS: FAMOTIDINE 20 MG TAB PO SCH (09:03)
[2018-07-21] MEDS: SEVELAMER CARBONATE 0.8 GM PKT PO SCH ×3 (09:03→18:04)
[2018-07-21] MEDS: HEPARIN 5,000 UNIT/1 ML VIAL SC SCH ×2 (09:04→21:15)
[2018-07-21] MEDS: CLOTRIMAZOLE 1% 30 GM CR TOP SCH ×2 (09:04→21:13)
[2018-07-21] MEDS: NEOMYC/POLYMYX/BACIT 30 GM OINT TOP SCH (09:04)
--- NOTE | 2018-07-21 09:50 | CONS ---
Date/Time of Note Date/Time of Note DATE: 07/21/18 TIME: 09:49 Assessment/Plan Assessment/Plan Assessment/Plan 1. Preoperative evaluation for left lower extremity open reduction and internal fixation, status post mechanical fall. -NL EF by echo. NO sig valve abnl. Neg trop x 3. OK to proceed at moderate CV risk on current medical therapy. Now Post-op s/p LE ORIF - doing well post op. 2. Hypertension, borderline, labile, likely a component of pain.Labile, but reasonable overall. 3. Abnormal electrocardiogram with lateral T-wave inversion. 4. Status post mechanical fall with a femoral fracture. 5. Femoral fracture, left-sided, supracondylar- treated. 6. History of cerebrovascular accident, previously on Plavix. 7. End-stage renal disease, on hemodialysis- HD to follow per renal team. 8. Hyperkalemia-improved 9. Anemia. Result Diagram: 07/18/18 0640 07/21/18 0447 Results 24hrs Laboratory Tests Test 07/20/18 12:43 07/20/18 17:13 07/21/18 04:47 07/21/18 08:55 Bedside Glucose 112 112 84 Sodium Level 131 L Potassium Level 4.4 Chloride Level 91 L Carbon Dioxide Level 28 Anion Gap 12 Blood Urea Nitrogen 38 H Creatinine 9.32 H Est Glomerular 5 L Filtrat Rate mL/min Glucose Level 102 Calcium Level 9.1 Phosphorus Level 5.7 H Consultation Date/Type/Reason Admit Date/Time Jul 03, 2018 at 05:32 Initial Consult Date 07/03/18 Requesting Provider: GORDON HUDSON MD 24 HR Interval Summary Free Text/Dictation NO acute events - pt comfortable - off tele - HD to follow. ROS: No fever, no chills, no nausea, no vomiting, no diarrhea/constipation No recent weight changes No chest pain, no PND, no orthopnea - mild SOB No dizziness, blurred vision No thirst, no heat or cold intolerance Exam/Review of Systems Vital Signs Vitals Vital Signs Date Temp Pulse Resp B/P (MAP) Pulse Ox O2 O2 Flow FiO2 Time Delivery Rate 07/21/18 97.4 83 18 112/58 98 01:59 (76) 07/19/18 Room Air 14:34 Intake and Output 07/20/18 07/20/18 07/21/18 1515:00 23:00 07:00 IntakeIntake Total 120 ml 210 ml 290 ml BalanceBalance 120 ml 210 ml 290 ml Exam General: WN/WD/NAD, AOx 3 HEENT: Unicetric/atraumatic/EOMI (follows commands) NECK: JVD elevated, no thyromegaly Lymph: no lymphadenopathy HEART: regular with no S3, II/ systolic murmur at apex, PMI L LUNGS: Coarse sounds ABD: soft, NT, ND, +BS : Intact Neuro: non focal SKIN: chronic changes EXT: trace edema Medications Medications Current Medications Sevelamer Carbonate (Renvela) 0.8 gm WITH MEALS PO Last administered on 07/21/18 09:03; Admin Dose 0.8 GM; Start 07/03/18 at 17:55 Ondansetron HCl (Zofran Inj) 4 mg Q6H PRN IV NAUSEA AND/OR VOMITING Last administered on 07/20/18 23:15; Admin Dose 4 MG; Start 07/03/18 at 14:30 Famotidine (Pepcid) 20 mg DAILY PO Last administered on 07/21/18 09:03; Admin Dose 20 MG; Start 07/03/18 at 14:30 Morphine Sulfate (morphine) 2 mg Q4H PRN IV PAIN LEVEL 6-10 Last administered on 07/03/18 21:36; Admin Dose 2 MG; Start 07/03/18 at 17:30; Status Hold Acetaminophen/ Hydrocodone Bitart ([place] (7.5-325)) 1 tab Q4H PRN PO MODERATE PAIN LEVEL 4-6; Start 07/06/18 at 14:00; Status Hold Acetaminophen/ Hydrocodone Bitart ([place] (5/325)) 1 tab Q3H PRN PO MODERATE P AIN LEVEL 4-6 Last administered on 07/19/18 06:07; Admin Dose 1 TAB; Start 07/09/18 at 18:30 Heparin Sodium (Porcine) (Heparin (5000 Units/1ml)) 5,000 unit Q12 SC Last administered on 07/21/18 09:04; Admin Dose 5,000 UNIT; Start 07/10/18 at 09:00 Albumin Human 100 ml @ 100 mls/hr WITH DIALYSIS PRN IV BP support during dialysis Last administered on 07/12/18at 16:35; Admin Dose 100 MLS/HR; Start 07/11/18 at 09:30 Bisacodyl (Dulcolax) 10 mg DAILY PRN PO CONSTIPATION Last administered on 07/13/18at 08:44; Admin Dose 10 MG; Start 07/12/18 at 12:00 Docusate Sodium (Colace) 100 mg BID PO Last administered on 07/21/18at 09:03; Admin Dose 100 MG; Start 07/12/18 at 21:00 Ferrous Sulfate (Ferrous Sulfate (Ec)) 325 mg BID PO Last administered on 07/21/18at 09:03; Admin Dose 325 MG; Start 07/14/18 at 21:00 Diagnostic Test (Pha) (Accu-Chek) 1 ea AC MEALS XX Last administered on 07/21/18at 08:55; Admin Dose 1 EA; Start 07/17/18 at 17:25 Miscellaneous Information 1 ea NOTE XX ; Start 07/17/18 at 14:00 Glucose (Glutose) 15 gm Q15M PRN PO DECREASED GLUCOSE; Start 07/17/18 at 14:00 Glucose (Glutose) 22.5 gm Q15M PRN PO DECREASED GLUCOSE; Start 07/17/18 at 14:00 Dextrose (D50w Syringe) 25 ml Q15M PRN IV DECREASED GLUCOSE Last administered on 07/18/18at 09:31; Admin Dose 25 ML; Start 07/17/18 at 14:00 Dextrose (D50w Syringe) 50 ml Q15M PRN IV DECREASED GLUCOSE; Start 07/17/18 at 14:00 Glucagon (Glucagen) 1 mg Q15M PRN IM DECREASED GLUCOSE; Start 07/17/18 at 14:00 Glucose (Glutose) 15 gm Q15M PRN BUCCAL DECREASED GLUCOSE; Start 07/17/18 at 14:00 Dextrose (D50w Syringe) 25 ml AC MEALS PRN IV HYPOGLYCEMIA (BS<70); Start 07/17/18 at 19:00 Neomycin/ Polymyxin/ Bacitracin (Neosporin Topical Oint) 1 applic DAILY TOP Last administered on 07/21/18at 09:04; Admin Dose 1 APPLIC; Start 07/18/18 at 13:00 Clotrimazole (Lotrimin Cr) 1 applic BID TOP Last administered on 07/21/18at 09:04; Admin Dose 1 APPLIC; Start 07/18/18 at 13:00 Piperacillin Sod/ Tazobactam Sod 50 ml @ 100 mls/hr Q8 IVPB Last administered on 07/21/18at 05:31; Admin Dose 100 MLS/HR; Start 07/18/18 at 16:00; Stop at 15:59 Acetaminophen (Tylenol Tab) 650 mg Q6H PRN PO MILD PAIN(1-3)OR ELEVATED TEMP Last administered on 07/21/18at 04:43; Admin Dose 650 MG; Start 07/19/18 at 13:30 Petrolatum (Vaseline) 1 applic BID TOP ; Start 07/20/18 at 09:00 Dextrose 1,000 ml @ 20 mls/hr Q24H IV Last administered on 07/20/18at 08:59; Admin Dose 20 MLS/HR; Start 07/20/18 at 08:30 JESSICA THOMPSON MD Jul 21, 2018 09:50
--- NOTE | 2018-07-21 10:05 | CONS ---
[facility] Name: Prachi Shrestha Unit Number: [id number] Date of : 1960 Patient Status: Admitted Inpatient Attending Doctor: Emmanuel Hudson MD Edit: ANNETTE WEBB M.D. on 07/23/18 @ 02:57 Tracey: I discussed the management with DEPARTMENT SALES MANAGER Alexbethany and agree. Date/Time of Note Date/Time of Note DATE: 07/21/18 TIME: 09:50 Assessment/Plan Assessment/Plan Hospital Course - S/p mental status change post-op. now oriented x3. Her confusion may be related to morphine. Head CT on 07/08/2018 and head MRI on 07/18/2018 showed no acute pathology. - Possible aspiration pneumonia/HCAP, on empiric pip/tazo 07/18/2018- ordered for 7 day per PMD - R knee pain - Lower lip ulcer; Pt does not think it is HSV; she denies pain. On vaseline cream - Nausea without emesis - ESRD on HD via catheter on R chest wall - DM - H/o CVA with L sided weakness - R knee pain, due to DJD - A mechanical fall - H/o acute comminuted distal L femoral Fx without dislocation - H/o open reduction and internal fixation of the comminuted and displaced supracondylar fracture of L femur. Recommendations: - Continue pip/tazo (07/18/2018-), we recommend 5-7 days - Continue to apply vaseline to the lower lip - Not to use morphine for pain control - Monitor for nausea Management was d/w patient and with Dr. Webb. Thank you Result Diagram: 07/18/18 0640 07/21/18 0447 Results 24hrs Laboratory Tests Test 07/20/18 12:43 07/20/18 17:13 07/21/18 04:47 07/21/18 08:55 Bedside Glucose 112 112 84 Sodium Level 131 L Potassium Level 4.4 Chloride Level 91 L Carbon Dioxide Level 28 Anion Gap 12 Blood Urea Nitrogen 38 H Creatinine 9.32 H Est Glomerular 5 L Filtrat Rate mL/min Glucose Level 102 Calcium Level 9.1 Phosphorus Level 5.7 H Consultation Date/Type/Reason Admit Date/Time Jul 03, 2018 at 05:32 Initial Consult Date 07/19/18 Type of Consult ID Requesting Provider: EMMANUEL HUDSON MD 24 HR Interval Summary Free Text/Dictation No acute issues have been reported by nursing today, patient has remained a febrile. Per d/w patient she states she has had no nausea today. She did receive zofran this am by ns to help prevent nausea. Patient states that her lip is "much better" and that it doesn't hurt as much as it did before, she states she has been using "chapstick" on her lip. Patient asked me "do you think my feet look swollen today?" All other ROS reviewed were negative. Exam/Review of Systems Vital Signs Vitals Vital Signs Date Temp Pulse Resp B/P (MAP) Pulse Ox O2 O2 Flow FiO2 Time Delivery Rate 07/21/18 97.4 83 18 112/58 98 01:59 (76) 07/19/18 Room Air 14:34 Intake and Output 07/20/18 07/20/18 07/21/18 1414:59 22:59 06:59 IntakeIntake Total 120 ml 210 ml 290 ml BalanceBalance 120 ml 210 ml 290 ml Allergies Coded Allergies No Known Drug Allergy (Unverified Allergy, Unknown, 07/03/18) Exam Constitutional: alert, oriented, well developed, frail, obese Psych: no complaints, nl mood/affect Head: normocephalic, atraumatic Eyes: nl conjunctiva, nl lids, nl sclera ENMT: nl external ears & nose, nl nasal mucosa & septum, other (Lower lip ulcerations. ) Neck: supple, non-tender Respiratory: clear to auscultation, normal air movement Cardiovascular: regular rate and rhythm, nl pulses Gastrointestinal: soft, non-tender, bowel sounds (normoactive ) Musculoskeletal: other (LLE with a cdi dressing and a brace in place. ) Extremities: normal pulses; No edema Neurological: nl mental status, nl speech, other (Left sided weakness [s/p CVA]) Skin: nl turgor Medications Medications Current Medications Sevelamer Carbonate (Renvela) 0.8 gm WITH MEALS PO Last administered on 07/21/18 09:03; Admin Dose 0.8 GM; Start 07/03/18 at 17:55 Ondansetron HCl (Zofran Inj) 4 mg Q6H PRN IV NAUSEA AND/OR VOMITING Last administered on 07/20/18 23:15; Admin Dose 4 MG; Start 07/03/18 at 14:30 Famotidine (Pepcid) 20 mg DAILY PO Last administered on 07/21/18 09:03; Admin Dose 20 MG; Start 07/03/18 at 14:30 Morphine Sulfate (morphine) 2 mg Q4H PRN IV PAIN LEVEL 6-10 Last administered on 07/03/18 21:36; Admin Dose 2 MG; Start 07/03/18 at 17:30; Status Hold Acetaminophen/ Hydrocodone Bitart ([place] (7.5-325)) 1 tab Q4H PRN PO MODERATE PAIN LEVEL 4-6; Start 07/06/18 at 14:00; Status Hold Acetaminophen/ Hydrocodone Bitart ([place] (5/325)) 1 tab Q3H PRN PO MODERATE PAIN LEVEL 4-6 Last administered on 07/19/18 06:07; Admin Dose 1 TAB; Start 07/09/18 at 18:30 Heparin Sodium (Porcine) (Heparin (5000 Units/1ml)) 5,000 unit Q12 SC Last administered on 07/21/18 09:04; Admin Dose 5,000 UNIT; Start 07/10/18 at 09:00 Albumin Human 100 ml @ 100 mls/hr WITH DIALYSIS PRN IV BP support during dialysis Last administered on 07/12/18 16:35; Admin Dose 100 MLS/HR; Start 07/11/18 at 09:30 Bisacodyl (Dulcolax) 10 mg DAILY PRN PO CONSTIPATION Last administered on 07/13/18 08:44; Admin Dose 10 MG; Start 07/12/18 at 12:00 Docusate Sodium (Colace) 100 mg BID PO Last administered on 07/21/18 09:03; Admin Dose 100 MG; Start 07/12/18 at 21:00 Ferrous Sulfate (Ferrous Sulfate (Ec)) 325 mg BID PO Last administered on 07/21/18 09:03; Admin Dose 325 MG; Start 07/14/18 at 21:00 Diagnostic Test (Pha) (Accu-Chek) 1 ea AC MEALS XX Last administered on 07/21/18at 08:55; Admin Dose 1 EA; Start 07/17/18 at 17:25 Miscellaneous Information 1 ea NOTE XX ; Start 07/17/18 at 14:00 Glucose (Glutose) 15 gm Q15M PRN PO DECREASED GLUCOSE; Start 07/17/18 at 14:00 Glucose (Glutose) 22.5 gm Q15M PRN PO DECREASED GLUCOSE; Start 07/17/18 at 14:00 Dextrose (D50w Syringe) 25 ml Q15M PRN IV DECREASED GLUCOSE Last administered on 07/18/18 09:31; Admin Dose 25 ML; Start 07/17/18 at 14:00 Dextrose (D50w Syringe) 50 ml Q15M PRN IV DECREASED GLUCOSE; Start 07/17/18 at 14:00 Glucagon (Glucagen) 1 mg Q15M PRN IM DECREASED GLUCOSE; Start 07/17/18 at 14:00 Glucose (Glutose) 15 gm Q15M PRN BUCCAL DECREASED GLUCOSE; Start 07/17/18 at 14:00 Dextrose (D50w Syringe) 25 ml AC MEALS PRN IV HYPOGLYCEMIA (BS<70); Start 07/17/18 at 19:00 Neomycin/ Polymyxin/ Bacitracin (Neosporin Topical Oint) 1 applic DAILY TOP Last administered on 07/21/18at 09:04; Admin Dose 1 APPLIC; Start 07/18/18 at 13:00 Clotrimazole (Lotrimin Cr) 1 applic BID TOP Last administered on 07/21/18 09:04; Admin Dose 1 APPLIC; Start 07/18/18 at 13:00 Piperacillin Sod/ Tazobactam Sod 50 ml @ 100 mls/hr Q8 IVPB Last administered on 07/21/18 05:31; Admin Dose 100 MLS/HR; Start 07/18/18 at 16:00; Stop 07/25/18 at 15:59 Acetaminophen (Tylenol Tab) 650 mg Q6H PRN PO MILD PAIN(1-3)OR ELEVATED TEMP Last administered on 1/21/19at 04:43; Admin Dose 650 MG; Start 07/19/18 at 13:30 Petrolatum (Vaseline) 1 applic BID TOP ; Start 07/20/18 at 09:00 Dextrose 1,000 ml @ 20 mls/hr Q24H IV Last administered on 07/20/18at 08:59; Admin Dose 20 MLS/HR; Start 07/20/18 at 08:30 Imaging Imaging CXR 07/20/18 IMPRESSION: No acute cardiopulmonary disease. Right sided tunneled dialysis catheter in place. ALEJANDRA FISHER NP Jul 21, 2018 10:02
--- NOTE | 2018-07-21 10:59 | CONS ---
Date/Time of Note Date/Time of Note DATE: 07/21/18 TIME: 10:57 Assessment/Plan Assessment/Plan Assessment/Plan 57 yo Female with 1) Acute Distal Left Femoral Comminuted Fracture 2) S/p Mechanical Fall 3) ESRD on HD every MWF 4) Anemia, Chronic, CKD 5) MBD, CKD 6) Chronic HTN 7) CAD, Chronic 8) DM with ESRD 9) Hx of CVA with residual left sided deficit 10) Chronic Lower back pain 11) Hyperkalemia 12) AMS- Resolved 13) Hypoglycemia- Resolved Seen by ID, Consultation reviewed MRI Reviewed No acute disease Baseline Mental status HD plan for Today. Ok from Renal standpoint for DC to Acute Rehab Will defer to PCP. Result Diagram: 07/18/18 0640 07/21/18 0447 Results 24hrs Laboratory Tests Test 07/20/18 12:43 07/20/18 17:13 07/21/18 04:47 07/21/18 08:55 Bedside Glucose 112 112 84 Sodium Level 131 L Potassium Level 4.4 Chloride Level 91 L Carbon Dioxide Level 28 Anion Gap 12 Blood Urea Nitrogen 38 H Creatinine 9.32 H Est Glomerular 5 L Filtrat Rate mL/min Glucose Level 102 Calcium Level 9.1 Phosphorus Level 5.7 H Consultation Date/Type/Reason Admit Date/Time Jul 03, 2018 at 05:32 Initial Consult Date 07/03/18 Type of Consult Nephrology Requesting Provider: GORDON HUDSON MD 24 HR Interval Summary Free Text/Dictation No new complaints, Awaiting HD today Normal mental status Constitutional: No requiring O2 Exam/Review of Systems Vital Signs Vitals Vital Signs Date Temp Pulse Resp B/P (MAP) Pulse Ox O2 O2 Flow FiO2 Time Delivery Rate 07/21/18 97.4 83 18 112/58 98 01:59 (76) 07/19/18 Room Air 14:34 Intake and Output 07/20/18 07/20/18 07/21/18 1414:59 22:59 06:59 IntakeIntake Total 120 ml 210 ml 290 ml BalanceBalance 120 ml 210 ml 290 ml Exam Constitutional: No distress ENMT: mucosa pink and moist Neck: No jvd Respiratory: clear to auscultation Cardiovascular: regular rate and rhythm, edema Gastrointestinal: soft Neurological: nl mental status, focal weakness; No confused, No lethargic Skin: No diaphoresis Medications Medications Current Medications Sevelamer Carbonate (Renvela) 0.8 gm WITH MEALS PO Last administered on 07/21/18 09:03; Admin Dose 0.8 GM; Start 07/03/18 at 17:55 Ondansetron HCl (Zofran Inj) 4 mg Q6H PRN IV NAUSEA AND/OR VOMITING Last administered on 07/20/18 23:15; Admin Dose 4 MG; Start 07/03/18 at 14:30 Famotidine (Pepcid) 20 mg DAILY PO Last administered on 07/21/18 09:03; Admin Dose 20 MG; Start 07/03/18 at 14:30 Morphine Sulfate (morphine) 2 mg Q4H PRN IV PAIN LEVEL 6-10 Last administered on 07/03/18 21:36; Admin Dose 2 MG; Start 07/03/18 at 17:30; Status Hold Acetaminophen/ Hydrocodone Bitart ([place] (7.5-325)) 1 tab Q4H PRN PO MODERATE PAIN LEVEL 4-6; Start 07/06/18 at 14:00; Status Hold Acetaminophen/ Hydrocodone Bitart ([place] (5/325)) 1 tab Q3H PRN PO MODERATE PAIN LEVEL 4-6 Last administered on 07/19/18 06:07; Admin Dose 1 TAB; Start 07/09/18 at 18:30 Heparin Sodium (Porcine) (Heparin (5000 Units/1ml)) 5,000 unit Q12 SC Last administered on 07/21/18 09:04; Admin Dose 5,000 UNIT; Start 07/10/18 at 09:00 Albumin Human 100 ml @ 100 mls/hr WITH DIALYSIS PRN IV BP support during dialysis Last administered on 07/12/18 16:35; Admin Dose 100 MLS/HR; Start 07/11/18 at 09:30 Bisacodyl (Dulcolax) 10 mg DAILY PRN PO CONSTIPATION Last administered on 07/13/18 08:44; Admin Dose 10 MG; Start 07/12/18 at 12:00 Docusate Sodium (Colace) 100 mg BID PO Last administered on 07/21/18 09:03; Admin Dose 100 MG; Start 07/12/18 at 21:00 Ferrous Sulfate (Ferrous Sulfate (Ec)) 325 mg BID PO Last administered on 09:03; Admin Dose 325 MG; Start 07/14/18 at 21:00 Diagnostic Test (Pha) (Accu-Chek) 1 ea AC MEALS XX Last administered on 07/21/18at 08:55; Admin Dose 1 EA; Start 07/17/18 at 17:25 Miscellaneous Information 1 ea NOTE XX ; Start 07/17/18 at 14:00 Glucose (Glutose) 15 gm Q15M PRN PO DECREASED GLUCOSE; Start 07/17/18 at 14:00 Glucose (Glutose) 22.5 gm Q15M PRN PO DECREASED GLUCOSE; Start 07/17/18 at 14:00 Dextrose (D50w Syringe) 25 ml Q15M PRN IV DECREASED GLUCOSE Last administered on 07/18/18 09:31; Admin Dose 25 ML; Start 07/17/18 at 14:00 Dextrose (D50w Syringe) 50 ml Q15M PRN IV DECREASED GLUCOSE; Start 07/17/18 at 14:00 Glucagon (Glucagen) 1 mg Q15M PRN IM DECREASED GLUCOSE; Start 07/17/18 at 14:00 Glucose (Glutose) 15 gm Q15M PRN BUCCAL DECREASED GLUCOSE; Start 07/17/18 at 14:00 Dextrose (D50w Syringe) 25 ml AC MEALS PRN IV HYPOGLYCEMIA (BS<70); Start 07/17/18 at 19:00 Neomycin/ Polymyxin/ Bacitracin (Neosporin Topical Oint) 1 applic DAILY TOP Last administered on 07/21/18at 09:04; Admin Dose 1 APPLIC; Start 07/18/18 at 13:00 Clotrimazole (Lotrimin Cr) 1 applic BID TOP Last administered on 07/21/18at 09:04; Admin Dose 1 APPLIC; Start 07/18/18 at 13:00 Piperacillin Sod/ Tazobactam Sod 50 ml @ 100 mls/hr Q8 IVPB Last administered on 07/21/18 05:31; Admin Dose 100 MLS/HR; Start 07/18/18 at 16:00; Stop 07/25/18 at 15:59 Acetaminophen (Tylenol Tab) 650 mg Q6H PRN PO MILD PAIN(1-3)OR ELEVATED TEMP Last administered on 07/21/18at 04:43; Admin Dose 650 MG; Start 07/19/18 at 13:30 Petrolatum (Vaseline) 1 applic BID TOP ; Start 07/20/18 at 09:00 Dextrose 1,000 ml @ 20 mls/hr Q24H IV Last administered on 07/20/18at 08:59; Admin Dose 20 MLS/HR; Start 07/20/18 at 08:30 SHARON ESPINOZA MD Jul 21, 2018 10:58
[2018-07-21] MEDS: PETROLATUM 28.35 GM JELLY TOP SCH ×2 (11:37→21:12)
[2018-07-21] MEDS: ALBUMIN HUMAN 25% 100 ML IV PRN (13:44)
--- NOTE | 2018-07-21 14:59 | CONS ---
Assessment/Plan Assessment/Plan Hospital Course 57 yo F with hx of CVA and other comorbidities who initially presented for management of a L femur fracture. She was noted to be protractedly encephalopathic... for which neurology is consulted. The clinical picture raises concern for delirium, as can be seen in a prolonged hospitalization. There is a likely superimposed medication adverse effect... Stroke is unlikely. MRI brain is without acute intracranial pathology, though is notable for chronic infarcts. P: Reorient as necessary Limit sedating medications where possible PT/OT as tolerated Continued management per primary Will follow clinically Result Diagram: 07/18/18 0640 07/21/18 0447 Results 24hrs Laboratory Tests Test 07/20/18 17:13 07/21/18 04:47 07/21/18 08:55 07/21/18 12:32 Bedside Glucose 112 84 112 Sodium Level 131 L Potassium Level 4.4 Chloride Level 91 L Carbon Dioxide Level 28 Anion Gap 12 Blood Urea Nitrogen 38 H Creatinine 9.32 H Est Glomerular 5 L Filtrat Rate mL/min Glucose Level 102 Calcium Level 9.1 Phosphorus Level 5.7 H Consultation Date/Type/Reason Admit Date/Time Jul 03, 2018 at 05:32 Type of Consult Neurology Reason for Consultation worsening ams Requesting Provider: GORDON HUDSON MD Date/Time of Note DATE: 07/21/18 TIME: 14:59 24 HR Interval Summary Free Text/Dictation Continues medsurg monitoring. Receiving HD. Pt states that she's doing well today. Exam Vital Signs Vitals Vital Signs Date Temp Pulse Resp B/P (MAP) Pulse Ox O2 O2 Flow FiO2 Time Delivery Rate 07/21/18 65 14:15 07/21/18 17 96/51 (66) 98 Room Air 14:10 07/21/18 97.4 01:59 Intake and Output 07/20/18 07/20/18 07/21/18 1515:00 23:00 07:00 IntakeIntake Total 120 ml 210 ml 290 ml BalanceBalance 120 ml 210 ml 290 ml Exam PE: Gen Appearance: No Apparent Distress HEENT: Normocephalic Cardiovascular: Regular rate Lungs: Clear bilaterally Abdomen: Soft Extremities: Dry NE: The patient was alert and oriented. Language was normal. Fund of knowledge was adequate. Pupils were equal and reactive to light. There was no afferent pupillary defect. Visual aquino were normal. Funduscopic examination was limited. Extra-ocular movements were full. Ptosis was absent. There was no nystagmus. Facial sensation was normal. Face was symmetric with normal strength. Hearing was intact. Palate movements were normal. Neck strength was normal. There was normal tongue bulk and speed of movement. Tone was normal. Muscle bulk was normal. I did not see fasciculations. Arms were strong. Vibration sensation was normal. Temperature and pinprick sensation was normal. Rapid alternating movements were normal. There was no dysmetria. There was no intention tremor. Gait was deferred due to bedrest. Arm and leg reflexes were symmetric. Quinones's sign was absent. Plantar responses were flexor. MATY BAZZI NP Jul 21, 2018 14:59
[2018-07-21] MEDS: HEPARIN 1000 UNITS/ML 10 ML INJ CATHETER SCH (16:42)
--- NOTE | 2018-07-21 20:22 | DS ---
Date/Time of Note Date/Time of Note DATE: 07/21/18 TIME: 20:20 Discharge Summary Admission/Discharge Info Admit Date/Time Jul 03, 2018 at 05:32 Discharge Date/Time Patient Condition: Stable Hx of Present Illness The patient is 57-year-old female with history of cerebrovascular accident with left-sided weakness, end-stage renal disease, on hemodialysis 3 times per week, anemia, diabetes and chronic dislocation of the left shoulder. Patient is wheelchair-bound. Patient presented to emergency room with complaints of generalized weakness and extreme left knee pain. Patient sustained a mechanical ground-level fall when she was helped to transfer from [facility] to the wheelchair. Patient denies any fever denies she is chills denies nausea vomiting diarrhea. X-ray revealed acute comminuted distal left femoral fracture without dislocation. Patient will be admitted for further evaluation and management. Hospital Course Pending transfer to ARU -Altered mental status, resolved. Pt neuro is at her baseline, alert and oriented. CT of the brain ans MRI are negative for acute intracranial pathology. Pt with hx of stroke with left-sided weakness. Dr. a[place]port is following in neurology consultation. -Acute comminuted distal left femoral fracture without dislocation. S/p ORIF of the comminuted and displaced supracondylar fracture of the left femur by Dr. Gutierres on 07/09/18. -Hemodialysis dependent end-stage renal disease. Continue on hemodialysis. Dr. Tucker is following in nephrology consultation. -Diabetes mellitus -History of cerebrovascular accident with left-sided paralysis. -Anemia of chronic disease. Continue to monitor hemoglobin and hematocrit. Currently stable. -Chronic dislocation of the left shoulder. No acute issues. -Mineral bone disease Plan of care discussed with Dr. Rousseau. Home Meds Reported Medications Hydrocodone Bit-Acetaminophen* (V[place]odin* ES) 7.5-300 Mg Tablet, 1 TAB PO BID PRN for SEVERE PAIN LEVEL 7-10, TAB 03/12/16 Sevelamer Carbonate* (Renvela*) 800 Mg Tablet, 0.8 GM PO TID, TAB 03/12/16 Baclofen* (Baclofen*) 10 Mg Tablet, 10 MG PO TID, TAB 07/13/15 Clopidogrel Bisulfate (Plavix) 75 Mg Tablet, 75 MG PO DAILY 05/31/11 Primary Care Provider Dallas Alcantara MD Time spent on discharge: > 30 minutes Pending Labs Laboratory Tests Test 07/21/18 04:47 07/21/18 08:55 07/21/18 12:32 07/21/18 17:58 Sodium Level 131 mmol/L (135-144 ) Potassium 4.4 Level mmol/L (3.5-5.1 ) Chloride Level 91 mmol/L (97-110) Carbon Dioxide 28 Level mmol/L (21-31) Anion Gap 12 (5-13) Blood Urea 38 mg/dl (7-20) Nitrogen Creatinine 9.32 mg/dl (0.44-1.0 0) Est Glomerular 5 mL/min (>60) Filtrat Rate mL/min Glucose Level 102 mg/dl (70-220) Calcium Level 9.1 mg/dl (8.4-10.2 ) Phosphorus 5.7 Level mg/dl (2.5-4.9) Bedside 84 112 105 Glucose mg/dL (70-220) mg/dL (70-220) mg/dL (70-220) JESSICA GROVE Jul 21, 2018 20:22
[2018-07-22 00:25] VITALS: BP 125/58; PULSE 71; RESP 18
[2018-07-22] MEDS: BISACODYL (EC) 5 MG TAB PO PRN (01:33)
[2018-07-22] MEDS: ACETAMINOPHEN 325 MG TAB PO PRN (04:28)
[2018-07-22] MEDS: PIPER-TAZO 2.25 GM (PMX) 50 ML IVPB SCH ×3 (05:22→21:39)
[2018-07-22 07:40] VITALS: BP 92/56; PULSE 69; RESP 18
[2018-07-22] MEDS: DEXTROSE 10% 1,000 ML IV SCH (08:30)
[2018-07-22] MEDS: DOCUSATE SODIUM 100 MG CAP PO SCH ×2 (09:00→20:47)
[2018-07-22] MEDS: FERROUS SULFATE (EC) 325 MG TAB PO SCH ×2 (09:00→21:00)
[2018-07-22] MEDS: ACCU-CHEK XX SCH ×3 (09:05→18:47)
[2018-07-22] MEDS: SEVELAMER CARBONATE 0.8 GM PKT PO SCH ×3 (09:05→18:47)
[2018-07-22] MEDS: FAMOTIDINE 20 MG TAB PO SCH (09:06)
[2018-07-22] MEDS: HEPARIN 5,000 UNIT/1 ML VIAL SC SCH ×2 (09:11→21:24)
--- NOTE | 2018-07-22 11:03 | CONS ---
Date/Time of Note Date/Time of Note DATE: 07/22/18 TIME: 11:02 Assessment/Plan Assessment/Plan Hospital Course - S/p mental status change post-op. now oriented x3. Her confusion may be related to morphine. Head CT on 07/08/2018 and head MRI on 07/18/2018 showed no acute pathology. - Possible aspiration pneumonia/HCAP, on empiric pip/tazo 07/18/2018- ordered for 7 day per PMD - R knee pain - Lower lip ulcer; Pt does not think it is HSV; she denies pain. On vaseline cream - Nausea without emesis - ESRD on HD via catheter on R chest wall - DM - H/o CVA with L sided weakness - R knee pain, due to DJD - A mechanical fall - H/o acute comminuted distal L femoral Fx without dislocation - H/o open reduction and internal fixation of the comminuted and displaced supracondylar fracture of L femur. Recommendations: - Continue pip/tazo (07/18/2018-), we recommend 5-7 days - Continue to apply vaseline to the lower lip - Not to use morphine for pain control - Monitor for nausea Result Diagram: 07/18/18 0640 07/21/18 0447 Results 24hrs Laboratory Tests Test 07/21/18 12:32 07/21/18 17:58 07/22/18 09:03 Bedside Glucose 112 105 102 Consultation Date/Type/Reason Admit Date/Time Jul 03, 2018 at 05:32 Initial Consult Date 07/19/18 Requesting Provider: GORDON HUDSON MD 24 HR Interval Summary Free Text/Dictation patient states she feels better. Exam/Review of Systems Vital Signs Vitals Vital Signs Date Temp Pulse Resp B/P (MAP) Pulse Ox O2 O2 Flow FiO2 Time Delivery Rate 07/22/18 98.2 69 18 92/56 (68) 96 07:40 07/21/18 Room Air 16:48 Intake and Output 07/21/18 07/21/18 07/22/18 1515:00 23:00 07:00 IntakeIntake Total 100 ml 300 ml 290 ml OutputOutput Total 0 ml 2500 ml BalanceBalance 100 ml -2200 ml 290 ml Exam Constitutional: alert, oriented Psych: no complaints Head: normocephalic, atraumatic Eyes: EOMI Neck: supple Respiratory: clear to auscultation Cardiovascular: regular rate and rhythm Gastrointestinal: soft Medications Medications Current Medications Sevelamer Carbonate (Renvela) 0.8 gm WITH MEALS PO Last administered on 07/22/18 09:05; Admin Dose 0.8 GM; Start 07/03/18 at 17:55 Ondansetron HCl (Zofran Inj) 4 mg Q6H PRN IV NAUSEA AND/OR VOMITING Last administered on 07/20/18 23:15; Admin Dose 4 MG; Start 07/03/18 at 14:30 Famotidine (Pepcid) 20 mg DAILY PO Last administered on 07/22/18 09:06; Admin Dose 20 MG; Start 07/03/18 at 14:30 Morphine Sulfate (morphine) 2 mg Q4H PRN IV PAIN LEVEL 6-10 Last administered on 07/03/18 21:36; Admin Dose 2 MG; Start 07/03/18 at 17:30; Status Hold Acetaminophen/ Hydrocodone Bitart ([place] (7.5-325)) 1 tab Q4H PRN PO MODERATE PAIN LEVEL 4-6; Start 07/06/18 at 14:00; Status Hold Acetaminophen/ Hydrocodone Bitart ([place] (5/325)) 1 tab Q3H PRN PO MODERATE PAIN LEVEL 4-6 Last administered on 07/19/18 06:07; Admin Dose 1 TAB; Start 07/09/18 at 18:30 Heparin Sodium (Porcine) (Heparin (5000 Units/1ml)) 5,000 unit Q12 SC Last administered on 07/22/18 09:11; Admin Dose 5,000 UNIT; Start 07/10/18 at 09:00 Albumin Human 100 ml @ 100 mls/hr WITH DIALYSIS PRN IV BP support during dialysis Last administered on 07/21/18 13:44; Admin Dose 100 MLS/HR; Start 07/11/18 at 09:30 Bisacodyl (Dulcolax) 10 mg DAILY PRN PO CONSTIPATION Last administered on 07/22/18 01:33; Admin Dose 10 MG; Start 07/12/18 at 12:00 Docusate Sodium (Colace) 100 mg BID PO Last administered on 07/21/18 21:12; Admin Dose 100 MG; Start 07/12/18 at 21:00 Ferrous Sulfate (Ferrous Sulfate (Ec)) 325 mg BID PO Last administered on 07/21/18at 21:12; Admin Dose 325 MG; Start 07/14/18 at 21:00 Diagnostic Test (Pha) (Accu-Chek) 1 ea AC MEALS XX Last administered on 07/22/18at 09:05; Admin Dose 1 EA; Start 07/17/18 at 17:25 Miscellaneous Information 1 ea NOTE XX ; Start 07/17/18 at 14:00 Glucose (Glutose) 15 gm Q15M PRN PO DECREASED GLUCOSE; Start 07/17/18 at 14:00 Glucose (Glutose) 22.5 gm Q15M PRN PO DECREASED GLUCOSE; Start 07/17/18 at 14:00 Dextrose (D50w Syringe) 25 ml Q15M PRN IV DECREASED GLUCOSE Last administered on 07/18/18at 09:31; Admin Dose 25 ML; Start 07/17/18 at 14:00 Dextrose (D50w Syringe) 50 ml Q15M PRN IV DECREASED GLUCOSE; Start 07/17/18 at 14:00 Glucagon (Glucagen) 1 mg Q15M PRN IM DECREASED GLUCOSE; Start 07/17/18 at 14:00 Glucose (Glutose) 15 gm Q15M PRN BUCCAL DECREASED GLUCOSE; Start 07/17/18 at 14:00 Dextrose (D50w Syringe) 25 ml AC MEALS PRN IV HYPOGLYCEMIA (BS<70); Start 07/17/18 at 19:00 Neomycin/ Polymyxin/ Bacitracin (Neosporin Topical Oint) 1 applic DAILY TOP Last administered on 07/21/18at 09:04; Admin Dose 1 APPLIC; Start 07/18/18 at 13:00 Clotrimazole (Lotrimin Cr) 1 applic BID TOP Last administered on 07/21/18at 21:13; Admin Dose 1 APPLIC; Start 07/18/18 at 13:00 Piperacillin Sod/ Tazobactam Sod 50 ml @ 100 mls/hr Q8 IVPB Last administered on 07/22/18at 05:22; Admin Dose 100 MLS/HR; Start 07/18/18 at 16:00; Stop 07/25/18 at 15:59 Acetaminophen (Tylenol Tab) 650 mg Q6H PRN PO MILD PAIN(1-3)OR ELEVATED TEMP Last administered on 07/22/18 04:28; Admin Dose 650 MG; Start 07/19/18 at 13:30 Petrolatum (Vaseline) 1 applic BID TOP Last administered on 07/21/18at 21:12; Admin Dose 1 APPLIC; Start 07/20/18 at 09:00 Dextrose 1,000 ml @ 20 mls/hr Q24H IV Last administered on 07/20/18at 08:59; Admin Dose 20 MLS/HR; Start 07/20/18 at 08:30 Heparin Sodium (Porcine) (Heparin (1000 Units/ml)) 3,200 unit AFTER DIALYSIS CATHETER Last administered on 07/21/18at 16:42; Admin Dose 3,200 UNIT; Start 07/21/18 at 13:30 MASHA PAULA MD Jul 22, 2018 11:03
--- NOTE | 2018-07-22 13:07 | CONS ---
Assessment/Plan Assessment/Plan Assessment/Plan VS reviewed - stable. Result Diagram: 07/18/18 0640 07/21/18 0447 Results 24hrs Laboratory Tests Test 07/21/18 17:58 07/22/18 09:03 Bedside Glucose 105 102 Consultation Date/Type/Reason Admit Date/Time Jul 03, 2018 at 05:32 Initial Consult Date 07/03/18 Requesting Provider: GORDON HUDSON MD Exam/Review of Systems Vital Signs Vitals Vital Signs Date Temp Pulse Resp B/P (MAP) Pulse Ox O2 O2 Flow FiO2 Time Delivery Rate 07/22/18 98.2 69 18 92/56 (68) 96 07:40 07/21/18 Room Air 16:48 Intake and Output 07/21/18 07/21/18 07/22/18 1515:00 23:00 07:00 IntakeIntake Total 100 ml 300 ml 290 ml OutputOutput Total 0 ml 2500 ml BalanceBalance 100 ml -2200 ml 290 ml Medications Medications Current Medications Sevelamer Carbonate (Renvela) 0.8 gm WITH MEALS PO Last administered on 07/22/18at 09:05; Admin Dose 0.8 GM; Start 07/03/18 at 17:55 Ondansetron HCl (Zofran Inj) 4 mg Q6H PRN IV NAUSEA AND/OR VOMITING Last ad ministered on 07/20/18at 23:15; Admin Dose 4 MG; Start 07/03/18 at 14:30 Famotidine (Pepcid) 20 mg DAILY PO Last administered on 07/22/18at 09:06; Admin Dose 20 MG; Start 07/03/18 at 14:30 Morphine Sulfate (morphine) 2 mg Q4H PRN IV PAIN LEVEL 6-10 Last administered on 07/03/18at 21:36; Admin Dose 2 MG; Start 07/03/18 at 17:30; Status Hold Acetaminophen/ Hydrocodone Bitart ([place] (7.5-325)) 1 tab Q4H PRN PO MODERATE PAIN LEVEL 4-6; Start 07/06/18 at 14:00; Status Hold Acetaminophen/ Hydrocodone Bitart ([place] (5/325)) 1 tab Q3H PRN PO MODERATE PAIN LEVEL 4-6 Last administered on 07/19/18at 06:07; Admin Dose 1 TAB; Start 07/09/18 at 18:30 Heparin Sodium (Porcine) (Heparin (5000 Units/1ml)) 5,000 unit Q12 SC Last administered on 07/22/18at 09:11; Admin Dose 5,000 UNIT; Start 07/10/18 at 09:00 Albumin Human 100 ml @ 100 mls/hr WITH DIALYSIS PRN IV BP support during dialysis Last administered on 07/21/18at 13:44; Admin Dose 100 MLS/HR; Start 07/11/18 at 09:30 Bisacodyl (Dulcolax) 10 mg DAILY PRN PO CONSTIPATION Last administered on 07/22/18at 01:33; Admin Dose 10 MG; Start 07/12/18 at 12:00 Docusate Sodium (Colace) 100 mg BID PO Last administered on 07/21/18at 21:12; Admin Dose 100 MG; Start 07/12/18 at 21:00 Ferrous Sulfate (Ferrous Sulfate (Ec)) 325 mg BID PO Last administered on 07/02 07/19at 21:12; Admin Dose 325 MG; Start 07/14/18 at 21:00 Diagnostic Test (Pha) (Accu-Chek) 1 ea AC MEALS XX Last administered on 07/22/18at 09:05; Admin Dose 1 EA; Start 07/17/18 at 17:25 Miscellaneous Information 1 ea NOTE XX ; Start 07/17/18 at 14:00 Glucose (Glutose) 15 gm Q15M PRN PO DECREASED GLUCOSE; Start 07/17/18 at 14:00 Glucose (Glutose) 22.5 gm Q15M PRN PO DECREASED GLUCOSE; Start 07/17/18 at 14:00 Dextrose (D50w Syringe) 25 ml Q15M PRN IV DECREASED GLUCOSE Last administered on 07/18/18at 09:31; Admin Dose 25 ML; Start 07/17/18 at 14:00 Dextrose (D50w Syringe) 50 ml Q15M PRN IV DECREASED GLUCOSE; Start 07/17/18 at 14:00 Glucagon (Glucagen) 1 mg Q15M PRN IM DECREASED GLUCOSE; Start 07/17/18 at 14:00 Glucose (Glutose) 15 gm Q15M PRN BUCCAL DECREASED GLUCOSE; Start 07/17/18 at 14:00 Dextrose (D50w Syringe) 25 ml AC MEALS PRN IV HYPOGLYCEMIA (BS<70); Start 07/17/18 at 19:00 Neomycin/ Polymyxin/ Bacitracin (Neosporin Topical Oint) 1 applic DAILY TOP Last administered on 07/21/18at 09:04; Admin Dose 1 APPLIC; Start 07/18/18 at 13:00 Clotrimazole (Lotrimin Cr) 1 applic BID TOP Last administered on 07/21/18at 21:13; Admin Dose 1 APPLIC; Start 07/18/18 at 13:00 Piperacillin Sod/ Tazobactam Sod 50 ml @ 100 mls/hr Q8 IVPB Last administered on 07/22/18 05:22; Admin Dose 100 MLS/HR; Start 07/18/18 at 16:00; Stop 07/25/18 at 15:59 Acetaminophen (Tylenol Tab) 650 mg Q6H PRN PO MILD PAIN(1-3)OR ELEVATED TEMP Last administered on 07/22/18 04:28; Admin Dose 650 MG; Start 07/19/18 at 13:30 Petrolatum (Vaseline) 1 applic BID TOP Last administered on 07/21/18at 21:12; Admin Dose 1 APPLIC; Start 07/20/18 at 09:00 Dextrose 1,000 ml @ 20 mls/hr Q24H IV Last administered on 07/20/18 08:59; Admin Dose 20 MLS/HR; Start 07/20/18 at 08:30 Heparin Sodium (Porcine) (Heparin (1000 Units/ml)) 3,200 unit AFTER DIALYSIS CATHETER Last administered on 07/21/18at 16:42; Admin Dose 3,200 UNIT; Start 07/21/18 at 13:30 Date/Time of Note Date/Time of Note DATE: 07/22/18 TIME: 13:07 JESSICA THOMPSON MD Jul 22, 2018 13:07
[2018-07-22] MEDS: CLOTRIMAZOLE 1% 30 GM CR TOP SCH ×2 (15:34→21:28)
[2018-07-22] MEDS: NEOMYC/POLYMYX/BACIT 30 GM OINT TOP SCH (15:34)
[2018-07-22] MEDS: PETROLATUM 28.35 GM JELLY TOP SCH ×2 (15:34→21:28)
[2018-07-22 17:15] VITALS: BP 106/54; PULSE 74; RESP 18
--- NOTE | 2018-07-22 17:17 | PN ---
Date/Time of Note Date/Time of Note DATE: 07/22/18 TIME: 17:17 Assessment/Plan VTE Prophylaxis Risk score (from Ns)>0 risk: 4 SCD applied (from Ns): Yes Pharmacological prophylaxis: NA/contraindicated Pharm contraindication: surgical contra Lines/Catheters [facility]from [facility] Permacath Urinary Cath still in place: No Assessment/Plan Hospital Course Patient neuro status is at baseline she is awake alert, hemodynamically stable, plan for hemodialysis tomorrow, continue physical therapy awaits for bed availability at [facility]. Assessment/Plan -Altered mental status, resolved. Pt neuro is at her baseline, alert and oriented. CT of the brain ans MRI are negative for acute intracranial pathology. Pt with hx of stroke with left-sided weakness. Dr. Davenport is following in neurology consultation. -Acute comminuted distal left femoral fracture without dislocation. S/p ORIF of the comminuted and displaced supracondylar fracture of the left femur by Dr. Gutierres on 07/09/18. -Hemodialysis dependent end-stage renal disease. Continue on hemodialysis. Dr. Tucker is following in nephrology consultation. -Diabetes mellitus -History of cerebrovascular accident with left-sided paralysis. -Anemia of chronic disease. Continue to monitor hemoglobin and hematocrit. Currently stable. -Chronic dislocation of the left shoulder. No acute issues. -Mineral bone disease Further recommendations based on clinical course. Plan of care discussed with Dr. Rousseau. Result Diagram: 07/18/18 0640 07/21/18 0447 Results 24hrs Laboratory Tests Test 07/21/18 17:58 07/22/18 09:03 07/22/18 13:15 Bedside Glucose 105 102 122 Exam/Review of Systems Vital Signs Vitals Vital Signs Date Temp Pulse Resp B/P (MAP) Pulse Ox O2 O2 Flow FiO2 Time Delivery Rate 07/22/18 98.5 74 18 106/54 98 Room Air 17:15 (71) Intake and Output 07/21/18 07/21/18 07/22/18 1515:00 23:00 07:00 IntakeIntake Total 100 ml 300 ml 290 ml OutputOutput Total 0 ml 2500 ml BalanceBalance 100 ml -2200 ml 290 ml Exam Constitutional: alert, confused Respiratory: clear to auscultation Cardiovascular: nl pulses Gastrointestinal: soft, non-tender Musculoskeletal: other (LLE s/p surgery, immobilizer) Extremities: normal pulses Neurological: other (Left-sided weakness from previous stroke) Skin: nl turgor Medications Medications Current Medications Sevelamer Carbonate (Renvela) 0.8 gm WITH MEALS PO Last administered on 07/22/18 09:05; Admin Dose 0.8 GM; Start 07/03/18 at 17:55 Ondansetron HCl (Zofran Inj) 4 mg Q6H PRN IV NAUSEA AND/OR VOMITING Last administered on 07/20/18 23:15; Admin Dose 4 MG; Start 07/03/18 at 14:30 Famotidine (Pepcid) 20 mg DAILY PO Last administered on 07/22/18 09:06; Admin Dose 20 MG; Start 07/03/18 at 14:30 Morphine Sulfate (morphine) 2 mg Q4H PRN IV PAIN LEVEL 6-10 Last administered on 07/03/18 21:36; Admin Dose 2 MG; Start 07/03/18 at 17:30; Status Hold Acetaminophen/ Hydrocodone Bitart ([place] (7.5-325)) 1 tab Q4H PRN PO MODERATE PAIN LEVEL 4-6; Start 07/06/18 at 14:00; Status Hold Acetaminophen/ Hydrocodone Bitart ([place] (5/325)) 1 tab Q3H PRN PO MODERATE PAIN LEVEL 4-6 Last administered on 07/19/18 06:07; Admin Dose 1 TAB; Start 07/09/18 at 18:30 Heparin Sodium (Porcine) (Heparin (5000 Units/1ml)) 5,000 unit Q12 SC Last administered on 07/22/18 09:11; Admin Dose 5,000 UNIT; Start 07/10/18 at 09:00 Albumin Human 100 ml @ 100 mls/hr WITH DIALYSIS PRN IV BP support during dialysis Last administered on 07/21/18 13:44; Admin Dose 100 MLS/HR; Start 07/11/18 at 09:30 Bisacodyl (Dulcolax) 10 mg DAILY PRN PO CONSTIPATION Last administered on 07/22/18 01:33; Admin Dose 10 MG; Start 07/12/18 at 12:00 Docusate Sodium (Colace) 100 mg BID PO Last administered on 07/21/18 21:12; Admin Dose 100 MG; Start 07/12/18 at 21:00 Ferrous Sulfate (Ferrous Sulfate (Ec)) 325 mg BID PO Last administered on 07/21/18at 21:12; Admin Dose 325 MG; Start 07/14/18 at 21:00 Diagnostic Test (Pha) (Accu-Chek) 1 ea AC MEALS XX Last administered on 07/22/18at 13:13; Admin Dose 1 EA; Start 07/17/18 at 17:25 Miscellaneous Information 1 ea NOTE XX ; Start 07/17/18 at 14:00 Glucose (Glutose) 15 gm Q15M PRN PO DECREASED GLUCOSE; Start 07/17/18 at 14:00 Glucose (Glutose) 22.5 gm Q15M PRN PO DECREASED GLUCOSE; Start 07/17/18 at 14:00 Dextrose (D50w Syringe) 25 ml Q15M PRN IV DECREASED GLUCOSE Last administered on 07/18/18at 09:31; Admin Dose 25 ML; Start 07/17/18 at 14:00 Dextrose (D50w Syringe) 50 ml Q15M PRN IV DECREASED GLUCOSE; Start 07/17/18 at 14:00 Glucagon (Glucagen) 1 mg Q15M PRN IM DECREASED GLUCOSE; Start 07/17/18 at 14:00 Glucose (Glutose) 15 gm Q15M PRN BUCCAL DECREASED GLUCOSE; Start 07/17/18 at 14:00 Dextrose (D50w Syringe) 25 ml AC MEALS PRN IV HYPOGLYCEMIA (BS<70); Start 07/17/18 at 19:00 Neomycin/ Polymyxin/ Bacitracin (Neosporin Topical Oint) 1 applic DAILY TOP Last administered on 07/22/18at 15:34; Admin Dose 1 APPLIC; Start 07/18/18 at 13:00 Clotrimazole (Lotrimin Cr) 1 applic BID TOP Last administered on 07/22/18at 15:34; Admin Dose 1 APPLIC; Start 07/18/18 at 13:00 Piperacillin Sod/ Tazobactam Sod 50 ml @ 100 mls/hr Q8 IVPB Last administered on 07/22/18at 15:39; Admin Dose 100 MLS/HR; Start 07/18/18 at 16:00; Stop 07/25/18 at 15:59 Acetaminophen (Tylenol Tab) 650 mg Q6H PRN PO MILD PAIN(1-3)OR ELEVATED TEMP Last administered on 07/22/18 04:28; Admin Dose 650 MG; Start 07/19/18 at 13:30 Petrolatum (Vaseline) 1 applic BID TOP Last administered on 07/22/18at 15:34; Admin Dose 1 APPLIC; Start 07/20/18 at 09:00 Dextrose 1,000 ml @ 20 mls/hr Q24H IV Last administered on 07/22/18 08:30; Admin Dose 20 MLS/HR; Start 07/20/18 at 08:30 Heparin Sodium (Porcine) (Heparin (1000 Units/ml)) 3,200 unit AFTER DIALYSIS CATHETER Last administered on 07/21/18at 16:42; Admin Dose 3,200 UNIT; Start 07/21/18 at 13:30 JESSICA GROVE Jul 22, 2018 17:17
--- NOTE | 2018-07-22 17:35 | CONS ---
Assessment/Plan Assessment/Plan Hospital Course 57 yo F with hx of CVA and other comorbidities who initially presented for management of a L femur fracture. She was noted to be protractedly encephalopathic... for which neurology is consulted. The clinical picture raises concern for delirium, as can be seen in a prolonged hospitalization. There is a likely superimposed medication adverse effect... Stroke is unlikely. MRI brain is without acute intracranial pathology, though is notable for chronic infarcts. P: Reorient as necessary Limit sedating medications where possible PT/OT as tolerated Continued management per primary Will follow clinically Result Diagram: 07/18/18 0640 07/21/18 0447 Results 24hrs Laboratory Tests Test 07/21/18 17:58 07/22/18 09:03 07/22/18 13:15 Bedside Glucose 105 102 122 Consultation Date/Type/Reason Admit Date/Time Jul 03, 2018 at 05:32 Type of Consult Neurology Reason for Consultation worsening ams Requesting Provider: GORDON UHDSON MD Date/Time of Note DATE: 07/22/18 TIME: 17:34 24 HR Interval Summary Free Text/Dictation Continues medsurg monitoring. No acute events or changes in pt condition reported. Exam Vital Signs Vitals Vital Signs Date Temp Pulse Resp B/P (MAP) Pulse Ox O2 O2 Flow FiO2 Time Delivery Rate 07/22/18 98.5 74 18 106/54 98 Room Air 17:15 (71) Intake and Output 07/21/18 07/21/18 07/22/18 1515:00 23:00 07:00 IntakeIntake Total 100 ml 300 ml 290 ml OutputOutput Total 0 ml 2500 ml BalanceBalance 100 ml -2200 ml 290 ml Exam PE: Gen Appearance: No Apparent Distress HEENT: Normocephalic Cardiovascular: Regular rate Lungs: Clear bilaterally Abdomen: Soft Extremities: Dry NE: The patient was alert and oriented. Language was normal. Fund of knowledge was adequate. Pupils were equal and reactive to light. There was no afferent pupillary defect. Visual aquino were normal. Funduscopic examination was limited. Extra-ocular movements were full. Ptosis was absent. There was no nystagmus. Facial sensation was normal. Face was symmetric with normal strength. Hearing was intact. Palate movements were normal. Neck strength was normal. There was normal tongue bulk and speed of movement. Tone was normal. Muscle bulk was normal. I did not see fasciculations. Arms were strong. Vibration sensation was normal. Temperature and pinprick sensation was normal. Rapid alternating movements were normal. There was no dysmetria. There was no intention tremor. Gait was deferred due to bedrest. Arm and leg reflexes were symmetric. Quinones's sign was absent. Plantar responses were flexor. MATY BAZZI NP Jul 22, 2018 17:35
--- NOTE | 2018-07-22 18:37 | CONS ---
Assessment/Plan Assessment/Plan Assessment/Plan 57 yo Female with 1) Acute Distal Left Femoral Comminuted Fracture 2) S/p Mechanical Fall 3) ESRD on HD every MWF 4) Anemia, Chronic, CKD 5) MBD, CKD 6) Chronic HTN 7) CAD, Chronic 8) DM with ESRD 9) Hx of CVA with residual left sided deficit 10) Chronic Lower back pain 11) Hyperkalemia 12) AMS- Resolved 13) Hypoglycemia- Resolved No need for labs from my perspective. MRI Reviewed No acute disease Baseline Mental status HD plan for Tomorrow Ok from Renal standpoint for DC to Acute Rehab Will defer to PCP. Result Diagram: 07/18/18 0640 07/21/18 0447 Results 24hrs Laboratory Tests Test 07/22/18 09:03 07/22/18 13:15 Bedside Glucose 102 122 Consultation Date/Type/Reason Admit Date/Time Jul 03, 2018 at 05:32 Initial Consult Date 07/03/18 Type of Consult Nephrology Requesting Provider: GORDON HUDSON MD 24 HR Interval Summary Free Text/Dictation Back to baseline, No new complaints. Constitutional: No requiring O2 Exam/Review of Systems Vital Signs Vitals Vital Signs Date Temp Pulse Resp B/P (MAP) Pulse Ox O2 O2 Flow FiO2 Time Delivery Rate 07/22/18 98.5 74 18 106/54 98 Room Air 17:15 (71) Intake and Output 07/21/18 07/21/18 07/22/18 1515:00 23:00 07:00 IntakeIntake Total 100 ml 300 ml 290 ml OutputOutput Total 0 ml 2500 ml BalanceBalance 100 ml -2200 ml 290 ml Exam Constitutional: No distress ENMT: mucosa pink and moist Neck: No jvd Respiratory: clear to auscultation; No labored breathing Cardiovascular: regular rate and rhythm; No edema Gastrointestinal: soft Neurological: nl mental status; No confused, No lethargic Skin: No diaphoresis Medications Medications Current Medications Sevelamer Carbonate (Renvela) 0.8 gm WITH MEALS PO Last administered on 07/22/18at 09:05; Admin Dose 0.8 GM; Start 07/03/18 at 17:55 Ondansetron HCl (Zofran Inj) 4 mg Q6H PRN IV NAUSEA AND/OR VOMITING Last administered on 07/20/18at 23:15; Admin Dose 4 MG; Start 07/03/18 at 14:30 Famotidine (Pepcid) 20 mg DAILY PO Last administered on 07/22/18 09:06; Admin Dose 20 MG; Start 07/03/18 at 14:30 Morphine Sulfate (morphine) 2 mg Q4H PRN IV PAIN LEVEL 6-10 Last administered on 07/03/18at 21:36; Admin Dose 2 MG; Start 07/03/18 at 17:30; Status Hold Acetaminophen/ Hydrocodone Bitart ([place] (7.5-325)) 1 tab Q4H PRN PO MODERATE PAIN LEVEL 4-6; Start 07/06/18 at 14:00; Status Hold Acetaminophen/ Hydrocodone Bitart ([place] (5/325)) 1 tab Q3H PRN PO MODERATE PAIN LEVEL 4-6 Last administered on 07/19/18at 06:07; Admin Dose 1 TAB; Start 07/09/18 at 18:30 Heparin Sodium (Porcine) (Heparin (5000 Units/1ml)) 5,000 unit Q12 SC Last administered on 07/22/18at 09:11; Admin Dose 5,000 UNIT; Start 07/10/18 at 09:00 Albumin Human 100 ml @ 100 mls/hr WITH DIALYSIS PRN IV BP support during dialysis Last administered on 07/21/18 13:44; Admin Dose 100 MLS/HR; Start 07/11/18 at 09:30 Bisacodyl (Dulcolax) 10 mg DAILY PRN PO CONSTIPATION Last administered on 07/22/18at 01:33; Admin Dose 10 MG; Start 07/12/18 at 12:00 Docusate Sodium (Colace) 100 mg BID PO Last administered on 07/21/18 21:12; Admin Dose 100 MG; Start 07/12/18 at 21:00 Ferrous Sulfate (Ferrous Sulfate (Ec)) 325 mg BID PO Last administered on 07/21/18 21:12; Admin Dose 325 MG; Start 07/14/18 at 21:00 Diagnostic Test (Pha) (Accu-Chek) 1 ea AC MEALS XX Last administered on 9at 13:13; Admin Dose 1 EA; Start 07/17/18 at 17:25 Miscellaneous Information 1 ea NOTE XX ; Start 07/17/18 at 14:00 Glucose (Glutose) 15 gm Q15M PRN PO DECREASED GLUCOSE; Start 07/17/18 at 14:00 Glucose (Glutose) 22.5 gm Q15M PRN PO DECREASED GLUCOSE; Start 07/17/18 at 14:00 Dextrose (D50w Syringe) 25 ml Q15M PRN IV DECREASED GLUCOSE Last administered on 07/18/18at 09:31; Admin Dose 25 ML; Start 07/17/18 at 14:00 Dextrose (D50w Syringe) 50 ml Q15M PRN IV DECREASED GLUCOSE; Start 07/17/18 at 14:00 Glucagon (Glucagen) 1 mg Q15M PRN IM DECREASED GLUCOSE; Start 07/17/18 at 14:00 Glucose (Glutose) 15 gm Q15M PRN BUCCAL DECREASED GLUCOSE; Start 07/17/18 at 14:00 Dextrose (D50w Syringe) 25 ml AC MEALS PRN IV HYPOGLYCEMIA (BS<70); Start 07/17/18 at 19:00 Neomycin/ Polymyxin/ Bacitracin (Neosporin Topical Oint) 1 applic DAILY TOP Last administered on 07/22/18at 15:34; Admin Dose 1 APPLIC; Start 07/18/18 at 13:00 Clotrimazole (Lotrimin Cr) 1 applic BID TOP Last administered on 07/22/18at 15:34; Admin Dose 1 APPLIC; Start 07/18/18 at 13:00 Piperacillin Sod/ Tazobactam Sod 50 ml @ 100 mls/hr Q8 IVPB Last administered on 07/22/18at 15:39; Admin Dose 100 MLS/HR; Start 07/18/18 at 16:00; Stop 07/25/18 at 15:59 Acetaminophen (Tylenol Tab) 650 mg Q6H PRN PO MILD PAIN(1-3)OR ELEVATED TEMP Last administered on 07/22/18 04:28; Admin Dose 650 MG; Start 07/19/18 at 13:30 Petrolatum (Vaseline) 1 applic BID TOP Last administered on 07/22/18at 15:34; Admin Dose 1 APPLIC; Start 07/20/18 at 09:00 Dextrose 1,000 ml @ 20 mls/hr Q24H IV Last administered on 07/22/18at 08:30; Admin Dose 20 MLS/HR; Start 07/20/18 at 08:30 Heparin Sodium (Porcine) (Heparin (1000 Units/ml)) 3,200 unit AFTER DIALYSIS CATHETER Last administered on 07/21/18at 16:42; Admin Dose 3,200 UNIT; Start 07/21/18 at 13:30 Date/Time of Note Date/Time of Note DATE: 07/22/18 TIME: 18:36 SHARON ESPINOZA MD Jul 22, 2018 18:37
[2018-07-22 20:09] VITALS: BP 93/54; PULSE 72; RESP 18
[2018-07-22] MEDS: HYDROCODONE/APAP (5/325) TAB PO PRN (23:27)
[2018-07-23] VITALS (19 sets, daily range): BP systolic 90–144; BP diastolic 43–68; PULSE 52–73; RESP 16–18
[2018-07-23] MEDS: PIPER-TAZO 2.25 GM (PMX) 50 ML IVPB SCH ×3 (05:56→22:33)
[2018-07-23] MEDS: HYDROCODONE/APAP (5/325) TAB PO PRN ×3 (06:00→17:06)
[2018-07-23] MEDS: DEXTROSE 10% 1,000 ML IV SCH ×2 (08:30→18:28)
[2018-07-23] MEDS: SEVELAMER CARBONATE 0.8 GM PKT PO SCH ×3 (08:41→17:55)
[2018-07-23] MEDS: FERROUS SULFATE (EC) 325 MG TAB PO SCH ×2 (08:42→20:54)
[2018-07-23] MEDS: FAMOTIDINE 20 MG TAB PO SCH (08:42)
[2018-07-23] MEDS: PETROLATUM 28.35 GM JELLY TOP SCH ×2 (08:46→20:50)
[2018-07-23] MEDS: HEPARIN 5,000 UNIT/1 ML VIAL SC SCH ×2 (08:46→20:52)
[2018-07-23] MEDS: CLOTRIMAZOLE 1% 30 GM CR TOP SCH ×2 (08:46→20:50)
[2018-07-23] MEDS: NEOMYC/POLYMYX/BACIT 30 GM OINT TOP SCH (08:47)
[2018-07-23] MEDS: ACCU-CHEK XX SCH ×3 (08:49→18:28)
[2018-07-23] MEDS: DOCUSATE SODIUM 100 MG CAP PO SCH ×2 (09:00→20:54)
--- NOTE | 2018-07-23 09:50 | CONS ---
Assessment/Plan Assessment/Plan Hospital Course - S/p mental status change post-op. now oriented x3. Her confusion may be related to morphine. Head CT on 07/08/2018 and head MRI on 07/18/2018 showed no acute pathology. - Possible aspiration pneumonia/HCAP, on empiric pip/tazo 07/18/2018- ordered for 7 day per PMD - R knee pain - XR 07/20/18 showed Mild to moderate tricompartmental degenerative joint disease, most pronounced at the medial compartment. Diffuse osteopenia. - Lower lip ulcer; Pt does not think it is HSV; she denies pain. On Vaseline cream - Nausea without emesis - ESRD on HD via catheter on R chest wall - DM - H/o CVA with L sided weakness - A mechanical fall - H/o acute comminuted distal L femoral Fx without dislocation - H/o open reduction and internal fixation of the comminuted and displaced supracondylar fracture of L femur. Recommendations: - Continue pip/tazo (07/18/2018-) to complete 7 day course (through 07/25/18). - Continue to apply vaseline to the lower lip - Not to use morphine for pain control - Monitor for nausea Above plan was d/w patient, RN Alejandra Aldana, and with Dr. Valadez. Thank you Result Diagram: 07/21/18 0447 Results 24hrs Laboratory Tests Test 07/22/18 13:15 07/22/18 18:46 07/23/18 08:39 Bedside Glucose 122 102 91 Consultation Date/Type/Reason Admit Date/Time Jul 03, 2018 at 05:32 Initial Consult Date 07/19/18 Type of Consult ID Requesting Provider: GORDON HUDSON MD 24 HR Interval Summary Free Text/Dictation When I enter the room the patient states "I have been waiting for Dr. Valadez to give me the results of my Xray, he keeps telling me that he will tell me but I am waiting." The results of her Knee xray on 07/20/18 were "CONCLUSION: Mild to moderate tricompartmental degenerative joint disease, most pronounced at the medial compartment. Diffuse osteopenia." We discussed the results and the patient stated "I thought I have an infection because of the burning that I am always feeling, I thought maybe fluid was there." She denies fevers, chills, night sweats, but says she's always cold "because of my anemia." She denies sob, cp, n/v/d. States she was having loose stools but she stopped taking laxitives and now the loose stools are resolving. Denies dysuria. States she was able to get oob with PT but hasn't yet walked. State the burning in the right knee continues regardless of position change. Per d/w RN Alejandra Aldana, patient has possible transfer plan to ARU today. Has remained afebrile, still forgetful but much more alert. No acute issues reported. Exam/Review of Systems Vital Signs Vitals Vital Signs Date Temp Pulse Resp B/P (MAP) Pulse Ox O2 O2 Flow FiO2 Time Delivery Rate 07/23/18 97.3 64 18 123/58 98 Room Air 07:46 (79) Intake and Output 07/22/18 07/22/18 07/23/18 1515:00 23:00 07:00 IntakeIntake Total 200 ml 300 ml 290 ml BalanceBalance 200 ml 300 ml 290 ml Exam Constitutional: alert, oriented (with Forgetfulness ), well developed, frail, obese Psych: no complaints, nl mood/affect Head: normocephalic, atraumatic Eyes: nl conjunctiva, nl lids, nl sclera ENMT: nl external ears & nose, nl nasal mucosa & septum, mucosa pink and moist (no thrush noted ), other (Lower lip ulcerations, improving since last assessment ) Neck: supple, non-tender Respiratory: clear to auscultation, normal air movement Cardiovascular: regular rate and rhythm, nl pulses Gastrointestinal: soft, non-tender, bowel sounds (normoactive ) Musculoskeletal: other (LLE with a cdi dressing and a brace in place. ) Extremities: normal pulses Neurological: nl mental status (Forgetful ), nl speech, other (L sided weakness [s/p CVA]) Skin: nl turgor, other (R wrist wound improved since last assessment, covered with a cdi drssg) Medications Medications Current Medications Sevelamer Carbonate (Renvela) 0.8 gm WITH MEALS PO Last administered on 07/23/18at 08:41; Admin Dose 0.8 GM; Start 07/03/18 at 17:55 Ondansetron HCl (Zofran Inj) 4 mg Q6H PRN IV NAUSEA AND/OR VOMITING Last administered on 07/20/18 23:15; Admin Dose 4 MG; Start 07/03/18 at 14:30 Famotidine (Pepcid) 20 mg DAILY PO Last administered on 07/23/18 08:42; Admin Dose 20 MG; Start 07/03/18 at 14:30 Acetaminophen/ Hydrocodone Bitart ([place] (5/325)) 1 tab Q3H PRN PO MODERATE PAIN LEVEL 4-6 Last administered on 07/23/18 06:00; Admin Dose 1 TAB; Start 07/09/18 at 18:30 Heparin Sodium (Porcine) (Heparin (5000 Units/1ml)) 5,000 unit Q12 SC Last administered on 07/23/18 08:46; Admin Dose 5,000 UNIT; Start 07/10/18 at 09:00 Albumin Human 100 ml @ 100 mls/hr WITH DIALYSIS PRN IV BP support during dialysis Last administered on 07/21/18 13:44; Admin Dose 100 MLS/HR; Start 07/11/18 at 09:30 Bisacodyl (Dulcolax) 10 mg DAILY PRN PO CONSTIPATION Last administered on 07/22/18 01:33; Admin Dose 10 MG; Start 07/12/18 at 12:00 Docusate Sodium (Colace) 100 mg BID PO Last administered on 07/21/18 21:12; Admin Dose 100 MG; Start 07/12/18 at 21:00 Ferrous Sulfate (Ferrous Sulfate (Ec)) 325 mg BID PO Last administered on 07/23/18 08:42; Admin Dose 325 MG; Start 07/14/18 at 21:00 Diagnostic Test (Pha) (Accu-Chek) 1 ea AC MEALS XX Last administered on 07/23/18 08:49; Admin Dose 1 EA; Start 07/17/18 at 17:25 Miscellaneous Information 1 ea NOTE XX ; Start 07/17/18 at 14:00 Glucose (Glutose) 15 gm Q15M PRN PO DECREASED GLUCOSE; Start 07/17/18 at 14:00 Glucose (Glutose) 22.5 gm Q15M PRN PO DECREASED GLUCOSE; Start 07/17/18 at 14:00 Dextrose (D50w Syringe) 25 ml Q15M PRN IV DECREASED GLUCOSE Last administered on 07/18/18 09:31; Admin Dose 25 ML; Start 07/17/18 at 14:00 Dextrose (D50w Syringe) 50 ml Q15M PRN IV DECREASED GLUCOSE; Start 07/17/18 at 14:00 Glucagon (Glucagen) 1 mg Q15M PRN IM DECREASED GLUCOSE; Start 07/17/18 at 14:00 Glucose (Glutose) 15 gm Q15M PRN BUCCAL DECREASED GLUCOSE; Start 07/17/18 at 14:00 Dextrose (D50w Syringe) 25 ml AC MEALS PRN IV HYPOGLYCEMIA (BS<70); Start 07/17/18 at 19:00 Neomycin/ Polymyxin/ Bacitracin (Neosporin Topical Oint) 1 applic DAILY TOP Last administered on 07/23/18 08:47; Admin Dose 1 APPLIC; Start 07/18/18 at 13:00 Clotrimazole (Lotrimin Cr) 1 applic BID TOP Last administered on 07/23/18 08:46; Admin Dose 1 APPLIC; Start 07/18/18 at 13:00 Piperacillin Sod/ Tazobactam Sod 50 ml @ 100 mls/hr Q8 IVPB Last administered on 07/23/18 05:56; Admin Dose 100 MLS/HR; Start 07/18/18 at 16:00; Stop 07/25/18 at 15:59 Acetaminophen (Tylenol Tab) 650 mg Q6H PRN PO MILD PAIN(1-3)OR ELEVATED TEMP Last administered on 07/22/18at 04:28; Admin Dose 650 MG; Start 07/19/18 at 13:30 Petrolatum (Vaseline) 1 applic BID TOP Last administered on 07/23/18at 08:46; Admin Dose 1 APPLIC; Start 07/20/18 at 09:00 Dextrose 1,000 ml @ 20 mls/hr Q24H IV Last administered on 07/22/18 08:30; Admin Dose 20 MLS/HR; Start 07/20/18 at 08:30 Heparin Sodium (Porcine) (Heparin (1000 Units/ml)) 3,200 unit AFTER DIALYSIS CATHETER Last administered on 07/21/18at 16:42; Admin Dose 3,200 UNIT; Start 07/21/18 at 13:30 Date/Time of Note Date/Time of Note DATE: 07/23/18 TIME: 09:22 ALEJANDRA FISHER NP Jul 23, 2018 09:50
--- NOTE | 2018-07-23 11:11 | CONS ---
Assessment/Plan Assessment/Plan Assessment/Plan 57 yo Female with 1) Acute Distal Left Femoral Comminuted Fracture 2) S/p Mechanical Fall 3) ESRD on HD every MWF 4) Anemia, Chronic, CKD 5) MBD, CKD 6) Chronic HTN 7) CAD, Chronic 8) DM with ESRD 9) Hx of CVA with residual left sided deficit 10) Chronic Lower back pain 11) Hyperkalemia 12) AMS- Resolved 13) Hypoglycemia- Resolved No need for labs from my perspective. MRI Reviewed No acute disease Baseline Mental status HD plan for Today. Ok from Renal standpoint for DC to Acute Rehab Will defer to PCP. Result Diagram: 07/21/18 0447 Results 24hrs Laboratory Tests Test 07/22/18 13:15 07/22/18 18:46 07/23/18 08:39 Bedside Glucose 122 102 91 Consultation Date/Type/Reason Admit Date/Time Jul 03, 2018 at 05:32 Initial Consult Date 07/03/18 Type of Consult Nephrology Requesting Provider: GORDON HUDSON MD 24 HR Interval Summary Free Text/Dictation Pending HD today concerned as patient is not going to Rehab or not set up yet. Constitutional: No requiring O2 Exam/Review of Systems Vital Signs Vitals Vital Signs Date Temp Pulse Resp B/P (MAP) Pulse Ox O2 O2 Flow FiO2 Time Delivery Rate 07/23/18 97.3 64 18 123/58 98 Room Air 07:46 (79) Intake and Output 07/22/18 07/22/18 07/23/18 1515:00 23:00 07:00 IntakeIntake Total 200 ml 300 ml 290 ml BalanceBalance 200 ml 300 ml 290 ml Exam Constitutional: No distress ENMT: mucosa pink and moist Neck: No jvd Respiratory: clear to auscultation; No labored breathing Cardiovascular: edema Gastrointestinal: soft Extremities: edema Neurological: nl mental status; No lethargic Medications Medications Current Medications Sevelamer Carbonate (Renvela) 0.8 gm WITH MEALS PO Last administered on 07/23/18at 08:41; Admin Dose 0.8 GM; Start 07/03/18 at 17:55 Ondansetron HCl (Zofran Inj) 4 mg Q6H PRN IV NAUSEA AND/OR VOMITING Last administered on 07/20/18at 23:15; Admin Dose 4 MG; Start 07/03/18 at 14:30 Famotidine (Pepcid) 20 mg DAILY PO Last administered on 07/23/18 08:42; Admin Dose 20 MG; Start 07/03/18 at 14:30 Acetaminophen/ Hydrocodone Bitart ([place] (5/325)) 1 tab Q3H PRN PO MODERATE PAIN LEVEL 4-6 Last administered on 07/23/18 06:00; Admin Dose 1 TAB; Start 07/09/18 at 18:30 Heparin Sodium (Porcine) (Heparin (5000 Units/1ml)) 5,000 unit Q12 SC Last administered on 07/23/18 08:46; Admin Dose 5,000 UNIT; Start 07/10/18 at 09:00 Albumin Human 100 ml @ 100 mls/hr WITH DIALYSIS PRN IV BP support during dialysis Last administered on 07/21/18 13:44; Admin Dose 100 MLS/HR; Start 07/11/18 at 09:30 Bisacodyl (Dulcolax) 10 mg DAILY PRN PO CONSTIPATION Last administered on 07/22/18 01:33; Admin Dose 10 MG; Start 07/12/18 at 12:00 Docusate Sodium (Colace) 100 mg BID PO Last administered on 07/21/18 21:12; Admin Dose 100 MG; Start 07/12/18 at 21:00 Ferrous Sulfate (Ferrous Sulfate (Ec)) 325 mg BID PO Last administered on 07/23/18 08:42; Admin Dose 325 MG; Start 07/14/18 at 21:00 Diagnostic Test (Pha) (Accu-Chek) 1 ea AC MEALS XX Last administered on 07/23/18 08:49; Admin Dose 1 EA; Start 07/17/18 at 17:25 Miscellaneous Information 1 ea NOTE XX ; Start 07/17/18 at 14:00 Glucose (Glutose) 15 gm Q15M PRN PO DECREASED GLUCOSE; Start 07/17/18 at 14:00 Glucose (Glutose) 22.5 gm Q15M PRN PO DECREASED GLUCOSE; Start 07/17/18 at 14:00 Dextrose (D50w Syringe) 25 ml Q15M PRN IV DECREASED GLUCOSE Last administered on 07/18/18 09:31; Admin Dose 25 ML; Start 07/17/18 at 14:00 Dextrose (D50w Syringe) 50 ml Q15M PRN IV DECREASED GLUCOSE; Start 07/17/18 at 14:00 Glucagon (Glucagen) 1 mg Q15M PRN IM DECREASED GLUCOSE; Start 07/17/18 at 14:00 Glucose (Glutose) 15 gm Q15M PRN BUCCAL DECREASED GLUCOSE; Start 07/17/18 at 14:00 Dextrose (D50w Syringe) 25 ml AC MEALS PRN IV HYPOGLYCEMIA (BS<70); Start 07/17/18 at 19:00 Neomycin/ Polymyxin/ Bacitracin (Neosporin Topical Oint) 1 applic DAILY TOP Last administered on 07/23/18 08:47; Admin Dose 1 APPLIC; Start 07/18/18 at 13:00 Clotrimazole (Lotrimin Cr) 1 applic BID TOP Last administered on 07/23/18 08:46; Admin Dose 1 APPLIC; Start 07/18/18 at 13:00 Piperacillin Sod/ Tazobactam Sod 50 ml @ 100 mls/hr Q8 IVPB Last administered on 07/23/18 05:56; Admin Dose 100 MLS/HR; Start 07/18/18 at 16:00; Stop 07/25/18 at 15:59 Acetaminophen (Tylenol Tab) 650 mg Q6H PRN PO MILD PAIN(1-3)OR ELEVATED TEMP Last administered on 07/22/18 04:28; Admin Dose 650 MG; Start 07/19/18 at 13:30 Petrolatum (Vaseline) 1 applic BID TOP Last administered on 07/23/18 08:46; Admin Dose 1 APPLIC; Start 07/20/18 at 09:00 Dextrose 1,000 ml @ 20 mls/hr Q24H IV Last administered on 07/22/18 08:30; Admin Dose 20 MLS/HR; Start 07/20/18 at 08:30 Heparin Sodium (Porcine) (Heparin (1000 Units/ml)) 3,200 unit AFTER DIALYSIS CATHETER Last administered on 07/21/18at 16:42; Admin Dose 3,200 UNIT; Start 07/21/18 at 13:30 Date/Time of Note Date/Time of Note DATE: 07/23/18 TIME: 11:02 SHARON ESPINOZA MD Jul 23, 2018 11:11
--- NOTE | 2018-07-23 14:22 | PN ---
Date/Time of Note Date/Time of Note DATE: 07/23/18 TIME: 14:21 Assessment/Plan VTE Prophylaxis Risk score (from Ns)>0 risk: 6 SCD applied (from Ns): Yes Pharmacological prophylaxis: heparin Lines/Catheters IV [facility]from [facility] Permacath Urinary Cath still in place: No Assessment/Plan Hospital Course Patient is awake alert and oriented x3, currently undergoing hemodialysis, had physical therapy earlier today, continue PT, pending evaluation for acute rehab placement. Assessment/Plan -Altered mental status, resolved. Pt neuro is at her baseline, alert and oriented. CT of the brain ans MRI are negative for acute intracranial pathology. Pt with hx of stroke with left-sided weakness. Dr. Davenport is following in neurology consultation. -Acute comminuted distal left femoral fracture without dislocation. S/p ORIF of the comminuted and displaced supracondylar fracture of the left femur by Dr. Gutierres on 07/09/18. -Hemodialysis dependent end-stage renal disease. Continue on hemodialysis. Dr. Tucker is following in nephrology consultation. -Diabetes mellitus -History of cerebrovascular accident with left-sided paralysis. -Anemia of chronic disease. Continue to monitor hemoglobin and hematocrit. Currently stable. -Chronic dislocation of the left shoulder. No acute issues. -Mineral bone disease Further recommendations based on clinical course. Plan of care discussed with Dr. Rousseau. Result Diagram: 07/21/18 0447 Results 24hrs Laboratory Tests Test 07/22/18 18:46 07/23/18 08:39 07/23/18 13:16 Bedside Glucose 102 91 102 Exam/Review of Systems Vital Signs Vitals Vital Signs Date Temp Pulse Resp B/P (MAP) Pulse Ox O2 O2 Flow FiO2 Time Delivery Rate 07/23/18 97.3 64 18 123/58 98 Room Air 07:46 (79) Intake and Output 07/22/18 07/22/18 07/23/18 1515:00 23:00 07:00 IntakeIntake Total 200 ml 300 ml 290 ml BalanceBalance 200 ml 300 ml 290 ml Exam Constitutional: alert, confused Respiratory: clear to auscultation Cardiovascular: nl pulses Gastrointestinal: soft, non-tender Musculoskeletal: other (LLE s/p surgery, immobilizer) Extremities: normal pulses Neurological: other (Left-sided weakness from previous stroke) Skin: nl turgor Medications Medications Current Medications Sevelamer Carbonate (Renvela) 0.8 gm WITH MEALS PO Last administered on 07/23/18 13:16; Admin Dose 0.8 GM; Start 07/03/18 at 17:55 Ondansetron HCl (Zofran Inj) 4 mg Q6H PRN IV NAUSEA AND/OR VOMITING Last administered on 07/20/18 23:15; Admin Dose 4 MG; Start 07/03/18 at 14:30 Famotidine (Pepcid) 20 mg DAILY PO Last administered on 07/23/18 08:42; Admin Dose 20 MG; Start 07/03/18 at 14:30 Acetaminophen/ Hydrocodone Bitart ([place] (5/325)) 1 tab Q3H PRN PO MODERATE PAIN LEVEL 4-6 Last administered on 07/23/18 13:29; Admin Dose 1 TAB; Start 07/09/18 at 18:30 Heparin Sodium (Porcine) (Heparin (5000 Units/1ml)) 5,000 unit Q12 SC Last administered on 07/23/18 08:46; Admin Dose 5,000 UNIT; Start 07/10/18 at 09:00 Albumin Human 100 ml @ 100 mls/hr WITH DIALYSIS PRN IV BP support during dialysis Last administered on 07/21/18 13:44; Admin Dose 100 MLS/HR; Start 07/11/18 at 09:30 Bisacodyl (Dulcolax) 10 mg DAILY PRN PO CONSTIPATION Last administered on 07/22/18 01:33; Admin Dose 10 MG; Start 07/12/18 at 12:00 Docusate Sodium (Colace) 100 mg BID PO Last administered on 07/21/18 21:12; Admin Dose 100 MG; Start 07/12/18 at 21:00 Ferrous Sulfate (Ferrous Sulfate (Ec)) 325 mg BID PO Last administered on 07/23/18 08:42; Admin Dose 325 MG; Start 07/14/18 at 21:00 Diagnostic Test (Pha) (Accu-Chek) 1 ea AC MEALS XX Last administered on 07/23/18 13:17; Admin Dose 1 EA; Start 07/17/18 at 17:25 Miscellaneous Information 1 ea NOTE XX ; Start 07/17/18 at 14:00 Glucose (Glutose) 15 gm Q15M PRN PO DECREASED GLUCOSE; Start 07/17/18 at 14:00 Glucose (Glutose) 22.5 gm Q15M PRN PO DECREASED GLUCOSE; Start 07/17/18 at 14:00 Dextrose (D50w Syringe) 25 ml Q15M PRN IV DECREASED GLUCOSE Last administered on 07/18/18at 09:31; Admin Dose 25 ML; Start 07/17/18 at 14:00 Dextrose (D50w Syringe) 50 ml Q15M PRN IV DECREASED GLUCOSE; Start 07/17/18 at 14:00 Glucagon (Glucagen) 1 mg Q15M PRN IM DECREASED GLUCOSE; Start 07/17/18 at 14:00 Glucose (Glutose) 15 gm Q15M PRN BUCCAL DECREASED GLUCOSE; Start 07/17/18 at 14:00 Dextrose (D50w Syringe) 25 ml AC MEALS PRN IV HYPOGLYCEMIA (BS<70); Start 07/17/18 at 19:00 Neomycin/ Polymyxin/ Bacitracin (Neosporin Topical Oint) 1 applic DAILY TOP Last administered on 07/23/18at 08:47; Admin Dose 1 APPLIC; Start 07/18/18 at 13:00 Clotrimazole (Lotrimin Cr) 1 applic BID TOP Last administered on 07/23/18at 08:46; Admin Dose 1 APPLIC; Start 07/18/18 at 13:00 Piperacillin Sod/ Tazobactam Sod 50 ml @ 100 mls/hr Q8 IVPB Last administered on 07/23/18at 05:56; Admin Dose 100 MLS/HR; Start 07/18/18 at 16:00; Stop 07/25/18 at 15:59 Acetaminophen (Tylenol Tab) 650 mg Q6H PRN PO MILD PAIN(1-3)OR ELEVATED TEMP Last administered on 07/22/18at 04:28; Admin Dose 650 MG; Start 07/19/18 at 13:30 Petrolatum (Vaseline) 1 applic BID TOP Last administered on 07/23/18at 08:46; Admin Dose 1 APPLIC; Start 07/20/18 at 09:00 Dextrose 1,000 ml @ 20 mls/hr Q24H IV Last administered on 07/22/18at 08:30; Admin Dose 20 MLS/HR; Start 07/20/18 at 08:30 Heparin Sodium (Porcine) (Heparin (1000 Units/ml)) 3,200 unit AFTER DIALYSIS CATHETER Last administered on 07/21/18at 16:42; Admin Dose 3,200 UNIT; Start 07/21/18 at 13:30 JESSICA GROVE Jul 23, 2018 14:22
--- NOTE | 2018-07-23 14:31 | CONS ---
Assessment/Plan Assessment/Plan Hospital Course 57 yo F with hx of CVA and other comorbidities who initially presented for management of a L femur fracture. She was noted to be protractedly encephalopathic... for which neurology is consulted. The clinical picture raises concern for delirium, as can be seen in a prolonged hospitalization. There is a likely superimposed medication adverse effect... Stroke is unlikely. MRI brain is without acute intracranial pathology, though is notable for chronic infarcts. P: Reorient as necessary Limit sedating medications where possible PT/OT as tolerated Continued management per primary Will follow clinically Result Diagram: 07/21/18 0447 Results 24hrs Laboratory Tests Test 07/22/18 18:46 07/23/18 08:39 07/23/18 13:16 Bedside Glucose 102 91 102 Consultation Date/Type/Reason Admit Date/Time Jul 03, 2018 at 05:32 Type of Consult Neurology Reason for Consultation worsening ams Requesting Provider: GORDON HUDSON MD Date/Time of Note DATE: 07/23/18 TIME: 14:31 24 HR Interval Summary Free Text/Dictation Continues medsurg monitoring. No acute events or pt complaints reported. Awaiting HD. Exam Vital Signs Vitals Vital Signs Date Temp Pulse Resp B/P (MAP) Pulse Ox O2 O2 Flow FiO2 Time Delivery Rate 07/23/18 97.3 64 18 123/58 98 Room Air 07:46 (79) Intake and Output 07/22/18 07/22/18 07/23/18 1515:00 23:00 07:00 IntakeIntake Total 200 ml 300 ml 290 ml BalanceBalance 200 ml 300 ml 290 ml Exam PE: Gen Appearance: No Apparent Distress HEENT: Normocephalic Cardiovascular: Regular rate Lungs: Clear bilaterally Abdomen: Soft Extremities: Dry NE: The patient was alert and oriented. Language was normal. Fund of knowledge was adequate. Pupils were equal and reactive to light. There was no afferent pupillary defect. Visual aquino were normal. Funduscopic examination was limited. Extra-ocular movements were full. Ptosis was absent. There was no nystagmus. Facial sensation was normal. Face was symmetric with normal strength. Hearing was intact. Palate movements were normal. Neck strength was normal. There was normal tongue bulk and speed of movement. Tone was normal. Muscle bulk was normal. I did not see fasciculations. Arms were strong. Vibration sensation was normal. Temperature and pinprick sensation was normal. Rapid alternating movements were normal. There was no dysmetria. There was no intention tremor. Gait was deferred due to bedrest. Arm and leg reflexes were symmetric. Quinones's sign was absent. Plantar responses were flexor. MATY BAZZI NP Jul 23, 2018 14:31
--- NOTE | 2018-07-23 14:33 | CONS ---
Assessment/Plan Assessment/Plan Hospital Course (Demo Recall) IMPRESSION: 1. Preoperative evaluation for left lower extremity open reduction and internal fixation, status post mechanical fall. -NL EF by echo. NO sig valve abnl. Neg trop x 3. OK to proceed at moderate CV risk on current medical therapy. Now Post-op s/p LE ORIF 2. Hypertension, borderline, labile, likely a component of pain. 3. Abnormal electrocardiogram with lateral T-wave inversion. 4. Status post mechanical fall with a femoral fracture. 5. Femoral fracture, left-sided, supracondylar. 6. History of cerebrovascular accident, previously on Plavix. 7. End-stage renal disease, on hemodialysis. 8. Hyperkalemia-improved 9. Anemia. REcc: -Pain control -follow BP closely and volume status closely -HD for volume removal as tolerated -Awaiting transfer to acute rehab Consultation Date/Type/Reason Admit Date/Time Jul 03, 2018 at 05:32 Initial Consult Date 07/03/18 Type of Consult Cardiology Reason for Consultation preop Requesting Provider: GORDON HUDSON MD Date/Time of Note DATE: 07/23/18 TIME: 14:31 Exam/Review of Systems Vital Signs Vitals Vital Signs Date Temp Pulse Resp B/P (MAP) Pulse Ox O2 O2 Flow FiO2 Time Delivery Rate 07/23/18 97.3 64 18 123/58 98 Room Air 07:46 (79) Intake and Output 07/22/18 07/22/18 07/23/18 1515:00 23:00 07:00 IntakeIntake Total 200 ml 300 ml 290 ml BalanceBalance 200 ml 300 ml 290 ml Exam Exam Review of Systems: CONSTITUTIONAL: No fevers, chills. PULMONARY: No sob CARDIOVASCULAR: No chest pain/palpitations GASTROINTESTINAL: No nausea/vomiting. GENITOURINARY: No hematuria/dysuria. MUSCULOSKELETAL: No myagias/arthalgias. PSYCHIATRIC: The patient denies depression. NEUROLOGIC: No weakness Constitutional: alert, oriented Psych: no complaints Head: normocephalic ENMT: mucosa pink and moist Neck: supple, jvd Respiratory: diminished breath sounds (at bases/B) Cardiovascular: regular rate and rhythm Gastrointestinal: soft, non-tender Musculoskeletal: muscle weakness (mildly generalized) Extremities: edema (trace/B) Neurological: focal weakness Labs Result Diagram: 07/21/18 0447 Results 24hrs Laboratory Tests Test 07/22/18 18:46 07/23/18 08:39 07/23/18 13:16 Bedside Glucose 102 91 102 SHONDA GOODWIN Jul 23, 2018 14:33
[2018-07-23] MEDS: HEPARIN 1000 UNITS/ML 10 ML INJ CATHETER SCH (19:42)
[2018-07-23] MEDS: ACETAMINOPHEN 325 MG TAB PO PRN (23:27)
[2018-07-24 02:20] VITALS: BP 112/56; PULSE 64; RESP 18
[2018-07-24] MEDS: PIPER-TAZO 2.25 GM (PMX) 50 ML IVPB SCH (05:12)
[2018-07-24 07:53] VITALS: BP 129/69; PULSE 68; RESP 16
[2018-07-24] MEDS: ACCU-CHEK XX SCH ×3 (08:32→17:25)
[2018-07-24] MEDS: NEOMYC/POLYMYX/BACIT 30 GM OINT TOP SCH (08:34)
[2018-07-24] MEDS: SEVELAMER CARBONATE 0.8 GM PKT PO SCH ×3 (08:34→17:55)
[2018-07-24] MEDS: FERROUS SULFATE (EC) 325 MG TAB PO SCH ×3 (08:34→21:00)
[2018-07-24] MEDS: DOCUSATE SODIUM 100 MG CAP PO SCH ×3 (08:34→21:00)
[2018-07-24] MEDS: FAMOTIDINE 20 MG TAB PO SCH (08:34)
[2018-07-24] MEDS: CLOTRIMAZOLE 1% 30 GM CR TOP SCH ×2 (08:35→20:43)
[2018-07-24] MEDS: PETROLATUM 28.35 GM JELLY TOP SCH ×2 (08:35→20:43)
[2018-07-24] MEDS: HEPARIN 5,000 UNIT/1 ML VIAL SC SCH ×2 (08:37→20:51)
--- NOTE | 2018-07-24 11:57 | CONS ---
Assessment/Plan Assessment/Plan Hospital Course (Demo Recall) - S/p mental status change post-op. now oriented x3. Her confusion may be related to morphine. Head CT on 07/08/2018 and head MRI on 07/18/2018 showed no acute pathology. - Possible aspiration pneumonia/HCAP, on empiric pip/tazo 07/18/2018- ordered for 7 day per PMD - R knee pain - XR 07/20/18 showed Mild to moderate tricompartmental degenerative joint disease, most pronounced at the medial compartment. Diffuse osteopenia. - Lower lip ulcer; Pt does not think it is HSV; she denies pain. On Vaseline cream - Nausea without emesis - ESRD on HD via catheter on R chest wall - DM - H/o CVA with L sided weakness - A mechanical fall - H/o acute comminuted distal L femoral Fx without dislocation - H/o open reduction and internal fixation of the comminuted and displaced supracondylar fracture of L femur. Recommendations: - Monitor closely off abx - Continue to apply vaseline to the lower lip - Not to use morphine for pain control - Monitor for nausea Consultation Date/Type/Reason Admit Date/Time Jul 03, 2018 at 05:32 Initial Consult Date 07/19/18 Requesting Provider: GORDON HUDSON MD Date/Time of Note DATE: 07/24/18 TIME: 11:56 Exam/Review of Systems Exam Vitals Vital Signs Date Temp Pulse Resp B/P (MAP) Pulse Ox O2 O2 Flow FiO2 Time Delivery Rate 07/24/18 98.2 68 16 129/69 98 Room Air 07:53 (89) Intake and Output 07/23/18 07/23/18 07/24/18 1515:00 23:00 07:00 IntakeIntake Total 620 ml 280 ml OutputOutput Total 1900 ml BalanceBalance -1280 ml 280 ml Constitutional: alert, oriented, well developed Psych: no complaints, nl mood/affect Head: normocephalic, atraumatic Eyes: nl conjunctiva, EOMI, nl lids, nl sclera, PERRL ENMT: nl external ears & nose, nl lips & teeth, nl nasal mucosa & septum Respiratory: clear to auscultation, normal air movement Cardiovascular: regular rate and rhythm, nl pulses Gastrointestinal: soft, nl liver, spleen, non-tender Neurological: WHEEL ADJUSTER II-XII intact, nl mental status, nl speech, nl strength Results Result Diagram: 07/21/18 0447 Results 24hrs Laboratory Tests Test 07/23/18 13:16 07/23/18 17:55 07/24/18 08:32 Bedside Glucose 102 93 89 MASHA PAULA MD Jul 24, 2018 11:57
[2018-07-24] MEDS: ACETAMINOPHEN 325 MG TAB PO PRN ×2 (13:01→20:54)
--- NOTE | 2018-07-24 14:40 | CONS ---
Assessment/Plan Assessment/Plan Assessment/Plan (Daily) 57 yo Female with 1) Acute Distal Left Femoral Comminuted Fracture 2) S/p Mechanical Fall 3) ESRD on HD every MWF 4) Anemia, Chronic, CKD 5) MBD, CKD 6) Chronic HTN 7) CAD, Chronic 8) DM with ESRD 9) Hx of CVA with residual left sided deficit 10) Chronic Lower back pain 11) Hyperkalemia 12) AMS- Resolved 13) Hypoglycemia- Resolved Baseline Mental status HD plan for [facility] at [facility] Consultation Date/Type/Reason Admit Date/Time Jul 03, 2018 at 05:32 Initial Consult Date 07/03/18 Type of Consult Nephrology Requesting Provider: GORDON HUDSON MD Date/Time of Note DATE: 07/24/18 TIME: 14:37 24 HR Interval Summary Free Text/Dictation No new complaints Constitutional: No requiring O2 Exam/Review of Systems Exam Vitals Vital Signs Date Temp Pulse Resp B/P (MAP) Pulse Ox O2 O2 Flow FiO2 Time Delivery Rate 07/24/18 98.2 68 16 129/69 98 Room Air 07:53 (89) Intake and Output 07/23/18 07/23/18 07/24/18 1515:00 23:00 07:00 IntakeIntake Total 620 ml 280 ml OutputOutput Total 1900 ml BalanceBalance -1280 ml 280 ml Constitutional: No distress ENMT: mucosa pink and moist Neck: No jvd Respiratory: clear to auscultation; No diminished breath sounds, No labored breathing Cardiovascular: regular rate and rhythm, edema Gastrointestinal: soft, non-tender Extremities: edema Neurological: nl mental status; No lethargic Skin: No diaphoresis Results Result Diagram: 07/21/18 0447 Results 24hrs Laboratory Tests Test 07/23/18 17:55 07/24/18 08:32 07/24/18 13:00 Bedside Glucose 93 89 99 SHARON ESPINOZA MD Jul 24, 2018 14:40
[2018-07-24 15:38] VITALS: BP 124/60; PULSE 70; RESP 18
--- NOTE | 2018-07-24 16:07 | CONS ---
Assessment/Plan Assessment/Plan Hospital Course 57 yo F with hx of CVA and other comorbidities who initially presented for management of a L femur fracture. She was noted to be protractedly encephalopathic... for which neurology is consulted. The clinical picture raises concern for delirium, as can be seen in a prolonged hospitalization. There is a likely superimposed medication adverse effect... Stroke is unlikely. MRI brain is without acute intracranial pathology, though is notable for chronic infarcts. P: Reorient as necessary Limit sedating medications where possible PT/OT as tolerated Continued management per primary Will follow clinically Result Diagram: 07/21/18 0447 Results 24hrs Laboratory Tests Test 07/23/18 17:55 07/24/18 08:32 07/24/18 13:00 Bedside Glucose 93 89 99 Consultation Date/Type/Reason Admit Date/Time Jul 03, 2018 at 05:32 Type of Consult Neurology Reason for Consultation worsening ams Requesting Provider: GORDON HUDSON MD Date/Time of Note DATE: 07/24/18 TIME: 16:07 24 HR Interval Summary Free Text/Dictation Continues medsurg monitoring. No acute events reported. Pt is without complaints at this time. Exam Vital Signs Vitals Vital Signs Date Temp Pulse Resp B/P (MAP) Pulse Ox O2 O2 Flow FiO2 Time Delivery Rate 07/24/18 98.6 70 18 124/60 98 Room Air 15:38 (81) Intake and Output 07/23/18 07/23/18 07/24/18 1515:00 23:00 07:00 IntakeIntake Total 620 ml 280 ml OutputOutput Total 1900 ml BalanceBalance -1280 ml 280 ml Exam PE: Gen Appearance: No Apparent Distress HEENT: Normocephalic Cardiovascular: Regular rate Lungs: Clear bilaterally Abdomen: Soft Extremities: Dry NE: The patient was asleep though easily arousable to voice; oriented. Language was normal. Fund of knowledge was adequate. Pupils were equal and reactive to light. There was no afferent pupillary defect. Visual aquino were normal. Funduscopic examination was limited. Extra-ocular movements were full. Ptosis was absent. There was no nystagmus. Facial sensation was normal. Face was symmetric with normal strength. Hearing was intact. Palate movements were normal. Neck strength was normal. There was normal tongue bulk and speed of movement. Tone was normal. Muscle bulk was normal. I did not see fasciculations. Arms were strong. Vibration sensation was normal. Temperature and pinprick sensation was normal. Rapid alternating movements were normal. There was no dysmetria. There was no intention tremor. Gait was deferred due to bedrest. Arm and leg reflexes were symmetric. Quinones's sign was absent. Plantar responses were flexor. MATY BAZZI NP Jul 24, 2018 16:07
--- NOTE | 2018-07-24 18:31 | CONS ---
Assessment/Plan Assessment/Plan Hospital Course (Demo Recall) IMPRESSION: 1. Preoperative evaluation for left lower extremity open reduction and internal fixation, status post mechanical fall. -NL EF by echo. NO sig valve abnl. Neg trop x 3. OK to proceed at moderate CV risk on current medical therapy. Now Post-op s/p LE ORIF 2. Hypertension, borderline, labile, likely a component of pain. 3. Abnormal electrocardiogram with lateral T-wave inversion. 4. Status post mechanical fall with a femoral fracture. 5. Femoral fracture, left-sided, supracondylar. 6. History of cerebrovascular accident, previously on Plavix. 7. End-stage renal disease, on hemodialysis. 8. Hyperkalemia-improved 9. Anemia. REcc: -Pain control -follow BP closely and volume status closely -HD for volume removal as tolerated -Awaiting transfer to acute rehab Consultation Date/Type/Reason Admit Date/Time Jul 03, 2018 at 05:32 Initial Consult Date 07/03/18 Type of Consult Cardiology Reason for Consultation HTN Requesting Provider: GORDON HUDSON MD Date/Time of Note DATE: 07/24/18 TIME: 18:30 Exam/Review of Systems Vital Signs Vitals Vital Signs Date Temp Pulse Resp B/P (MAP) Pulse Ox O2 O2 Flow FiO2 Time Delivery Rate 07/24/18 98.6 70 18 124/60 98 Room Air 15:38 (81) Intake and Output 07/23/18 07/23/18 07/24/18 1515:00 23:00 07:00 IntakeIntake Total 620 ml 280 ml OutputOutput Total 1900 ml BalanceBalance -1280 ml 280 ml Exam Exam Review of Systems: CONSTITUTIONAL: No fevers, chills. PULMONARY: No sob CARDIOVASCULAR: No chest pain/palpitations GASTROINTESTINAL: No nausea/vomiting. GENITOURINARY: No hematuria/dysuria. MUSCULOSKELETAL: No myagias/arthalgias. PSYCHIATRIC: The patient denies depression. NEUROLOGIC: No weakness Constitutional: alert, oriented Psych: no complaints Head: normocephalic ENMT: mucosa pink and moist Neck: supple, jvd (9 cm water) Respiratory: diminished breath sounds (at bases/B) Cardiovascular: regular rate and rhythm Gastrointestinal: soft, non-tender Musculoskeletal: muscle weakness Extremities: edema (trace/B) Neurological: focal weakness Labs Result Diagram: 07/21/18 0447 Results 24hrs Laboratory Tests Test 07/24/18 08:32 07/24/18 13:00 07/24/18 17:54 Bedside Glucose 89 99 86 SHONDA GOODWIN Jul 24, 2018 18:31
[2018-07-24 19:50] VITALS: BP 105/57; PULSE 74; RESP 20
--- NOTE | 2018-07-24 20:32 | PN ---
Date/Time of Note Date/Time of Note DATE: 07/24/18 TIME: 20:30 Assessment/Plan VTE Prophylaxis Risk score (from Ns)>0 risk: 5 SCD applied (from Ns): Yes Pharmacological prophylaxis: heparin Lines/Catheters IV Catheter Type (from [facility]): permacath Urinary Cath still in place: No Assessment/Plan Hospital Course Patient is awake alert and oriented x3, hemodynamically stable, afebrile, awaits for bed availability at acute rehab. Assessment/Plan -Altered mental status, resolved. Pt neuro is at her baseline, alert and oriented. CT of the brain ans MRI are negative for acute intracranial pathology. Pt with hx of stroke with left-sided weakness. Dr. Davenport is following in neurology consultation. -Acute comminuted distal left femoral fracture without dislocation. S/p ORIF of the comminuted and displaced supracondylar fracture of the left femur by Dr. Gutierres on 07/09/18. -Hemodialysis dependent end-stage renal disease. Continue on hemodialysis. Dr. Tucker is following in nephrology consultation. -Diabetes mellitus -History of cerebrovascular accident with left-sided paralysis. -Anemia of chronic disease. Continue to monitor hemoglobin and hematocrit. Currently stable. -Chronic dislocation of the left shoulder. No acute issues. -Mineral bone disease Further recommendations based on clinical course. Plan of care discussed with Dr. Rousseau. Result Diagram: 07/21/18 0447 Results 24hrs Laboratory Tests Test 07/24/18 08:32 07/24/18 13:00 07/24/18 17:54 Bedside Glucose 89 99 86 Exam/Review of Systems Exam Vitals Constitutional: alert, confused Respiratory: clear to auscultation Cardiovascular: nl pulses Gastrointestinal: soft, non-tender Musculoskeletal: other (LLE s/p surgery, immobilizer) Extremities: normal pulses Neurological: other (Left-sided weakness from previous stroke) Skin: nl turgor Vital Signs Date Temp Pulse Resp B/P (MAP) Pulse Ox O2 O2 Flow FiO2 Time Delivery Rate 07/24/18 98.6 70 18 124/60 98 Room Air 15:38 (81) Intake and Output 07/23/18 07/23/18 07/24/18 1515:00 23:00 07:00 IntakeIntake Total 620 ml 280 ml OutputOutput Total 1900 ml BalanceBalance -1280 ml 280 ml Results Results 24hrs Laboratory Tests Test 07/24/18 08:32 07/24/18 13:00 07/24/18 17:54 Bedside Glucose 89 99 86 JESSICA GROVE Jul 24, 2018 20:32
--- NOTE | 2018-07-27 23:39 | DS ---
Date/Time of Note Date/Time of Note DATE: 07/27/18 TIME: 23:38 Discharge Summary Admission/Discharge Info Admit Date/Time Jul 03, 2018 at 05:32 Discharge Date/Time Jul 24, 2018 at 23:15 Patient Condition: Stable Hx of Present Illness The patient is 57-year-old female with history of cerebrovascular accident with left-sided weakness, end-stage renal disease, on hemodialysis 3 times per week, anemia, diabetes and chronic dislocation of the left shoulder. Patient is wheelchair-bound. Patient presented to emergency room with complaints of generalized weakness and extreme left knee pain. Patient sustained a mechanical ground-level fall when she was helped to transfer from [facility] to the wheelchair. Patient denies any fever denies she is chills denies nausea vomiting diarrhea. X-ray revealed acute comminuted distal left femoral fracture without dislocation. Patient will be admitted for further evaluation and management. Hospital Course Pt d/marcelo to ARU -Altered mental status, resolved. Pt neuro is at her baseline, alert and oriented. CT of the brain ans MRI are negative for acute intracranial pathology. Pt with hx of stroke with left-sided weakness. Dr. Davenport is following in neurology consultation. -Acute comminuted distal left femoral fracture without dislocation. S/p ORIF of the comminuted and displaced supracondylar fracture of the left femur by Dr. Gutierres on 07/09/18. -Hemodialysis dependent end-stage renal disease. Continue on hemodialysis. Dr. Tucker is following in nephrology consultation. -Diabetes mellitus -History of cerebrovascular accident with left-sided paralysis. -Anemia of chronic disease. Continue to monitor hemoglobin and hematocrit. Currently stable. -Chronic dislocation of the left shoulder. No acute issues. -Mineral bone disease Plan of care discussed with Dr. Rousseau. Home Meds Reported Medications Sevelamer Carbonate* (Renvela*) 800 Mg Tablet, 0.8 GM PO TID, TAB 03/12/16 Discontinued Reported Medications Hydrocodone Bit-Acetaminophen* (Vicodin* ES) 7.5-300 Mg Tablet, 1 TAB PO BID PRN for SEVERE PAIN LEVEL 7-10, TAB 03/12/16 Baclofen* (Baclofen*) 10 Mg Tablet, 10 MG PO TID, TAB 07/13/15 Clopidogrel Bisulfate (Plavix) 75 Mg Tablet, 75 MG PO DAILY 12/1/11 Primary Care Provider Dallas Alcantara MD Time spent on discharge: > 30 minutes JESSICA GROVE Jul 27, 2018 23:38
== END 2018-07-24 23:15 | DRG 480 ==
LOC: E/R 01:13 → MS1 05:32
PROVIDERS: ADMIT Internal Medicine; ATTEND Internal Medicine
PROC: 5A1D70Z Performance of Urinary Filtration, Intermittent, Less than 6 Hours Per Day (ICD-10-PCS; 2018-07-04)
PROC: 30233N1 Transfusion of Nonautologous Red Blood Cells into Peripheral Vein, Percutaneous Approach (ICD-10-PCS; 2018-07-04)
PROC: 5A1D70Z Performance of Urinary Filtration, Intermittent, Less than 6 Hours Per Day (ICD-10-PCS; 2018-07-07)
PROC: 5A1D70Z Performance of Urinary Filtration, Intermittent, Less than 6 Hours Per Day (ICD-10-PCS; 2018-07-09)
PROC: 0QS704Z Reposition Left Upper Femur with Internal Fixation Device, Open Approach (ICD-10-PCS; principal; 2018-07-09 14:00)
PROC: 5A1D70Z Performance of Urinary Filtration, Intermittent, Less than 6 Hours Per Day (ICD-10-PCS; 2018-07-11)
PROC: 5A1D70Z Performance of Urinary Filtration, Intermittent, Less than 6 Hours Per Day (ICD-10-PCS; 2018-07-12)
PROC: 5A1D70Z Performance of Urinary Filtration, Intermittent, Less than 6 Hours Per Day (ICD-10-PCS; 2018-07-14)
PROC: 5A1D70Z Performance of Urinary Filtration, Intermittent, Less than 6 Hours Per Day (ICD-10-PCS; 2018-07-15)
PROC: 5A1D70Z Performance of Urinary Filtration, Intermittent, Less than 6 Hours Per Day (ICD-10-PCS; 2018-07-16)
PROC: 5A1D70Z Performance of Urinary Filtration, Intermittent, Less than 6 Hours Per Day (ICD-10-PCS; 2018-07-18)
PROC: 5A1D70Z Performance of Urinary Filtration, Intermittent, Less than 6 Hours Per Day (ICD-10-PCS; 2018-07-21)
PROC: 5A1D70Z Performance of Urinary Filtration, Intermittent, Less than 6 Hours Per Day (ICD-10-PCS; 2018-07-23)
DX: S72.452A Displaced supracondylar fracture without intracondylar extension of lower end of left femur, initial encounter for closed fracture (principal); N18.6 End stage renal disease; J18.9 Pneumonia, unspecified organism; I12.0 Hypertensive chronic kidney disease with stage 5 chronic kidney disease or end stage renal disease; I69.354 Hemiplegia and hemiparesis following cerebral infarction affecting left non-dominant side; G93.40 Encephalopathy, unspecified; E11.22 Type 2 diabetes mellitus with diabetic chronic kidney disease; Z99.2 Dependence on renal dialysis; D63.1 Anemia in chronic kidney disease; E87.5 Hyperkalemia; I25.10 Atherosclerotic heart disease of native coronary artery without angina pectoris
CPT/HCPCS: 36430; 70450; 70551; 71045; 73550; 73560; 73562; 80048; 80053; 80061; 81001; 82140; 82550; 82553; 82962; 83036; 83735; 84100; 84484; 85014; 85018; 85025; 86644; 86850; 86900; 86901; 86920; 87081; 87086; 87340; 90935; 93005; 93306; 97110; 97163; 97530; A4310; C1713; J0690; J1100; J1170; J1644; J1815; J1885; J2270; J2370; J2405; J2543; J7030; J7040; L1832; P9016; P9045; P9047; Q4081

== ENCOUNTER 2019-02-27 06:21 | Day surgery (SDC) | payer MEDICARE, BC ==
[~2019-02-27] VITALS: Ht 160 cm; Wt 83.0 kg
[~2019-02-27 06:21] MED LIST changes: +ATOR40TA68 PO; +CALC667C PO; -CLOP75TA19 PO; +CLOP75TA27 PO; -HYDR-3025 PO
[2019-02-27 07:25] VITALS: Ht 160 cm; Wt 83.0 kg
[2019-02-27 07:26] VITALS: BP 145/61; PULSE 76; RESP 18
[2019-02-27] MEDS ORDERED: CEFAZOLIN 1 GM/50 ML (PMX) 50 ML IVPB ONE (08:01)
[2019-02-27] MEDS ORDERED: FENTAnyl 50 MCG/ML VIAL ONE (08:02)
[2019-02-27] MEDS ORDERED: MIDAZOLAM 1 MG/ML 2 ML INJ ONE (08:02)
[2019-02-27] MEDS ORDERED: HEPARIN 1000 UNITS/ML 10 ML INJ ONE (08:22)
[2019-02-27] MEDS ORDERED: LIDOCAINE 1% (MDV) 20 ML INJ ONE (08:22)
[2019-02-27 09:04] VITALS: BP 99/50; PULSE 73; RESP 18
== END 2019-02-27 09:34 | disposition home or self-care (01) ==
LOC: SDS 06:21
PROVIDERS: ATTEND Surgery Vascular Surgery
DX: T82.49XD Other complication of vascular dialysis catheter, subsequent encounter (principal); Y84.1 Kidney dialysis as the cause of abnormal reaction of the patient, or of later complication, without mention of misadventure at the time of the procedure; I12.0 Hypertensive chronic kidney disease with stage 5 chronic kidney disease or end stage renal disease; N18.6 End stage renal disease
CPT/HCPCS: J0690; J1644; J2250; J3010